=== PATIENT | male | born 1965 | race Caucasian/White ===

== ENCOUNTER 2019-01-13 13:29 | Emergency (ER) | payer OTHER, SELFPAY ==
[2019-01-13 13:29] VITALS: BP 157/82; PULSE 80; RESP 14; TEMP 36.3; O2SAT 98; BMI 26.8
--- NOTE | 2019-01-13 13:59 | RAD_ITS ---
STUDY: X-RAY - LUMBAR SPINE REASON FOR EXAM: Male, 53 years old. Back pain. TECHNIQUE: 3 view(s) of the lumbar spine were obtained. COMPARISON: None FINDINGS: Normal lumbar lordosis. There is no substantial scoliosis. There is a normal alignment of the vertebrae. Normal vertebral bodies and endplates. Normal disc space heights. The soft tissue structures are unremarkable. RAD/Lumbar Spine 2 or 3 Views IMPRESSION: Normal x-ray examination of the lumbar spine. Electronically Signed: Kareem Paul, at 14:27 EDT , Service support ,
[2019-01-13] MEDS: Morphine 4 MG/ML Syringe IM (14:24)
[2019-01-13] MEDS: Orphenadrine 60 MG/2 ML Ampul IM (14:24)
[2019-01-13] MEDS: Ketorolac 60 MG/2 ML Vial IM (14:24)
--- NOTE | 2019-01-13 14:32 | ED.VISSUMM ---
- ER Visit Summary Date of Service: 01/13/19 Chief Complaint: Back pain History of Present Illness: The patient is a 53 M who presents with back pain that began today. Patient states he was bending over to tie his shoe when he felt a pop in his back. Patient states the pain radiates to the left lateral thigh. Patient also admits to some numbness over the left lateral thigh. Patient denies any weakness. Patient states his pain is sharp and stabbing. Patient states the pain is worse when he is sitting or standing upright. Patient states he has been having difficulty ambulated due to the pain. Patient states he has to use something to help support him when he walks. Patient denies any bowel or bladder changes. Patient denies any saddle anesthesia. Physical Examination: Vital signs are stable. Patient is afebrile. Patient is in no acute distress. There is no reproducible tenderness over the lumbar spine and paraspinal muscles. There is pain in the low back with straight leg raising. There is no radicular pain with straight leg raising. Strength is 5/5 bilaterally. Deep tendon reflexes were 2+/4 bilaterally. There are no sensory deficits noted. Range of motion of the lumbar spine was limited in all motion secondary to pain. Test Results: X-rays of the lumbar spine were obtained. There is no acute fracture or spondylolisthesis noted. Emergency Department Course and Treatment: Patient was given injections of Toradol, morphine, and Norflex. Patient felt better on reevaluation. Patient was given prescriptions for Naprosyn, Flexeril, and a short course of [place]. Patient states he has an appoint with his primary care physician in 2 days. Patient was instructed to follow-up with his primary care physician as scheduled. Patient was instructed to rest. Patient was instructed to return if worse in any way. Patient was also instructed to return if he develops any changes in his bowel or bladder. Patient understood and was agreeable with the plan. All questions were answered. Disposition: Discharge home Impression: Acute low back pain This note was generated with [employer] dictation software. It may contain incorrect words, spelling, and punctuation that were not noted in review of the chart prior to signing ED Disposition - Plan for ED Patient: Disposition: Home or Assisted Living Diagnosis: Acute low back pain Instructions: ED Neck Back Pain General Prescriptions: Hydrocodone Bitart/Apap 5-325 [[place] 5MG-325MG] 1 tab PO Q6H PRN PRN 3 Days #10 tab PRN Reason: Pain Naproxen [Naprosyn] 500 mg PO BID PRN #20 tab cycloBENZAPRine HCl [Flexeril] 10 mg PO TID PRN #20 tab PRN Reason: Muscle Spasm Referrals: Clair Perry DO [Primary Care Provider] - Keep Adolfo appointment
--- NOTE | 2019-01-13 14:35 | ED.DCSUM_ITS ---
- ER Visit Summary Date of Service: 01/13/19 Chief Complaint: Back pain History of Present Illness: The patient is a 53 M who presents with back pain that began today. Patient states he was bending over to tie his shoe when he felt a pop in his back. Patient states the pain radiates to the left lateral th igh. Patient also admits to some numbness over the left lateral thigh. Patient denies any weakness. Patient states his pain is sharp and stabbing. Patient states the pain is worse when he is sitting or standing upright. Patient states he has been having difficulty ambulated due to the pain. Patient states he has to use something to help support him when he walks. Patient denies any bowel or bladder changes. Patient denies any saddle anesthesia. Physical Examination: Vital signs are stable. Patient is afebrile. Patient is in no acute distress. There is no reproducible tenderness over the lumbar spine and paraspinal muscles. There is pain in the low back with straight leg raising. There is no radicular pain with straight leg raising. Strength is 5/5 bilaterally. Deep tendon reflexes were 2+/4 bilaterally. There are no sensory deficits noted. Range of motion of the lumbar spine was limited in all motion secondary to pain. Test Results: X-rays of the lumbar spine were obtained. There is no acute fracture or spondylolisthesis noted. Emergency Department Course and Treatment: Patient was given injections of Toradol, morphine, and Norflex. Patient felt better on reevaluation. Patient was given prescriptions for Naprosyn, Flexeril, and a short course of [place]. Patient states he has an appoint with his primary care physician in 2 days. Patient was instructed to follow-up with his primary care physician as scheduled. Patient was instructed to rest. Patient was instructed to return if worse in any way. Patient was also instructed to return if he develops any changes in his bowel or bladder. Patient understood and was agreeable with the plan. All questions were answered. Disposition: Discharge home Impression: Acute low back pain This note was generated with [employer] dictation software. It may contain incorrect words, spelling, and punctuation that were not noted in review of the chart prior to signing ED Disposition - Plan for ED Patient: Disposition: Home or Assisted Living Diagnosis: Acute low back pain Instructions: ED Neck Back Pain General Prescriptions: Hydrocodone Bitart/Apap 5-325 [[place] 5MG-325MG] 1 tab PO Q6H PRN PRN 3 Days #10 tab PRN Reason: Pain Naproxen [Naprosyn] 500 mg PO BID PRN #20 tab cycloBENZAPRine HCl [Flexeril] 10 mg PO TID PRN #20 tab PRN Reason: Muscle Spasm Referrals: Clair Perry DO [Primary Care Provider] - Keep Adolfo appointment
[2019-01-13 15:17] VITALS: RESP 18
== END 2019-01-13 15:17 | disposition home or self-care (01) ==
PROVIDERS: Emergency Provider Emergency Medicine; Family Provider Internal Medicine; PCP Internal Medicine
DX: M54.5 Low back pain (principal); I10 Essential (primary) hypertension
CPT/HCPCS: 72100; 96372; 99282

== ENCOUNTER 2019-02-05 13:00 | Outpatient (RCR) | payer OTHER, SELFPAY ==
--- NOTE | 2019-01-20 13:59 | HP.PTEVAL_ITS ---
Patient's Visit Information ANGEL MESA is a 53 year old M referred to Physical Therapy by Clair Perry DO with a diagnosis of L/S radiculopathy. Date of Evaluation: 01/20/19 Physical Therapist: Lucas Morris, DPT, OCS, CSCS - Visit Plan Frequency: 3x /Week Duration: 4-6 Weeks Plan: 3x/week for 2-6 for gradual ext ROM(down from flexion/prone on pillows), posture, ES adn MH, core strength and refunction ex. Pt extremely hunched over and deviated forward at arrival and no PROM able outside of slow prone on pillows. - Subjective Findings: Bent over last Friday to tie shoes before work. No problems day before but has on and off history. Could not get up and sat for two hours, crawled onto bed. Had to crawl to the bathroom. pain is LB R 10 at the time. Now 6/10. Moving is worse at 8/10. Sit too long and cannot get up. Standing is painful. No leg symptoms lately, had some L leg numbness at first. WEnt to ER that day, did x ray whcih showed nothing. Gave pills and they helped and to doctor the next day. Flexeril and prednosione given by doctor which helped alot. Sleep not great, on back. Getting up is hard. 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 Off since last Friday and off until at least 01/30. Dressing self and showering and bathing OK now just labored adn takes longer. - Pain L LBP Pain Intensity (Out of 10): 4 Pain Intensity Range: 4, 8 - Objective Hunched forward and deviated R. Cannot stand up tall. reflexes 2/3 patella adn achilles B. Sensation LE WNL to gross light touch. No c/o bowel or bladder problems. LE strength symmterically limited by pain not myotomal. Walks hunched over and trasnfers slow and painful. Treated with prone on pillowsx4 a nd got down to 2 pillows then stood up. More upright adn no deviation upon standing, still flexed 8 degrees forward at departure but walking better with improved posture. - Goals Goal 1:: Stadn up tall without pain. Goal Time Frame: 4-6 Weeks Goal 2:: Walk and steps without noticing LB Goal Time Frame: 4-6 Weeks Goal 3:: Full aROM L/S without hesitation Goal Time Frame: 2-4 Weeks Goal 4:: Ready to get back to work Goal Time Frame: 4-6 Weeks - Rehabilitation Potential Physical Therapy Diagnosis: LBP likely discal Rehabilitation Potential: Fair - Anticipated Interventions Patient/Client Instruction: Educate patient on: Condition, Plan of Care For the Purpose of:: To decrease pain, To increase ROM, To improve muscle performance and motor function, To improve ability of physical actions for home/community/work/leisure Therapeutic Exercise to Include: Strength training, Postural training, Flexibilty training, Passive ROM, Active ROM, Celia Exercises For the Purpose of:: To decrease pain, To increase ROM, To improve muscle performance and motor function, To improve performance and independence with ADL's, To improve ability of physical actions for home/community/work/leisure Manual Therapy Techniques to Include: Mobilization For the Purpose of:: To increase ROM TENS: Yes Thermo therapy (hot pack): Yes For the Purpose of:: To decrease pain Thank you for the opportunity to evaluate your patient. For Medicare and Medicare HMO plans, please review the plan of care and approve it. It will need to be FAXED BACK to us at [phone] for Medicare purposes. For Medicare only, by signing this I certify the plan of care. Please let me know if there are questions or concerns regarding this plan of care. Physician Signature: Date:
--- NOTE | 2019-02-05 13:12 | HP.PTDCSUM ---
HP - PT D/C Summary It has been my pleasure to treat ANGEL MESA under orders from Clair Perry DO, for the diagnosis of L/S radiculopathy for a total of 7 visit(s). Discharge Date: 02/05/19 Please see the following information for a summary of their discharge status. - Subjective Subjective: No real pain, just feels tired in LB. Morning is very tight. hard to get moving in am. No pain this week, Improving. Stilla voids physical activity like golfing. Back to doctor next Friday. HEP: pelvic tilt movements, lying flat in prone. Still needs ROM with bending and twisting. Feels like he is ready to be done with PT. Will keep doing ex at home. - Pain L LBP Pain Intensity (Out of 10): 4 - Overall Improvement % Improvement: 85 - Objective Objective/Function: Pt has mod limitations in ext whcih improve after PPU. Much better ROM vs initial visit. Able to stand up tall without pain and transfer out of chair without difficulty. Bends forward without a challenge. stille xhibits poor posture. He wishes to be done with PT and return to work after next week which should be fine with some care and focus. Further PT should be considered for more strengthening if pain returns. - Goals Goal 1:: Stadn up tall without pain. Goal Progress: Goal Met Goal 2:: Walk and steps without noticing LB Goal Progress: Goal Met Goal 3:: Full aROM L/S without hesitation Goal Progress: Progressing Goal 4:: Ready to get back to work Goal Progress: one more week. - Plan Plan: D/C at pt request. - D/C Information Discharge Comments: Pt doing well with everyday ADLs. Moving significantly better then 2 weeks ago. Still exhibits some poor postural habits. May benefit from further strength in future if pain returns. If there are questions or concerns regarding this patient's physical therapy, please feel free to call me at [phone]. Thank you for the referral of this patient. Sincerely, Lucas Morris, DPT, OCS, CSCS
== END 2019-02-05 19:00 | disposition home or self-care (01) ==
LOC: PT 13:00
PROVIDERS: Family Provider Internal Medicine; PCP Internal Medicine; Visit Provider Internal Medicine
DX: M54.16 Radiculopathy, lumbar region (principal)
CPT/HCPCS: 97032; 97110; 97162; 97530

== ENCOUNTER → 2021-05-29 08:08 | Outpatient (REF) | payer SELFPAY | LOC: CVS 08:08 | DX: Z00.00 Encounter for general adult medical examination without abnormal findings (principal) ==

== ENCOUNTER → 2025-01-07 | Outpatient (CLI) | payer OTHER, SELFPAY ==
[2025-01-07 16:43] LABS: CRP < 3.00 mg/L (0.0-3.0)
[2025-01-11 15:08] LABS: Immunoglobulin A 227 mg/dL (90-386); t-Transglutaminase IgA <2 U/mL (0-3)
== END | disposition home or self-care (01) ==
LOC: LAB 14:13
PROVIDERS: PCP Internal Medicine; Referring Provider Nurse Practitioner Acute Care; Visit Provider Nurse Practitioner Acute Care
DX: R19.7 Diarrhea, unspecified (principal); R63.4 Abnormal weight loss
CPT/HCPCS: 36415; 82784; 83516; 84443; 86140

== ENCOUNTER 2025-02-24 06:54 | Day surgery (SDC) | payer OTHER, SELFPAY ==
[2025-02-24] VITALS (7 sets, daily range): BP systolic 103–124; BP diastolic 61–81; PULSE 57–73; RESP 16–18; TEMP 36.2–36.6; O2SAT 97–99; BMI 26.4
--- OUTSIDE RECORDS SUMMARY | 2025-02-24 06:59 | XMS RPT_ITS | CCD ---
Author Organization [facility] Care Team Providers Care Production Utility Worker Name Role Phone IRMA VENCES Unavailable Unavailable PHYSICIAN, PATIENT UNSURE Unavailable Clair Hussein Unavailable Yvette Chin Unavailable Thao Schaefer Unavailable Unavailable Gravius, Ml Unavailable Unavailable Ronak, Sole Unavailable Unavailable Unavailable Unavailable Clair Perry Unavailable Yvette Chin Unavailable Thao Schaefer Unavailable Unavailable Ronak, Sole Unavailable Unavailable Unavailable Unavailable [facility] Unavailable Juhi Paige Unavailable Unavailable Ariel, Rosalinda L Unavailable Unavailable Vani Marks Unavailable Unavailable Thao Schaefer Unavailable Unavailable Yadira Harris Unavailable Andrea Velasquez Unavailable Unavailable Gravius, Ml Unavailable Unavailable Federica Perry DOhleen Unavailable [facility] Unavailable Yvette Chin MD Unavailable Vani Marks LPN Unavailable Unavailable Ciesheidi LOPEZ Breana Unavailable Thao Schaefer RN Unavailable Unavailable Gravius COLLEGE HIRE, Ml Unavailable Unavailable Ronak, Sole Unavailable Unavailable Unavailable Unavailable Uriel Delgadillo Unavailable Vicky CAAL Clair Unavailable Dr. Sourav Araujo Unavailable [facility] BURNER OPERATOR, Monika Unavailable Unavailable Clair Perry DO Attending Unavailable Yvette Chin MD Referring Unavailable Clair Perry DO Consulting Unavailable Glen CHUNG, Rodolfo Unavailable Unavailable Clair Perry DO Primary Care Provider Care Physician, No Primary Primary Care Provider Unavailable Assessment, Health Risk Attending Provider Unava ilusman Hahn MD, Dr. Goldberg Attending Provider [phone] Care Physician, No Primary Referring Provider Un available Vanessa Esquivel Attending Provider Dr. Clair Perry DO Primary Care Provider Ricardo DUNCANCVanessa Referring Provider Care Physician, No Primary Primary Care Unava ilable Yusuf Hahn Attending Unavailable Clair Perry Primary Care Unavailable Vanessa Silva Referring Unavailable Vanessa Silva Attending Unavailable Jun Collins Attending Unavailable Clair Perry Primary Care Unavailable Care Physician, No Primary Primary Care Unava ilable Assessment, Health Risk Attending Unavaila ble Clair Perry Primary Care Unavailable Care Physician, No Primary Referring Unava ilable Vanessa Silva Attending Unavailable Medications Current Medications Medication Drug Class(es) Dates Sig (Normalized) Sig (Original) aspirin 81 mg delayed release oral tablet (1 source) Platelet Aggregation Inhibitor, Nonsteroidal Anti-inflammatory Drug take 1 tablet by mouth once daily aspirin, enteric coated (ASPIRIN, ENTERIC COATED) 81 mg EC tablet Take 81 mg by mouth once daily. Active aspirin 500 mg / caffeine 32.5 mg oral tablet (1 source) Platelet Aggregation Inhibitor, Nonsteroidal Anti-inflammatory Drug, Central Nervous System Stimulant, Methylxanthine Start: 12-10-2024 Aspirin-Caffeine (Eric Back And Body) 500-32.5 mg tablet Active 2 {tbl} PO daily December 10, 2024 12:00am Multivitamin capsule (1 source) take 1 capsule by mouth once daily Multivitamin capsule Take 1 capsule by mouth once daily. Active Multivitamin tablet (1 source) Start: 12-10-2024 Multivitamin tablet Active 1 {tbl} PO daily December 10, 2024 12:00am rifAXIMin 550 mg oral tablet (1 source) Rifamycin Antibacterial Start: 01-02-2025 take 1 tablet by mouth three times daily Rifaximin (Xifaxan) 550 mg tablet Active 550 mg PO THREE TIMES A DAY January 02, 2025 12:00am rosuvastatin calcium 5 mg oral tablet (3 sources) HMG-CoA Reductase Inhibitor Start: 12-10-2024 take 1 tablet by mouth once daily Rosuvastatin 5 mg tablet Active 5 mg PO daily December 10, 2024 12:00am Start: 04-07-2023 take 1 tablet by poornima th once daily at bedtime Crestor 5 mg oral tablet 1 (one) tablet qhs for 0 days Quantity: 30 {Tablet} Refills: 5 Ordered: 07-Apr-2023 Clair Perry DO, DO, Kathleen Start : 07-Apr-2023 Active Start: 2023 take 1 tablet by poornima th once daily at bedtime Crestor 5 mg oral tablet 1 (one) tablet qhs for 0 days Quantity: 30 {Tablet} Refills: 5 Ordered: 14-Mar-2023 Clair Perry DO, DO, Kathleen Start : 14-Mar-2023 Active Completed/Discontinued Medications Medication Drug Class(es) Dates Sig (Normalized) Sig (Original) acetaminophen 500 mg oral tablet (20 sources) take 1 tablet by mouth twice daily TYLENOL EXTRA STRENGTH, 500MG (Oral Tablet) 1 tab bid (500 MG) Active acetaminophen 325 mg / HYDROcodone bitartrate 5 mg oral tablet (20 sources) Opioid Agonist Start: 02-10-2019 End: 02-15-2019 take 1 tablet by mouth every six hours as needed [place] 5-325 MG Oral Tablet 1 (one) Tablet q6h prn for 5 days Quantity: 20 {Tablet} Refills: 0 Ordered: 10-Feb-2019 Clair Perry DO, DO, Kathleen Start : 10-Feb-2019 End : 15-Feb-2019 Inactive Comments: M54.5twenty Start: 01-13-2019 End: 01-19-2019 take 1 tablet by mouth every six hours as needed [place] 5-325 MG Oral Tablet 1 (one) Tablet q6h prn for 5 days Quantity: 20 {Tablet} Refills: 0 Ordered: 14-Jan-2019 Clair Perry DO, DO, Kathleen Start : 14-Jan-2019 End : 19-Jan-2019 Inactive Start: 09-11-2010 End: 09-29-2012 take 1 tablet by mouth every six hours VICODIN, 5-500MG (Oral Tablet) 1 Tablet q 6 hr for 0 days Quantity: 30 {Tablet} Refills: 0 Ordered: 29-Sep-2012 hTao Schaefer RN Start : 11-Sep-2010 End : 29-Sep-2012 Inactive Comments: geronimo Start: 09-11-2010 End: 09-29-2012 take 1 tablet by mouth every six hours VICODIN, 5-500MG (Oral Tablet) 1 Tablet q 6 hr for 0 days Quantity: 30 {Tablet} Refills: 0 Ordered: 29-Sep-2012 Thao Schaefer LPN Start : 11-Sep-2010 End : 29-Sep-2012 Inactive Comments: thirty Comment on above: geronimo [id number] [id number] 200 actuat albuterol 0.09 mg/actuat metered dose inhaler (20 sources) beta2-Adrenergic Agonist Start: 07-17-2010 End: 09-29-2012 take 2 puff(s) by mouth three times daily PROVENTIL HFA, 108 (90 Base)MCG/ACT (Inhalation Aerosol Solution) 2 (two) Puff(s) tid prn for 0 days Quantity: 1 {Aerosol_Soln} Refills: 0 Ordered: 29-Sep-2012 Thao Schaefer RN Start : 17-Jul-2010 End : 29-Sep-2012 Inactive Comments: rinse mouth out after use Start: 07-17-2010 End: 09-29-2012 take 2 puff(s) by mouth three times daily PROVENTIL HFA, 108 (90 Base)MCG/ACT (Inhalation Aerosol Solution) 2 (two) Puff(s) tid prn for 0 days Quantity: 1 {Aerosol_Soln} Refills: 0 Ordered: 29-Sep-2012 Thao Schaefer RN Start : 17-Jul-2010 End : 29-Sep-2012 Inactive Comments: rinse mouth out after use take 2 puff(s) by in halation four times daily as needed PROAIR HFA, 108 (90 Base)MCG/ACT (Inhalation Aerosol Solution) 2 puffs qid, prn (108 (90 Base) MCG/ACT) Inactive take 2 puff(s) by in halation four times daily as needed PROAIR HFA, 108 (90 Base)MCG/ACT (Inhalation Aerosol Solution) 2 puffs qid, prn (108 (90 Base) MCG/ACT) Inactive Comment on above: rinse mouth out afte r use amoxicillin 120 mg/ml / clavulanate 8.58 mg/ml oral suspension (20 sources) Penicillin-class Antibacterial Start: 0 End: 0 take 7.3 mL by mouth twice daily Amoxicillin-Pot Clavulanate 600-42.9 MG/5ML Oral Suspension Reconstituted 7.3 Milliliter bid for 10 days Quantity: 146 {Milliliter} Refills: 0 Ordered: 27-Aug-2019 Clair Perry DO, DO, Kathleen Start : 27-Aug-2019 End : 06-Sep-2019 Inactive Start: 09-11-2010 End: 09-29-2012 take 1 tablet by mouth twice daily AUGMENTIN, 875-125MG (Oral Tablet) 1 (one) Tablet bid for 0 days Quantity: 20 {Tablet} Refills: 0 Ordered: 29-Sep-2012 Thao Schaefer RN Start : 11-Sep-2010 End : 29-Sep-2012 Inactive ascorbic acid 500 mg oral tablet (20 sources) take 1 tablet by mouth once daily VITAMIN C, 500MG (Oral Tablet) 1 (one) daily (500 MG) Inactive azithromycin 250 mg oral tablet (20 sources) Macrolide Antimicrobial Start: 015 End: 015 ZITHROMAX Z-RONALD, 250MG (Oral Tablet) 1 (one) Tablet TAD for 0 days Quantity: 1 {Package} Refills: 0 Ordered: 03-Jul-2015 Start : 27-Oct-2014 End : 03-Jul-2015 Discontinued Comments: will call if need void after 30 days Comment on above: will call if need vo id after 30 days breath-actuated 120 actuat beclomethasone dipropionate 0.04 mg/actuat metered dose inhaler (20 sources) Corticosteroid Start: 018 End: 018 take 1 puff(s) by inhalation once in the morning Qvar RediHaler 40 MCG/ACT Inhalation Aerosol Breath Activated 1 (one) Puff q am for 90 days Quantity: 3 {Inhaler} Refills: 3 Ordered: 13-Nov-2017 Ronak Raghuie Start : 11-Nov-2017 End : 13-Nov-2017 Discontinued Start: 11-10-2017 End: 11-11-2017 take 2 puff(s) by inhalation once in the morning Qvar 40 MCG/ACT Inhalation Aerosol Solution 2 (two) puffs q am for 0 days Quantity: 3 {Inhaler} Refills: 3 Ordered: 11-Nov-2017 Sole Simons Start : 10-Nov-2017 End : 11-Nov-2017 Discontinued Start: 11-10-2017 End: 11-11-2017 take 2 puff(s) by inhalation once in the morning Qvar 40 MCG/ACT Inhalation Aerosol Solution 2 (two) puffs q am for 0 days Quantity: 3 {Inhaler} Refills: 3 Ordered: 11-Nov-2017 Sole Simons Start : 10-Nov-2017 End : 11-Nov-2017 Discontinued 120 actuat budesonide 0.08 mg/actuat / formoterol fumarate 0.0045 mg/actuat metered dose inhaler (20 sources) Corticosteroid, beta2-Adrenergic Agonist Start: 11-24-2017 End: 02-22-2018 take 1 puff(s) by inhalation twice daily Symbicort 80-4.5 MCG/ACT Inhalation Aerosol 1 (one) Puff BID for 90 days Quantity: 3 {Inhaler} Refills: 0 Ordered: 24-Nov-2017 Clair Perry DO, DO, Kathleen Start : 24-Nov-2017 End : 22-Feb-2018 Inactive Start: 11-24-2017 End: 02-22-2018 take 1 puff(s) by inhalation twice daily Symbicort 80-4.5 MCG/ACT Inhalation Aerosol 1 (one) Puff BID for 90 days Quantity: 3 {Inhaler} Refills: 0 Ordered: 24-Nov-2017 Clair Perry DO, DO, Kathleen Start : 24-Nov-2017 End : 22-Feb-2018 Inactive 24 hr clarithromycin 500 mg extended release oral tablet (20 sources) Macrolide Antimicrobial Start: 07-16-2010 End: 07-30-2010 take 2 tablets by mouth once daily BIAXIN XL PAC, 500MG (Oral Tablet Extended Release 24 Hour) 2 (two) Tablet ER 24HR daily for 14 days Quantity: 28 {Tablet_ER_24HR} Refills: 0 Ordered: 16-Jul-2010 Yadira Harris Start : 16-Jul-2010 End : 30-Jul-2010 Inactive Start: 07-16-2010 End: 07-30-2010 take 2 tablets by mouth once daily BIAXIN XL PAC, 500MG (Oral Tablet Extended Release 24 Hour) 2 (two) Tablet ER 24HR daily for 14 days Quantity: 28 {Tablet_ER_24HR} Refills: 0 Ordered: 16-Jul-2010 Yadira Harris CNP Start : 16-Jul-2010 End : 30-Jul-2010 Inactive codeine phosphate 2 mg/ml / guaiFENesin 20 mg/ml oral solution (20 sources) Opioid Agonist Start: 08-07-2020 End: 04-27-2021 Cheratussin AC 100-10 MG/5ML Oral Solution 5-10 Milliliter tid or qid prn for 0 days Quantity: 280 {Milliliter} Refills: 0 Ordered: 07-Aug-2020 Ml Gomez CMA Start : 07-Aug-2020 End : 27-Apr-2021 Discontinued Comments: This order discontinued per [employer]. Start: 08-27-2019 End: 01-03-2020 take 5-10 mL by mouth every eight hours as needed Cheratussin AC 100-10 MG/5ML Oral Syrup 5-10 Milliliter q8hrs prn for 0 days Quantity: 60 {Milliliter} Refills: 0 Ordered: 03-Jan-2020 Ml Gomez CMA Start : 27-Aug-2019 End : 03-Jan-2020 Inactive Start: 10-28-2014 End: 07-03-2015 CHERATUSSIN AC, 100-10MG/5ML (Oral Syrup) 1 Teaspoon(s) q8hrs prn for 0 days Quantity: 6 {Ounce} Refills: 0 Ordered: 03-Jul-2015 Start : 28-Oct-2014 End : 03-Jul-2015 Discontinued Comments: called to [facility] 10-28-14 heather Comment on above: called to [facility] 10-28 heather This order discontin ued per [facility]. cyclobenzaprine hydrochloride 10 mg oral tablet (20 sources) Muscle Relaxant Start: 019 End: 019 take 1 tablet by mouth twice daily as needed Cyclobenzaprine HCl 10 MG Oral Tablet 1 (one) Tablet bid prn for 10 days Quantity: 20 {Each} Refills: 0 Ordered: 25-Jan-2019 Clair Perry DO Vicky CAAL Clair Start : 14-Jan-2019 End : 24-Jan-2019 Inactive Comments: [facility] Start: 01-13-2019 End: 12-10-2024 take 1 tablet by mouth three times daily as needed for muscle spasms Cyclobenzaprine 10 MG tablet Discontinued 10 mg PO THREE TIMES A DAY as needed for Muscle Spasm January 13, 2019 12:00am December 10, 2024 3:47pm Start: 09-09-2006 End: 09-25-2006 take 1 tablet by mouth twice daily as needed FLEXERIL, 10MG (Oral Tablet) Tablet BID/PRN for 0 days Quantity: 30 {Tablet} Refills: 0 Ordered: 09-Sep-2006 Kay Fields Start : 09-Sep-2006 End : 25-Sep-2006 Discontinued Comment on above: [facility] dexamethasone 6 mg oral tablet (17 sources) Corticosteroid Start: 2019 End: 2019 take 1 tablet by mouth once daily at mealtime Dexamethasone 6 MG Oral Tablet 1 (one) Tablet daily for 5 days Quantity: 5 {Tablet} Refills: 0 Ordered: 07-Aug-2020 KiannaYadira matthew Start : 07-Aug-2020 End : 12-Aug-2020 Inactive Comments: with food Comment on above: with food doxycycline hyclate 100 mg oral capsule (20 sources) Tetracycline-class Drug Start: 2015 End: 2015 Doxycycline Hyclate 100 MG Oral Capsule 1 (one) Capsule take 2 once for 0 days Quantity: 2 {QS} Refills: 0 Ordered: 24-Jun-2016 Thao Schaefer RN Start : 18-Dec-2015 End : 24-Jun-2016 Inactive esomeprazole 40 mg delayed release oral capsule (20 sources) Proton Pump Inhibitor Start: 2013 End: 2015 take 1 capsule by mouth once daily NexIUM 40 MG Oral Capsule Delayed Release 1 (one) Capsule DR qd for 0 days Quantity: 30 {Capsule} Refills: 3 Ordered: 24-Jun-2016 Thao Schaefer RN Start : 29-Mar-2014 End : 24-Jun-2016 Inactive hydroCHLOROthiazide 12.5 mg / losartan potassium 50 mg oral tablet (20 sources) Thiazide Diuretic, Angiotensin 2 Receptor Chastity Start: 2022 take 1 tablet by mouth once daily Hyzaar 50-12.5 mg oral tablet 1 (one) Tablet qd for 90 days Quantity: 90 {Tablet} Refills: 1 Ordered: 24-Dec-2022 Vicky DO, Clair Vicky DO, Clair Start : 24-Dec-2022 Active Start: 07-01-2022 take 1 tablet by poornima th once daily Hyzaar 50-12.5 MG Oral Tablet 1 (one) Tablet qd for 90 days Quantity: 90 {Tablet} Refills: 1 Ordered: 01-Jul-2022 Vicky DO, Clair Vicky DO Clair Start : 01-Jul-2022 Active Start: 01-04-2022 take 1 tablet by poornima th once daily Hyzaar 50-12.5 MG Oral Tablet 1 (one) Tablet qd for 90 days Quantity: 90 {Tablet} Refills: 1 Ordered: 04-Jan-2022 GravDu garcia CMAin Start : 04-Jan-2022 Active Start: 12-19-2021 take 1 tablet by poornima th once daily Hyzaar 50-12.5 MG Oral Tablet 1 (one) Tablet qd for 90 days Quantity: 90 {Tablet} Refills: 0 Ordered: 19-Dec-2021 Vicky DO, Clair Vicky DO Clair Start : 19-Dec-2021 Active Start: 12-26-2020 take 1 tablet by poornima th once daily Hyzaar 50-12.5 MG Oral Tablet 1 (one) Tablet qd for 90 days Quantity: 90 {Tablet} Refills: 3 Ordered: 26-Dec-2020 Vicky DO, Clair Vicky DO, Clair Start : 26-Dec-2020 Active Start: 07-21-2020 take 1 tablet by poornima th once daily Hyzaar 50-12.5 MG Oral Tablet 1 (one) Tablet qd for 90 days Quantity: 90 {Tablet} Refills: 3 Ordered: 21-Jul-2020 Vicky DO, Clair Vicky DO Clair Start : 21-Jul-2020 Active Start: 09-15-2017 take 1 tablet by poornima th once daily Hyzaar 50-12.5 MG Oral Tablet 1 (one) Tablet qd for 90 days Quantity: 90 {Tablet} Refills: 3 Ordered: 17-Nov-2019 Clair Perry DO, DO, Kathleen Start : 17-Nov-2019 Active levoFLOXacin 500 mg oral tablet (20 sources) Quinolone Antimicrobial Start: 07-30-2010 End: 09-11-2010 take 1 tablet by mouth once daily LEVAQUIN, 500MG (Oral Tablet) 1 Tablet qd for 0 days Quantity: 10 {Tablet} Refills: 0 Ordered: 11-Sep-2010 Thao Schaefer RN Start : 30-Jul-2010 End : 11-Sep-2010 Inactive 12 hr loratadine 5 mg / pseudoephedrine sulfate 120 mg extended release oral tablet (20 sources) alpha-Adrenergic Agonist Start: 07-23-2010 End: 09-11-2010 take 5-120 mg by mouth every twelve hours CLARITIN-D 12 HOUR, 5-120MG (Oral Tablet Extended Release 12 Hour) 1 Tablet ER 12HR q 12 hrs for 0 days Quantity: 20 {Tablet_ER_12HR} Refills: 0 Ordered: 11-Sep-2010 Thao Schaefer RN Start : 23-Jul-2010 End : 11-Sep-2010 Inactive meloxicam 15 mg oral tablet (9 sources) Nonsteroidal Anti-inflammatory Drug Start: 06-12-2022 take 1 tablet by mouth once daily at mealtime meloxicam 15 mg oral tablet 1 (one) Tablet qd with food for 0 days Quantity: 30 {Tablet} Refills: 2 Ordered: 12-Jun-2022 Clair Perry DO, DO, Kathleen Start : 12-Jun-2022 Active Start: 06-10-2022 take 1 tablet by poornima th once daily at mealtime Meloxicam 15 MG Oral Tablet 1 (one) Tablet qd with food for 0 days Quantity: 30 {Tablet} Refills: 2 Ordered: 10-Jun-2022 Clair Perry DO, DO, Kathleen Start : 10-Jun-2022 Active Start: 01-04-2022 take 1 tablet by poornima th once daily at mealtime Meloxicam 15 MG Oral Tablet 1 (one) Tablet qd with food for 0 days Quantity: 30 {Tablet} Refills: 2 Ordered: 04-Jan-2022 Clair Perry DO, DO, Kathleen Start : 04-Jan-2022 Active 24 hr metoprolol succinate 25 mg extended release oral tablet (20 sources) beta-Adrenergic Chastity Start: 07-07-2015 End: 12-18-2015 take 1 tablet by mouth every twenty-four hours in the morning TOPROL XL, 25MG (Oral Tablet Extended Release 24 Hour) 1 (one) Tablet ER 24HR in am for 0 days Quantity: 30 {Tablet} Refills: 2 Ordered: 18-Dec-2015 Monika Mccullough LPN Start : 07-Jul-2015 End : 18-Dec-2015 Discontinued 120 actuat mometasone furoate 0.22 mg/actuat dry powder inhaler (20 sources) Corticosteroid Start: 05-27-2018 End: 11-09-2018 take 1 puff(s) by inhalation twice daily Asmanex 120 Metered Doses 220 MCG/INH Inhalation Aerosol Powder Breath Activated 1 (one) Puff bid for 30 days Quantity: 1 {Inhalation} Refills: 4 Ordered: 09-Nov-2018 Thao Schaefer RN Start : 27-May-2018 End : 09-Nov-2018 Inactive multivitamin (20 sources) take 1 tablet by mouth once daily MULTIVITAMIN (PO Tab) 1 (one) daily Active naproxen 500 mg oral tablet (1 source) Nonsteroidal Anti-inflammatory Drug Start: 01-13-2019 End: 12-10-2024 take 1 tablet by mouth twice daily as needed Naproxen 500 MG tablet Discontinued 500 mg PO TWICE DAILY NEEDED January 13, 2019 12:00am December 10, 2024 3:43pm omeprazole 20 mg delayed release oral tablet (20 sources) Proton Pump Inhibitor Start: 03-30-2014 End: 10-27-2014 take 1 tablet by mouth once daily OMEPRAZOLE, 20MG (Oral Tablet Delayed Release) 1 (one) Tablet DR qd for 0 days Quantity: 30 {Tablet} Refills: 0 Ordered: 27-Oct-2014 MAYNOR Gaines LPN Start : 30-Mar-2014 End : 27-Oct-2014 Inactive predniSONE 20 mg oral tablet (20 sources) Corticosteroid Start: 03-15-2019 End: 05-26-2019 predniSONE 20 MG Oral Tablet TAD Tablet 1 bid x 3 days, 1 daily x 4 days, 1/2 x 4 days for 0 days Quantity: 12 {Tablet} Refills: 0 Ordered: 26-May-2019 Andrea Simons LPN Start : 15-Mar-2019 End : 26-May-2019 Inactive Comments: take with food Start: 01-14-2019 predniSONE 20 MG Oral Tablet TAD Tablet 1 bid x 3 days, 1 daily x 4 days, 1/2 x 4 days for 0 days Quantity: 12 {Tablet} Refills: 0 Ordered: 14-Jan-2019 Vicky CAAL Clair Vicky CAAL Clair Start : 14-Jan-2019 Active Comments: take with food Start: 07-23-2010 End: 09-11-2010 PREDNISONE, 20MG (Oral Table t) TAD Tablet 1 bid x 3 days, 1 daily x 4 days, 1/2 x 4 days for 0 days Quantity: 12 {Tablet} Refills: 0 Ordered: 11-Sep-2010 Thao Schaefer LPN Start : 23-Jul-2010 End : 11-Sep-2010 Inactive Comments: take with food Comment on above: take with food Qvar RediHaler 40 MCG/ACT Inhalation Aerosol Breath Activated (1 source) Start: 11-11-2017 End: 11-13-2017 take 1 puff(s) by inhalation once in the morning Qvar RediHaler 40 MCG/ACT Inhalation Aerosol Breath Activated 1 (one) Puff q am for 90 days Quantity: 3 {Inhaler} Refills: 3 Ordered: 13-Nov-2017 Sole Simons Start : 11-Nov-2017 End : 13-Nov-2017 Discontinued Problems Active Problems Problem Classification Problem Date Documented Da te Episodic/Chronic Administrative/social admission (20 sources) Counseling procedure with explicit context; Translations: [Patient encounter status] 07-16-2017 Episodic Alcohol-related disorders (20 sources) Alcohol abuse; Translations: [Alcohol abuse] 07-16-2017 Chronic Allergic reactions (20 sources) Dermatitis; Translations: [Eczema] Resolved: 9 02-15-2009 Episodic Asthma (20 sources) Unspecified asthma with status asthmaticus; Translations: [Acute severe exacerbation of intrinsic asthma] 05-27-2018 Chronic Comment on above: stable stable w/o inhalers Asthma (20 sources) Asthma Cardiac dysrhythmias (20 sources) Palpitations; Translations: [PALPITATIONS (Renamed from Awareness of heartbeats)] 07-16-2017 Episodic Comment on above: had in past, echo 2 normal some stress and stopped exercising so try [email or web address] on exercise. Chronic obstructive pulmonary disease and bronchiectasis (20 sources) Bronchitis; Translations: [Bronchitis] Resolved: 4 05-23-2015 Episodic Chronic obstructive pulmonary disease and bronchiectasis (20 sources) Chronic obstructive pulmonary disease and bronchiectasis Diabetes mellitus without complication (20 sources) Abnormal glucose tolerance test; Translations: [Abnormal glucose tolerance test (Renamed from Abnormal glucose tolerance test (GTT))] 09-03-2021 Episodic Disorders of lipid metabolism (20 sources) Hypertriglyceridemia; Translations: [Hypertriglyceridemia] 02-10-2019 Chronic Essential hypertension (20 sources) Benign hypertension; Translations: [HTN (hypertension), benign] 11-09-2018 Chronic Comment on above: follow trends before increase meds with wt loss Fluid and electrolyte disorders (20 sources) Hypokalemia; Translations: [Hypokalemia] Resolved: 1 05-03-2021 Episodic Headache, including migraine (20 sources) Headache; Translations: [Acute intractable headache, unspecified headache type] Resolved: 6 07-16-2017 Episodic Comment on above: massage hlepd Headache, including migraine (20 sources) Headache, including migraine Hyperplasia of prostate (20 sources) Benign prostatic hyperplasia; Translations: [Benign prostatic hyperplasia] 07-16-2017 Chronic Comment on above: stream ok Immunizations and screening for infectious disease (20 sources) Need for prophylactic vaccination and inoculation against influenza; Translations: [Contact with and (suspected) exposure to other viral communicable diseases] 08-01-2020 Episodic Comment on above: from daughter, sympt oms Day #2 Lymphadenitis (20 sources) Axillary lymphadenopathy; Translations: [Axillary lymphadenopathy] Resolved: 6 07-16-2017 Episodic Malaise and fatigue (20 sources) Fatigue; Translations: [Fatigue, unspecified type] Resolved: 6 07-16-2017 Episodic Nonspecific chest pain (20 sources) Chest pain; Translations: [Chest pain] Resolved: 9 09-17-2013 Episodic Comment on above: atypical--with FMX Other bone disease and musculoskeletal deformities (20 sources) Osteochondropathy; Translations: [Bone/cartilage disorder] 07-16-2017 Chronic Other bone disease and musculoskeletal deformities (20 sources) Osteochondropathy; Translations: [Bone/cartilage disorder] 08-07-2020 Episodic Other circulatory disease (20 sources) Elevated blood-pressure reading without diagnosis of hypertension; Translations: [Elevated blood-pressure reading without diagnosis of hypertension] 07-16-2017 Episodic Other connective tissue disease (20 sources) Pain in left hand; Translations: [Pain of left hand] Resolved: 3 11-09-2018 Episodic Comment on above: declined x-ray Other connective tissue disease (20 sources) Pain in left foot; Translations: [Foot pain, left] Resolved: 0 08-01-2020 Episodic Other connective tissue disease (20 sources) Triggering of digit; Translations: [Trigger finger, left middle finger] 09-03-2021 Episodic Other connective tissue disease (15 sources) Impingement syndrome of left shoulder region; Translations: [Impingement syndrome of left shoulder] 01-04-2022 Episodic Comment on above: nsaid - PT -- pt dec lined inj now Other connective tissue disease (15 sources) Tendinitis of right elbow; Translations: [Tendonitis of elbow, right] 01-04-2022 Episodic Other gastrointestinal disorders (20 sources) Diarrhea; Translations: [Diarrhea (Renamed from D (diarrhea))] Resolved: 4 10-27-2014 Episodic Other gastrointestinal disorders (1 source) Gastrointestinal tract problem; Translations: [Other specified symptoms and signs involving the digestive system and abdomen] 12-10-2024 Episodic Other gastrointestinal disorders (1 source) Diarrhea, unspecified; Translations: [Diarrhea, unspecified] Onset: 5 Episodic Other hematologic conditions (20 sources) Abnormality of globulin; Translations: [Increased globulin] 07-16-2017 Episodic Other injuries and conditions due to external causes (20 sources) Tick bite; Translations: [Tick bite of abdomen] Resolved: 6 07-16-2017 Episodic Comment on above: deer tick on abd and knee will treat as if Other injuries and conditions due to external causes (20 sources) Muscle strain; Translations: [Muscle strain] Resolved: 3 07-16-2017 Episodic Other injuries and conditions due to external causes (20 sources) Injury of wrist; Translations: [Wrist injury (Renamed from Injury of wrist)] Resolved: 4 10-27-2014 Episodic Other lower respiratory disease (20 sources) Chronic cough; Translations: [cough 786.2 (Renamed from Chronic cough)] Resolved: 4 10-27-2014 Episodic Comment on above: dry Other lower respiratory disease (20 sources) Wheezing; Translations: [Wheezing] Resolved: 4 10-27-2014 Episodic Other nervous system disorders (20 sources) Paresthesia; Translations: [Paresthesia] Resolved: 5 05-30-2015 Episodic Other non-traumatic joint disorders (20 sources) Wrist joint pain; Translations: [Wrist joint pain (Renamed from Arthralgia of wrist)] Resolved: 4 10-27-2014 Episodic Other non-traumatic joint disorders (20 sources) Joint pain; Translations: [Arthralgia] Resolved: 6 07-16-2017 Episodic Comment on above: check labs Other nutritional; endocrine; and metabolic disorders (20 sources) Body mass index 25-29 - overweight; Translations: [BMI 25.0-25.9,adult] Resolved: 0 07-16-2017 Chronic Other nutritional; endocrine; and metabolic disorders (18 sources) Body mass index 30+ - obesity; Translations: [BMI 33.0-33.9,adult] Resolved: 2 09-03-2021 Chronic Other nutritional; endocrine; and metabolic disorders (20 sources) Body mass index 25-29 - overweight; Translations: [BMI 26.0-26.9,adult] Resolved: 0 08-07-2020 Episodic Other nutritional; endocrine; and metabolic disorders (20 sources) Overweight in adulthood with body mass index of 25 or more but less than 30; Translations: [BMI 26.0-26.9,adult] Resolved: 0 01-04-2022 Episodic Other nutritional; endocrine; and metabolic disorders (1 source) Weight decreased; Translations: [Abnormal weight loss] 01-02-2025 Episodic Other screening for suspected conditions (not mental disorders or infectious disease) (20 sources) Imaging of thorax abnormal; Translations: [Abnormal chest x-ray] Resolved: 5 10-27-2014 Chronic Other skin disorders (20 sources) Eruption; Translations: [Rash] Resolved: 4 10-27-2014 Episodic Other skin disorders (20 sources) Tongue swelling; Translations: [Tongue swelling (Renamed from Glossal swelling)] Resolved: 4 10-27-2014 Episodic Comment on above: ? ibu. ? acquire ang ioedema. will check labs. also swell in finger Other skin disorders (20 sources) Skin lesion; Translations: [Skin lesion of back] Resolved: 3 07-21-2020 Episodic Other skin disorders (8 sources) Senile hyperkeratosis; Translations: [SK (seborrheic keratosis)] 07-21-2020 Episodic Comment on above: reasssurrance given Other skin disorders (20 sources) Other seborrheic keratosis; Translations: [Seborrheic keratosis] 08-07-2020 Episodic Comment on above: reasssurrance given Other skin disorders (20 sources) Finding of axilla; Translations: [Axillary fullness] Resolved: 6 07-16-2017 Episodic Other skin disorders (15 sources) Abnormality of nail surface; Translations: [Abnormality of nail surface] 01-04-2022 Episodic Other upper respiratory infections (20 sources) Acute sinusitis; Translations: [Acute pharyngitis] Resolved: 5 07-07-2015 Episodic Comment on above: nettipot and mucinex if not better after this weekend get zpak nettipot and mucinex Pneumonia (20 sources) Bacterial pneumonia; Translations: [Severe acute respiratory syndrome] Resolved: 4 07-04-2015 Episodic Comment on above: Day #8 along with wi fe, cough worse Pneumonia (20 sources) Pneumonia Residual codes; unclassified (20 sources) Flushing; Translations: [Flushing] Resolved: 6 07-16-2017 Episodic Residual codes; unclassified (20 sources) Body mass index (BMI) 24.0-24.9, adult; Translations: [Body mass index 20-24 - normal] Resolved: 9 11-09-2018 Episodic Residual codes; unclassified (20 sources) Sleep disorder Episodic Residual codes; unclassified (20 sources) Current non-smoker ; Translations: [Current non-smoker] 08-07-2020 Episodic Residual codes; unclassified (20 sources) Non-smoker; Translations: [Current non-smoker] 01-04-2022 Episodic Screening and history of mental health and substance abuse codes (20 sources) Tobacco use and exposure - finding; Translations: [History of tobacco abuse] 08-07-2020 Episodic Screening or history of mental health and substance abuse (20 sources) Tobacco use and exposure - finding; Translations: [History of tobacco abuse] 07-16-2017 Chronic Spondylosis; intervertebral disc disorders; other back problems (20 sources) Backache; Translations: [Low back pain] Resolved: 9 09-17-2013 Episodic Comment on above: doing well wants to go back to work filled out paper work he didnt want to do mri yet since improving -- graduating to home therapy and see how it goespt about 85% better with PT so far pt has been- on work restrictions for back chronic issues - and needs reinstated for htis yr since still a problem and chronic pt has been Unclassified (20 sources) Non-organic sleep disorder; 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, nonorganic] 07-16-2017 Chronic Unclassified (20 sources) Imaging of thorax abnormal; Translations: [Screening status] Resolved: 5 10-27-2014 Episodic Unclassified (20 sources) Needs influenza immunization; 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] Resolved: 6 07-16-2017 Episodic Unclassified (20 sources) Rash (782.1) Unclassified (20 sources) Unclassified (20 sources) BMI 26.0-26.9,adult Unclassified (20 sources) Current non-smoker ; Translations: [Current non-smoker] 07-16-2017 Unclassified (20 sources) Elevated Blood Pressure without diagnosis of Hypertension (796.2) Unclassified (20 sources) PHARYNGITIS, ACUTE (462.) Unclassified (20 sources) cough 786.2 (Renamed from Chronic cough (786.2)) Unclassified (20 sources) Tongue swelling (Renamed from Glossal swelling) Unclassified (20 sources) Arthralgia (719.40) Unclassified (20 sources) HTN (hypertension), benign Unclassified (20 sources) Hand pain, left Unclassified (20 sources) Low back pain potentially associated with radiculopathy Unclassified (20 sources) BMI 28.0-28.9,adult Unclassified (11 sources) COVID-19 virus detected Unclassified (8 sources) BRONCHITIS, NOT SPECIFIED ACUTE OR CHRONIC (490.) Unclassified (6 sources) BMI 33.0-33.9,adult Unclassified (15 sources) Abnormal glucose tolerance test (Renamed from Abnormal glucose tolerance test (GTT)) Unclassified (6 sources) Trigger middle finger of right hand Unclassified (6 sources) Trigger finger, left middle finger Unclassified (3 sources) BMI 23.0-23.9, adult Unclassified (3 sources) Abnormality of nail surface Unclassified (3 sources) Tendonitis of elbow, right Unclassified (3 sources) Impingement syndrome of left shoulder Viral infection (20 sources) Other specified viral infection; Translations: [COVID-19] 08-07-2020 Episodic Comment on above: Day #8 along with wi fe, cough worse Viral infection (13 sources) Disease caused by 2019-nCoV Past or Other Problems Problem Classification Problem Date Documented Da te Episodic/Chronic Abdominal pain (20 sources) Epigastric pain; Translations: [Epigastric Pain (Renamed from Abdominal pain, epigastric)] Onset: 12-12-2014 Resolved: 08-01-2016 07-16-2017 Episodic Influenza (20 sources) Influenza Other connective tissue disease (16 sources) Pain of left hand; Translations: [Hand pain, left] 02-10-2019 Comment on above: declined x-ray Other connective tissue disease (10 sources) Pain in left foot; Translations: [Foot pain, left] Resolved: 07-21-2020 07-21-2020 Other diseases of veins and lymphatics (1 source) Varicocele; Translations: [Scrotal varices] Onset: 06-21-2008 06-21-2008 Episodic Other eye disorders (1 source) Blepharitis; Translations: [Edema of unspecified eye, unspecified eyelid] Onset: 03-06-2014 03-06-2014 Episodic Other skin disorders (11 sources) Mass of axilla; Translations: [Axillary fullness] Resolved: 08-01-2016 07-16-2017 Episodic Other skin disorders (11 sources) Inflammatory dermatosis; Translations: [Dermatitis] Resolved: 02-15-2009 02-15-2009 Episodic Unclassified (20 sources) Patient encounter status; Translations: [Annual physical exam] Resolved: 2014 07-16-2017 Unclassified (20 sources) Fatigue, unspecified type Unclassified (20 sources) Axillary fullness Unclassified (20 sources) Tick bite of abdomen, subsequent encounter Unclassified (20 sources) BMI 27.0-27.9,adult Unclassified (20 sources) Tick bite of abdomen Unclassified (20 sources) Tick bite of knee Unclassified (20 sources) Nutritional counseling Unclassified (20 sources) History of tobacco abuse Unclassified (20 sources) Elevated serum globulin level Unclassified (20 sources) Abnormal chest x-ray Unclassified (20 sources) BMI 25.0-25.9,adult Unclassified (20 sources) Diarrhea (Renamed from D (diarrhea)) Unclassified (20 sources) BMI 24.0-24.9, adult Unclassified (20 sources) Wrist injury (959.3) Unclassified (20 sources) Unspecified Diagnosis 11-13-2017 Unclassified (20 sources) DISORDER, BONE/CARTILAGE NOS (733.90) Unclassified (20 sources) Well Male Exam (V70.0) Unclassified (20 sources) BPH without Urin. Obst (600.00) Unclassified (20 sources) Screening status; Translations: [Screening for prostate cancer] Resolved: 02-15-2009 05-23-2015 Unclassified (20 sources) infection of left great toe with ingrown toenail Resolved: 01-05-2009 09-17-2013 Unclassified (20 sources) Parasthesia (782.0) Unclassified (20 sources) Alcohol abuse, unspecified drinking behavior (305.00) Unclassified (20 sources) SCREENING FOR CANCER OF THE PROSTATE (V76.44) Unclassified (20 sources) Annual physical exam Unclassified (16 sources) Body mass index 20-24 - normal; Translations: [BMI 24.0-24.9, adult] Resolved: 02-10-2019 02-10-2019 Unclassified (10 sources) Finding of axilla; Translations: [Axillary fullness] Resolved: 08-01-2016 07-16-2017 Unclassified (17 sources) Encounter for screening for malignant neoplasm of prostate (Renamed from Screening for prostate cancer) Unclassified (18 sources) Foot pain, left Unclassified (18 sources) Skin lesion of back Unclassified (18 sources) SK (seborrheic keratosis) Unclassified (18 sources) Acute non-recurrent maxillary sinusitis Unclassified (13 sources) Exposure to SARS virus Unclassified (8 sources) Asthma,Intrinsic (493.11) Unclassified (6 sources) Encounter for well adult exam with abnormal findings Results Test Name Value Interpretation Reference Range Facility Immunoglobulin Aon 5 IMMUNOGLOB A QN 227 mg/dL Normal 90-386 [facility] Comment on above: Order Comment: N Result Comment: Perf ormed at: [facility] [id number] Cut Order Hand: Demetrius Acosta PhD, Phone: [phone] Performed By: #### L 3200.1400, L501.6710, L3410.2920, L501.9520 #### [facility] [address] [place], [address] t-Transglutaminase IgAon tTG IGA <2 Normal 0-3 [facility] Comment on above: Result Comment: Nega tive 0 - 3 Weak Positive 4 - 10 Positive >10 Tissue Transglutaminase (tTG) has been identified as the endomysial antigen. Studies have demonstr- ated that endomysial IgA antibodies have over 99% specificity for gluten sensitive enteropathy. Performed By: #### L 3200.1400, L501.6710, L3410.2920, L501.9520 #### [facility] [address] [place], [address] CRPon 01-07-2025 C-REACTIVE PROT < 3.00 Normal 0.0-3.0 [facility] Comment on above: Performed By: #### L 3200.1400, L501.6710, L3410.2920, L501.9520 #### [facility] [address] [place], [place], [id number] Serum or plasma C reactive p rotein measurement (mass/volume)Ordered By: Vanessa Silva on 01-07-2025 CRP [Mass/Vol] mg/L 0.0-3.0 [facility] Serum or plasma IgA measurem ent (mass/volume)Ordered By: Vanessa Silva on 01-07-2025 IgA [Mass/Vol] 227 mg/dL 90-386 [facility] Comment on above: Performed at: [address] [id number] Director: Demetrius Acosta PhD, Phone: [phone] Serum tissue transglutaminas e (tTG) IgA antibody assay (units/volume)Ordered By: Vanessa Silva on 01-07-2025 tTG IgA Qn (S) <2 U/mL 0-3 [facility] Comment on above: Negative 0 - 3 Weak Positive 4 - 10 Positive >10 Tissue Transglutaminase (tTG) has been identified as the endomysial antigen. Studies have demonstr- ated that endomysial IgA antibodies have over 99% specificity for gluten sensitive enteropathy. TSH DL <= 0.005 mIU/L QnOrde red By: Vanessa Silva on 01-07-2025 TSH Qn 0.570 uIU/mL 0.300-4.20 0 [facility] Thyroid Stim Hormone (TSH)on 01-07-2025 TSH 0.570 uIU/mL Normal 0.300-4.20 0 [facility] Comment on above: Performed By: #### L 3200.1400, L501.6710, L3410.2920, L501.9520 #### [facility] [address] [place], [address] Gastroenterology Visit Repor ton 12-10-2024 Gastroenterology Visit Report [facility] [address] [place] [address] OFFICE VISIT Date of Service: 12/10/24 MR#: [id number] Acct: [id number] Name: ROBERT MESA Rep #: [id number] : 1965 Provider: LOBITO phan Age/Sex: 59/M Location: [facility] Status: Signed Intake Vital Signs 01/13/19 13:29 12/10/24 16:12 Height 6 ft 6 ft Weight: 200 lb 4 oz BMI 27.1 BP 139/87 H Respiration 16 Pulse 65 Pulse Oximetry (%) 98 Oxygen Delivery Method room air Intake Visit Reasons: Diarrhea Chief Complaint: diarrhea Line Production Cook Required: No Accompanied by: Is patient in pain?: No Allergies No Known Allergies Allergy (Verified 12/10/24 15:42) Medications ???Medication ???Instructions ???Recorded ???Confirmed ???Type losartan 50 mg-hydrochlorothiazide 1 tab PO DAILY 01/13/19 12/10/24 History 12.5 mg tablet aspirin-caffeine 500 mg-32.5 mg 2 tab PO QDAY 12/10/24 12/10/24 Hi story tablet (Eric Back and Body) multivitamin 1 tab PO QDAY 12/10/24 12/10/24 Hi story rosuvastatin 5 mg tablet 5 mg PO QDAY 12/10/24 12/10/24 His tory Nurse's Note: Started about a month ago. Lower front abdominal pain on occasion. PFSH Family History Father Alcoholism Myocardial infarction Heart disease Hypertension Melanoma CVA (cerebral vascular accident) Social History Smoking Status: Former smoker alcohol intake: current alcohol intake frequency: a few times a month Alcohol type: beer substance use type: does not use what type of physical activity do you participate in: walking HPI HPI Chief Complaint: diarrhea Details: ROBERT MESA, is a 59 M who presents to the office today for - seen in the office today with his - typically he is a one and done - couple months ago he decided he wanted to cut some weight and this is when diarrhea started - diarrhea is random, up to 5x a day, but can go up to 9x a day - if he wakes in the middle of the night if he wakes - lower abdominal cramping - denies any formed stools, not all liquid, [place] 5 to 6 - changed diet - quit drinking as much beer - denies any recent travel - Metamucil and Align did not help - denies any bleeding - weight loss of 17lbs - COLON 5 years ago - reports this was normal - denies any family h/o colon CA - He really does not want to have another colonoscopy - He is requesting any testing be done prior to proceeding with a colonoscopy - denies any HB - denies any N/V ROS Const Constitutional: No fatigue, fever(s) or weight change ENT ENT: No difficulty swallowing Gastro GI: Positive for abdominal pain, change in bowel habits and diarrhea; No belching, bloating, change in stool character, coffee ground emesis, constipation, cramping, heartburn, difficulty swallowing, feeling full early, excessive flatus, incontinent of stools, Vomiting blood/hematemesis, Blood in stool, loose stools, Black,tarry stools, nausea/dyspepsia, pain with swallowing, vomiting or other Musc Musculoskeletal: Positive for Arthritis; No joint pain Skin Skin: No yellowing of the eye or itchy eyes Psych Psychiatric: No anxiety and No depression Endo Endocrine: No fatigue or weight change Aller/Imm Allergy/Immunologic: No itchy eyes Juan Francisco/Lymp Hematologic/Lymphatic: No easy bleeding or easy bruising Exam Const General: cooperative, healthy appearing, no acute distress and well developed Nutritional Appearance: average body habitus and well nourished Orientation: alert and oriented x3 [facility] Head: normocephalic Ears: hearing grossly normal bilaterally Mouth: moist mucous membranes Teeth and gingiva: dentition normal Eyes Conjunctivae: conjunctivae normal Sclera: sclerae normal Neck Neck: normal visual inspection, full ROM and trachea midline Resp Effort Inspection: normal respiratory effort, able to speak in complete sentences and symmetric chest movement Auscultation: Bilateral: Clear to Auscultation Cardio Palpation: normal PMI Rate: regular rate Rhythm: regular rhythm Heart Sounds: S1 normal and S2 normal GI Inspection: normal to inspection Auscultation: normal bowel sounds Palpation: soft and no hepatosplenomegaly Rectal Exam: deferred Skin General: no rashes or lesions noted and turgor normal Neuro General: patient alert and patient oriented x3 Cranial Nerves: other (CN's grossly intact, non-focal exam) Cognition: normal cognition Speech: speech normal Gait: normal gait Extrem General: normal to inspection (no edema noted) Psych Appearance: grossly normal and well kempt Affect: normal affect Attitude: cooperative Thought Process: normal Thought Content: normal (more content not included)... Normal [facility] HIP, UNI W/ Pelvis 2-3 Views on 11-01-2024 HIP, UNI W/ Pelvis 2-3 Views [facility] [address] [place] [address] HIP, UNI W/ Pelvis 2-3 Views MR#: [id number] Acct: [id number] Name: BONITAROBERT Tony Rep #: [id number] : 1965 M 59 From: Demetrius Mclaughlin PCP: Care Physician,No Primary Status: DEP [facility] Study: HIP, UNI W/ Pelvis 2-3 Views Date of Exam: Exam# [id number] Ordering Dr: Clair Perry DO PROCEDURE: HIP, UNI W/ PELVIS 2-3 VIEWS 11/01/2024 REASON FOR EXAM: ACUTE PAIN OF RIGHT HIP, NKI TECHNIQUE: Three-view right hip to include the AP pelvis COMPARISON: None provided. RAD/HIP, UNI W/ Pelvis 2-3 Views IMPRESSION: Degenerative changes are seen of the visualized lower lumbar spine. Mild sacroiliac joint degenerative changes are noted. The hip joints demonstrate only minimal degenerative changes, and no joint narrowing is seen. No evidence of femoral head osteonecrosis. No fracture or dislocation is seen. Reading Location: [address] CC: Dr. Clair Perry DO; No Primary Care Physician Orthopedic Coder: Signed [facility] 10-27-2024 [facility] Telephone (JOVANNI) ----- ROBERT MESA ([id number]) 1965 M Date Time Provider Department 10/27/24 JOSUE FITZPATRICK During your visit today, we recorded the following information about you: Maria A Wren, RN 10/27/2024 10:33 AM Addendum Telephone call from patient's Kassi. She was asking for appt with Dr Fitzpatrick. Robert has been c/o diarrhea for past week up to three times a day- watery stool. No nausea or vomiting. No change in appetite. No pranav bleeding or black tarry stool. No weight loss. Some mild cramping to mid lower abdoman. Not real pain Last colonsocopy [address] Soto. F/U with Ely DAI said to have a followup endoscopy in 10 years. Advised Kassi to have her see his PCP - she may advise stool studies first or GI F/U verbalizes understanding and has no further questions or concerns at this time. Was advised to call as needed for future problems. Encounter closed. Allergies As of Date: 10/27/2024 (No Known Allergies) Date Reviewed: 05/04/2020 Reviewed by: Ely Arnold - Fully Assessed Reason for Visit: Patient Update [1234] Prescriptions as of 10/27/2024 - aspirin, enteric coated (ASPIRIN, ENTERIC COATED) 81 mg EC tablet Take 81 mg by mouth once daily. - losartan-hydrochlorothiaz rod (HYZAAR) 50-12.5 mg per tablet Take 1 tablet by mouth once daily. - Multivitamin capsule Take 1 capsule by mouth once daily. Problem List As Of Date 10/27/2024 Noted Resolved SCROTAL VARICES [I86.1] 06/21/2008 Eyelid gland swelling [H02.849] 03/06/2014 Right groin pain [R10.31] 12/12/2014 Encounter Status:Closed by MARIA A WREN on 10/27/24 Normal [facility] Albumin to globulin ratioOrd ered By: HEALTH ASSESSMENT on 09-28-2024 Albumin/Globulin [Mass ratio] 0.9 {ratio} Normal 0.9-2.4 [facility] Comment on above: Performed By: #### L 500.4050, L100.0500, L500.4100, L501.9910, L501.9985 #### [facility] [address] [place], [address] Automated blood erythrocyte countOrdered By: HEALTH ASSESSMENT on 09-28-2024 RBC (Bld) [#/Vol] 5.25 10*6/uL Normal 4.6-6.2 [facility] Comment on above: Performed By: #### L 500.4050, L100.0500, L500.4100, L501.9910, L501.9985 #### [facility] [address] [place], [address] Automated blood hematocrit ( percentage)Ordered By: HEALTH ASSESSMENT on 09-28-2024 Hematocrit (Bld) [Volume fraction] 46.2 % Normal 40-54 [facility] Comment on above: Performed By: #### L 500.4050, L100.0500, L500.4100, L501.9910, L501.9985 #### [facility] [address] [place], [address] Bilirubin, totalOrdered By: HEALTH ASSESSMENT on 09-28-2024 Bilirubin [Mass/Vol] 1.10 mg/dL High 0.20-1.00 [facility] Comment on above: For patients on eltr ombopag therapy, use of Dimension Carver TBIL is not recommended. Result Comment: For patients on eltrombopag therapy, use of Dimension Carver TBIL is not recommended. Performed By: #### L 500.4050, L100.0500, L500.4100, L501.9910, L501.9985 #### [facility] [address] [place], [address] Blood urea nitrogen (BUN)/cr eatinine ratioOrdered By: HEALTH ASSESSMENT on 09-28-2024 Urea nitrogen/Creatinine [Mass ratio] 15.4 mg/mg 10-20 [facility] CBC-Complete Blood Cnt No Di ffon 09-28-2024 RDW SD 39.3 fl Normal 35.1-43.9 [facility] Comment on above: Performed By: #### L 500.4050, L100.0500, L500.4100, L501.9910, L501.9985 #### [facility] [address] [place], [address] Carbon dioxide measurementOr dered By: HEALTH ASSESSMENT on 09-28-2024 CO2 [Moles/Vol] 24.0 mmol/L Normal 21.0-32.0 [facility] Comment on above: Performed By: #### L 500.4050, L100.0500, L500.4100, L501.9910, L501.9985 #### [facility] [address] [place], [address] Chloride measurementOrdered By: HEALTH ASSESSMENT on 09-28-2024 Chloride [Moles/Vol] 100 mmol/L Normal 98-107 [facility] Comment on above: Performed By: #### L 500.4050, L100.0500, L500.4100, L501.9910, L501.9985 #### [facility] [address] [place], [address] Comprehensive Metabolic Prof ilon 09-28-2024 ALK P 72 U/L Normal 45-117 [facility] Comment on above: Performed By: #### L 500.4050, L100.0500, L500.4100, L501.9910, L501.9985 #### [facility] [address] [place], [place], [id number] BUN/CRE 15.4 RATIO Normal 10-20 [facility] Comment on above: Performed By: #### L 500.4050, L100.0500, L500.4100, L501.9910, L501.9985 #### [facility] [address] [place], [place], [id number] CA,Total 8.8 mg/dL Normal 8.5-10.1 [facility] Comment on above: Performed By: #### L 500.4050, L100.0500, L500.4100, L501.9910, L501.9985 #### [facility] [address] [place], [address] EST GFR - AA 110 mL/min Normal >60 [facility] Comment on above: Result Comment: Afri can Ukrainian GFR Calc Performed By: #### L 500.4050, L100.0500, L500.4100, L501.9910, L501.9985 #### [facility] [address] [place], [address] GAP 12 Normal 5-15 [facility] Comment on above: Performed By: #### L 500.4050, L100.0500, L500.4100, L501.9910, L501.9985 #### [facility] [address] [place], [place], [id number] T PROT 7.7 g/dL Normal 6.4-8.2 [facility] Comment on above: Performed By: #### L 500.4050, L100.0500, L500.4100, L501.9910, L501.9985 #### [facility] [address] [place], [place], [id number] Comprehensive Metabolic Prof ilOrdered By: HEALTH ASSESSMENT on 09-28-2024 AST [Catalytic activity/Vol] 26 U/L Normal 15-37 [facility] Comment on above: Performed By: #### L 500.4050, L100.0500, L500.4100, L501.9910, L501.9985 #### [facility] [address] [place], [place], [id number] Erythrocyte distribution wid th ratioOrdered By: HEALTH ASSESSMENT on 09-28-2024 Erythrocyte distribution width (RBC) [Ratio] 12.3 % Normal 11.6-14.6 [facility] Comment on above: Performed By: #### L 500.4050, L100.0500, L500.4100, L501.9910, L501.9985 #### [facility] [address] [place], [address] Erythrocyte distribution wid th standard deviationOrdered By: HEALTH ASSESSMENT on 09-28-2024 Erythrocyte distribution width (RBC) [Ratio] 39.3 fl 35.1-43.9 [facility] Glomerular filtration rate ( GFR) estimationOrdered By: HEALTH ASSESSMENT on 09-28-2024 GFR/1.73 sq M.predicted among non-blacks MDRD (S/P/Bld) [Vol rate/Area] 91 mL/min/{1.73_m2} Normal >60 [facility] Comment on above: Non- GFR Calc Result Comment: Non- GFR Calc Performed By: #### L 500.4050, L100.0500, L500.4100, L501.9910, L501.9985 #### [facility] [address] [place], [place], [id number] Glucose measurementOrdered B y: HEALTH ASSESSMENT on 09-28-2024 Glucose [Mass/Vol] 103 mg/dL Normal 74-106 [facility] Comment on above: Fasting Glucose resu lt from 100 to 125 mg/dL suggests IMPAIRED HOMEOSTASIS per A.D.A. criteria. Result Comment: Fast ing Glucose result from 100 to 125 mg/dL suggests IMPAIRED HOMEOSTASIS per A.D.A. criteria. Performed By: #### L 500.4050, L100.0500, L500.4100, L501.9910, L501.9985 #### [facility] [address] [place], [place], [id number] Hemoglobin A1c percentageOrd ered By: HEALTH ASSESSMENT on 09-28-2024 HbA1c (Bld) [Mass fraction] 5.6 % Normal 3.8-5.6 [facility] Comment on above: Normal < 5.7 % Predi abetic 5.7 - 6.4 % Diabetic >or= 6.5 % Please note range changes. Result Comment: Norm al < 5.7 % Prediabetic 5.7 - 6.4 % Diabetic >or= 6.5 % Please note range changes. Performed By: #### L 500.4050, L100.0500, L500.4100, L501.9910, L501.9985 #### [facility] [address] [place], [place], [address] Hemoglobin measurementOrdere d By: HEALTH ASSESSMENT on 09-28-2024 Hemoglobin (Bld) [Mass/Vol] 16.2 g/dL Normal 13.0-16.5 [facility] Comment on above: Performed By: #### L 500.4050, L100.0500, L500.4100, L501.9910, L501.9985 #### [facility] [address] [place], [place], [address] High density lipoprotein (HD L) measurementOrdered By: HEALTH ASSESSMENT on 09-28-2024 Cholesterol in HDL [Mass/Vol] 80 mg/dL Normal [facility] Comment on above: The drugs N-Acetylcy steine and Metamizole may falsely depress this assay. Reference Range HDL <40 mg/dL Low HDL Cholesterol HDL >or= 60 mg/dL High HDL Cholesterol Result Comment: The drugs N-Acetylcysteine and Metamizole may falsely depress this assay. Reference Range HDL <40 mg/dL Low HDL Cholesterol HDL >or= 60 mg/dL High HDL Cholesterol Performed By: #### L 500.4050, L100.0500, L500.4100, L501.9910, L501.9985 #### [facility] [address] [place], [address] Lipid Profileon 09-28-2024 Cholesterol in VLDL [Mass/Vol] 34 mg/dL Normal 5-40 [facility] Comment on above: Performed By: #### L 500.4050, L100.0500, L500.4100, L501.9910, L501.9985 #### [facility] [address] [place], [place], [address] Low density lipoprotein (LDL ) cholesterol measurementOrdered By: HEALTH ASSESSMENT on 09-28-2024 Cholesterol in LDL [Mass/Vol] 65 mg/dL Normal 0-130 [facility] Comment on above: Performed By: #### L 500.4050, L100.0500, L500.4100, L501.9910, L501.9985 #### [facility] [address] [place], [address] MCV (mean corpuscular volume ) determinationOrdered By: HEALTH ASSESSMENT on 09-28-2024 MCV (RBC) [Entitic vol] 88.0 fL Normal 80-94 [facility] Comment on above: Performed By: #### L 500.4050, L100.0500, L500.4100, L501.9910, L501.9985 #### [facility] [address] [place], [address] Mean corpuscular hemoglobin (MCH) determinationOrdered By: HEALTH ASSESSMENT on 09-28-2024 MCH (RBC) [Entitic mass] 30.9 pg Normal 27.0-32.0 [facility] Comment on above: Performed By: #### L 500.4050, L100.0500, L500.4100, L501.9910, L501.9985 #### [facility] [address] [place], [address] Mean corpuscular hemoglobin concentration (MCHC) determinationOrdered By: HEALTH ASSESSMENT on 09-28-2024 MCHC (RBC) [Mass/Vol] 35.1 g/dL Normal 32-36 [facility] Comment on above: Performed By: #### L 500.4050, L100.0500, L500.4100, L501.9910, L501.9985 #### [facility] [address] [place] [place], [address] Mean platelet volume determi nationOrdered By: HEALTH ASSESSMENT on 09-28-2024 Platelet mean volume (Bld) [Entitic vol] 10.5 fL Normal 6.2-12.0 [facility] Comment on above: Performed By: #### L 500.4050, L100.0500, L500.4100, L501.9910, L501.9985 #### [facility] [address] [place], [address] PSA,Total - Annual Screenon 09-28-2024 PSA,TOT SCREEN 2.12 ng/mL Normal 0.00-4.00 [facility] Comment on above: Result Comment: This test was performed using the TPSA assay method for the [employer] chemistry system. Values obtained with different assay methods cannot be used interchangably. When changing PSA assays in the course of monitoring a patient, additional sequential testing should be carried out to confirm baseline values. Performed By: #### L 500.4050, L100.0500, L500.4100, L501.9910, L501.9985 #### [facility] [address] [place], [place], [address] Platelet countOrdered By: HE ALTH ASSESSMENT on 09-28-2024 Platelets (Bld) [#/Vol] 337 10*3/uL Normal 150-450 [facility] Comment on above: Performed By: #### L 500.4050, L100.0500, L500.4100, L501.9910, L501.9985 #### [facility] [address] [place], [address] Potassium measurementOrdered By: HEALTH ASSESSMENT on 09-28-2024 Potassium [Moles/Vol] 3.5 mmol/L Normal 3.5-5.1 [facility] Comment on above: Performed By: #### L 500.4050, L100.0500, L500.4100, L501.9910, L501.9985 #### [facility] [address] [place], [address] Serum anion gap measurementO rdered By: HEALTH ASSESSMENT on 09-28-2024 Anion gap [Moles/Vol] 12 mmol/L 5-15 [facility] Serum globulin measurementOr dered By: HEALTH ASSESSMENT on 09-28-2024 Globulin (S) [Mass/Vol] 4.0 g/dL Normal 2.2-4.2 [facility] Comment on above: Performed By: #### L 500.4050, L100.0500, L500.4100, L501.9910, L501.9985 #### [facility] [address] [place], [address] Serum or plasma alanine cruz otransferase (ALT) measurementOrdered By: HEALTH ASSESSMENT on 09-28-2024 ALT [Catalytic activity/Vol] 45 U/L Normal 16-61 [facility] Comment on above: Performed By: #### L 500.4050, L100.0500, L500.4100, L501.9910, L501.9985 #### [facility] [address] [place], [address] Serum or plasma albumin lilian urement (mass/volume)Ordered By: HEALTH ASSESSMENT on 09-28-2024 Albumin [Mass/Vol] 3.7 g/dL Normal 3.2-5.0 [facility] Comment on above: Performed By: #### L 500.4050, L100.0500, L500.4100, L501.9910, L501.9985 #### [facility] [address] [facility] [place], [address] Serum or plasma alkaline jennifer sphatase measurementOrdered By: HEALTH ASSESSMENT on 09-28-2024 ALP [Catalytic activity/Vol] 72 U/L 45-117 [facility] Serum or plasma calcium lilian urement (mass/volume)Ordered By: HEALTH ASSESSMENT on 09-28-2024 Calcium [Mass/Vol] 8.8 mg/dL 8.5-10.1 [facility] Serum or plasma cholesterol measurement (mass/volume)Ordered By: HEALTH ASSESSMENT on 09-28-2024 Cholesterol [Mass/Vol] 179 mg/dL Normal 200 [facility] Comment on above: <200 mg/dL Desirable 200-240 mg/dL Borderline >240 mg/dL High Risk Result Comment: <200 mg/dL Desirable 200-240 mg/dL Borderline >240 mg/dL High Risk Performed By: #### L 500.4050, L100.0500, L500.4100, L501.9910, L501.9985 #### [facility] [address] [place], [address] Serum or plasma creatinine m easurement (mass/volume)Ordered By: HEALTH ASSESSMENT on 09-28-2024 Creatinine [Mass/Vol] 0.91 mg/dL Normal 0.70-1.30 [facility] Comment on above: The validity of the calculated GFR & GFRAA in patients over 70 years has not been determined. Clinical correlation is essential. Result Comment: The validity of the calculated GFR GFRAA in patients over 70 years has not been determined. Clinical correlation is essential. Performed By: #### L 500.4050, L100.0500, L500.4100, L501.9910, L501.9985 #### [facility] [address] [place], [address] Serum or plasma urea nitroge n measurement (mass/volume)Ordered By: HEALTH ASSESSMENT on 09-28-2024 Urea nitrogen [Mass/Vol] 14 mg/dL Normal 7-18 [facility] Comment on above: Performed By: #### L 500.4050, L100.0500, L500.4100, L501.9910, L501.9985 #### [facility] [address] [place], [place], [address] Sodium levelOrdered By: [facility] ASSESSMENT on 09-28-2024 Sodium [Moles/Vol] 136 mmol/L Normal 136-145 [facility] Comment on above: Performed By: #### L 500.4050, L100.0500, L500.4100, L501.9910, L501.9985 #### [facility] [address] [place], [place], [address] Total proteinOrdered By: [facility] ASSESSMENT on 09-28-2024 Protein [Mass/Vol] 7.7 g/dL 6.4-8.2 [facility] Triglycerides measurementOrd ered By: HEALTH ASSESSMENT on 09-28-2024 Triglyceride [Mass/Vol] 169 mg/dL Normal [facility] Comment on above: The drugs N-Acetylcy steine and Metamizole may falsely depress this assay.Serum Triglycerides Reference Interval Normal <150 mg/dL Borderline high 150 - 199 mg/dL High 200 - 499 mg/dL Very High > or = 500 mg/dL Result Comment: The drugs N-Acetylcysteine and Metamizole may falsely depress this assay. Serum Triglycerides Reference Interval Normal <150 mg/dL Borderline high 150 - 199 mg/dL High 200 - 499 mg/dL Very High > or = 500 mg/dL Performed By: #### L 500.4050, L100.0500, L500.4100, L501.9910, L501.9985 #### [facility] [address] [place], [place], [id number] Very low density lipoprotein (VLDL) cholesterol measurementOrdered By: HEALTH ASSESSMENT on 09-28-2024 Very low density lipoprotein (VLDL) cholesterol measurement 34 mg/dL 5-40 [facility] White blood cell (WBC) count Ordered By: HEALTH ASSESSMENT on 09-28-2024 WBC (Bld) [#/Vol] 9.4 10*3/uL Normal 4.4-11.0 [facility] Comment on above: Performed By: #### L 500.4050, L100.0500, L500.4100, L501.9910, L501.9985 #### [facility] [address] [place], [address] Blood Glucose , Office ([phone])Ordered By: Ml Gomez on 01-04-2022 Glucose Glucometer (BldC) [Moles/Vol] 117 1 Normal [facility]; [facility] Work Phone: CBC W/AUTO DIFF WBC (76255)O rdered By: [employer] Manager on 01-04-2022 Basophils (Bld) [#/Vol] 0.1 10*3/uL Normal 0.0-0.2 [facility]; [facility] Work Phone: Comment on above: PATIENT WAS FASTINGP ERFORMED BY: ANDREW LabcoRobert Wood Johnson University Hospital at HamiltonIoadpw9586 [facility] [id number] Basophils/100 WBC (Bld) 1 % Normal [facility]; [facility] Work Phone: Comment on above: PATIENT WAS FASTINGP ERFORMED BY: ANDREW [facility] Rqsaxo2328 [address]ía Roadblin [place] [id number] Eosinophils (Bld) [#/Vol] 0.1 10*3/uL Normal 0.0-0.4 [facility]; [facility] Work Phone: Comment on above: PATIENT WAS FASTINGP ERFORMED BY: Lab[facility]6370 [address] Roadblin [place] [id number] Eosinophils/100 WBC (Bld) 1 % Normal [facility]; [facility] Work Phone: Comment on above: PATIENT WAS FASTINGP ERFORMED BY: [facility]6[address] RoadCritical access hospital [id number] Erythrocyte distribution width (RBC) [Ratio] 12.3 % Normal 11.6-15.4 [facility]; [facility] Work Phone: Comment on above: PATIENT WAS FASTINGP ERFORMED BY: [place] [address] [facility] [id number] Hematocrit (Bld) [Volume fraction] 46.6 % Normal 37.5-51.0 [facility]; [facility] Work Phone: Comment on above: PATIENT WAS FASTINGP ERFORMED BY: [facility] [facility] [id number] Hemoglobin (Bld) [Mass/Vol] 15.9 g/dL Normal 13.0-17.7 [facility]; [facility] Work Phone: Comment on above: PATIENT WAS FASTINGP ERFORMED BY: Lab[facility]6370 [address]ía RoadHugh Chatham Memorial Hospitalin [place] [id number] Immature granulocytes (Bld) [#/Vol] 0.0 10*3/uL Normal 0.0-0.1 [facility]; [facility] Work Phone: Comment on above: PATIENT WAS FASTINGP ERFORMED BY: [facility] Sdoqyv0070 García RoadDublin [place] [id number] Immature granulocytes/100 WBC (Bld) 1 % Normal [facility]; [facility] Work Phone: Comment on above: PATIENT WAS FASTINGP ERFORMED BY: [facility] Vhkpns0740 [address]ía RoadDublin [place] [id number] Lymphocytes (Bld) [#/Vol] 2.1 10*3/uL Normal 0.7-3.1 [facility]; [facility] Work Phone: Comment on above: PATIENT WAS FASTINGP ERFORMED BY: [facility] Vhfymg1163 [address]ía RoadDublin [place] [id number] Lymphocytes/100 WBC (Bld) 27 % Normal [facility]; [facility] Work Phone: Comment on above: PATIENT WAS FASTINGP ERFORMED BY: [facility] Lzlleo3169 [address]ía RoadDublin [place] [id number] MCH (RBC) [Entitic mass] 30.8 pg Normal 26.6-33.0 [facility]; [facility] Work Phone: Comment on above: PATIENT WAS FASTINGP ERFORMED BY: [facility] Thauuf0890 [address]ía RoadDublin [place] [id number] MCHC (RBC) [Mass/Vol] 34.1 g/dL Normal 31.5-35.7 [facility] prehensive Internal Medicine; [facility] Work Phone: Comment on above: PATIENT WAS FASTINGP ERFORMED BY: [facility] Neokra7305 [address] RoadDublin [place] [id number] MCV (RBC) [Entitic vol] 90 fL Normal 79-97 [facility]; [facility] Work Phone: Comment on above: PATIENT WAS FASTINGP ERFORMED BY: [facility] Hcphhz3490 [address]ía RoadDublin [place] [id number] Monocytes (Bld) [#/Vol] 0.7 10*3/uL Normal 0.1-0.9 [facility]; [facility] Work Phone: Comment on above: PATIENT WAS FASTINGP ERFORMED BY: [facility] Ulpgku4961 [address] RoadDublin [place] [id number] Monocytes/100 WBC (Bld) 9 % Normal [facility]; [facility] Work Phone: Comment on above: PATIENT WAS FASTINGP ERFORMED BY: CB [facility] Xssamb5247 [address] RoadDublin [place] [id number] Neutrophils (Bld) [#/Vol] 4.8 10*3/uL Normal 1.4-7.0 [facility]; [facility] Work Phone: Comment on above: PATIENT WAS FASTINGP ERFORMED BY: CB [facility] Lhuhfy9467 [address] RoadDublin [place] [id number] Neutrophils/100 WBC (Bld) 61 % Normal [facility]; [facility] Work Phone: Comment on above: PATIENT WAS FASTINGP ERFORMED BY: CB [facility] Myfozr5594 [address] RoadDublin [place] [id number] Platelets (Bld) [#/Vol] 298 10*3/uL Normal 150-450 [facility]; [facility] Work Phone: Comment on above: PATIENT WAS FASTINGP ERFORMED BY: CB [facility] Homtzc7877 [address]ía RoadDublin [place] [id number] RBC (Bld) [#/Vol] 5.17 10*6/uL Normal 4.14-5.80 Compr [facility]; [facility] Work Phone: Comment on above: PATIENT WAS FASTINGP ERFORMED BY: CB [facility] Obqrbp5259 [address] RoadDublin [place] [id number] WBC (Bld) [#/Vol] 7.8 10*3/uL Normal 3.4-10.8 Compre [facility] Internal [facility]; [facility] Work Phone: Comment on above: PATIENT WAS FASTINGP ERFORMED BY: CB [facility] Fxdtpu0111 [address]ía RoadDublin [place] [id number] HgA1C , Office ([id number])Ordere d By: Ml Gomez on 01-04-2022 HbA1c (Bld) [Mass fraction] 5.2 % Normal 4.6 - 7.1 [facility]; [facility] Work Phone: LIPID PANEL ([id number])Ordered B y: [employer] on 01-04-2022 Cholesterol [Mass/Vol] 208 mg/dL Abnormal 100-199 [facility]; [facility] Work Phone: Comment on above: PATIENT WAS FASTINGP ERFORMED BY: ANDREW [facility] Qoymrz0313 [address] RoadDublin [place] [id number] Cholesterol in HDL [Mass/Vol] 99 mg/dL Normal [facility]; [facility] Work Phone: Comment on above: PATIENT WAS FASTINGP ERFORMED BY: CB [facility] Yaklfv0786 [address] RoadDublin [place] [id number] Triglyceride [Mass/Vol] 49 mg/dL Normal 0-149 [facility]; [facility] Work Phone: Comment on above: PATIENT WAS FASTINGP ERFORMED BY: ANDREW [facility] Ubdcel2142 [address] RoadDublin [place] [id number] LIPID PANEL (83287) 9 mg/dL Normal 5-40 [facility]; [facility] Work Phone: Comment on above: PATIENT WAS FASTINGP ERFORMED BY: ANDREW [facility] Wamcll7681 [address] RoadDublin [place] [id number] LIPID PANEL (97420) 100 mg/dL Abnormal 0-99 [facility]; [facility] Work Phone: Comment on above: PATIENT WAS FASTINGP ERFORMED BY: CB [facility] Lcanee6354 [address] RoadDublin [place] [id number] LIPID PANEL (21761) 1.0 {ratio} Normal 0.0-3.6 [facility]; [facility] Work Phone: Comment on above: LDL/HDL Ratio Men Wo men 1/2 Avg.Risk 1.0 1.5 Avg.Risk 3.6 3.2 2X Avg.Risk 6.2 5.0 3X Avg.Risk 8.0 6.1 PATIENT WAS FASTINGP ERFORMED BY: CB [facility] Rljgah0849 [address] RoadDublin [place] [id number] METABOLIC PANEL, COMPREHENSI VE (76506)Ordered By: [employer] Manager on 01-04-2022 Albumin [Mass/Vol] 4.5 g/dL Normal 3.8-4.9 [facility] Internal [facility]; [facility] Work Phone: Comment on above: PATIENT WAS FASTINGP ERFORMED BY: CB [facility] Kkkizs9120 [address] RoadDublin [place] [id number] Albumin/Globulin [Mass ratio] 1.7 {ratio} Normal 1.2-2.2 [facility]; [facility] Work Phone: Comment on above: PATIENT WAS FASTINGP ERFORMED BY: CB [facility] Saopft2590 [address] RoadDublin [place] [id number] ALP [Catalytic activity/Vol] 66 U/L Normal 44-121 [facility]; [facility] Work Phone: Comment on above: PATIENT WAS FASTINGP ERFORMED BY: CB [facility] Dzfhuq8925 [address] RoadDublin [place] [id number] ALT [Catalytic activity/Vol] 19 U/L Normal 0-44 [facility]; [facility] Work Phone: Comment on above: PATIENT WAS FASTINGP ERFORMED BY: CB [facility] Vszxas0357 [address] RoadDublin [place] [id number] AST [Catalytic activity/Vol] 24 U/L Normal 0-40 [facility]; [facility] Work Phone: Comment on above: PATIENT WAS FASTINGP ERFORMED BY: CB [facility] Rbshlq9379 [address] RoadDublin [place] [id number] Bilirubin [Mass/Vol] 1.0 mg/dL Normal 0.0-1.2 [facility] Internal [facility]; [facility] Work Phone: Comment on above: PATIENT WAS FASTINGP ERFORMED BY: CB [facility] Zgozrt1103 [address] RoadDublin [place] [id number] Calcium [Mass/Vol] 9.9 mg/dL Normal 8.7-10.2 [facility] Internal [facility]; [facility] Work Phone: Comment on above: PATIENT WAS FASTINGP ERFORMED BY: CB [facility] Atyqup0634 [address] RoadDublin [place] [id number] Chloride [Moles/Vol] 97 mmol/L Normal 96-106 Comp rehensive Internal Medicine; [facility] Work Phone: Comment on above: PATIENT WAS FASTINGP ERFORMED BY: ANDREW Labcoromeo ForteXdygnj0777 [facility] [id number] CO2 [Moles/Vol] 25 mmol/L Normal 20-29 Comprehen sive Internal Medicine; [facility] Work Phone: Comment on above: PATIENT WAS FASTINGP ERFORMED BY: [facility] Jxrbuh0023 [facility] [id number] Creatinine [Mass/Vol] 0.79 mg/dL Normal 0.76-1.27 [facility] prehensive Internal Medicine; [facility] Work Phone: Comment on above: PATIENT WAS FASTINGP ERFORMED BY: [facility] Rbgxwo5185 [facility] [id number] GFR/1.73 sq M.predicted among non-blacks MDRD (S/P/Bld) [Vol rate/Area] 105 mL/min/{1.73_m2} Normal Comprehensi Internal Medicine; [facility] Work Phone: Comment on above: PATIENT WAS FASTINGP ERFORMED BY: [facility] Ekehkw4445 [facility] [id number] Globulin (S) [Mass/Vol] 2.7 g/dL Normal 1.5-4.5 [facility]; [facility] Work Phone: Comment on above: PATIENT WAS FASTINGP ERFORMED BY: [facility] Utwrmu9090 [facility] [id number] Glucose [Mass/Vol] 93 mg/dL Normal 65-99 Compre [facility] Internal [facility]; [facility] Work Phone: Comment on above: PATIENT WAS FASTINGP ERFORMED BY: [facility] Rklfeq6207 [facility] [id number] Potassium [Moles/Vol] 4.4 mmol/L Normal 3.5-5.2 Com prehensive Internal Medicine; [facility] Work Phone: Comment on above: PATIENT WAS FASTINGP ERFORMED BY: ANDREW [facility] Mehwbi0667 [address] RoadDublin [place] [id number] Protein [Mass/Vol] 7.2 g/dL Normal 6.0-8.5 [facility]; [facility] Work Phone: Comment on above: PATIENT WAS FASTINGP ERFORMED BY: ANDREW Labcoromeo Ybvwnf2298 [address]ía RoadDublin [place] [id number] Sodium [Moles/Vol] 137 mmol/L Normal 134-144 [facility]; [facility] Work Phone: Comment on above: PATIENT WAS FASTINGP ERFORMED BY: ANDREW Labcoromeo Kzxqgy2767 García RoadDublin [place] [id number] Urea nitrogen [Mass/Vol] 11 mg/dL Normal 6-24 [facility]; [facility] Work Phone: Comment on above: PATIENT WAS FASTINGP ERFORMED BY: ANDREW Labcoromeo PattonEqabfb5866 García RoadDublin [place] [id number] Urea nitrogen/Creatinine [Mass ratio] 14 mg/mg Normal 9-20 [facility]; [facility] Work Phone: Comment on above: PATIENT WAS FASTINGP ERFORMED BY: ANDREW Labmatthew Krhwpt1884 García RoadDublin [place] [id number] MICROALBUMINOrdered By: Syst em Doughmaker on 01-04-2022 Albumin DL <= 20 mg/L (U) [Mass/Vol] 3.7 ug/mL Normal [facility]; [facility] Work Phone: Comment on above: PATIENT WAS FASTINGP ERFORMED BY: ANDREW [facility] Ctwauh2494 García RoadDublin [place] [id number] Albumin/Creatinine (U) [Mass ratio] 3 {mg/g_creat} Normal 0-29 [facility]; [facility] Work Phone: Comment on above: Normal: 0 - 29 Moder ately increased: 30 - 300 Severely increased: >300 PATIENT WAS FASTINGP ERFORMED BY: ANDREW Labcoromeo Wtyhlq0930 García RoadDublin [place] [id number] Creatinine (U) [Mass/Vol] 116.3 mg/dL Normal [facility]; [facility] Work Phone: Comment on above: PATIENT WAS FASTINGP ERFORMED BY: ANDREW Forte6370 [facility] [id number] TSH ([id number])Ordered By: Kan becerra Doughmaker on 01-04-2022 TSH Qn 0.593 {uIU/mL} Normal 0.450-4.50 0 [facility]; [facility] Work Phone: Comment on above: PATIENT WAS FASTINGP ERFORMED BY: ANDREW Forte6370 [facility] [id number] Blood Glucose , Office ([phone])Ordered By: Ml Gomez on 09-03-2021 Glucose Glucometer (BldC) [Moles/Vol] 107 1 Normal [facility]; [facility] Work Phone: HgA1C , Office ([phone])Ordere d By: Ml Gomez on 09-03-2021 HbA1c (Bld) [Mass fraction] 5.4 % Normal 4.6 - 7.1 [facility]; [facility] Work Phone: HGB A1C ([id number])Ordered By: Lourdes ystem Doughmaker on 04-27-2021 HbA1c (Bld) [Mass fraction] 5.7 % Abnormal 4.8-5.6 [facility]; [facility] Work Phone: Comment on above: . Prediabetes: 5.7 - 6.4 Diabetes: >6.4 Glycemic control for adults with diabetes: <7.0 PATIENT NOT FASTINGP ERFORMED BY: ANDREW LabMatthew PattonZxtkzc1082 [facility] [id number] POTASSIUM SERUM ([id number])Order ed By: Oil Well Drilling Manager on 04-27-2021 Potassium [Moles/Vol] 4.4 mmol/L Normal 3.5-5.2 [facility] prehensive Internal Medicine; [facility] Work Phone: Comment on above: PATIENT NOT FASTINGP ERFORMED BY: ANDREW Forte6370 [facility] [id number] SARS-CoV-2 Antibody, IgG ([id number] [id number])Ordered By: Oil Well Drilling Manager on 11-06-2020 SARS-CoV-2 (COVID-19) IgG IA.rapid Ql (S/P/Bld) Positive Normal [facility]; [facility] Work Phone: Comment on above: Results suggest rece nt or prior infection with SARS-CoV-2. Correlationwith epidemiologic risk factors and other clinical and laboratoryfindings is recommended. Serologic results should not be used as thesole basis to diagnose or exclude recent SARS-CoV-2 infection. Falsepositive results infrequently occur due to prior infection with otherhuman Coronaviruses.This assay was performed using the [employer]. Liaison(R)SARS-CoV-2 S1/S2 IgG assay.This assay detects antibodies against SARS-CoV-2 spike proteinincluding the receptor binding domain (RBD). Test(s) [id number]- CoV-2 Antibody, IgGhas not been FDA cleared or approved. This test hasbeen authorized by FDA under an Emergency Use Authorization(EUA). This test is only authorized for the duration of thedeclaration that circumstances exist justifying the authorizationof emergency use of in vitro diagnostics for detection and/ordiagnosis of COVID-19 under Section 564(b)(1) of the Act, 21U.S.C. 360bbb-3(b)(1), unless the authorization is terminated orrevoked sooner. This test has been authorized only for detectingthe presence of antibodies against SARS-CoV-2, not for any otherviruses or pathogens.PATIENT NOT FASTINGPERFORMED BY: LabCo Aostzj9662 [facility] [id number] SARS-CoV-2 Antibody, IgG (66049) Positive Normal [facility]; [facility] Work Phone: Comment on above: Results suggest rece nt or prior infection with SARS-CoV-2. Correlationwith epidemiologic risk factors and other clinical and laboratoryfindings is recommended. Serologic results should not be used as thesole basis to diagnose or exclude recent SARS-CoV-2 infection. Falsepositive results infrequently occur due to prior infection with otherhuman Coronaviruses.This assay was performed using the [employer] Liaison(R)SARS-CoV-2 S1/S2 IgG assay.This assay detects antibodies against SARS-CoV-2 spike proteinincluding the receptor binding domain (RBD). Test(s) [id number]- CoV-2 Antibody, IgGhas not been FDA cleared or approved. This test hasbeen authorized by FDA under an Emergency Use Authorization(EUA). This test is only authorized for the duration of thedeclaration that circumstances exist justifying the authorizationof emergency use of in vitro diagnostics for detection and/ordiagnosis of COVID-19 under Section 564(b)(1) of the Act, 21U.S.C. 360bbb-3(b)(1), unless the authorization is terminated orrevoked sooner. This test has been authorized only for detectingthe presence of antibodies against SARS-CoV-2, not for any otherviruses or pathogens.PATIENT NOT FASTINGPERFORMED BY: [facility]6370 [facility] [id number] 2018 Novel Coronavirus (COVI D-19), GABBY ([id number])Ordered By: Oil Well Drilling Manager on 08-03-2020 2019 Novel Coronavirus (COVID-19), GABBY ([id number]) Detected Abnormal [facility]; [facility] Work Phone: Comment on above: Client Requested Fla gThis nucleic acid amplification test was developed and its performancecharacteristics determined by [employer]. Nucleic acidamplification tests include PCR and TMA. This test has not been FDAcleared or approved. This test has been authorized by FDA under anEmergency Use Authorization (EUA). This test is only authorized forthe duration of time the declaration that circumstances existjustifying the authorization of the emergency use of in vitrodiagnostic tests for detection of SARS-CoV-2 virus and/or diagnosisof COVID-19 infection under section 564(b)(1) of the Act, 21 U.S.C.360bbb-3(b) (1), unless the authorization is terminated or revokedsooner.When diagnostic testing is negative, the possibility of a falsenegative result should be considered in the context of a patient'srecent exposures and the presence of clinical signs and symptomsconsistent with COVID-19. An individual without symptoms of COVID-19and who is not shedding SARS-CoV-2 virus would expect to have anegative (not detected) result in this assay. To be done Jul; PATIENT NOT FASTINGPERFORMED BY: ANDREW [employer]6370 [facility]Saint [facility] [id number] 2018 Novel Coronavirus (COVID-19), GABBY ([id number]) Detected Abnormal [facility]; [facility] Work Phone: Comment on above: Client Requested Fla gThis nucleic acid amplification test was developed and its performancecharacteristics determined by [employer]. Nucleic acidamplification tests include PCR and TMA. This test has not been FDAcleared or approved. This test has been authorized by FDA under anEmergency Use Authorization (EUA). This test is only authorized forthe duration of time the declaration that circumstances existjustifying the authorization of the emergency use of in vitrodiagnostic tests for detection of SARS-CoV-2 virus and/or diagnosisof COVID-19 infection under section 564(b)(1) of the Act, 21 U.S.C.360bbb-3(b) (1), unless the authorization is terminated or revokedsooner.When diagnostic testing is negative, the possibility of a falsenegative result should be considered in the context of a patient'srecent exposures and the presence of clinical signs and symptomsconsistent with COVID-19. An individual without symptoms of COVID-19and who is not shedding SARS-CoV-2 virus would expect to have anegative (not detected) result in this assay. To be done Jul; PATIENT NOT FASTINGPERFORMED BY: ANDREW [employer]6370 ALL[facility] CommunicationsAt[facility] Health [facility] [id number] Protein Electro, Random Urin eOrdered By: Oil Well Drilling Manager on 05-07-2017 Albumin/Protein.total Elph mass fraction (U) 18.9 % Normal [facility] Work Phone: Comment on above: PATIENT NOT FASTINGP ERFORMED BY: ANDREW [employer]70 [address]ía RoadDublin [place] [id number] Alpha 1 globulin/Protein.tota l Elph mass fraction (U) 3.2 % Normal [facility] Work Phone: Comment on above: PATIENT NOT FASTINGP ERFORMED BY: CB [facility] Xmihak9350 García RoadDublin [place] [id number] Alpha 2 globulin/Protein.tota l Elph mass fraction (U) 18.6 % Normal [facility] Work Phone: Comment on above: PATIENT NOT FASTINGP ERFORMED BY: CB [facility] Nbdmga9646 García RoadDublin [place] [id number] Beta globulin/Protein.tota l Elph mass fraction (U) 32.6 % Normal [facility] Work Phone: Comment on above: PATIENT NOT FASTINGP ERFORMED BY: CB [facility] Jcnxdh4420 García RoadDublin [place] [id number] Gamma globulin/Protein.tota l Elph mass fraction (U) 26.6 % Normal [facility] Work Phone: Comment on above: PATIENT NOT FASTINGP ERFORMED BY: CB [facility] Wbhync7284 García RoadDublin [place] [id number] Laboratory comment Wilbur (Report) SPRCS Normal [facility] Work Phone: Comment on above: Protein electrophore sis scan will follow via computer, mail, orcourier delivery. PATIENT NOT FASTINGP ERFORMED BY: CB [facility] Hcxuyv1836 García RoadDublin [place] [id number] Protein mass conc (U) 8.7 mg/dL Normal [facility] prehensive Internal Medicine Work Phone: Comment on above: PATIENT NOT FASTINGP ERFORMED BY: CB [facility] Wznhgv8468 García RoadDublin [place] [id number] Protein.monoclonal/Pr otein.total Elph mass fraction (U) Not Observed Normal [facility] Work Phone: Comment on above: PATIENT NOT FASTINGP ERFORMED BY: CB [facility] Lkgpjg5197 García RoadDublin [place] [id number] Serum Protein Electrophoresi s (SPEP) ([id number])Ordered By: Oil Well Drilling Manager on 05-07-2017 Albumin mass conc 3.9 g/dL Normal 2.9-4.4 Compreh ensive Internal Medicine Work Phone: Comment on above: PATIENT NOT FASTINGP ERFORMED BY: CB [facility] Bwhpnj2907 García RoadDublin [place] [id number] Albumin/Globulin mass ratio 1.1 {ratio} Normal 0.7-1.7 [facility] Work Phone: Comment on above: PATIENT NOT FASTINGP ERFORMED BY: CB [facility] Veztti7325 [address]ía RoadDublin [place] [id number] Alpha 1 globulin Elph mass conc 0.3 g/dL Normal 0.0-0.4 [facility] Work Phone: Comment on above: PATIENT NOT FASTINGP ERFORMED BY: CB [facility] Vmqvvi7303 [address]ía RoadDublin [place] [id number] Alpha 2 globulin Elph mass conc 0.8 g/dL Normal 0.4-1.0 [facility] Work Phone: Comment on above: PATIENT NOT FASTINGP ERFORMED BY: CB [facility] Lhbhqv2976 García RoadDublin [place] [id number] Beta globulin Elph mass conc 1.1 g/dL Normal 0.7-1.3 [facility] Work Phone: Comment on above: PATIENT NOT FASTINGP ERFORMED BY: CB [facility] Nessmk3026 [address]ía RoadDublin [place] [id number] Gamma globulin Elph mass conc 1.4 g/dL Normal 0.4-1.8 [facility] Work Phone: Comment on above: PATIENT NOT FASTINGP ERFORMED BY: CB [facility] Xtilti5885 [address]ía RoadDublin [place] [id number] Globulin Calculated mass conc (S) 3.5 g/dL Normal 2.2-3.9 [facility] Work Phone: Globulin mass conc (S) 3.5 g/dL Normal 2.2-3.9 [facility] Work Phone: Comment on above: PATIENT NOT FASTINGP ERFORMED BY: [facility] Efwaht[address] [facility] [id number] Protein mass conc 7.4 g/dL Normal 6.0-8.5 Compreh ensive Internal Medicine Work Phone: Comment on above: PATIENT NOT FASTINGP ERFORMED BY: [facility] Tnsuxf[address] [facility] [id number] Protein.monoclonal Elph mass conc Not Observed Normal [facility] Work Phone: Comment on above: PATIENT NOT FASTINGP ERFORMED BY: [facility] Myalst4109 [facility] [id number] CBC W/Diff, AutomatedOrdered By: Oil Well Drilling Manager on 05-03-2017 Absolute Lymph 1.89 {X10_3/ul} Normal 0.83-4.51 Compr ehensive Internal Medicine Work Phone: Absolute Neut 5.3 {X10_3/uL} Normal 2.0-7.7 Compreh ensive Internal Medicine Work Phone: Comment on above: [facility] [address] [place], [address] Basophils/100 WBC (Bld) 0.6 % Normal 0-1 [facility] Work Phone: Comment on above: [facility] [address] [place], [address] Basophils/100 WBC Auto (Bld) 0.6 % Normal 0-1 [facility] Work Phone: Eosinophils/100 WBC (Bld) 3.3 % Normal 0-5 [facility] Work Phone: Comment on above: [facility] [address] [place], [address] Eosinophils/100 WBC Auto (Bld) 3.3 % Normal 0-5 [facility] Work Phone: Erythrocyte distribution width Auto Ratio (RBC) 12.0 % Normal 11.6-14.6 [facility] Work Phone: Erythrocyte distribution width Ratio (RBC) 12.0 % Normal 11.6-14.6 [facility] Work Phone: Comment on above: [facility] [address] [place], [address] Hematocrit Auto Volume Fraction (Bld) 44.2 % Normal 40-54 Comprehens beverly Internal Medicine Work Phone: Hematocrit Volume Fraction (Bld) 44.2 % Normal 40-54 [facility] Work Phone: Comment on above: [facility] [address] [place], [place], [phone]) Hemoglobin mass conc (Bld) 15.4 g/dL Normal 13.0-16.5 [facility] Work Phone: Comment on above: [place] [id number] [place], [address] IM GRAN % 0.400 % Normal 0.0-0.9 [facility] Work Phone: Comment on above: IG% - Immature Granu locytes (promyelocytes, myelocytes andmetamyelocytes) > 1% indicates that a LEFT SHIFT is Present. [facility] [address] [place], [address] Lymphocytes #/vol (Bld) 1.89 {X10_3/ul} Normal 0.83-4.51 [facility] Work Phone: Comment on above: [facility] [address] [place], [address] Lymphocytes/100 WBC (Bld) 22.8 % Normal 19-41 [facility] Work Phone: Comment on above: [facility] [address] [place], [address] Lymphocytes/100 WBC Auto (Bld) 22.8 % Normal 19-41 [facility] Work Phone: MCH Auto Entitic mass (RBC) 31.6 pg Normal 27.0-32.0 [facility] Work Phone: MCH Entitic mass (RBC) 31.6 pg Normal 27.0-32.0 [facility] Work Phone: Comment on above: [facility] [address] [place], [address] MCHC Auto mass conc (RBC) 34.8 {g/gl} Normal 32-36 [facility] Work Phone: MCHC mass conc (RBC) 34.8 {g/gl} Normal 32-36 [facility] prehensive Internal Medicine Work Phone: Comment on above: [facility] [address] [place], [address] MCV Auto Entitic volume (RBC) 90.6 fL Normal 80-94 [facility] Work Phone: MCV Entitic volume (RBC) 90.6 fL Normal 80-94 [facility] Work Phone: Comment on above: [facility] [address] [place], [address] Monocytes/100 WBC Auto (Bld) 9.2 % Normal 0-10 [facility] Work Phone: Comment on above: [facility] [address] [place], [address] Neutrophils/100 WBC (Bld) 63.7 % Normal 47-70 [facility] Work Phone: Comment on above: [facility] [address] [place], [address] Neutrophils/100 WBC Auto (Bld) 63.7 % Normal 47-70 [facility] Work Phone: Platelet mean volume Auto Entitic volume (Bld) 10.7 fL Normal 6.2-12.0 [facility] Work Phone: Platelet mean volume Entitic volume (Bld) 10.7 fL Normal 6.2-12.0 Comprehensi ve Internal Medicine Work Phone: Comment on above: [facility] [address] [place], [address] Platelets #/vol (Bld) 283 10*3/uL Normal 150-450 Co mprehensive [facility] Medicine Work Phone: Comment on above: [facility] [address] [place], [address] Platelets Auto #/vol (Bld) 283 10*3/uL Normal 150-450 [facility] Work Phone: RBC #/vol (Bld) 4.88 {M/mm3} Normal 4.6-6.2 Compreh ensive Internal Medicine Work Phone: Comment on above: [facility] [address] [place], [address] RBC Auto #/vol (Bld) 4.88 {M/mm3} Normal 4.6-6.2 Co mprehensive [facility] Work Phone: RDW SD 39.3 fL Normal 35.1-43.9 [facility] Work Phone: Comment on above: [facility] [address] [place], [address] WBC #/vol (Bld) 8.3 10*3/uL Normal 4.4-11.0 Comprehe nsive Internal Medicine Work Phone: Comment on above: [facility] [address] [place], [address] WBC Auto #/vol (Bld) 8.3 10*3/uL Normal 4.4-11.0 Com prehensive Internal Medicine Work Phone: Comprehensive Metabolic Prof ilOrdered By: Oil Well Drilling Manager on 05-03-2017 Comprehensive metabolic 2000 panel 27.0 mmol/L Normal 21.0-32.0 Comprehensi ve Internal Medicine Work Phone: Comment on above: [facility] [address] [place], [place], [address] ; can review on . Comprehensive metabolic 2000 panel 10 1 Normal 5-15 Comprehensi ve Internal Medicine Work Phone: Comment on above: [facility] [address] [place], [place], [phone] ; can review on . Comprehensive metabolic 2000 panel 0.70 mg/dL Normal 0.20-1.00 Comprehensi ve Internal Medicine Work Phone: Comment on above: [facility] [address] [place], [place], [phone] ; can review on . Comprehensive metabolic 2000 panel 102 mmol/L Normal 98-107 Comprehensi ve Internal Medicine Work Phone: Comment on above: [facility] [address] [place], [place], [phone] ; can review on . Comprehensive metabolic 2000 panel 30 U/L Normal 12-78 Comprehensi ve Internal Medicine Work Phone: Comment on above: [facility] [address] [place], [place], [address] ; can review on .20 Comprehensive metabolic 2000 panel 68 U/L Normal 45-117 Comprehensi ve Internal Medicine Work Phone: Comment on above: [facility] [address] [place], [place], [address] ; can review on .20 Comprehensive metabolic 2000 panel 139 mmol/L Normal 136-145 Comprehensi ve Internal Medicine Work Phone: Comment on above: [facility] [address] [place], [place], [address] ; can review on 9.20 Comprehensive metabolic 2000 panel 22 U/L Normal 15-37 Comprehensi ve Internal Medicine Work Phone: Comment on above: [facility] [address] [place], [place], [phone] ; can review on 05.07 Comprehensive metabolic 2000 panel 8.9 mg/dL Normal 8.5-10.1 Comprehensi ve Internal Medicine Work Phone: Comment on above: [facility] [address] [place], [place], [phone] ; can review on 05.07 Comprehensive metabolic 2000 panel 0.9 {RATIO} Normal 0.9-2.4 Comprehensi ve Internal Medicine Work Phone: Comment on above: [facility] [address] [place], [place], [phone] ; can review on 05.07 Comprehensive metabolic 1999 panel 4.1 g/dL Abnormal 2.3-3.5 Comprehensi ve Internal Medicine Work Phone: Comment on above: [facility] [address] [place], [place], [phone] ; can review on 05.07 Comprehensive metabolic 2000 panel 3.8 g/dL Normal 3.4-5.0 Comprehensi ve Internal Medicine Work Phone: Comment on above: [facility] [address] [place], [place], [address] ; can review on 05.07 Comprehensive metabolic 2000 panel 4.4 mmol/L Normal 3.5-5.1 Comprehensi ve Internal Medicine Work Phone: Comment on above: [facility] [address] [place], [place], [phone] ; can review on 05.07 Comprehensive metabolic 1999 panel 7.9 g/dL Normal 6.4-8.2 Comprehensi ve Internal Medicine Work Phone: Comment on above: [facility] [address] [place], [place], [phone] ; can review on 05.07 Comprehensive metabolic 2000 panel 17.4 {RATIO} Normal 10-20 Comprehensi ve Internal Medicine Work Phone: Comment on above: [facility] [address] [place], [place], [address] ; can review on 05.07 Comprehensive metabolic 2000 panel 130 mL/min Normal Comprehensi ve Internal Medicine Work Phone: Comment on above: GFR Calc [facility] [address] [place], [place], [id number] ; can review on 05.07 Comprehensive metabolic 2000 panel 107 mL/min Normal Comprehensi ve Internal Medicine Work Phone: Comment on above: Non- GFR Calc [facility] [address] [place], [place], [id number] ; can review on 05.07 Comprehensive [facility] 2000 panel 0.81 mg/dL Normal 0.70-1.30 Comprehensi ve Internal Medicine Work Phone: Comment on above: The validity of the calculated GFR AND GFRAA in patients over70 years has not been determined. Clinical correlation isessential. [facility] [address] [place], [place], [address] ; can review on 05.07 Comprehensive metabolic 2000 panel 14 mg/dL Normal 7-18 Comprehensi ve Internal Medicine Work Phone: Comment on above: [facility] [address] [place], [place], [address] ; can review on . Comprehensive metabolic 2000 panel 95 mg/dL Normal 70-110 Comprehensi ve Internal Medicine Work Phone: Comment on above: [facility] [address] [place], [place], [phone] ; can review on 05.07 Lipid ProfileOrdered By: Fred tem Doughmaker on 05-03-2017 Cholesterol in HDL mass conc 70 mg/dL Normal [facility] Work Phone: Comment on above: The drugs N-Acetylcy steine and Metamizole may falselydepress this assay. Reference Range HDL <40 mg/dL Low HDL Cholesterol HDL >or= 60 mg/dL High HDL Cholesterol [facility] [address] [place], [place], [id number] Cholesterol in LDL mass conc 109 mg/dL Normal 0-130 [facility] Work Phone: Cholesterol in LDL mass conc 109 mg/dL Normal 0-130 [facility] Work Phone: Comment on above: [facility] [address] [place], [place], [phone] Cholesterol in VLDL mass conc 15 mg/dL Normal 5-40 [facility] Work Phone: Comment on above: [place] [address] [place], [place], [phone] Cholesterol mass conc 194 mg/dL Normal [facility] prehensive Internal Medicine Work Phone: Comment on above: <200 mg/dL Desirable 200-240 mg/dL Borderline >240 mg/dL High Risk [place] [address] [place], [place], [phone] Triglyceride mass conc 74 mg/dL Normal [facility] Work Phone: Comment on above: The drugs N-Acetylcy steine and Metamizole may falselydepress this assay.Serum Triglycerides Reference Interval Normal <150 mg/dL Borderline high 150 - 199 mg/dL High 200 - 499 mg/dL Very High > or = 500 mg/dL [place] [address] [place], [place], [id number] MicroalbOrdered By: César ramsey on 05-03-2017 Creatinine mass conc 4.6 {mg/g_CRE} Normal [facility] Work Phone: Comment on above: [facility] [address] [place], [place], [phone] Creatinine mass conc 133.00 mg/dL Normal Co mprehensive [facility] Medicine Work Phone: Comment on above: [facility] [address] [place], [address] MICROALBUMIN,UR 6.1 mg/L Normal Comprehen sive Internal Medicine Work Phone: UR CREAT 133.00 mg/dL Normal Comprehensiv e Internal Medicine Work Phone: Microalb 6.1 mg/L Normal [facility] Work Phone: Comment on above: [facility] [address] [place], [address] Urinalysis, CompleteOrdered By: Oil Well Drilling Manager on 05-03-2017 CLARITY Clear Normal [facility] Work Phone: Comment on above: How was Urine Obtain ed? [facility] [address] [place], [place], [address] COLOR Yellow Normal [facility] Work Phone: Comment on above: How was Urine Obtain ed? [facility] [address] [place], [address] GLUCOSE, UR Normal Normal [facility] Work Phone: Comment on above: How was Urine Obtain ed? [facility] [address] [place], [address] LEUK ESTERASE Negative Normal Comprehensi ve Internal Medicine Work Phone: Comment on above: How was Urine Obtain ed? [facility] [address] [place], [address] MUCUS, URINE 0 SEEN Normal 0-5 Comprehensiv e Internal Medicine Work Phone: Comment on above: How was Urine Obtain ed? [facility] [address] [place], [address] pH UR 7.0 1 Normal 5.0 - 8.0 [facility] Work Phone: Comment on above: How was Urine Obtain ed? [facility] [address] [place], [place], [phone] Protein mass conc (U) Negative Normal Com prehensive Internal Medicine Work Phone: Comment on above: How was Urine Obtain ed? [facility] [address] [place], [place], [phone] RBC #/vol (U) 0 SEEN Normal 0-5 Comprehensi ve Internal Medicine Work Phone: Comment on above: How was Urine Obtain ed? [facility] [address] [place], [place], [phone] RBC Test strip #/vol (U) 0 SEEN Normal 0-5 [facility] Work Phone: SP.GR. DIPSTX 1.010 1 Normal 1.002-1.03 0 [facility] Work Phone: Comment on above: How was Urine Obtain ed? [facility] [address] [place], [place], [phone] .Auto Diffon 03-20-2017 Basophils Auto #/vol (Bld) 0.10 10 3/mcL Normal 0.00-0.19 [facility] ([place]) Comment on above: Performed By: #### C BC, ADIFF, ANEU, TROP, BMP, GFR ####[address] [place], [place] [address] Basophils/100 WBC Auto (Bld) 0.7 % Normal 0.0-2.5 [facility] ([place]) Comment on above: Performed By: #### C BC, ADIFF, ANEU, TROP, BMP, GFR ####An[address] [place], [place] [address] Eosinophils 0.30 10 3/mcL Normal 0.00-0.40 [facility] ([place]) Comment on above: Performed By: #### C BC, ADIFF, ANEU, TROP, BMP, GFR ####[address] [place], [place] [address] Eosinophils/100 leukocytes 3.3 % Normal 0.0-7.0 [facility] ([place]) Comment on above: Performed By: #### C BC, ADIFF, ANEU, TROP, BMP, GFR ####[address] [place], [place] [address] Lymphocytes 1.90 10 3/mcL Normal 0.77-3.85 [facility] ([place] Comment on above: Performed By: #### C BC, ADIFF, ANEU, TROP, BMP, GFR ####[address] [place], [place] [address] Lymphocytes/100 leukocytes 23.3 % Normal 10.0-50.0 [facility] ([place] Comment on above: Performed By: #### C BC, ADIFF, ANEU, TROP, BMP, GFR ####[address] [place], [place] [address] Monocytes 0.70 10 3/mcL Normal 0.15-1.00 [facility] ([place]) Comment on above: Performed By: #### C BC, ADIFF, ANEU, TROP, BMP, GFR ####[address] [place], [place] [address] Monocytes/100 leukocytes 8.5 % Normal 1.7-13.0 [facility] ([place]) Comment on above: Performed By: #### C BC, ADIFF, ANEU, TROP, BMP, GFR ####[address] [place], [place] [address] Neutrophils/100 WBC Auto (Bld) 64.2 % Normal 37.0-80.0 [facility] ([place] Comment on above: Performed By: #### C BC, ADIFF, ANEU, TROP, BMP, GFR ####[address] [place], [place] [address] .NEUABSon 03-20-2017 Neutrophils 5.10 10 3/mcL Normal 2.85-6.16 [facility] ([place] Comment on above: Performed By: #### C BC, ADIFF, ANEU, TROP, BMP, GFR ####[address] [place], [place] [address] BMPon 03-20-2017 BUN/Creatinine Ratio 16 ratio Normal 7-27 [facility] ([place]) Comment on above: Performed By: #### C BC, ADIFF, ANEU, TROP, BMP, GFR ####[address] [place], [place] [address] Calcium 9.3 mg/dL Normal 8.4-10.2 [facility] ([place] Comment on above: Performed By: #### C BC, ADIFF, ANEU, TROP, BMP, GFR ####[address] [place], [place] [address] Chloride 101 mmol/L Normal 98-107 [facility] ([place]) Comment on above: Performed By: #### C BC, ADIFF, ANEU, TROP, BMP, GFR ####[address] [place], [place] [address] CO2 27 mmol/L Normal 22-29 [facility] ([place] Comment on above: Performed By: #### C BC, ADIFF, ANEU, TROP, BMP, GFR ####[address] [place], [place] [address] Creatinine 0.8 mg/dL Normal 0.6-1.2 [facility] ([place]) Comment on above: Performed By: #### C BC, ADIFF, ANEU, TROP, BMP, GFR ####[address] [place], [place] [address] Electrolyte Balance 8.0 mEq/L Normal [facility] ([place]) Comment on above: Performed By: #### C BC, ADIFF, ANEU, TROP, BMP, GFR ####[address] [place], [place] [address] Glucose mass conc 100 mg/dL Normal 70-105 [facility] ([place]) Comment on above: Performed By: #### C BC, ADIFF, ANEU, TROP, BMP, GFR ####[address] [place], [place] [address] Potassium molar conc 4.4 mmol/L Normal 3.5-5.1 [facility] ([place]) Comment on above: Performed By: #### C BC, ADIFF, ANEU, TROP, BMP, GFR ####[address] [place], [place] [address] Sodium 136 mmol/L Normal 136-146 [facility] ([place]) Comment on above: Performed By: #### C BC, ADIFF, ANEU, TROP, BMP, GFR ####[address] [place], [place] [address] Urea nitrogen 12.8 mg/dL Normal 7.0-18.0 [facility] ([place]) Comment on above: Performed By: #### C BC, ADIFF, ANEU, TROP, BMP, GFR ####[address] [place], [place] [address] CBCon 03-20-2017 Erythrocyte distribution width Auto Ratio (RBC) 12.7 % Normal 11.5-14.5 [facility] ([place] Comment on above: Performed By: #### C BC, ADIFF, ANEU, TROP, BMP, GFR ####[address] [place], [place] [address] Erythrocytes (RBC) 4.97 10 6/mcL Normal 4.04-6.13 [facility] ([place]) Comment on above: Performed By: #### C BC, ADIFF, ANEU, TROP, BMP, GFR ####[address] [place], [place] [address] Hematocrit (HCT) 44.5 % Normal 42.0-52.0 [facility] ([place]) Comment on above: Performed By: #### C BC, ADIFF, ANEU, TROP, BMP, GFR ####[address] [place], [place] [address] Hemoglobin mass conc (Bld) 15.1 G/dL Normal 14.0-18.0 [facility] ([place] Comment on above: Performed By: #### C BC, ADIFF, ANEU, TROP, BMP, GFR ####[address] [place], [place] [address] MCH 30.4 pg Normal 27.0-31.2 [facility] ([place] Comment on above: Performed By: #### C BC, ADIFF, ANEU, TROP, BMP, GFR ####[address] [place], [place] [address] MCHC mass conc (RBC) 34.0 G/dL Normal 31.8-35.4 [facility] ([place] Comment on above: Performed By: #### C BC, ADIFF, ANEU, TROP, BMP, GFR ####[address] [place], [place] [address] MCV 89.6 fL Normal 80.0-94.0 [facility] ([place] Comment on above: Performed By: #### C BC, ADIFF, ANEU, TROP, BMP, GFR ####[address] [place], [place] [address] Platelet mean volume (PMV) 8.9 fL Normal 7.4-10.4 [facility] ([place]) Comment on above: Performed By: #### C BC, ADIFF, ANEU, TROP, BMP, GFR ####[address] [place], [place] [address] Platelets 239 10 3/mcL Normal 130-400 [facility] ([place]) Comment on above: Performed By: #### C BC, ADIFF, ANEU, TROP, BMP, GFR ####[address] [place], [place] [address] WBC (Leukocytes) 8.00 10 3/mcL Normal 4.60-10.80 [facility] ([place]) Comment on above: Performed By: #### C BC, ADIFF, ANEU, TROP, BMP, GFR ####[address] [place], [place] [address] GFRon 03-20-2017 eGFR (non-black) mL/min/{1.73_m2} Normal [facility] ([place]) Comment on above: Result Comment: GFR Population mean for , Non- Americans Ages 20-29 = 116 mL/min/1.73 sq.m. Ages 30-39 = 107 mL/min/1.73 sq.m. Ages 40-49 = 99 mL/min/1.73 sq.m. Ages 50-59 = 93 mL/min/1.73 sq.m. Ages 60-69 = 85 mL/min/1.73 sq.m. Ages 70+ = 75 mL/min/1.73 sq.m.Chronic Kidney Disease: Less than 60 mL/min/1.73 square metersEnd Stage Renal Disease: Less than 15 mL/min/1.73 square meters Performed By: #### C BC, ADIFF, ANEU, TROP, BMP, GFR ####[address] [place], [place] [address] eGFR (non-black) 122 ml/min/1.73sqm Normal [facility] ([place]) Comment on above: Result Comment: GFR Population mean for , Non- Americans Ages 20-29 = 116 mL/min/1.73 sq.m. Ages 30-39 = 107 mL/min/1.73 sq.m. Ages 40-49 = 99 mL/min/1.73 sq.m. Ages 50-59 = 93 mL/min/1.73 sq.m. Ages 60-69 = 85 mL/min/1.73 sq.m. Ages 70+ = 75 mL/min/1.73 sq.m.Chronic Kidney Disease: Less than 60 mL/min/1.73 square metersEnd Stage Renal Disease: Less than 15 mL/min/1.73 square meters Performed By: #### C BC, ADIFF, ANEU, TROP, BMP, GFR ####[address] [place], [place] [address] [facility] Note on 03-20-2017 [facility] Note Normal [facility] ([place]) Patient Summary Documentson 03-20-2017 Patient Summary Documents Normal [facility]) TROPon 03-20-2017 Troponin I.cardiac mass conc ng/mL Normal 0.00-0.30 [facility] ([place]) Comment on above: Result Comment: Belo w measuring range>=0.30 Consistent with cardiac damage, increased clinical risk and possibility of myocardial infarction. Serial measurements, clinical history, appropriate symptoms and/or ECG changes may help assess possibility of PR.*Other non-acute coronary syndrome conditions such as CHF, myocarditis, pulmonary emboli, sepsis and cardiac surgery could result in myocardial damage and increased troponin levels. Performed By: #### C BC, ADIFF, ANEU, TROP, BMP, GFR ####[address] [place], [place] [address] XR CHEST 1 VIEWon 03-20-2017 XR CHEST 1 VIEW ORIGINALClinical his tory: Chest pain. COMPARISON: None. AP radiographs of the chest were obtained. The heart is normal in size and configuration. The lungs are clear. There is no mediastinal or hilar mass or pleural effusion. There is no pneumothorax or atelectasis. The visualized bony structures are within normal limits. IMPRESSION: Normal chest. Interpreted By: Gulshan Oconnor MDPreliminary Report By: Gulshan Oconnor MDElectronically Signed By: Gulshan Oconnor MD Dictated Date: 03/20/2017 7:56:46 AM Prelim Date: 03/20/2017 7:56:46 AM Sign Date: 03/20/2017 7:57:30 AM Normal [facility] ([place]) Catecholamines, 24 UROrdered By: Oil Well Drilling Manager on 07-26-2016 DOPAMINE,U24 248 {ug/24_hr} Normal 0-510 Comprehe nsive Internal Medicine Work Phone: Comment on above: Performed at: [address] [id number] Director: Deric Montes MD, Phone: [phone] ___ TESTING PERFORMED AT [facility]. ORIGINAL REPORT ON FILE IN LAB CONTAINS ADDITIONAL TEST SITE INFORMATION. DOPAMINE,UR 80 ug/L Normal [facility] Work Phone: EPINEPHRINE, UR 1 ug/L Normal Comprehen sive Internal Medicine Work Phone: EPINEPHRINE,U24 3 {ug/24_hr} Normal 0-20 Compreh ensive Internal Medicine Work Phone: NOREPINEPH,U24 56 {ug/24_hr} Normal 0-135 Compreh ensive Internal Medicine Work Phone: NOREPINEPH,UR 18 ug/L Normal Comprehensi ve Internal Medicine Work Phone: Catecholamines, 24 UR 3 {ug/24_hr} Normal 0-20 C omprehensive Internal Medicine Work Phone: Comment on above: [facility] (refer to re port for specific site)refer to report for address and phone number Catecholamines, 24 UR 248 {ug/24_hr} Normal 0-510 [facility] Work Phone: Comment on above: Performed at: [address] [id number] Director: Deric Montes MD, Phone: [phone] ___ TESTING PERFORMED AT [facility]. ORIGINAL REPORT ON FILE IN LAB CONTAINS ADDITIONAL TEST SITE INFORMATION. [facility] (refer to re port for specific site)refer to report for address and phone number Catecholamines, 24 UR 80 ug/L Normal Com prehensive Internal Medicine Work Phone: Comment on above: [facility] (refer to re port for specific site)refer to report for address and phone number Catecholamines, 24 UR 56 {ug/24_hr} Normal 0-135 [facility] Work Phone: Comment on above: [facility] (refer to re port for specific site)refer to report for address and phone number Catecholamines, 24 UR 18 ug/L Normal Com prehensive Internal Medicine Work Phone: Comment on above: [facility] (refer to re port for specific site)refer to report for address and phone number Catecholamines, 24 UR 1 ug/L Normal Com prehensive Internal Medicine Work Phone: Comment on above: [facility] (refer to re port for specific site)refer to report for address and phone number Metanephrine Frac 24 HR UROr dered By: Oil Well Drilling Manager on 07-19-2016 METANEPH,U24 81 {ug/24_hr} Normal 45-290 Comprehen sive Internal Medicine Work Phone: Comment on above: (Hypertensive) >17 y ears 11 months: 35 - 460 METANEPHRINE,UR 41 ug/L Normal Comprehen sive Internal Medicine Work Phone: NORMETANEPH,U24 192 {ug/24_hr} Normal 82-500 Compr ehensive Internal Medicine Work Phone: Comment on above: (Hypertensive) >17 y ears 11 months: 110 - 1050 NORMETANEPH,UR 97 ug/L Normal Comprehens [facility] Work Phone: Metanephrine Frac 24 HR UR 81 {ug/24_hr} Normal 45-290 [facility] Work Phone: Comment on above: (Hypertensive) >17 y ears 11 months: 35 - 460 [facility] (refer to re port for specific site)refer to report for address and phone number Metanephrine Frac 24 HR UR 97 ug/L Normal [facility] Work Phone: Comment on above: [facility] (refer to re port for specific site)refer to report for address and phone number Metanephrine Frac 24 HR UR 41 ug/L Normal [facility] Work Phone: Comment on above: [facility] (refer to re port for specific site)refer to report for address and phone number Metanephrine Frac 24 HR UR 192 {ug/24_hr} Normal 82-500 [facility] Work Phone: Comment on above: (Hypertensive) >17 y ears 11 months: 110 - 1050 [facility] (refer to re port for specific site)refer to report for address and phone number VMA, 24 HR UROrdered By: Fred tem Doughmaker on 07-19-2016 VMA,24UR 1.8 {mg/24_hr} Normal 0.0-7.5 Comprehens [facility] Work Phone: Comment on above: This test was develo ped and its performance characteristicsdetermined by [employer]. It has not been cleared orapproved by the Food and Drug Administration.Performed at: [facility] [address] [id number] Director: Deric Montes MD, Phone: [phone] VMA,UR 0.9 mg/L Normal [facility] Work Phone: VMA, 24 HR UR 0.9 mg/L Normal Comprehensi ve Internal Medicine Work Phone: Comment on above: [facility] (refer to re port for specific site)refer to report for address and phone number VMA, 24 HR UR 1.8 {mg/24_hr} Normal 0.0-7.5 Compreh ensive Internal Medicine Work Phone: Comment on above: This test was develo ped and its performance characteristicsdetermined by [employer]. It has not been cleared orapproved by the Food and Drug Administration.Performed at: [facility] [address] [id number] Director: Deric Montes MD, Phone: [phone] [facility] (refer to re port for specific site)refer to report for address and phone number ANTINUCLEAR ANTIBODIES DIREC TOrdered By: Oil Well Drilling Manager on 07-17-2016 Nuclear Ab Ql (S) Negative Normal Compreh ensive Internal Medicine Work Phone: Comment on above: Performed at: [facility] Kartik Becker [address] [id number] Director: Demetrius Acosta PhD, Phone: [phone] [facility] (refer to re port for specific site)refer to report for address and phone number CBC W/Diff, AutomatedOrdered By: Oil Well Drilling Manager on 07-17-2016 Absolute Lymph 2.96 {X10_3/ul} Normal 0.83-4.51 Compr ehensive Internal Medicine Work Phone: Absolute Neut 4.4 {X10_3/uL} Normal 2.0-7.7 Compreh ensive Internal Medicine Work Phone: Comment on above: [facility] [address] [place], [address] Basophils/100 WBC (Bld) 0.5 % Normal 0-1 [facility] Work Phone: Comment on above: [facility] [address] [place], [address] Basophils/100 WBC Auto (Bld) 0.5 % Normal 0-1 [facility] Work Phone: Eosinophils/100 WBC (Bld) 3.7 % Normal 0-5 [facility] Work Phone: Comment on above: [facility] [address] [place], [address] Eosinophils/100 WBC Auto (Bld) 3.7 % Normal 0-5 [facility] Work Phone: Erythrocyte distribution width Auto Ratio (RBC) 12.1 % Normal 11.6-14.6 [facility] Work Phone: Erythrocyte distribution width Ratio (RBC) 12.1 % Normal 11.6-14.6 [facility] Work Phone: Comment on above: [facility] [address] [place], [address] Hematocrit Auto Volume Fraction (Bld) 43.3 % Normal 40-54 [facility] Internal [facility] Work Phone: Hematocrit Volume Fraction (Bld) 43.3 % Normal 40-54 [facility] Work Phone: Comment on above: [facility] [address] [place], [address] Hemoglobin mass conc (Bld) 15.1 g/dL Normal 13.0-16.5 [facility] Work Phone: Comment on above: [facility] [address] [place], [address] IM GRAN % 0.500 % Normal 0.0-0.9 [facility] Work Phone: Comment on above: IG% - Immature Granu locytes (promyelocytes, myelocytes andmetamyelocytes) > 1% indicates that a LEFT SHIFT is Present. [facility] [address] [place], [place], [phone] Lymphocytes #/vol (Bld) 2.96 {X10_3/ul} Normal 0.83-4.51 [facility] Work Phone: Comment on above: [facility] [address] [place], [place], [phone] Lymphocytes/100 WBC (Bld) 35.2 % Normal 19-41 [facility] Work Phone: Comment on above: [facility] [address] [place], [address] Lymphocytes/100 WBC Auto (Bld) 35.2 % Normal 19-41 [facility] Work Phone: MCH Auto Entitic mass (RBC) 31.5 pg Normal 27.0-32.0 [facility] Work Phone: MCH Entitic mass (RBC) 31.5 pg Normal 27.0-32.0 [facility] Work Phone: Comment on above: [facility] [address] [place], [place], [phone] MCHC Auto mass conc (RBC) 34.9 {g/gl} Normal 32-36 [facility] Work Phone: MCHC mass conc (RBC) 34.9 {g/gl} Normal 32-36 [facility] prehensive Internal Medicine Work Phone: Comment on above: [facility] [address] [place], [place], [phone] MCV Auto Entitic volume (RBC) 90.2 fL Normal 80-94 [facility] Work Phone: MCV Entitic volume (RBC) 90.2 fL Normal 80-94 [facility] Work Phone: Comment on above: [facility] [address] [place], [address] Monocytes/100 WBC Auto (Bld) 8.2 % Normal 0-10 [facility] Work Phone: Comment on above: [facility] [address] [place], [address] Neutrophils/100 WBC (Bld) 51.9 % Normal 47-70 [facility] Work Phone: Comment on above: [facility] [address] [place], [address] Neutrophils/100 WBC Auto (Bld) 51.9 % Normal 47-70 [facility] Work Phone: Platelet mean volume Auto Entitic volume (Bld) 10.5 fL Normal 6.2-12.0 [facility] Work Phone: Platelet mean volume Entitic volume (Bld) 10.5 fL Normal 6.2-12.0 Comprehensi ve Internal Medicine Work Phone: Comment on above: [facility] [address] [place], [address] Platelets #/vol (Bld) 287 10*3/uL Normal 150-450 Co mprehensive Internal Medicine Work Phone: Comment on above: [facility] [address] [place], [address] Platelets Auto #/vol (Bld) 287 10*3/uL Normal 150-450 [facility] Work Phone: RBC #/vol (Bld) 4.80 {M/mm3} Normal 4.6-6.2 Compreh ensive Internal Medicine Work Phone: Comment on above: [facility] [address] [place], [address] RBC Auto #/vol (Bld) 4.80 {M/mm3} Normal 4.6-6.2 Co mprehensive [facility] Work Phone: RDW SD 40.2 fL Normal 35.1-43.9 [facility] Work Phone: Comment on above: [facility] [address] [place], [place], [phone] WBC #/vol (Bld) 8.4 10*3/uL Normal 4.4-11.0 Comprehe nsive Internal Medicine Work Phone: Comment on above: [facility] [address] [place], [address] WBC Auto #/vol (Bld) 8.4 10*3/uL Normal 4.4-11.0 [facility] prehensive Internal Medicine Work Phone: CRPOrdered By: System Manage r on 07-17-2016 CRP mass conc 6.11 mg/L Abnormal 0.0-3.0 Comprehensi ve Internal Medicine Work Phone: Comment on above: C-Reactive Protein ( CRP) provides useful information for thediagnosis, therapy and monitoring of inflammatory processesand associated diseases. For the evaluation of Relative Riskfor Cardiovascular Disease, a High Sensitivity CRP (HSCRP)should be ordered. [facility] [address] [place], [place], [phone] Comprehensive Metabolic Prof ilOrdered By: Oil Well Drilling Manager on 07-17-2016 Comprehensive metabolic 2000 panel 98 mL/min Normal Comprehensi ve Internal Medicine Work Phone: Comment on above: Non- GFR Calc [facility] [address] [place], [address] Comprehensive metabolic 2000 panel 24 U/L Normal 15-37 Comprehensi ve Internal Medicine Work Phone: Comment on above: [facility] [address] [place], [place], [phone] Comprehensive metabolic 2000 panel 69 U/L Normal 45-117 Comprehensi ve Internal Medicine Work Phone: Comment on above: [facility] [address] [place], [place], [address] Comprehensive metabolic 2000 panel 40 U/L Normal 12-78 Comprehensi ve Internal Medicine Work Phone: Comment on above: [facility] [address] [place], [place], [address] Comprehensive metabolic 2000 panel 0.70 mg/dL Normal 0.20-1.00 Comprehensi ve Internal Medicine Work Phone: Comment on above: [facility] [address] [place], [place], [phone] Comprehensive metabolic 2000 panel 137 mmol/L Normal 136-145 Comprehensi ve Internal Medicine Work Phone: Comment on above: [facility] [address] [place], [place], [phone] Comprehensive metabolic 2000 panel 119 mL/min Normal Comprehensi ve Internal Medicine Work Phone: Comment on above: GFR Calc [facility] [address] [place], [place], [phone] Comprehensive metabolic 2000 panel 9 1 Normal 5-15 Comprehensi ve Internal Medicine Work Phone: Comment on above: [facility] [address] [place], [place], [phone] Comprehensive metabolic 2000 panel 22.9 {RATIO} Abnormal 10-20 Comprehensi ve Internal Medicine Work Phone: Comment on above: [facility] [address] [place], [place], [phone] Comprehensive metabolic 2000 panel 8.0 g/dL Normal 6.4-8.2 Comprehensi ve Internal Medicine Work Phone: Comment on above: [facility] [address] [place], [place], [phone] Comprehensive metabolic 2000 panel 4.0 g/dL Normal 3.4-5.0 Comprehensi ve Internal Medicine Work Phone: Comment on above: [facility] [address] [place], [place], [phone] Comprehensive metabolic 2000 panel 1.0 {RATIO} Normal 0.9-2.4 Comprehensi ve Internal Medicine Work Phone: Comment on above: [facility] [address] [place], [place], [phone] Comprehensive metabolic 2000 panel 8.9 mg/dL Normal 8.5-10.1 Comprehensi ve Internal Medicine Work Phone: Comment on above: [facility] [address] [place], [place], [phone] Comprehensive metabolic 2000 panel 0.88 mg/dL Normal 0.70-1.30 Comprehensi ve Internal Medicine Work Phone: Comment on above: The validity of the calculated GFR AND GFRAA in patients over70 years has not been determined. Clinical correlation isessential. [facility] [address] [place], [place], [phone] Comprehensive metabolic 2000 panel 20 mg/dL Abnormal 7-18 Comprehensi ve Internal Medicine Work Phone: Comment on above: [facility] [address] [place], [place], [phone] Comprehensive metabolic 2000 panel 90 mg/dL Normal 70-110 Comprehensi ve Internal Medicine Work Phone: Comment on above: [facility] [address] [place], [place], [phone] Comprehensive metabolic 2000 panel 29.0 mmol/L Normal 21.0-32.0 Comprehensi ve Internal Medicine Work Phone: Comment on above: [facility] [address] [place], [place], [phone] Comprehensive metabolic 2000 panel 99 mmol/L Normal 98-107 Comprehensi ve Internal Medicine Work Phone: Comment on above: [facility] [address] [place], [place], [phone] Comprehensive metabolic 2000 panel 4.1 mmol/L Normal 3.5-5.1 Comprehensi ve Internal Medicine Work Phone: Comment on above: [facility] [address] [place], [address] Erythrocyte Sed RateOrdered By: Oil Well Drilling Manager on 07-17-2016 SED RATE 6 mm/h Normal 0-20 [facility] Work Phone: Erythrocyte Sed Rate 6 mm/h Normal 0-20 Comp rehensive Internal Medicine Work Phone: Comment on above: [facility] [address] [place], [place], [phone] Lyme Screen W/Reflex WBOrder ed By: Oil Well Drilling Manager on 07-17-2016 LYME SCN AB <0.91 Normal 0.00-0.90 [facility] Work Phone: Comment on above: Negative <0.91 Equiv ocal 0.91 - 1.09 Positive >1.09Performed at: [facility] [address] [place] [id number] Director: Demetrius Acosta PhD, Phone: [phone] LYME SCN INTERP REF LAB Normal [facility]hen [facility] Work Phone: Lyme Screen W/Reflex WB REF LAB Normal [facility] Work Phone: Comment on above: [facility] (refer to re port for specific site)refer to report for address and phone number Lyme Screen W/Reflex WB <0.91 Normal 0.00-0.90 [facility] Work Phone: Comment on above: Negative <0.91 Equiv ocal 0.91 - 1.09 Positive >1.09Performed at: [facility] [address] [place] [id number] Director: Demetrius Acosta PhD, Phone: [phone] [facility] (refer to re port for specific site)refer to report for address and phone number Thyroid Stim Hormone (TSH)Or dered By: Oil Well Drilling Manager on 07-17-2016 Thyrotropin Qn 1.08 {uIU/mL} Normal 0.358-3.74 Compreh ensive Internal Medicine Work Phone: Comment on above: [facility] [address] [place], [address] Vitamin T57Odakxwv By: Kan becerra Doughmaker on 07-17-2016 Cobalamin (Vitamin B12) mass conc 625 pg/mL Normal 211-911 [facility] Work Phone: Comment on above: [facility] [address] [place], [address] Vitamin D,25 HydroxyOrdered By: Oil Well Drilling Manager on 07-17-2016 Vitamin D 25-OH 22.2 ng/mL Normal Comprehen [facility] Internal [facility] Work Phone: Comment on above: Vitamin D 25(OH) Sta tus Range Deficiency <20 ng/mL (50nmol/L) Insuffciency 20 - 30 ng/mL (50 - 75 nmol/L) Sufficiency 30 - 100 ng/mL (75 - 250 nmol/L) Toxicity >100 ng/mL (>250 nmol/L) Vitamin D,25 Hydroxy 22.2 ng/mL Normal Comp rehensive Internal Medicine Work Phone: Comment on above: Vitamin D 25(OH) Sta tus Range Deficiency <20 ng/mL (50nmol/L) Insuffciency 20 - 30 ng/mL (50 - 75 nmol/L) Sufficiency 30 - 100 ng/mL (75 - 250 nmol/L) Toxicity >100 ng/mL (>250 nmol/L) [facility] [address] [place], [address] Basic Metabolic Profile (BMP )Ordered By: Oil Well Drilling Manager on 01-06-2016 Basic metabolic 2000 panel 9.0 mg/dL Normal 8.5-10.1 [facility] Work Phone: Comment on above: Serial Specimen #1, #2 or #3? 1'TROP' Serial specimen #1, #2, #3, or #4: [address] [place] [address] [place], [place], [phone] Basic metabolic 2000 panel 85.78 ml/min Normal [facility] Work Phone: Comment on above: Serial Specimen #1, #2 or #3? 1'TROP' Serial specimen #1, #2, #3, or #4: [address] [place] [address] [place], [place], [phone] Basic metabolic 2000 panel 139 mmol/L Normal 136-145 [facility] Work Phone: Comment on above: Serial Specimen #1, #2 or #3? 1'TROP' Serial specimen #1, #2, #3, or #4: [address] [place] [address] [place], [address] Basic metabolic 2000 panel 3.8 mmol/L Normal 3.5-5.1 [facility] Work Phone: Comment on above: Serial Specimen #1, #2 or #3? 1'TROP' Serial specimen #1, #2, #3, or #4: [address] [place] [address] [place], [address] Basic metabolic 2000 panel 103 mmol/L Normal 98-107 [facility] Work Phone: Comment on above: Serial Specimen #1, #2 or #3? 1'TROP' Serial specimen #1, #2, #3, or #4: [address] [place] [address] [place], [address] Basic metabolic 2000 panel 29.0 mmol/L Normal 21.0-32.0 [facility] Work Phone: Comment on above: Serial Specimen #1, #2 or #3? 1'TROP' Serial specimen #1, #2, #3, or #4: [address] [place] [address] [place], [address] Basic metabolic 2000 panel 7 1 Normal 5-15 [facility] Work Phone: Comment on above: Serial Specimen #1, #2 or #3? 1'TROP' Serial specimen #1, #2, #3, or #4: [address] [place] [address] [place], [address] Basic metabolic 2000 panel 109 mL/min Normal [facility] Work Phone: Comment on above: GFR Calc Serial Specimen #1, #2 or #3? 1'TROP' Serial specimen #1, #2, #3, or #4: [address] [place] [address] [place], [address] Basic metabolic 2000 panel 15.9 {RATIO} Normal 10-20 [facility] Work Phone: Comment on above: Serial Specimen #1, #2 or #3? 1'TROP' Serial specimen #1, #2, #3, or #4: [address] [place] [address] [place], [address] Basic metabolic 2000 panel 90 mL/min Normal [facility] Work Phone: Comment on above: Non- GFR Calc Serial Specimen #1, #2 or #3? 1'TROP' Serial specimen #1, #2, #3, or #4: [address] [place] [address] [place], [address] Basic metabolic 2000 panel 0.94 mg/dL Normal 0.70-1.30 [facility] Work Phone: Comment on above: The validity of the calculated GFR AND GFRAA in patients over70 years has not been determined. Clinical correlation isessential. Serial Specimen #1, #2 or #3? 1'TROP' Serial specimen #1, #2, #3, or #4: [address] [place] [address] [place], [address] Basic metabolic 2000 panel 15 mg/dL Normal 7-18 [facility] Work Phone: Comment on above: Serial Specimen #1, #2 or #3? 1'TROP' Serial specimen #1, #2, #3, or #4: [address] [place] [address] [place], [place], [phone] Basic metabolic 2000 panel 89 mg/dL Normal 70-110 [facility] Work Phone: Comment on above: Serial Specimen #1, #2 or #3? 1'TROP' Serial specimen #1, #2, #3, or #4: [address] [place] [address] [place], [place], [phone] CBC W/Diff, AutomatedOrdered By: Oil Well Drilling Manager on 01-06-2016 Absolute Lymph 2.67 {X10_3/ul} Normal 0.83-4.51 Compr ehensive Internal Medicine Work Phone: Absolute Neut 5.5 {X10_3/uL} Normal 2.0-7.7 Compreh ensive Internal Medicine Work Phone: Comment on above: [facility] [address] [place], [address] Basophils/100 WBC (Bld) 0.6 % Normal 0-1 [facility] Work Phone: Comment on above: [facility] [address] [place], [phone] Basophils/100 WBC Auto (Bld) 0.6 % Normal 0-1 [facility] Work Phone: Eosinophils/100 WBC (Bld) 3.1 % Normal 0-5 [facility] Work Phone: Comment on above: [facility] [address] [place], [address] Eosinophils/100 WBC Auto (Bld) 3.1 % Normal 0-5 [facility] Work Phone: Erythrocyte distribution width Auto Ratio (RBC) 12.3 % Normal 11.6-14.6 [facility] Work Phone: Erythrocyte distribution width Ratio (RBC) 12.3 % Normal 11.6-14.6 [facility] Work Phone: Comment on above: [facility] [address] [place], [place], [phone]) Hematocrit Auto Volume Fraction (Bld) 45.0 % Normal 40-54 Comprehens [facility] Internal Medicine Work Phone: Hematocrit Volume Fraction (Bld) 45.0 % Normal 40-54 [facility] Medicine Work Phone: Comment on above: [facility] [address] [place], [place], [phone](112) Hemoglobin mass conc (Bld) 15.6 g/dL Normal 13.0-16.5 [facility] Work Phone: Comment on above: [facility] [address] [place], [address] IM GRAN % 0.400 % Normal 0.0-0.9 [facility] Work Phone: Comment on above: IG% - Immature Granu locytes (promyelocytes, myelocytes andmetamyelocytes) > 1% indicates that a LEFT SHIFT is Present. [facility] [address] [place], [address] Lymphocytes #/vol (Bld) 2.67 {X10_3/ul} Normal 0.83-4.51 [facility] Work Phone: Comment on above: [facility] [address] [place], [address] Lymphocytes/100 WBC (Bld) 28.8 % Normal 19-41 [facility] Work Phone: Comment on above: [facility] [address] [place], [address] Lymphocytes/100 WBC Auto (Bld) 28.8 % Normal 19-41 [facility] Work Phone: MCH Auto Entitic mass (RBC) 31.7 pg Normal 27.0-32.0 [facility] Work Phone: MCH Entitic mass (RBC) 31.7 pg Normal 27.0-32.0 [facility] Work Phone: Comment on above: [facility] [address] [place], [place], [phone]) MCHC Auto mass conc (RBC) 34.7 {g/gl} Normal 32-36 [facility] Work Phone: MCHC mass conc (RBC) 34.7 {g/gl} Normal 32-36 [facility] prehensive Internal Medicine Work Phone: Comment on above: [facility] [address] [place], [place], [phone] MCV Auto Entitic volume (RBC) 91.5 fL Normal 80-94 [facility] Work Phone: MCV Entitic volume (RBC) 91.5 fL Normal 80-94 [facility] Work Phone: Comment on above: [facility] [address] [place], [address] Monocytes/100 WBC Auto (Bld) 7.8 % Normal 0-10 [facility] Work Phone: Comment on above: [facility] [address] [place], [address] Neutrophils/100 WBC (Bld) 59.3 % Normal 47-70 [facility] Work Phone: Comment on above: [facility] [address] [place], [address] Neutrophils/100 WBC Auto (Bld) 59.3 % Normal 47-70 [facility] Work Phone: Platelet mean volume Auto Entitic volume (Bld) 10.5 fL Normal 6.2-12.0 [facility] Work Phone: Platelet mean volume Entitic volume (Bld) 10.5 fL Normal 6.2-12.0 Comprehensi ve Internal Medicine Work Phone: Comment on above: [facility] [address] [place], [address] Platelets #/vol (Bld) 254 10*3/uL Normal 150-450 Co mprehensive Internal Medicine Work Phone: Comment on above: [facility] [address] [place], [address] Platelets Auto #/vol (Bld) 254 10*3/uL Normal 150-450 [facility] Work Phone: RBC #/vol (Bld) 4.92 {M/mm3} Normal 4.6-6.2 Compreh ensive Internal Medicine Work Phone: Comment on above: [facility] [address] [place], [address] RBC Auto #/vol (Bld) 4.92 {M/mm3} Normal 4.6-6.2 Co mprehensive Internal Medicine Work Phone: RDW SD 41.3 fL Normal 35.1-43.9 [facility] Work Phone: Comment on above: [facility] [address] [place], [address] WBC #/vol (Bld) 9.3 10*3/uL Normal 4.4-11.0 Comprehe nsive Internal Medicine Work Phone: Comment on above: [facility] [address] [place], [address] WBC Auto #/vol (Bld) 9.3 10*3/uL Normal 4.4-11.0 [facility] prehensive Internal Medicine Work Phone: CK-MB Quantitative and Index Ordered By: Oil Well Drilling Manager on 01-06-2016 CK.MB mass conc 1.9 ng/mL Normal 0.0-5.0 Comprehen [facility] Internal [facility] Work Phone: Comment on above: CK-MB and RI Interpr etation MB Relative Index Non-AMI 5 5 > 4 Serial Specimen #1, #2 or #3? 1'TROP' Serial specimen #1, #2, #3, or #4: [address] [place] [address] [place], [place], [phone] Serial Specimen #1, #2 or #3? 2Comments: Should be drawn 2H after initial Troponin obtained'TROP' Serial specimen #1, #2, #3, or #4: [address] [place] [address] [place], [address] CKRI 1.6 % Abnormal 0.0-1.4 [facility] Internal Medicine Work Phone: Comment on above: RELATIVE INDEX >1.5% IS PRESUMPTIVELY POSITIVE CKRI 1.4 % Normal 0.0-1.4 [facility] Work Phone: Comment on above: RELATIVE INDEX >1.5% IS PRESUMPTIVELY POSITIVE CPK TOTAL 120 U/L Normal 39-308 [facility] Internal Medicine Work Phone: CPK TOTAL 140 U/L Normal 39-308 [facility] Internal Medicine Work Phone: CPKMB 1.9 ng/mL Normal 0.0-5.0 [facility] Internal Medicine Work Phone: Comment on above: CK-MB and RI Interpr etation MB Relative Index Non-AMI 5 5 > 4 CK-MB Quantitative and Index 1.6 % Abnormal 0.0-1.4 [facility] Work Phone: Comment on above: RELATIVE INDEX >1.5% IS PRESUMPTIVELY POSITIVE Serial Specimen #1, #2 or #3? 2Comments: Should be drawn 2H after initial Troponin obtained'TROP' Serial specimen #1, #2, #3, or #4: [address] [place] [address] [place], [address] CK-MB Quantitative and Index 120 U/L Normal 39-308 [facility] Work Phone: Comment on above: Serial Specimen #1, #2 or #3? 2Comments: Should be drawn 2H after initial Troponin obtained'TROP' Serial specimen #1, #2, #3, or #4: [address] [place] [address] [place], [address] CK-MB Quantitative and Index 1.4 % Normal 0.0-1.4 [facility] Work Phone: Comment on above: RELATIVE INDEX >1.5% IS PRESUMPTIVELY POSITIVE Serial Specimen #1, #2 or #3? 1'TROP' Serial specimen #1, #2, #3, or #4: [address] [place] [address] [place], [address] CK-MB Quantitative and Index 140 U/L Normal 39-308 [facility] Work Phone: Comment on above: Serial Specimen #1, #2 or #3? 1'TROP' Serial specimen #1, #2, #3, or #4: [address] [place] [address] [place], [address] Troponin-IOrdered By: Oil Well Drilling Manager on 01-06-2016 Troponin I.cardiac mass conc ng/mL Normal [facility] Work Phone: Comment on above: TROPONIN-I EXPECTED VALUES <0.05 NEGATIVE 0.06 - 0.59 AT RISK OF PR > OR = 0.60 SUGGEST PR Serial Specimen #1, #2 or #3? 2Comments: Should be drawn 2H after initial Troponin obtained'TROP' Serial specimen #1, #2, #3, or #4: [address] [place] [address] [place], [address] Serial Specimen #1, #2 or #3? 1'TROP' Serial specimen #1, #2, #3, or #4: [address] [place] [address] [place], [address] Lyme Disease Antibody W/ Ref clara ([id number])Ordered By: Oil Well Drilling Manager on 12-18-2015 B. burgdorferi IgG+IgM Qn (S) {index_val} Normal 0.00-0.90 [facility] Work Phone: Comment on above: Negative <0.91 Equiv ocal 0.91 - 1.09 Positive >1.09 PATIENT NOT FASTINGP ERFORMED BY: ANDREW BearMatthew PattonUmbzbq4382 [facility] [id number] Information: [id number] B. burgdorferi IgG+IgM Qn (S) {index_val} Normal 0.00-0.90 [facility] Work Phone: Comment on above: Negative <0.91 Equiv ocal 0.91 - 1.09 Positive >1.09 PATIENT NOT FASTINGP ERFORMED BY: ANDREW Pattonlin6370 [facility] [id number] Information: [id number] CBC (Auto) ([id number])Ordered By : Oil Well Drilling Manager on 07-07-2015 Erythrocyte distribution width Auto Ratio (RBC) 12.5 % Normal 12.3-15.4 [facility] Work Phone: Erythrocyte distribution width Ratio (RBC) 12.5 % Normal 12.3-15.4 [facility] Internal Medicine Work Phone: Comment on above: PATIENT NOT FASTINGP ERFORMED BY: ANDREW BearMatthew PattonTjonnc8292 [facility] [id number] Hematocrit Auto Volume Fraction (Bld) 43.8 % Normal 37.5-51.0 [facility] Internal Medicine Work Phone: Hematocrit Volume Fraction (Bld) 43.8 % Normal 37.5-51.0 [facility] Internal Medicine Work Phone: Comment on above: PATIENT NOT FASTINGP ERFORMED BY: ANDREW LabCoromeo PattonTzcebg4434 [facility] [id number] Hemoglobin mass conc (Bld) 14.9 g/dL Normal 12.6-17.7 [facility] Work Phone: Comment on above: PATIENT NOT FASTINGP ERFORMED BY: ANDREW LabCo Pgxmhl8958 [facility] [id number] MCH Auto Entitic mass (RBC) 31.2 pg Normal 26.6-33.0 [facility] Work Phone: MCH Entitic mass (RBC) 31.2 pg Normal 26.6-33.0 [facility] Work Phone: Comment on above: PATIENT NOT FASTINGP ERFORMED BY: ANDREW BearCoromeo PattonYsgafc1445 [facility] [id number] MCHC Auto mass conc (RBC) 34.0 g/dL Normal 31.5-35.7 [facility] Work Phone: MCHC mass conc (RBC) 34.0 g/dL Normal 31.5-35.7 [facility] Internal Medicine Work Phone: Comment on above: PATIENT NOT FASTINGP ERFORMED BY: ANDREW BearMatthew PattonHxprzi2218 [facility] [id number] MCV Auto Entitic volume (RBC) 92 fL Normal 79-97 [facility] Work Phone: MCV Entitic volume (RBC) 92 fL Normal 79-97 [facility] Work Phone: Comment on above: PATIENT NOT FASTINGP ERFORMED BY: ANDREW BearMatthew PattonAuxhrq0813 [facility] [id number] Platelets #/vol (Bld) 287 {x10E3/uL} Normal 150-379 [facility] Work Phone: Comment on above: PATIENT NOT FASTINGP ERFORMED BY: [facility] Ahcgtf7803 [facility] [id number] Platelets (Bld) [#/Vol] 287 10*3/uL Normal 150-379 [facility] Work Phone: Comment on above: PATIENT NOT FASTINGP ERFORMED BY: ANDREW [facility] Hzdoln3376 [facility] [id number] Platelets Auto #/vol (Bld) 287 {x10E3/uL} Normal 150-379 [facility] Work Phone: RBC #/vol (Bld) 4.78 {x10E6/uL} Normal 4.14-5.80 [facility] Work Phone: Comment on above: PATIENT NOT FASTINGP ERFORMED BY: ANDREW Forte6370 [facility] [id number] RBC (Bld) [#/Vol] 4.78 10*6/uL Normal 4.14-5.80 Compr [facility] Internal Medicine Work Phone: Comment on above: PATIENT NOT FASTINGP ERFORMED BY: ANDREW Forte6370 [facility] [id number] RBC Auto #/vol (Bld) 4.78 {x10E6/uL} Normal 4.14-5.80 [facility] Work Phone: WBC #/vol (Bld) 8.3 {x10E3/uL} Normal 3.4-10.8 Com[facility] Internal Medicine Work Phone: Comment on above: PATIENT NOT FASTINGP ERFORMED BY: ANDREW Pattonlin6370 [facility] [id number] WBC (Bld) [#/Vol] 8.3 10*3/uL Normal 3.4-10.8 [facility] Work Phone: Comment on above: PATIENT NOT FASTINGP ERFORMED BY: ANDREW Pattonlin6370 [facility] [id number] WBC Auto #/vol (Bld) 8.3 {x10E3/uL} Normal 3.4-10.8 [facility] Work Phone: Renal function Panel ([id number]) Ordered By: Oil Well Drilling Manager on 07-07-2015 Albumin mass conc 4.7 g/dL Normal 3.5-5.5 Compreh ensive Internal Medicine Work Phone: Comment on above: PATIENT NOT FASTINGP ERFORMED BY: ANDREW Pattonlin6370 [facility] [id number] Information: [id number] Calcium mass conc 9.9 mg/dL Normal 8.7-10.2 Compreh ensive Internal Medicine Work Phone: Comment on above: PATIENT NOT FASTINGP ERFORMED BY: ANDREW [facility] Yopofz1190 García RoadHugh Chatham Memorial Hospitalin [place] [id number] Information: [id number] Chloride molar conc 99 mmol/L Normal 97-108 Compr ehensive Internal Medicine Work Phone: Comment on above: PATIENT NOT FASTINGP ERFORMED BY: CB [facility] Ohqbrg8107 García [facility] [place] [id number] Information: [id number] CO2 molar conc 27 mmol/L Normal 18-29 Comprehens [facility] Internal [facility] Work Phone: Comment on above: PATIENT NOT FASTINGP ERFORMED BY: CB [facility] Ffhvsj05[address] [facility] [id number] Information: [id number] Creatinine mass conc 0.89 mg/dL Normal 0.76-1.27 Comp rehensive Internal Medicine Work Phone: Comment on above: PATIENT NOT FASTINGP ERFORMED BY: CB [facility] Zhrjhr[address] [facility] [id number] Information: [id number] GFR/1.73 sq M predicted among blacks CKD-EPI vol rate/area (S/P/Bld) 116 mL/min/1.73 Normal Comprehensiv e Internal Medicine Work Phone: Comment on above: PATIENT NOT FASTINGP ERFORMED BY: CB [facility] Cxddzl45[address] [facility] [id number] Information: [id number] GFR/1.73 sq M predicted among non-blacks CKD-EPI vol rate/area (S/P/Bld) 100 mL/min/1.73 Normal [facility] Work Phone: Comment on above: PATIENT NOT FASTINGP ERFORMED BY: CB [facility] Ilqget6281 García [facility] [place] [id number] Information: [id number] Glucose mass conc 73 mg/dL Normal 65-99 Compreh ensive Internal Medicine Work Phone: Comment on above: PATIENT NOT FASTINGP ERFORMED BY: [facility] Tigfeq7161 García [facility] [place] [id number] Information: [id number] Phosphate mass conc 3.3 mg/dL Normal 2.5-4.5 [facility] Work Phone: Comment on above: PATIENT NOT FASTINGP ERFORMED BY: [facility] Qdfrsy4[address] [facility] [id number] Information: [id number] Potassium molar conc 4.6 mmol/L Normal 3.5-5.2 [facility] [facility] Work Phone: Comment on above: PATIENT NOT FASTINGP ERFORMED BY: [facility] [id number] [facility] [id number] Information: [id number] Sodium molar conc 140 mmol/L Normal 134-144 Compreh [facility] Internal Medicine Work Phone: Comment on above: PATIENT NOT FASTINGP ERFORMED BY: [facility] Khvyby0651 [facility] [place] [id number] Information: [id number] Urea nitrogen mass conc 14 mg/dL Normal 6-24 [facility] Work Phone: Comment on above: PATIENT NOT FASTINGP ERFORMED BY: [facility] [id number] [address] [facility] [id number] Information: [id number] Urea nitrogen/Creatinine mass ratio 16 mg/mg Normal 9-20 [facility] Work Phone: Comment on above: PATIENT NOT FASTINGP ERFORMED BY: [facility] Oldjja0190 [facility] [place] [id number] Information: [id number] TSH ([id number])Ordered By: Kan Mendes on 07-07-2015 Thyrotropin Qn 0.735 {uIU/mL} Normal 0.450-4.50 0 [facility] Work Phone: Comment on above: PATIENT NOT FASTINGP ERFORMED BY: ANDREW [facility] [facility] [id number] AMYOrdered By: System Manage r on 2014 EVERARDO 36 U/L Normal 25-115 [facility] Work Phone: CBCDOrdered By: System Manag er on 2014 Erythrocyte distribution width Auto Ratio (RBC) 12.2 % Normal 11.6-14.6 [facility] Work Phone: Erythrocyte distribution width Ratio (RBC) 12.2 % Normal 11.6-14.6 [facility] Work Phone: Hematocrit Auto Volume Fraction (Bld) 44.9 % Normal 40-54 Comprehens [facility] Work Phone: Hematocrit Volume Fraction (Bld) 44.9 % Normal 40-54 [facility] Work Phone: Hemoglobin mass conc (Bld) 15.5 g/dL Normal 13.0-16.5 [facility] Work Phone: MCH Auto Entitic mass (RBC) 31.3 pg Normal 27.0-32.0 [facility] Work Phone: MCH Entitic mass (RBC) 31.3 pg Normal 27.0-32.0 [facility] Work Phone: MCHC Auto mass conc (RBC) 34.5 {g/gl} Normal 32-36 [facility] Work Phone: MCHC mass conc (RBC) 34.5 {g/gl} Normal 32-36 [facility] prehensive Internal Medicine Work Phone: MCV Auto Entitic volume (RBC) 90.5 fL Normal 80-94 [facility] Work Phone: MCV Entitic volume (RBC) 90.5 fL Normal 80-94 [facility] Work Phone: Platelet mean volume Auto Entitic volume (Bld) 10.7 fL Normal 6.2-12.0 [facility] Work Phone: Platelet mean volume Entitic volume (Bld) 10.7 fL Normal 6.2-12.0 Comprehensi Internal Medicine Work Phone: Platelets #/vol (Bld) 271 10*3/uL Normal 150-450 Co mprehensive [facility] Medicine Work Phone: Platelets Auto #/vol (Bld) 271 10*3/uL Normal 150-450 [facility] Work Phone: RBC #/vol (Bld) 4.96 {M/mm3} Normal 4.6-6.2 Compreh ensive Internal Medicine Work Phone: RBC Auto #/vol (Bld) 4.96 {M/mm3} Normal 4.6-6.2 [facility] Work Phone: WBC #/vol (Bld) 8.4 10*3/uL Normal 4.4-11.0 Comprehe nsive Internal Medicine Work Phone: WBC Auto #/vol (Bld) 8.4 10*3/uL Normal 4.4-11.0 Com prehensive Internal Medicine Work Phone: CBCD 40.4 fL Normal 35.1-43.9 [facility] Work Phone: CBCD 53.3 % Normal 47-70 [facility] Work Phone: CBCD 10.1 % Abnormal 0-10 [facility] Work Phone: CBCD 3.7 % Normal 0-5 [facility] Work Phone: CBCD 0.5 % Normal 0-1 [facility] Work Phone: CBCD 0.400 % Normal 0.0-0.9 [facility] Work Phone: Comment on above: IG% - Immature Granu locytes (promyelocytes, myelocytes andmetamyelocytes) > 1% indicates that a LEFT SHIFT is Present. CBCD 2.69 {X10_3/ul} Normal 0.83-4.51 Comprehen sive Internal Medicine Work Phone: CBCD 4.5 {X10_3/uL} Normal 2.0-7.7 Comprehens [facility] Work Phone: CBCD 32.0 % Normal 19-41 [facility] Work Phone: CMPOrdered By: System Manage r on 2014 Albumin mass conc 3.9 g/dL Normal 3.4-5.0 Compreh ensive Internal Medicine Work Phone: Albumin/Globulin mass ratio 1.0 {RATIO} Normal 0.9-2.4 [facility] Internal Medicine Work Phone: ALP enzyme act/vol 79 U/L Normal 45-117 Compre [facility] Internal Medicine Work Phone: ALT enzyme act/vol 38 U/L Normal 12-78 Compre [facility] Internal Medicine Work Phone: AST enzyme act/vol 28 U/L Normal 15-37 Compre [facility] Internal Medicine Work Phone: Bilirubin mass conc 0.70 mg/dL Normal 0.00-1.00 Compr ensive Internal Medicine Work Phone: Calcium mass conc 9.7 mg/dL Normal 8.5-10.1 [facility] Work Phone: Chloride molar conc 100 mmol/L Normal 98-107 Compr [facility] Internal Medicine Work Phone: CO2 molar conc 28.0 mmol/L Normal 21.0-32.0 Comprehen [facility] Internal Medicine Work Phone: Creatinine mass conc 0.9 mg/dL Normal 0.8-1.3 Comp [facility] Internal Medicine Work Phone: GFR/1.73 sq M predicted among non-blacks MDRD vol rate/area (S/P/Bld) 96 mL/min/{1.73_m2} Normal Comprehe nsive Internal Medicine Work Phone: Globulin Calculated mass conc (S) 4.1 g/dL Normal 2.7-4.2 [facility] Internal Medicine Work Phone: Globulin mass conc (S) 4.1 g/dL Normal 2.7-4.2 [facility] Internal Medicine Work Phone: Glucose mass conc 91 mg/dL Normal 70-110 [facility] Internal [facility] Work Phone: Potassium molar conc 3.8 mmol/L Normal 3.5-5.1 Comp rehensive Internal Medicine Work Phone: Protein mass conc 8.0 g/dL Normal 6.4-8.2 Compreh ensive Internal Medicine Work Phone: Sodium molar conc 137 mmol/L Normal 136-145 Compreh ensive Internal Medicine Work Phone: Urea nitrogen mass conc 20 mg/dL Abnormal 7-18 [facility] Work Phone: Urea nitrogen/Creatinine mass ratio 22.2 {RATIO} Abnormal 10-20 [facility] Work Phone: CMP 116 mL/min Normal [facility] Work Phone: CMP 9 1 Normal 5-15 [facility] Work Phone: LIPASEOrdered By: System Man ager on 2014 LIPASE 104 U/L Normal 70-290 [facility] Work Phone: CBCDOrdered By: System Manag er on 09-17-2013 Erythrocyte distribution width Auto Ratio (RBC) 12.0 % Normal 11.6-14.6 [facility] Work Phone: Erythrocyte distribution width Ratio (RBC) 12.0 % Normal 11.6-14.6 [facility] Work Phone: Comment on above: CALL DR CHIN WITH RESULTS Hematocrit Auto Volume Fraction (Bld) 43.4 % Normal 40-54 Comprehens [facility] Work Phone: Hematocrit Volume Fraction (Bld) 43.4 % Normal 40-54 [facility] Work Phone: Comment on above: CALL DR CHIN WITH RESULTS Hemoglobin mass conc (Bld) 15.2 g/dL Normal 13.0-16.5 [facility] Work Phone: Comment on above: CALL DR CHIN WITH RESULTS MCH Auto Entitic mass (RBC) 30.8 pg Normal 27.0-32.0 [facility] Work Phone: MCH Entitic mass (RBC) 30.8 pg Normal 27.0-32.0 [facility] Internal Medicine Work Phone: Comment on above: CALL DR CHIN WITH RESULTS MCHC Auto mass conc (RBC) 35.0 {g/gl} Normal 32-36 [facility] Work Phone: MCHC mass conc (RBC) 35.0 {g/gl} Normal 32-36 [facility] Work Phone: Comment on above: CALL DR CHIN WITH RESULTS MCV Auto Entitic volume (RBC) 88.0 fL Normal 80-94 [facility] Work Phone: MCV Entitic volume (RBC) 88.0 fL Normal 80-94 [facility] Internal Medicine Work Phone: Comment on above: CALL DR CHIN WITH RESULTS Platelet mean volume Auto Entitic volume (Bld) 11.1 fL Normal 6.2-12.0 [facility] Internal Medicine Work Phone: Platelet mean volume Entitic volume (Bld) 11.1 fL Normal 6.2-12.0 Comprehensi Internal Medicine Work Phone: Comment on above: CALL DR CHIN WITH RESULTS Platelets #/vol (Bld) 314 10*3/uL Normal 150-450 Co [facility] Internal Medicine Work Phone: Comment on above: CALL DR CHIN WITH RESULTS Platelets Auto #/vol (Bld) 314 10*3/uL Normal 150-450 [facility] Internal Medicine Work Phone: RBC #/vol (Bld) 4.93 {M/mm3} Normal 4.6-6.2 Compreh ensive Internal Medicine Work Phone: Comment on above: CALL DR CHIN WITH RESULTS RBC Auto #/vol (Bld) 4.93 {M/mm3} Normal 4.6-6.2 [facility] Work Phone: WBC #/vol (Bld) 8.2 10*3/uL Normal 4.4-11.0 Comprehe nsive Internal Medicine Work Phone: Comment on above: RESULTS CALLED TO DR Mariluz CHIN 09/17/131930 Roma Watkins.REPORT READ BACK BY SAME. CALL DR CHIN WITH RESULTS WBC Auto #/vol (Bld) 8.2 10*3/uL Normal 4.4-11.0 [facility] Internal Medicine Work Phone: Comment on above: RESULTS CALLED TO DR Mariluz CHIN 09/17/131930 Roma Watkins.REPORT READ BACK BY SAME. CBCD 0.500 % Normal 0.0-0.9 [facility] Internal Medicine Work Phone: Comment on above: IG% - Immature Granu locytes (promyelocytes, myelocytes andmetamyelocytes) > 1% indicates that a LEFT SHIFT is Present. CALL DR CHIN WITH RESULTS CBCD 37.7 fL Normal 35.1-43.9 [facility] Internal Medicine Work Phone: Comment on above: CALL DR CHIN WITH RESULTS CBCD 4.3 {X10_3/uL} Normal 2.0-7.7 Comprehens [facility] Internal Medicine Work Phone: Comment on above: CALL DR CHIN WITH RESULTS CBCD 3.2 % Normal 0-5 [facility] Internal Medicine Work Phone: Comment on above: CALL DR CHIN WITH RESULTS CBCD 10.4 % Abnormal 0-10 [facility] Internal Medicine Work Phone: Comment on above: CALL DR CHIN WITH RESULTS CBCD 1.1 % Abnormal 0-1 [facility] Internal Medicine Work Phone: Comment on above: CALL DR CHIN WITH RESULTS CBCD 52.6 % Normal 47-70 [facility] Internal Medicine Work Phone: Comment on above: CALL DR CHIN WITH RESULTS CBCD 32.2 % Normal 19-41 [facility] Internal Medicine Work Phone: Comment on above: CALL DR CHIN WITH RESULTS CMPOrdered By: System Manage r on 09-17-2013 Albumin mass conc 4.0 g/dL Normal 3.4-5.0 [facility] Internal Medicine Work Phone: Comment on above: CALL DR CHIN WITH RESULTS Albumin/Globulin mass ratio 1.0 {RATIO} Normal 0.9-2.4 [facility] Internal Medicine Work Phone: Comment on above: CALL DR CHIN WITH RESULTS ALP enzyme act/vol 74 U/L Normal 50-136 [facility] Internal Medicine Work Phone: Comment on above: CALL DR CHIN WITH RESULTS ALT enzyme act/vol 49 U/L Normal 12-78 [facility] Internal Medicine Work Phone: Comment on above: CALL DR CHIN WITH RESULTS AST enzyme act/vol 27 U/L Normal 15-37 [facility] Internal Medicine Work Phone: Comment on above: CALL DR CHIN WITH RESULTS Bilirubin mass conc 0.80 mg/dL Normal 0.00-1.00 [facility] Internal Medicine Work Phone: Comment on above: CALL DR CHIN WITH RESULTS Calcium mass conc 9.0 mg/dL Normal 8.5-10.1 Compreh [facility] Internal Medicine Work Phone: Comment on above: CALL DR CHIN WITH RESULTS Chloride molar conc 102 mmol/L Normal 98-107 [facility] Internal Medicine Work Phone: Comment on above: CALL DR CHIN WITH RESULTS CO2 molar conc 31.0 mmol/L Normal 21.0-32.0 [facility] Work Phone: Comment on above: CALL DR CHIN WITH RESULTS Creatinine mass conc 0.8 mg/dL Normal 0.8-1.3 [facility] Internal Medicine Work Phone: Comment on above: CALL DR CHIN WITH RESULTS GFR/1.73 sq M predicted among non-blacks MDRD vol rate/area (S/P/Bld) 110 mL/min/{1.73_m2} Normal [facility] Internal Medicine Work Phone: Comment on above: CALL DR CHIN WITH RESULTS Globulin Calculated mass conc (S) 4.2 g/dL Normal 2.7-4.2 [facility] Internal Medicine Work Phone: Globulin mass conc (S) 4.2 g/dL Normal 2.7-4.2 [facility] Internal Medicine Work Phone: Comment on above: CALL DR CHIN WITH RESULTS Glucose mass conc 90 mg/dL Normal 70-110 Compreh ensive Internal Medicine Work Phone: Comment on above: RESULTS CALLED TO DR BHANDARI 09/17/131818 Anupam Whaley.REPORT READ BACK BY SAME . CALL DR CHIN WITH RESULTS Potassium molar conc 3.8 mmol/L Normal 3.5-5.1 Comp rehensive Internal Medicine Work Phone: Comment on above: CALL DR CHIN WITH RESULTS Protein mass conc 8.2 g/dL Normal 6.4-8.2 Compreh ensive Internal Medicine Work Phone: Comment on above: CALL DR CHIN WITH RESULTS Sodium molar conc 138 mmol/L Normal 136-145 Compreh ensive Internal Medicine Work Phone: Comment on above: CALL DR CHIN WITH RESULTS Urea nitrogen mass conc 12 mg/dL Normal 7-18 [facility] Work Phone: Comment on above: CALL DR CHIN WITH RESULTS Urea nitrogen/Creatinine mass ratio 15.0 {RATIO} Normal 10-20 [facility] Work Phone: Comment on above: CALL DR CHIN WITH RESULTS CMP 133 mL/min Normal [facility] Work Phone: Comment on above: CALL DR CHIN WITH RESULTS CMP 5 1 Normal 5-15 [facility] Work Phone: Comment on above: CALL DR CHIN WITH RESULTS TSHOrdered By: System Manage r on 09-17-2013 Thyrotropin Qn 0.72 {uIU/mL} Normal 0.358-3.74 Compreh ensive Internal Medicine Work Phone: Comment on above: CALL DR CHIN WITH RESULTS Antinuclear Antibodies Direc tOrdered By: [employer] Manager on 04-27-2013 Nuclear Ab Ql (S) Negative Normal Compreh ensive Internal Medicine Work Phone: Comment on above: PERFORMED BY: [facility] [address] [id number] BY: BN [facility] [address] [id number] C-Reactive Protein, QuantOrd ered By: [employer] Manager on 04-27-2013 CRP mass conc 2.5 mg/L Normal 0.0-4.9 Comprehensi ve Internal Medicine Work Phone: Comment on above: PERFORMED BY: [facility] [id number] BY: [employer] [id number] C1 Esterase Inhibitor, FuncO rdered By: [employer] Manager on 04-27-2013 Complement C1 esterase inhibitor actual/normal RelCCnc 100 {%mean_normal} Normal Compreh ensive Internal Medicine Work Phone: Comment on above: Abnormal <41 Equivoc al 41 - 67 Normal >67 PERFORMED BY: [facility] [id number] BY: [employer] [id number] C1 Esterase Inhibitor, Serum Ordered By: [employer]illing Manager on 04-27-2013 Complement C1 esterase inhibitor mass conc 33 mg/dL Normal 21-39 [facility] Work Phone: Comment on above: PERFORMED BY: [facility] [id number] BY: [employer] [id number] CCP Antibodies IgG/IgAOrdere d By: [employer] Manager on 04-27-2013 Cyclic citrullinated peptide IgA+IgG IA Qn 4 {units} Normal 0-19 Comprehens [facility] Work Phone: Comment on above: Negative <20 Weak po sitive 20 - 39 Moderate positive 40 - 59 Strong positive >59 PERFORMED BY: [facility] [id number] BY: [employer] [id number] Rheumatoid Arthritis FactorO rdered By: [employer] Manager on 04-27-2013 Rheumatoid factor Qn 12.6 {IU/mL} Normal 0.0-13.9 Co mprehensive Internal Medicine Work Phone: Comment on above: PERFORMED BY: [employer] [id number] Garc[address] [facility] [id number] BY: [employer] [address] [id number] Sedimentation Rate-Westergre nOrdered By: Oil Well Drilling Manager on 04-27-2013 ESR Velocity (Bld) 5 mm/h Normal 0-15 Compre [facility] Internal Medicine Work Phone: Comment on above: PERFORMED BY: [employer] [id number] [facility] [id number] BY: [employer] [address] [id number] TSHOrdered By: System Manage r on 04-27-2013 Thyrotropin Qn 1.030 {uIU/mL} Normal 0.450-4.50 0 [facility] Work Phone: Comment on above: PERFORMED BY: Generate[employer]370 [facility] [id number] BY: [employer] [id number] WRIST 2 VIEWSOrdered By: Fred tem Doughmaker on 09-30-2012 WRIST 2 VIEWS See Note Normal Comprehensi ve Internal Medicine Work Phone: Comment on above: PROCEDURE: X-RAY - L EFT WRIST REASON FOR EXAM: Male, 47 years old. Wrist pain. TECHNIQUE: Single scaphoid view of the wrist was obtained. COMPARISON: Comparison is made with prior examination dated September. FINDINGS:Normal visualized distal radius and ulna. Normal distal radioulnararticulation. Normal radiocarpal articulation. Normal carpal bones. Normal carpal articulations. IMPRESSION:Normal x-ray examination of the wrist. Signed:Kareem Paul M.D.September 30, 2012 at 2:05:32 PM [id number] Signed GP/GP If you are the referring physician and would like to consult with theradiologist who provided this interpretation, please contact Lev Cruz at [phone]. If this radiologist is unavailable, youwill be directed to another radiologist to assist. If you are a patient with a question regarding this report, pleasecontactyour referring physician directly. Professional Interpretation Provided By: [employer], Phone , These documents contain legally protected and confidential healthinformation intended only for the use of the individual or entity namedabove. If you are not the intended recipient, you are hereby notifiedthatany disclosure, copying, distribution, or other use of these documents isstrictly prohibited. If you have received this information in error,pleasenotify the sender immediately and arrange for the return or destructionofthese documents. Dictated on 09/30/12 1338 by Humberto OLGUIN,Arelyranscribed on 09/30/12 1409 by ITS IMPORTSign by Humberto OLGUIN,Kareem on 09/30/12 1410 Sign by: Kareem Paul MD WRIST,MIN 3 VIEWSOrdered By: Oil Well Drilling Manager on 09-29-2012 WRIST,MIN 3 VIEWS See Note Normal Compreh ensive Internal Medicine Work Phone: Comment on above: PROCEDURE: X-RAY - L EFT WRIST REASON FOR EXAM: Male, 47 years old. One month status post unspecifiedinjury. TECHNIQUE: Three views of the wrist were obtained. COMPARISON: None. FINDINGS:Normal visualized distal radius and ulna. Normal distal radioulnararticulation. Normal radiocarpal articulation. No acutely displaced carpal fracture is identified. The AP and obliqueviews demonstrate a linear band of relative sclerosis at the junction ofthe middle and distal thirds of the scaphoid. No widening of thescapholunate interval is identified. Normal carpal articulations. Normal carpometacarpal (CMC) articulation of the thumb. Normal secondthrough fifth CMC articulations. Normal visualized metacarpal bones. The fat planes at the volar surface of the wrist are intact. Noradiopaqueforeign body is identified. IMPRESSION:No clearly discernible acute or displaced fracture is observed. Thesclerotic region within the scaphoid is nonspecific. However, shouldphysical examination demonstrate point tenderness here, suggest follow-updedicated scaphoid view. Signed:Hernan Harris M.D.September 29, 2012 at 8:03:34 PM [id number] Signed DL/DL If you are the referring physician and would like to consult with theradiologist who provided this interpretation, please contact Lev Miranda at [phone]. If this radiologist is unavailable, youwillbe directed to another radiologist to assist. If you are a patient with a question regarding this report, pleasecontactyour referring physician directly. Professional Interpretation Provided By: [employer], Phone , These documents contain legally protected and confidential healthinformation intended only for the use of the individual or entity namedabove. If you are not the intended recipient, you are hereby notifiedthatany disclosure, copying, distribution, or other use of these documents isstrictly prohibited. If you have received this information in error,pleasenotify the sender immediately and arrange for the return or destructionofthese documents. Dictated on 09/29/12 1557 by Hernan Harris MDTranscribed on 09/29/122007 by ITS IMPORTSign by Hernan Harris MD on 09/29/122008 Sign by: Hernan Harris MD Rapid Strep Test, Office ([phone])on 09-11-2010 S. pyogenes Ag EIA Ql (Throat) Positive Normal [facility] Work Phone: Rapid Strep Test, Office ([phone])Ordered By: Katia Freeman on 09-11-2010 S. pyogenes Ag IA Ql (Unsp spec) Positive Normal [facility] Work Phone: CHEST, PA AND LATERALOrdered By: Oil [employer] Drilling Manager on 07-23-2010 CHEST, PA AND LATERAL See Note Normal Com prehensive Internal Medicine Work Phone: Comment on above: CLINICAL:Male, 45 ye ars old. Cough times 1 month X-RAY EXAMINATION - CHEST TECHNIQUE:PA and lateral views of the chest. COMPARISON:February 18, 2007 FINDINGS: The lungs are expanded. Areas of hyperinflation. There is nodemonstratedacute pulmonary parenchymal abnormality. There is no demonstratedpleuralabnormality. The heart is normal in size and morphology. Normal mediastinum and leena. Normal visualized pulmonary arteries. Normal visualized aortic arch anddescending thoracic aorta. Normal osseous structures. IMPRESSION:No acute cardiopulmonary disease or significant interval change.Areas of hyperinflation as on previous examination, early obstructivedisease possible. Correlation recommended. Dictated on 07/23/101746 by Darwin QuintanillaxTranscribed on 07/23/101746 by DELLMCKESSONSign by Silvia Quintanilla on 07/24/10 1512 Sign by: Silvia Quintanilla CBCDOrdered By: System Manag er on 03-23-2007 Basophils/100 WBC (Bld) 0.4 % Normal 0-1 [facility] Work Phone: Basophils/100 WBC Auto (Bld) 0.4 % Normal 0-1 [facility] Work Phone: Eosinophils/100 WBC (Bld) 4.5 % Normal 0-5 [facility] Work Phone: Eosinophils/100 WBC Auto (Bld) 4.5 % Normal 0-5 [facility] Work Phone: Erythrocyte distribution width Auto Ratio (RBC) 12.8 % Normal 11.6-14.6 [facility] Internal Medicine Work Phone: Erythrocyte distribution width Ratio (RBC) 12.8 % Normal 11.6-14.6 [facility] Internal Medicine Work Phone: Hematocrit Auto Volume Fraction (Bld) 43.9 % Normal 40-54 Comprehens [facility] Internal Medicine Work Phone: Hematocrit Volume Fraction (Bld) 43.9 % Normal 40-54 [facility] Internal Medicine Work Phone: Hemoglobin mass conc (Bld) 15.2 g/dL Normal 14.0-18.0 [facility] Internal Medicine Work Phone: Lymphocytes/100 WBC (Bld) 24.6 % Normal 19-41 [facility] Work Phone: Lymphocytes/100 WBC Auto (Bld) 24.6 % Normal 19-41 [facility] Work Phone: MCH Auto Entitic mass (RBC) 31.2 pg Normal 27.0-32.0 [facility] Work Phone: MCH Entitic mass (RBC) 31.2 pg Normal 27.0-32.0 [facility] Work Phone: MCHC Auto mass conc (RBC) 34.7 g/dL Normal 32-36 [facility] Work Phone: MCHC mass conc (RBC) 34.7 g/dL Normal 32-36 [facility] Internal Medicine Work Phone: MCV Auto Entitic volume (RBC) 89.9 fL Normal 80-94 [facility] Work Phone: MCV Entitic volume (RBC) 89.9 fL Normal 80-94 [facility] Work Phone: Monocytes/100 WBC (Bld) 9.0 % Normal 0-10 [facility] Work Phone: Monocytes/100 WBC Auto (Bld) 9.0 % Normal 0-10 [facility] Work Phone: Neutrophils/100 WBC (Bld) 61.5 % Normal 47-70 [facility] Work Phone: Neutrophils/100 WBC Auto (Bld) 61.5 % Normal 47-70 [facility] Work Phone: Platelet mean volume Auto Entitic volume (Bld) 8.9 fL Normal 6.5-12.0 [facility] Work Phone: Platelet mean volume Entitic volume (Bld) 8.9 fL Normal 6.5-12.0 [facility] Work Phone: Platelets #/vol (Bld) 247 10*3/uL Normal 150-450 [facility] Work Phone: Platelets Auto #/vol (Bld) 247 10*3/uL Normal 150-450 [facility] Work Phone: RBC #/vol (Bld) 4.88 {M/mm3} Normal 4.6-6.2 Compreh ensive Internal Medicine Work Phone: RBC Auto #/vol (Bld) 4.88 {M/mm3} Normal 4.6-6.2 [facility] Work Phone: WBC #/vol (Bld) 7.6 10*3/uL Normal 4.4-11.0 Comprehe nsive Internal Medicine Work Phone: WBC Auto #/vol (Bld) 7.6 10*3/uL Normal 4.4-11.0 Com prehensive Internal Medicine Work Phone: COMP METABOLICOrdered By: Alfred stem Doughmaker on 03-23-2007 Albumin mass conc 3.5 g/dL Normal 3.4-5.0 Compreh ensive Internal Medicine Work Phone: Albumin/Globulin mass ratio 0.9 {RATIO} Normal 0.9-2.4 [facility] Work Phone: ALP enzyme act/vol 70 U/L Normal 50-136 Compre [facility] Internal Medicine Work Phone: ALT enzyme act/vol 41 [iU]/L Normal 30-65 [facility] Work Phone: Anion gap 3 molar conc 8 mmol/L Normal 5-15 [facility] Work Phone: Anion gap molar conc 8 mmol/L Normal 5-15 Comp rehensive Internal Medicine Work Phone: AST enzyme act/vol 25 U/L Normal 15-37 Compre [facility] Internal Medicine Work Phone: Bilirubin mass conc 0.96 mg/dL Normal 0.00-1.00 Compr ehensive Internal Medicine Work Phone: Calcium mass conc 8.4 mg/dL Abnormal 8.5-10.1 Compreh ensive Internal Medicine Work Phone: Chloride molar conc 102 mmol/L Normal 98-107 Compr ensive Internal Medicine Work Phone: CO2 molar conc 28.1 mmol/L Normal 22.0-29.0 [facility] Work Phone: Creatinine mass conc 0.8 mg/dL Normal 0.8-1.3 Comp rehensive Internal Medicine Work Phone: Globulin Calculated mass conc (S) 3.8 g/dL Abnormal 2.3-3.5 [facility] Work Phone: Globulin mass conc (S) 3.8 g/dL Abnormal 2.3-3.5 [facility] Work Phone: Glucose mass conc 98 mg/dL Normal 70-110 Compreh ensive Internal Medicine Work Phone: Potassium molar conc 4.1 mmol/L Normal 3.5-5.1 Comp rehensive Internal Medicine Work Phone: Protein mass conc 7.3 g/dL Normal 6.4-8.2 [facility] Work Phone: Sodium molar conc 138 mmol/L Normal 136-145 Compreh ensive Internal Medicine Work Phone: Urea nitrogen mass conc 12 mg/dL Normal 7-18 [facility] Work Phone: Urea nitrogen/Creatinine mass ratio 15.0 {RATIO} Normal 10-20 [facility] Work Phone: MYOCARD PERF SPECT REST/STRE SSOrdered By: Oil Well Drilling Manager on 03-23-2007 MYOCARD PERF SPECT REST/STRESS See Note Normal [facility] Work Phone: Comment on above: Exam Number: [id number] MYOCARDIAL PERFUSION SCAN 11.3 millicuries of Tc99m sestamibi was injected at rest. The patientthen exercised according to the Justin protocol for ll minutes,attaining 90% of the maximum predicted heart rate for a maximum workload of 13.4 METs. At peak exercise, 32.0 millicuries of Tc99m sestamibi was injected. Stress images were then obtained. Stress andrest images were reconstructed and compared in the short axis,vertical long and horizontal long axes. Gated images were alsoobtained. Review of the stress images demonstrate normal cardiac silhouettesize. There is no motion or GI effect uptake noted. The gated ejection fraction is noted to be 60%. CONCLUSION1. Exercise stress test with no EKG criteria for ischemia at a highwork load.2. Preserved ejection fraction. Reported By: YUSUF HAHN M.D. TSHOrdered By: System Manage r on 03-23-2007 Thyrotropin Qn 0.77 {uIU/mL} Normal 0.34-4.82 Compreh ensive Internal Medicine Work Phone: VITAMIN [id number] By: Kan becerra Doughmaker on 03-23-2007 Cobalamin (Vitamin B12) mass conc 790 pg/mL Normal 211-911 [facility] Work Phone: Vital Signs Date Time Vital Sign Value Performing Clinician Facility 12-10-2024 16:12-0400 Body height 182.88 cm No Primary Care Physician [facility] 12-10-2024 16:12-0400 Body mass index (BMI) [Ratio] 27.1 kg/m2 No Primary Care Physician [facility] 12-10-2024 16:12-0400 Body weight 90.83 kg No Primary Care Physician [facility] 12-10-2024 16:12-0400 Diastolic blood pressure 87 mm[Hg] No Primary Care Physician [facility] 12-10-2024 16:12-0400 Heart rate 65 /min No Primary Care Physician [facility] 12-10-2024 16:12-0400 Respiratory rate 16 /min No Primary Care Physician [facility] 12-10-2024 16:12-0400 SaO2% (BldA) [Mass fraction] 98 % No Primary Care Physician [facility] 12-10-2024 16:12-0400 Systolic blood pressure 139 mm[Hg] No Primary Care Physician [facility] 2023 08:33-0400 Body height 185.42 cm [facility]; [facility] Work Phone: 2023 08:33-0400 Body mass index (BMI) [Ratio] 25.63 kg/m2 [facility]; [facility] Work Phone: 2023 08:33-0400 Body surface area Derived from formula 2.13 m2 [facility]; [facility] Work Phone: 2023 08:33-0400 Body temperature 96.2 [degF] [facility]; [facility] Work Phone: 2023 08:33-0400 Body weight 88.11 kg [facility]; [facility] Work Phone: 2023 08:33-0400 Diastolic blood pressure 78 mm[Hg] [facility]; [facility] Work Phone: Comment on above: Patient Position: Sitting; Cuff Location : Left Arm; Cuff Size: Standard 2023 08:33-0400 Heart rate 63 /min [facility]; [facility] Work Phone: Comment on above: Pattern: Regular 2023 08:33-0400 Respiratory rate 18 /min [facility]; [facility] Work Phone: Comment on above: Pattern: Unlabored 2023 08:33-0400 SaO2% (BldA) [Mass fraction] 97 % [facility]; [facility] Work Phone: Comment on above: Room air 2023 08:33-0400 Systolic blood pressure 136 mm[Hg] [facility]; [facility] Work Phone: Comment on above: Patient Position: Sitting; Cuff Location : Left Arm; Cuff Size: Standard 01-04-2022 08:25-0400 Body height 185.42 cm Clair Perry DO Work Phone: [facility]; [facility] Work Phone: Comment on above: bpd at home are lower 120'/70-80 01-04-2022 08:25-0400 Body mass index (BMI) [Ratio] 23.62 kg/m2 Clair Perry DO Work Phone: [facility]; [facility] Work Phone: Comment on above: bpd at home are lower 120'/70-80 01-04-2022 08:25-0400 Body surface area Derived from formula 2.05 m2 Clair Vicky DO Work Phone: [facility]; [facility] Work Phone: Comment on above: bpd at home are lower 120'/70-80 01-04-2022 08:25-0400 Body temperature 97.3 [degF] Clair Yuon DO Work Phone: [facility]; [facility] Work Phone: Comment on above: Method: Infrared bpd at home are lowe r 120'/70-80 01-04-2022 08:25-0400 Body weight 81.19 kg Clair Vicky DO Work Phone: [facility]; [facility] Work Phone: Comment on above: bpd at home are lower 120'/70-80 01-04-2022 08:25-0400 Diastolic blood pressure 90 mm[Hg] Clair Yuon DO Work Phone: [facility]; [facility] Work Phone: Comment on above: Patient Position: Sitting; Cuff Location : Left Arm; Cuff Size: Standard bpd at home are lowe r 120'/70-80 01-04-2022 08:25-0400 Heart rate 72 /min Clair Yuon DO Work Phone: [facility]; [facility] Work Phone: Comment on above: Pattern: Regular bpd at home are lowe r 120'/70-80 01-04-2022 08:25-0400 Respiratory rate 16 /min Clair Yuon DO Work Phone: [facility]; [facility] Work Phone: Comment on above: Pattern: Unlabored bpd at home are lowe r 120'/70-80 01-04-2022 08:25-0400 SaO2% (BldA) [Mass fraction] 98 % Clair Perry DO Work Phone: [facility]; [facility] Work Phone: Comment on above: Room air bpd at home are jaja r 120'/70-80 01-04-2022 08:25-0400 Systolic blood pressure 132 mm[Hg] Clair Perry DO Work Phone: [facility]; [facility] Work Phone: Comment on above: Patient Position: Sitting; Cuff Location : Left Arm; Cuff Size: Standard bpd at home are lowjazmyn r 120'/70-80 09-03-2021 11:40-0500 Body height 185.42 cm Ml Gomez [facility]; [facility] Work Phone: Comment on above: 181 on home scale and 186 with clothes h ere today. 09-03-2021 11:40-0500 Body mass index (BMI) [Ratio] 23.88 kg/m2 Ml Gomez [facility]; [facility] Work Phone: Comment on above: 181 on home scale and 186 with clothes h ere today. 09-03-2021 11:40-0500 Body surface area Derived from formula 2.06 m2 Ml Gomez [facility]; [facility] Work Phone: Comment on above: 181 on home scale and 186 with clothes h ere today. 09-03-2021 11:40-0500 Body temperature 97.3 [degF] Ml Gomez [facility]; [facility] Work Phone: Comment on above: Method: Infrared 181 on home scale an d 186 with clothes here today. 09-03-2021 11:40-0500 Body weight 82.1 kg Ml Gomez [facility]; [facility] Work Phone: Comment on above: 181 on home scale and 186 with clothes h ere today. 09-03-2021 11:40-0500 Diastolic blood pressure 90 mm[Hg] Ml Gomez [facility]; [facility] Work Phone: Comment on above: Patient Position: Sitting; Cuff Location : Left Arm; Cuff Size: Standard 181 on home scale an d 186 with clothes here today. 09-03-2021 11:40-0500 Heart rate 74 /min Ml Gomez [facility]; [facility] Work Phone: Comment on above: Pattern: Regular 181 on home scale an d 186 with clothes here today. 09-03-2021 11:40-0500 Respiratory rate 16 /min Ml Gomez [facility]; [facility] Work Phone: Comment on above: Pattern: Unlabored 181 on home scale an d 186 with clothes here today. 09-03-2021 11:40-0500 SaO2% (BldA) [Mass fraction] 97 % Ml Gomez [facility] Internal Medicine; [facility] Work Phone: Comment on above: Room air 181 on home scale an d 186 with clothes here today. 09-03-2021 11:40-0500 Systolic blood pressure 132 mm[Hg] Ml Gomez [facility]; [facility] Work Phone: Comment on above: Patient Position: Sitting; Cuff Location : Left Arm; Cuff Size: Standard 181 on home scale an d 186 with clothes here today. 05-03-2021 11:42-0400 Body height 185.42 cm Ml Gomez [facility]; [facility] Work Phone: 05-03-2021 11:42-0400 Body mass index (BMI) [Ratio] 28.5 kg/m2 Ml Gomez [facility]; [facility] Work Phone: 05-03-2021 11:42-0400 Body surface area Derived from formula 2.22 m2 [facility]; [facility] Work Phone: 05-03-2021 11:42-0400 Body weight 97.98 kg Ml Gomez [facility]; [facility] Work Phone: 04-27-2021 08:33-0400 Body height 185.42 cm Ml Mayius [employer] [facility]; [facility] Work Phone: 04-27-2021 08:33-0400 Body mass index (BMI) [Ratio] 28.5 kg/m2 Ml Gomez [facility]; [facility] Work Phone: 04-27-2021 08:33-0400 Body surface area Derived from formula 2.22 m2 Ml Gomez [facility]; [facility] Work Phone: 04-27-2021 08:33-0400 Body temperature 97.1 [degF] Ml Gomez CMA [facility]; [facility] Work Phone: Comment on above: Method: Infrared 04-27-2021 08:33-0400 Body weight 97.98 kg Ml Gomez [employer] [facility]; [facility] Work Phone: 04-27-2021 08:33-0400 Diastolic blood pressure 90 mm[Hg] Ml Gomez [facility]; [facility] Work Phone: Comment on above: Patient Position: Sitting; Cuff Location : Left Arm; Cuff Size: Standard 04-27-2021 08:33-0400 Heart rate 76 /min Ml Gomez [facility]; [facility] Work Phone: Comment on above: Pattern: Regular 04-27-2021 08:33-0400 Respiratory rate 18 /min Ml Gomez [facility]; [facility] Work Phone: Comment on above: Pattern: Unlabored 04-27-2021 08:33-0400 SaO2% (BldA) [Mass fraction] 97 % Ml Gomze [facility]; [facility] Work Phone: Comment on above: Room air 04-27-2021 08:33-0400 Systolic blood pressure 142 mm[Hg] Ml Gomez [facility]; [facility] Work Phone: Comment on above: Patient Position: Sitting; Cuff Location : Left Arm; Cuff Size: Standard 08-07-2020 09:30-0500 BMI (Body Mass Index) 28.23 kg/m2 [facility]; [facility] Work Phone: 08-07-2020 09:30-0500 Body weight 97.07 kg [facility]; [facility] Work Phone: 08-07-2020 09:30-0500 BSA (Body Surface Area) 2.21 m2 [facility]; [facility] Work Phone: 08-07-2020 09:30-0500 Height 185.42 cm [facility]; [facility] Work Phone: 08-01-2020 08:11-0500 BMI (Body Mass Index) 28.23 kg/m2 [facility]; [facility] Work Phone: 08-01-2020 08:11-0500 Body weight 97.07 kg [facility]; [facility] Work Phone: 08-01-2020 08:11-0500 BSA (Body Surface Area) 2.21 m2 [facility]; [facility] Work Phone: 08-01-2020 08:11-0500 Height 185.42 cm [facility]; [facility] Work Phone: 07-21-2020 07:35-0500 BMI (Body Mass Index) 28.23 kg/m2 [facility] Internal Medicine Work Phone: 07-21-2020 07:35-0500 Body weight 97.07 kg [facility] Work Phone: 07-21-2020 07:35-0500 BSA (Body Surface Area) 2.21 m2 [facility] Work Phone: 07-21-2020 07:35-0500 Height 185.[facility] Work Phone: 01-03-2020 16:12-0400 Body height 185.42 cm Ml Gravius [employer] [facility] Work Phone: 01-03-2020 16:12-0400 Body mass index (BMI) [Ratio] 28.23 kg/m2 Ml Gomez [facility] Internal Medicine Work Phone: 01-03-2020 16:12-0400 Body surface area Derived from formula 2.21 m2 Ml Gomez [facility] Internal Medicine Work Phone: 01-03-2020 16:12-0400 Body temperature 97 [degF] Ml Gomez [facility] Internal Medicine Work Phone: Comment on above: Method: Temporal 01-03-2020 16:12-0400 Body weight 97.07 kg Ml Gomez [facility] Internal Medicine Work Phone: 01-03-2020 16:12-0400 Diastolic blood pressure 80 mm[Hg] Ml Gomez [facility] Internal Medicine Work Phone: Comment on above: Patient Position: Sitting; Cuff Location : Left Arm; Cuff Size: Standard 01-03-2020 16:12-0400 Heart rate 90 /min Ml Gomez [facility] Internal Medicine Work Phone: Comment on above: Pattern: Regular 01-03-2020 16:12-0400 Pulse Oximetry 97 % Clair Vicky [facility] Internal Medicine Work Phone: Comment on above: Room air 01-03-2020 16:12-0400 Respiratory rate 16 /min Ml Gomez [facility] Internal Medicine Work Phone: Comment on above: Pattern: Unlabored 01-03-2020 16:12-0400 SaO2% (BldA) [Mass fraction] 97 % Ml Gomez [facility] Internal Medicine Work Phone: Comment on above: Room air 01-03-2020 16:12-0400 Systolic blood pressure 127 mm[Hg] Ml Gomez [facility] Internal Medicine Work Phone: Comment on above: Patient Position: Sitting; Cuff Location : Left Arm; Cuff Size: Standard 08-27-2019 07:12-0500 Body height 185.42 cm Rosalinda L Ariel [facility] Internal Medicine Work Phone: 08-27-2019 07:12-0500 Body mass index (BMI) [Ratio] 27.31 kg/m2 Rosalidna George RN [facility] Work Phone: 08-27-2019 07:12-0500 Body surface area Derived from formula 2.18 m2 Rosalinda George RN [facility] Work Phone: 08-27-2019 07:12-0500 Body temperature 98.9 [degF] Rosalinda George RN [facility] Work Phone: Comment on above: Method: Temporal 08-27-2019 07:12-0500 Body weight 93.9 kg Rosalinda George RN [facility] Work Phone: 08-27-2019 07:12-0500 Diastolic blood pressure 78 mm[Hg] Rosalinda George RN [facility] Work Phone: Comment on above: Patient Position: Sitting; Cuff Location : Left Arm; Cuff Size: Standard 08-27-2019 07:12-0500 Heart rate 89 /min Rosalinda George RN [facility] Work Phone: Comment on above: Pattern: Regular 08-27-2019 07:12-0500 Pulse Oximetry 98 % Clair Perry [facility] Work Phone: Comment on above: Room air 08-27-2019 07:12-0500 Respiratory rate 16 /min Rosalinda George RN [facility] Work Phone: Comment on above: Pattern: Unlabored 08-27-2019 07:12-0500 SaO2% (BldA) [Mass fraction] 98 % Rosalinda George RN [facility] Work Phone: Comment on above: Room air 08-27-2019 07:12-0500 Systolic blood pressure 140 mm[Hg] Rosalinda George RN [facility] Work Phone: Comment on above: Patient Position: Sitting; Cuff Location : Left Arm; Cuff Size: Standard 03-15-2019 15:44-0400 BMI (Body Mass Index) 27.31 kg/m2 Thao Schaefer RN [facility] Work Phone: 03-15-2019 15:44-0400 Body weight 93.9 kg Thao Schaefer RN [facility] Work Phone: 03-15-2019 15:44-0400 BP Diastolic 72 mm[Hg] Thao Schaefer RN [facility] Work Phone: Comment on above: Patient Position: Sitting; Cuff Location : Left Arm; Cuff Size: Large 03-15-2019 15:44-0400 BP Systolic 128 mm[Hg] Thao Schaefer RN [facility] Work Phone: Comment on above: Patient Position: Sitting; Cuff Location : Left Arm; Cuff Size: Large 03-15-2019 15:44-0400 BSA (Body Surface Area) 2.18 m2 Thao Schaefer RN [facility] Work Phone: 03-15-2019 15:44-0400 Height 185.42 cm Thao Schaefer RN [facility] Work Phone: 03-15-2019 15:44-0400 Pulse (Heart Rate) 72 /min Thoa Schaefer RN [facility] Work Phone: Comment on above: Pattern: Regular 03-15-2019 15:44-0400 Pulse Oximetry 96 % Clair Perry [facility] Work Phone: Comment on above: Room air 03-15-2019 15:44-0400 Respiratory Rate 18 /min Thao Schaefer RN [facility] Work Phone: Comment on above: Pattern: Unlabored 03-15-2019 15:44-0400 SaO2% (BldA) [Mass fraction] 96 % Thao Schaefer RN [facility] Work Phone: Comment on above: Room air 02-10-2019 15:53-0400 BMI (Body Mass Index) 26.52 kg/m2 Rosalinda George RN [facility] Internal Medicine Work Phone: 02-10-2019 15:53-0400 Body Temperature 98.4 [degF] Rosalinda George RN [facility] Work Phone: Comment on above: Method: Temporal 02-10-2019 15:53-0400 Body weight 91.17 kg Rosalinda George RN [facility] Work Phone: 02-10-2019 15:53-0400 BP Diastolic 84 mm[Hg] Rosalinda George RN [facility] Work Phone: Comment on above: Patient Position: Sitting; Cuff Location : Left Arm; Cuff Size: Standard 02-10-2019 15:53-0400 BP Systolic 120 mm[Hg] Rosalinda George RN [facility] Work Phone: Comment on above: Patient Position: Sitting; Cuff Location : Left Arm; Cuff Size: Standard 02-10-2019 15:53-0400 BSA (Body Surface Area) 2.16 m2 Rosalinda George RN [facility] Work Phone: 02-10-2019 15:53-0400 Height 185.42 cm Rosalinda George RN [facility] Work Phone: 02-10-2019 15:53-0400 Pulse (Heart Rate) 64 /min Rosalinda George RN [facility] Work Phone: Comment on above: Pattern: Regular 02-10-2019 15:53-0400 Pulse Oximetry 98 % Clair Perry [facility] Work Phone: Comment on above: Room air 02-10-2019 15:53-0400 Respiratory Rate 16 /min Rosalinda George RN [facility] Work Phone: Comment on above: Pattern: Unlabored 02-10-2019 15:53-0400 SaO2% (BldA) [Mass fraction] 98 % Rosalinda George RN [facility] Work Phone: Comment on above: Room air 01-14-2019 12:03-0400 BMI (Body Mass Index) 26.14 kg/m2 Rosalinda George RN [facility] Internal Medicine Work Phone: 01-14-2019 12:03-0400 Body Temperature 97.7 [degF] Rosalinda George RN [facility] Work Phone: Comment on above: Method: Temporal 01-14-2019 12:03-0400 Body weight 89.87 kg Rosalinda George RN [facility] Work Phone: 01-14-2019 12:03-0400 BP Diastolic 82 mm[Hg] Rosalinda George RN [facility] Work Phone: Comment on above: Patient Position: Sitting; Cuff Location : Left Arm; Cuff Size: Standard 01-14-2019 12:03-0400 BP Systolic 120 mm[Hg] Rosalinda George RN [facility] Work Phone: Comment on above: Patient Position: Sitting; Cuff Location : Left Arm; Cuff Size: Standard 01-14-2019 12:03-0400 BSA (Body Surface Area) 2.14 m2 Rosalinda George RN [facility] Work Phone: 01-14-2019 12:03-0400 Height 185.42 cm Rosalinda George RN [facility] Work Phone: 01-14-2019 12:03-0400 Pulse (Heart Rate) 78 /min Rosalinda George RN [facility] Work Phone: Comment on above: Pattern: Regular 01-14-2019 12:03-0400 Pulse Oximetry 97 % Clair Perry [facility] Work Phone: Comment on above: Room air 01-14-2019 12:03-0400 Respiratory Rate 16 /min Rosalinda George RN [facility] Work Phone: Comment on above: Pattern: Unlabored 01-14-2019 12:03-0400 SaO2% (BldA) [Mass fraction] 97 % Rosalinda George RN [facility] Work Phone: Comment on above: Room air 01-14-2019 12:03-0400 Weight 89.87 kg Clair Perry [facility] Work Phone: 11-09-2018 16:01-0400 BMI (Body Mass Index) 26.14 kg/m2 Thao Schaefer RN [facility] Work Phone: 11-09-2018 16:01-0400 Body weight 89.87 kg Thao Schaefer RN [facility] Work Phone: 11-09-2018 16:01-0400 BP Diastolic 98 mm[Hg] Thao Schaefer RN [facility] Work Phone: Comment on above: Patient Position: Sitting; Cuff Location : Left Arm; Cuff Size: Large 11-09-2018 16:01-0400 BP Systolic 138 mm[Hg] Thao Schaefer RN [facility] Work Phone: Comment on above: Patient Position: Sitting; Cuff Location : Left Arm; Cuff Size: Large 11-09-2018 16:01-0400 BSA (Body Surface Area) 2.14 m2 Thao Schaefer RN [facility] Work Phone: 11-09-2018 16:01-0400 Height 185.42 cm Thao Schaefer RN [facility] Work Phone: 11-09-2018 16:01-0400 Pulse (Heart Rate) 79 /min Thao Schaefer RN [facility] Work Phone: Comment on above: Pattern: Regular 11-09-2018 16:01-0400 Pulse Oximetry 97 % Clair Perry [facility] Work Phone: Comment on above: Room air 11-09-2018 16:01-0400 Respiratory Rate 16 /min Thao Schaefer RN [facility] Work Phone: Comment on above: Pattern: Unlabored 11-09-2018 16:01-0400 SaO2% (BldA) [Mass fraction] 97 % Thao Schaefer RN [facility] Work Phone: Comment on above: Room air 11-09-2018 16:01-0400 Weight 89.87 kg Clair Perry [facility] Work Phone: 07-16-2017 14:27-0500 BMI (Body Mass Index) 24.56 kg/m2 Thao Schaefer RN [facility] Work Phone: 07-16-2017 14:27-0500 Body weight 84.43 kg Thao Schaefer RN [facility] Work Phone: 07-16-2017 14:27-0500 BP Diastolic 78 mm[Hg] Thao Schaefer RN [facility] Work Phone: Comment on above: Patient Position: Sitting; Cuff Location : Left Arm; Cuff Size: Large 07-16-2017 14:27-0500 BP Systolic 138 mm[Hg] Thao Schaefer RN [facility] Work Phone: Comment on above: Patient Position: Sitting; Cuff Location : Left Arm; Cuff Size: Large 07-16-2017 14:27-0500 BSA (Body Surface Area) 2.09 m2 Thao Schaefer RN [facility] Work Phone: 07-16-2017 14:27-0500 Height 185.42 cm Thao Schaefer RN [facility] Work Phone: 07-16-2017 14:27-0500 Pulse (Heart Rate) 69 /min Thao Schaefer RN [facility] Work Phone: Comment on above: Pattern: Regular 07-16-2017 14:27-0500 Pulse Oximetry 98 % Clair Vicky [facility] Work Phone: Comment on above: Room air 07-16-2017 14:27-0500 Respiratory Rate 18 /min Thao Schaefer RN [facility] Work Phone: Comment on above: Pattern: Unlabored 07-16-2017 14:27-0500 SaO2% (BldA) [Mass fraction] 98 % Thao Schaefer RN [facility] Work Phone: Comment on above: Room air 07-16-2017 14:27-0500 Weight 84.43 kg Clair Yuon [facility] Work Phone: 05-07-2017 15:15-0400 BMI (Body Mass Index) 25.78 kg/m2 Thao Schaefer RN [facility] Work Phone: 05-07-2017 15:15-0400 Body weight 88.62 kg Thao Schaefer RN [facility] Work Phone: 05-07-2017 15:15-0400 BP Diastolic 82 mm[Hg] Thao Schaefer RN [facility] Work Phone: Comment on above: Patient Position: Sitting; Cuff Location : Left Arm; Cuff Size: Large 05-07-2017 15:15-0400 BP Systolic 128 mm[Hg] Thao Schaefer RN [facility] Work Phone: Comment on above: Patient Position: Sitting; Cuff Location : Left Arm; Cuff Size: Large 05-07-2017 15:15-0400 BSA (Body Surface Area) 2.13 m2 Thao Schaefer RN [facility] Work Phone: 05-07-2017 15:15-0400 Height 185.42 cm Thao Schaefer RN [facility] Work Phone: 05-07-2017 15:15-0400 Pulse (Heart Rate) 68 /min Thao Schaefer RN [facility] Work Phone: Comment on above: Pattern: Regular 05-07-2017 15:15-0400 Pulse Oximetry 98 % Clair Vicky [facility] Work Phone: Comment on above: Room air 05-07-2017 15:15-0400 Respiratory Rate 18 /min Thao Schaefer RN [facility] Work Phone: Comment on above: Pattern: Unlabored 05-07-2017 15:15-0400 SaO2% (BldA) [Mass fraction] 98 % Thao Schaefer RN [facility] Work Phone: Comment on above: Room air 05-07-2017 15:15-0400 Weight 88.62 kg Claircarmen Perry [facility] Work Phone: 04-02-2017 15:03-0400 BMI (Body Mass Index) 26.68 kg/m2 Thao Schaefer RN [facility] Work Phone: 04-02-2017 15:03-0400 Body weight 91.74 kg Thao Schaefer RN [facility] Work Phone: 04-02-2017 15:03-0400 BP Diastolic 92 mm[Hg] Thao Schaefer RN [facility] Work Phone: Comment on above: Patient Position: Sitting; Cuff Location : Left Arm; Cuff Size: Large 04-02-2017 15:03-0400 BP Systolic 142 mm[Hg] Thao Schaefer RN [facility] Work Phone: Comment on above: Patient Position: Sitting; Cuff Location : Left Arm; Cuff Size: Large 04-02-2017 15:03-0400 BSA (Body Surface Area) 2.16 m2 Thao Schaefer RN [facility] Work Phone: 04-02-2017 15:03-0400 Height 185.42 cm Thao Schaefer RN [facility] Work Phone: 04-02-2017 15:03-0400 Pulse (Heart Rate) 80 /min Thao Schaefer RN [facility] Work Phone: Comment on above: Pattern: Regular 04-02-2017 15:03-0400 Pulse Oximetry 96 % Clair Yuon [facility] Work Phone: Comment on above: Room air 04-02-2017 15:03-0400 Respiratory Rate 16 /min Thao Schaefer RN [facility] Work Phone: Comment on above: Pattern: Unlabored 04-02-2017 15:03-0400 SaO2% (BldA) [Mass fraction] 96 % Thao Schaefer RN [facility] Work Phone: Comment on above: Room air 04-02-2017 15:03-0400 Weight 91.74 kg Clair Yuon [facility] Work Phone: 08-01-2016 10:31-0500 BMI (Body Mass Index) 27.05 kg/m2 Thao Schaefer RN [facility] Work Phone: 08-01-2016 10:31-0500 Body weight 92.99 kg Thao Schaefer RN [facility] Work Phone: 08-01-2016 10:31-0500 BP Diastolic 82 mm[Hg] Thao Schaefer RN [facility] Work Phone: Comment on above: Patient Position: Sitting; Cuff Location : Left Arm; Cuff Size: Large 08-01-2016 10:31-0500 BP Systolic 138 mm[Hg] Thao Schaefer RN [facility] Work Phone: Comment on above: Patient Position: Sitting; Cuff Location : Left Arm; Cuff Size: Large 08-01-2016 10:31-0500 BSA (Body Surface Area) 2.17 m2 Thao Schaefer RN [facility] Work Phone: 08-01-2016 10:31-0500 Height 185.42 cm Thao Schaefer RN [facility] Work Phone: 08-01-2016 10:31-0500 Pulse (Heart Rate) 72 /min Thao Schaefer RN [facility] Work Phone: Comment on above: Pattern: Regular 08-01-2016 10:31-0500 Pulse Oximetry 98 % Clair Perry [facility] Work Phone: Comment on above: Room air 08-01-2016 10:31-0500 Respiratory Rate 18 /min Thao Schaefer RN [facility] Work Phone: Comment on above: Pattern: Unlabored 08-01-2016 10:31-0500 SaO2% (BldA) [Mass fraction] 98 % Thao Schaefer RN [facility] Work Phone: Comment on above: Room air 08-01-2016 10:31-0500 Weight 92.99 kg Clair Perry [facility] Work Phone: 07-17-2016 15:20-0500 BMI (Body Mass Index) 26.96 kg/m2 Thao Schaefer RN [facility] Work Phone: Comment on above: 140/98 07-17-2016 15:20-0500 Body weight 92.7 kg Thao Schaefer RN [facility] Work Phone: Comment on above: 140/98 07-17-2016 15:20-0500 BP Diastolic 82 mm[Hg] Thao Schaefer RN [facility] Work Phone: Comment on above: Patient Position: Sitting; Cuff Location : Left Arm; Cuff Size: Large 140/98 07-17-2016 15:20-0500 BP Systolic 138 mm[Hg] Thao Schaefer RN [facility] Work Phone: Comment on above: Patient Position: Sitting; Cuff Location : Left Arm; Cuff Size: Large 140/98 07-17-2016 15:20-0500 BSA (Body Surface Area) 2.17 m2 Thao Schaefer RN [facility] Work Phone: Comment on above: 140/98 07-17-2016 15:20-0500 Height 185.42 cm Thao Schaefer RN [facility] Work Phone: Comment on above: 140/98 07-17-2016 15:20-0500 Pulse (Heart Rate) 99 /min Thao Schaefer RN [facility] Work Phone: Comment on above: Pattern: Regular 140/98 07-17-2016 15:20-0500 Pulse Oximetry 98 % Clair Perry [facility] Work Phone: Comment on above: Room air 140/98 07-17-2016 15:20-0500 Respiratory Rate 18 /min Thao Schaefer RN [facility] Work Phone: Comment on above: Pattern: Unlabored 140/98 07-17-2016 15:20-0500 SaO2% (BldA) [Mass fraction] 98 % Thao Schaefer RN [facility] Work Phone: Comment on above: Room air 140/98 07-17-2016 15:20-0500 Weight 92.7 kg Clair Perry [facility] Work Phone: Comment on above: 140/98 06-24-2016 12:13-0500 BMI (Body Mass Index) 26.96 kg/m2 Thao Schaefer RN [facility] Work Phone: 06-24-2016 12:13-0500 Body weight 92.7 kg Thao Schaefer RN [facility] Work Phone: 06-24-2016 12:13-0500 BP Diastolic 92 mm[Hg] Thao Schaefer RN [facility] Work Phone: 06-24-2016 12:13-0500 BP Systolic 162 mm[Hg] Thao Schaefer RN [facility] Work Phone: 06-24-2016 12:13-0500 BSA (Body Surface Area) 2.17 m2 Thao Schaefer RN [facility] Work Phone: 06-24-2016 12:13-0500 Height 185.42 cm Thao Schaefer RN [facility] Work Phone: 06-24-2016 12:13-0500 Pulse (Heart Rate) 68 /min Thao Schaefer RN [facility] Work Phone: Comment on above: Pattern: Regular 06-24-2016 12:13-0500 Pulse Oximetry 97 % Clair Yuon [facility] Work Phone: Comment on above: Room air 06-24-2016 12:13-0500 SaO2% (BldA) [Mass fraction] 97 % Thao Schaefer RN [facility] Work Phone: Comment on above: Room air 06-24-2016 12:13-0500 Weight 92.7 kg Clair Vicky [facility] Work Phone: 12-18-2015 15:00-0400 BMI (Body Mass Index) 26.65 kg/m2 Monika Slarb [employer] [facility] Work Phone: 12-18-2015 15:00-0400 Body Temperature 97.6 [degF] Monika Slarb BURNER OPERATOR [facility] Work Phone: 12-18-2015 15:00-0400 Body weight 91.63 kg Monika Mccullough LPN [facility] Work Phone: 12-18-2015 15:00-0400 BP Diastolic 84 mm[Hg] Monika Docrb BURNER OPERATOR [facility] Work Phone: Comment on above: Patient Position: Sitting; Cuff Location : Left Arm; Cuff Size: Standard 12-18-2015 15:00-0400 BP Systolic 142 mm[Hg] Monika Slarb BURNER OPERATOR [facility] Work Phone: Comment on above: Patient Position: Sitting; Cuff Location : Left Arm; Cuff Size: Standard 12-18-2015 15:00-0400 BSA (Body Surface Area) 2.16 m2 Monika Docrb BURNER OPERATOR [facility] Work Phone: 12-18-2015 15:00-0400 Height 185.42 cm Monika Slarb BURNER OPERATOR [facility] Work Phone: 12-18-2015 15:00-0400 Pulse (Heart Rate) 74 /min Monika Docrb [employer] OPERATOR [facility] Work Phone: Comment on above: Pattern: Regular 12-18-2015 15:00-0400 Pulse Oximetry 97 % Clair Perry [facility] Work Phone: Comment on above: Room air 12-18-2015 15:00-0400 Respiratory Rate 16 /min Monika Mccullough [facility] Work Phone: Comment on above: Pattern: Unlabored 12-18-2015 15:00-0400 SaO2% (BldA) [Mass fraction] 97 % Monika Mccullough LPN [facility] Work Phone: Comment on above: Room air 12-18-2015 15:00-0400 Weight 91.63 kg Claircarmen Perry [facility] Work Phone: 07-07-2015 11:08-0500 BMI (Body Mass Index) 25.73 kg/m2 MAYNOR Gaines [facility] Work Phone: 07-07-2015 11:08-0500 Body Temperature 97.9 [degF] MAYNOR Gaines [facility] Work Phone: Comment on above: Method: Temporal 07-07-2015 11:08-0500 Body weight 88.45 kg MAYNOR Gaines [facility] Work Phone: 07-07-2015 11:08-0500 BP Diastolic 98 mm[Hg] MAYNOR Gaines [facility] Work Phone: Comment on above: Patient Position: Sitting; Cuff Location : Left Arm; Cuff Size: Standard 07-07-2015 11:08-0500 BP Systolic 140 mm[Hg] MAYNOR Gaines [facility] Work Phone: Comment on above: Patient Position: Sitting; Cuff Location : Left Arm; Cuff Size: Standard 07-07-2015 11:08-0500 BSA (Body Surface Area) 2.13 m2 MAYNOR Gaines [facility] Work Phone: 07-07-2015 11:08-0500 Height 185.42 cm MAYNOR Gaines [facility] Work Phone: 07-07-2015 11:08-0500 Pulse (Heart Rate) 78 /min MAYNOR Gaines [facility] Work Phone: Comment on above: Pattern: Regular 07-07-2015 11:08-0500 Pulse Oximetry 98 % Clair Perry [facility] Work Phone: Comment on above: Room air 07-07-2015 11:08-0500 Respiratory Rate 20 /min MAYNOR Gaines LPN [facility] Work Phone: Comment on above: Pattern: Unlabored 07-07-2015 11:08-0500 SaO2% (BldA) [Mass fraction] 98 % MAYNOR Gaines LPN [facility] Work Phone: Comment on above: Room air 07-07-2015 11:08-0500 Weight 88.45 kg Clair Perry [facility] Work Phone: 10-27-2014 09:52-0400 BMI (Body Mass Index) 27.31 kg/m2 MAYNOR Gainse LPN [facility] Work Phone: 10-27-2014 09:52-0400 Body Temperature 98.2 [degF] MAYNOR Gaines LPN [facility] Work Phone: Comment on above: Method: Temporal 10-27-2014 09:52-0400 Body weight 93.9 kg MAYNOR Gaines LPN [facility] Work Phone: 10-27-2014 09:52-0400 BP Diastolic 86 mm[Hg] MANYOR Gaines LPN [facility] Work Phone: Comment on above: Patient Position: Sitting; Cuff Location : Left Arm; Cuff Size: Standard 10-27-2014 09:52-0400 BP Systolic 124 mm[Hg] MAYNOR Gaines LPN [facility] Work Phone: Comment on above: Patient Position: Sitting; Cuff Location : Left Arm; Cuff Size: Standard 10-27-2014 09:52-0400 BSA (Body Surface Area) 2.18 m2 MAYNOR Gaines LPN [facility] Work Phone: 10-27-2014 09:52-0400 Height 185.42 cm MAYNOR Gaines LPN [facility] Work Phone: 10-27-2014 09:52-0400 Pulse (Heart Rate) 82 /min MAYNOR Gaines LPN [facility] Work Phone: Comment on above: Pattern: Regular 10-27-2014 09:52-0400 Pulse Oximetry 98 % Clair Perry [facility] Work Phone: Comment on above: Room air 10-27-2014 09:52-0400 Respiratory Rate 20 /min MAYNOR Gaines [facility] Work Phone: Comment on above: Pattern: Unlabored 10-27-2014 09:52-0400 SaO2% (BldA) [Mass fraction] 98 % MAYNOR Gaines [facility] Work Phone: Comment on above: Room air 10-27-2014 09:52-0400 Weight 93.9 kg Clair Perry [facility] Work Phone: 03-29-2014 14:40-0400 BMI (Body Mass Index) 27.31 kg/m2 Vanessa Annette [facility] Work Phone: 03-29-2014 14:40-0400 Body Temperature 97.7 [degF] [facility]: 03-29-2014 14:40-0400 Body [facility] 93.9 [facility] Work [facility]: 03-29-2014 14:40-0400 BP Diastolic 80 mm[Hg] [facility] Work [facility]: Comment on above: Patient Position: Sitting; Cuff Location : Left Arm; Cuff Size: Large 03-29-2014 14:40-0400 BP Systolic 124 mm[Hg] [facility] Work [facility]: Comment on above: Patient Position: Sitting; Cuff Location : Left Arm; Cuff Size: Large 03-29-2014 14:40-0400 BSA (Body Surface Area) 2.18 m[address] Work Phone: 03-29-2014 14:40-0400 Height 185.42 cm [facility] Work [facility]: 03-29-2014 14:40-0400 Pulse (Heart Rate) 68 /min Vanessa Bryant [facility] Work Phone: Comment on above: Pattern: Regular 03-29-2014 14:40-0400 Respiratory Rate 16 /min Vanessa Bryant [facility] Work Phone: Comment on above: Pattern: Unlabored 03-29-2014 14:40-0400 Weight 93.9 kg Clair Perry [facility] Work Phone: 2014 16:14-0400 BMI (Body Mass Index) 27.05 kg/m2 Vanessa Bryant [facility] Work Phone: 2014 16:14-0400 Body Temperature 98.5 [degF] Vanessa Camaramatty [facility] Work Phone: 2014 16:14-0400 Body weight 92.99 kg Vanessa Camaramatty [facility] Work Phone: 2014 16:14-0400 BP Diastolic 88 mm[Hg] Vanessa Bryant [facility] Work Phone: Comment on above: Patient Position: Sitting; Cuff Location : Left Arm; Cuff Size: Large 2014 16:14-0400 BP Systolic 140 mm[Hg] Vanessa Bryant [facility] Work Phone: Comment on above: Patient Position: Sitting; Cuff Location : Left Arm; Cuff Size: Large 2014 16:14-0400 BSA (Body Surface Area) 2.17 m2 Vanessa Camaramatty [facility] Work Phone: 2014 16:14-0400 Height 185.42 cm Vanessa Annette [facility] Work Phone: 2014 16:14-0400 Pulse (Heart Rate) 68 /min Vanessa Bryant [facility] Work Phone: Comment on above: Pattern: Regular 2014 16:14-0400 Respiratory Rate 16 /min Vanessa Bryant [facility] Work Phone: Comment on above: Pattern: Unlabored 2014 16:14-0400 Weight 92.99 kg Clair Perry [facility] Work Phone: 10-05-2013 10:21-0500 BMI (Body Mass Index) 27.48 kg/m2 Clair Perry [facility] Work Phone: 10-05-2013 10:21-0500 Body Temperature 98 [degF] Clair Perry [facility] Work Phone: Comment on above: Method: Oral 10-05-2013 10:21-0500 Body weight 94.49 kg Clair Perry [facility] Work Phone: 10-05-2013 10:21-0500 BP Diastolic 70 mm[Hg] Clair Perry [facility] Work Phone: Comment on above: Patient Position: Sitting; Cuff Location : Left Arm; Cuff Size: Standard 10-05-2013 10:21-0500 BP Systolic 122 mm[Hg] Clair Perry [facility] Work Phone: Comment on above: Patient Position: Sitting; Cuff Location : Left Arm; Cuff Size: Standard 10-05-2013 10:210500 BSA (Body Surface Area) 2.19 m2 Clair Perry [facility] Work Phone: 10-05-2013 10:210500 Height 185.42 cm Clair Perry [facility] Work Phone: 10-05-2013 10:21-0500 Pulse (Heart Rate) 80 /min Clair Perry [facility] Work Phone: Comment on above: Pattern: Regular 10-05-2013 10:21-0500 Pulse Oximetry 98 % Clair Perry [facility] Work Phone: Comment on above: Room air 10-05-2013 10:21-0500 SaO2% (BldA) [Mass fraction] 98 % Clair Perry DO Work Phone: [facility] Work Phone: Comment on above: Room air 10-05-2013 10:21-0500 Weight 94.49 kg Clair Perry [facility] Work Phone: 04-27-2013 14:33-0400 BMI (Body Mass Index) 27.48 kg/m2 Alyssa Junior [facility] Work Phone: 04-27-2013 14:33-0400 Body Temperature 98.2 [degF] Alyssa Junior [facility] Work Phone: Comment on above: Method: Oral 04-27-2013 14:33-0400 Body weight 94.49 kg Alyssa Junior [facility] Work Phone: 04-27-2013 14:33-0400 BP Diastolic 92 mm[Hg] Alyssa Junior [facility] Work Phone: Comment on above: Patient Position: Sitting; Cuff Location : Left Arm; Cuff Size: Standard 04-27-2013 14:33-0400 BP Systolic 134 mm[Hg] Alyssa Junior [facility] Work Phone: Comment on above: Patient Position: Sitting; Cuff Location : Left Arm; Cuff Size: Standard 04-27-2013 14:33-0400 BSA (Body Surface Area) 2.19 m2 Alyssa Junior [facility] Work Phone: 04-27-2013 14:33-0400 Height 185.42 cm Alyssa Junior [facility] Work Phone: 04-27-2013 14:33-0400 Pulse (Heart Rate) 69 /min Alyssa Junior [facility] Work Phone: Comment on above: Pattern: Regular 04-27-2013 14:33-0400 Pulse Oximetry 98 % Clair Perry [facility] Work Phone: Comment on above: Room air 04-27-2013 14:33-0400 Respiratory Rate 16 /min Alyssa Junior [facility] Work Phone: Comment on above: Pattern: Unlabored 04-27-2013 14:33-0400 SaO2% (BldA) [Mass fraction] 98 % Alyssa Junior MAYRA [facility] Work Phone: Comment on above: Room air 04-27-2013 14:33-0400 Weight 94.49 kg Clair Perry [facility] Work Phone: 09-29-2012 14:42-0500 BMI (Body Mass Index) 27.48 kg/m2 Thao Schaefer RN [facility] Work Phone: 09-29-2012 14:42-0500 Body Temperature 97.7 [degF] Thao Schaefer RN [facility] Work Phone: Comment on above: Method: Oral 09-29-2012 14:42-0500 Body weight 94.49 kg Thao Schaefer RN [facility] Work Phone: 09-29-2012 14:42-0500 BP Diastolic 88 mm[Hg] Thao Schaefer RN [facility] Work Phone: Comment on above: Patient Position: Sitting; Cuff Location : Left Arm; Cuff Size: Large 09-29-2012 14:42-0500 BP Systolic 138 mm[Hg] Thao Schaefer RN [facility] Work Phone: Comment on above: Patient Position: Sitting; Cuff Location : Left Arm; Cuff Size: Large 09-29-2012 14:42-0500 BSA (Body Surface Area) 2.19 m2 Thao Schaefer RN [facility] Work Phone: 09-29-2012 14:42-0500 Height 185.42 cm Thao Schaefer RN [facility] Work Phone: 09-29-2012 14:42-0500 Pulse (Heart Rate) 64 /min Thao Schaefer RN [facility] Work Phone: Comment on above: Pattern: Regular 09-29-2012 14:42-0500 Respiratory Rate 20 /min Thao Schaefer RN [facility] Work Phone: Comment on above: Pattern: Unlabored 09-29-2012 14:42-0500 Weight 94.49 kg Clair Perry [facility] Work Phone: 09-11-2010 08:02-0500 Body Temperature 99.5 [degF] Thao Schaefer RN [facility] Work Phone: Comment on above: Method: Oral 09-11-2010 08:02-0500 Body weight 91.17 kg Thao Schaefer RN [facility] Work Phone: 09-11-2010 08:02-0500 BP Diastolic 78 mm[Hg] Thao Schaefer RN [facility] Work Phone: Comment on above: Patient Position: Sitting; Cuff Location : Left Arm; Cuff Size: Large 09-11-2010 08:02-0500 BP Systolic 122 mm[Hg] Thao Schaefer RN [facility] Work Phone: Comment on above: Patient Position: Sitting; Cuff Location : Left Arm; Cuff Size: Large 09-11-2010 08:02-0500 Pulse (Heart Rate) 88 /min Thao Schaefer RN [facility] Work Phone: Comment on above: Pattern: Regular 09-11-2010 08:02-0500 Respiratory Rate 20 /min Thao Schaefer RN [facility] Work Phone: Comment on above: Pattern: Unlabored 09-11-2010 08:02-0500 Weight 91.17 kg Clair Perry [facility] Work Phone: 07-30-2010 16:25-0500 Body Temperature 97.1 [degF] Clair Perry [facility] Work Phone: Comment on above: Method: Oral 07-30-2010 16:25-0500 Body weight 91.17 kg Clair Perry [facility] Work Phone: 07-30-2010 16:25-0500 BP Diastolic 92 mm[Hg] Clair Perry [facility] Work Phone: Comment on above: Patient Position: Sitting; Cuff Location : Left Arm; Cuff Size: Standard 07-30-2010 16:25-0500 BP Systolic 140 mm[Hg] Clair Perry [facility] Work Phone: Comment on above: Patient Position: Sitting; Cuff Location : Left Arm; Cuff Size: Standard 07-30-2010 16:25-0500 Pulse (Heart Rate) 80 /min Clair Perry [facility] Work Phone: Comment on above: Pattern: Regular 07-30-2010 16:25-0500 Pulse Oximetry 97 % Clair Perry [facility] Work Phone: Comment on above: Room air 07-30-2010 16:25-0500 Respiratory Rate 18 /min Clair Perry [facility] Work Phone: Comment on above: Pattern: Unlabored 07-30-2010 16:25-0500 SaO2% (BldA) [Mass fraction] 97 % Clair Perry DO Work Phone: [facility] Work Phone: Comment on above: Room air 07-30-2010 16:25-0500 Weight 91.17 kg Clair Perry [facility] Work Phone: 07-23-2010 16:37-0500 BMI (Body Mass Index) 25.73 kg/m2 MAYNOR Gaines [facility] Work Phone: 07-23-2010 16:37-0500 Body Temperature 98.2 [degF] MAYNOR Gaines [facility] Work Phone: Comment on above: Method: Oral 07-23-2010 16:37-0500 Body weight 88.45 kg MAYNOR Gaines [facility] Work Phone: 07-23-2010 16:37-0500 BP Diastolic 78 mm[Hg] MAYNOR Gaines [facility] Work Phone: Comment on above: Patient Position: Sitting; Cuff Location : Left Arm; Cuff Size: Standard 07-23-2010 16:37-0500 BP Systolic 128 mm[Hg] MANYOR Gaines [facility] Work Phone: Comment on above: Patient Position: Sitting; Cuff Location : Left Arm; Cuff Size: Standard 07-23-2010 16:37-0500 BSA (Body Surface Area) 2.13 m2 MAYNOR Gaines [facility] Work Phone: 07-23-2010 16:37-0500 Height 185.42 cm MAYNOR Gaines LPN [facility] Work Phone: 07-23-2010 16:37-0500 Pulse (Heart Rate) 74 /min MAYNOR Gaines LPN [facility] Work Phone: Comment on above: Pattern: Regular 07-23-2010 16:37-0500 Respiratory Rate 18 /min MAYNOR Gaines LPN [facility] Work Phone: Comment on above: Pattern: Unlabored 07-23-2010 16:37-0500 Weight 88.45 kg Clair Perry [facility] Work Phone: 07-16-2010 17:03-0500 Body Temperature 97.3 [degF] Clair Perry [facility] Work Phone: Comment on above: Method: Oral 07-16-2010 17:03-0500 Body weight 88.45 kg Clair Perry [facility] Work Phone: 07-16-2010 17:03-0500 BP Diastolic 74 mm[Hg] Clair Perry [facility] Work Phone: Comment on above: Patient Position: Sitting; Cuff Location : Left Arm; Cuff Size: Standard 07-16-2010 17:03-0500 BP Systolic 126 mm[Hg] Clair Perry [facility] Work Phone: Comment on above: Patient Position: Sitting; Cuff Location : Left Arm; Cuff Size: Standard 07-16-2010 17:03-0500 Pulse (Heart Rate) 72 /min Clair Perry [facility] Work Phone: Comment on above: Pattern: Regular 07-16-2010 17:03-0500 Pulse Oximetry 99 % Clair Perry [facility] Work Phone: Comment on above: Room air 07-16-2010 17:03-0500 Respiratory Rate 18 /min Clair Perry [facility] Work Phone: Comment on above: Pattern: Unlabored 07-16-2010 17:03-0500 SaO2% (BldA) [Mass fraction] 99 % Clair Perry DO Work Phone: [facility] Work Phone: Comment on above: Room air 07-16-2010 17:03-0500 Weight 88.45 kg Clair Perry [facility] Work Phone: 04-30-2010 16:23-0400 Body Temperature 97.6 [degF] MAYNOR Gaines BURNER OPERATOR [facility] Work Phone: Comment on above: Method: Oral 04-30-2010 16:23-0400 Body weight 88.45 kg MAYNOR Gaines BURNER OPERATOR [facility] Work Phone: 04-30-2010 16:23-0400 BP Diastolic 80 mm[Hg] MAYNOR Gaines [facility] Work Phone: Comment on above: Patient Position: Sitting; Cuff Location : Left Arm; Cuff Size: Standard 04-30-2010 16:23-0400 BP Systolic 122 mm[Hg] MAYNOR Gaines BURNER OPERATOR [facility] Work Phone: Comment on above: Patient Position: Sitting; Cuff Location : Left Arm; Cuff Size: Standard 04-30-2010 16:23-0400 Pulse (Heart Rate) 64 /min MAYNOR Gaines BURNER OPERATOR [facility] Work Phone: Comment on above: Pattern: Regular 04-30-2010 16:23-0400 Respiratory Rate 18 /min MAYNOR Gaines BURNER OPERATOR [facility] Work Phone: Comment on above: Pattern: Unlabored 04-30-2010 16:23-0400 Weight 88.45 kg Clair Perry [facility] Work Phone: 11-27-2009 15:04-0400 BMI (Body Mass Index) 25.99 kg/m2 Yvette Chin MD Work Phone: [facility] Work Phone: 11-27-2009 15:04-0400 Body weight 89.36 kg Yvette Chin MD Work Phone: [facility] Work Phone: 11-27-2009 15:04-0400 BP Diastolic 98 mm[Hg] Yvette Chin MD Work Phone: [facility] Work Phone: Comment on above: Patient Position: Sitting; Cuff Location : Left Arm; Cuff Size: Standard 11-27-2009 15:04-0400 BP Systolic 134 mm[Hg] Yvette Chin MD Work Phone: [facility] Work Phone: Comment on above: Patient Position: Sitting; Cuff Location : Left Arm; Cuff Size: Standard 11-27-2009 15:04-0400 BSA (Body Surface Area) 2.14 m2 Yvette Chin MD Work Phone: [facility] Work Phone: 11-27-2009 15:04-0400 Height 185.42 cm Yvtete Chin MD Work Phone: [facility] Work Phone: 11-27-2009 15:04-0400 Pulse (Heart Rate) 68 /min Yvette Chin MD Work Phone: [facility] Work Phone: Comment on above: Pattern: Regular 11-27-2009 15:04-0400 Respiratory Rate 18 /min Yvette Chin MD Work Phone: [facility] Work Phone: Comment on above: Pattern: Unlabored 11-27-2009 15:04-0400 Weight 89.36 kg Clair Perry [facility] Work Phone: 12-15-2007 15:04-0400 Body weight 86.35 kg Kay Fields [facility] Work Phone: 12-15-2007 15:04-0400 BP Diastolic 74 mm[Hg] Kay Fields [facility] Work Phone: Comment on above: Patient Position: Sitting; Cuff Location : Left Arm; Cuff Size: Standard 12-15-2007 15:04-0400 BP Systolic 126 mm[Hg] Kay [facility] Work Phone: Comment on above: Patient Position: Sitting; Cuff Location : Left Arm; Cuff Size: Standard 12-15-2007 15:04-0400 Head Circumference 0 cm Clair Perry [facility] Medicine Work Phone: 12-15-2007 15:04-0400 Head Occipital-frontal circumference 0 cm [facility] Work Phone: 12-15-2007 15:04-0400 Height 0 cm [facility] Work Phone: 12-15-2007 15:04-0400 Pulse (Heart Rate) 60 /min [facility] Work Phone: Comment on above: Pattern: Regular 12-15-2007 15:04-0400 Respiratory Rate 16 /min [facility] Work Phone: Comment on above: Pattern: Unlabored 12-15-2007 15:04-0400 [facility] 86.35 [facility]: 09-04-2007 14:53-0500 Body Temperature 98.4 [degF] MAYNOR Gaines [facility] Work Phone: Comment on above: Method: Oral 09-04-2007 14:53-0500 Body weight 0 kg MAYNOR Gaines [facility] Work Phone: 09-04-2007 14:53-0500 BP Diastolic 78 mm[Hg] MAYNOR Gaines [facility] Work Phone: Comment on above: Patient Position: Sitting; Cuff Location : Left Arm; Cuff Size: Standard 09-04-2007 14:53-0500 BP Systolic 118 mm[Hg] MAYNOR Gaines [facility] Work Phone: Comment on above: Patient Position: Sitting; Cuff Location : Left Arm; Cuff Size: Standard 09-04-2007 14:53-0500 Head Circumference 0 cm Clair [facility] Work Phone: 09-04-2007 14:53-0500 Head Occipital-frontal circumference 0 cm MAYNOR Gaines LPN [facility] Work Phone: 09-04-2007 14:53-0500 Height 0 cm MAYNOR Gaines LPN [facility] Work Phone: 09-04-2007 14:53-0500 Pulse (Heart Rate) 74 /min MAYNOR Gaines LPN [facility] Work Phone: Comment on above: Pattern: Regular 09-04-2007 14:53-0500 Respiratory Rate 18 /min MAYNOR Gaines [facility]PN [facility] Work Phone: Comment on above: Pattern: Unlabored 09-04-2007 14:53-0500 Weight 0 kg Clair Perry [facility] Work Phone: 07-17-2007 13:51-0500 Body Temperature 98.5 [degF] [facility] Work Phone: Comment on above: Method: Undefined 07-17-2007 13:51-0500 Body weight 0 kg [facility] Work Phone: 07-17-2007 13:51-0500 BP Diastolic 78 mm[Hg] [facility] Work Phone: Comment on above: Patient Position: Sitting; Cuff Location : Left Arm; Cuff Size: Standard 07-17-2007 13:51-0500 BP Systolic 126 mm[Hg] [facility] Work Phone: Comment on above: Patient Position: Sitting; Cuff Location : Left Arm; Cuff Size: Standard 07-17-2007 13:51-0500 Head Circumference 0 cm Clair Perry [facility] Work Phone: 07-17-2007 13:51-0500 Head Occipital-frontal circumference 0 cm [facility] Work Phone: 07-17-2007 13:51-0500 Height 0 cm [facility] Work Phone: 07-17-2007 13:51-0500 Pulse (Heart Rate) 72 /min [facility] Work Phone: Comment on above: Pattern: Regular 07-17-2007 13:51-0500 Respiratory Rate 16 /min Kay Fields [facility] Work Phone: Comment on above: Pattern: Unlabored 07-17-2007 13:51-0500 Weight 0 kg Clair Perry [facility] Work Phone: 03-16-2007 16:42-0400 Body weight 86.35 kg MAYNOR Gaines LPN [facility] Work Phone: 03-16-2007 16:42-0400 BP Diastolic 90 mm[Hg] MAYNOR Gaines LPN [facility] Work Phone: Comment on above: Patient Position: Sitting; Cuff Location : Left Arm; Cuff Size: Standard 03-16-2007 16:42-0400 BP Systolic 140 mm[Hg] MAYNOR Gaines LPN [facility] Work Phone: Comment on above: Patient Position: Sitting; Cuff Location : Left Arm; Cuff Size: Standard 03-16-2007 16:42-0400 Head Circumference 0 cm Clair Perry [facility] Work Phone: 03-16-2007 16:42-0400 Head Occipital-frontal circumference 0 cm MAYNOR Gaines [facility]PN [facility] Work Phone: 03-16-2007 16:42-0400 Height 0 cm MAYNOR Gaines LPN [facility] Work Phone: 03-16-2007 16:42-0400 Pulse (Heart Rate) 64 /min MAYNOR Gaines [facility]PN [facility] Work Phone: Comment on above: Pattern: Regular 03-16-2007 16:42-0400 Respiratory Rate 20 /min MAYNOR Gaines LPN [facility] Work Phone: Comment on above: Pattern: Unlabored 03-16-2007 16:42-0400 Weight 86.35 kg Clair Perry [facility] Work Phone: 09-25-2006 15:51-0500 Body Temperature 97.6 [degF] MAYNOR Gaines LPN [facility] Work Phone: Comment on above: Method: Oral 09-25-2006 15:51-0500 Body weight 87.09 kg MAYNOR Gaines LPN [facility] Work Phone: 09-25-2006 15:51-0500 BP Diastolic 84 mm[Hg] MAYNOR Gaines LPN [facility] Work Phone: Comment on above: Patient Position: Sitting; Cuff Location : Left Arm; Cuff Size: Standard 09-25-2006 15:51-0500 BP Systolic 124 mm[Hg] MAYNOR Gaines LPN [facility] Work Phone: Comment on above: Patient Position: Sitting; Cuff Location : Left Arm; Cuff Size: Standard 09-25-2006 15:51-0500 Head Circumference 0 cm Clair Perry [facility] Work Phone: 09-25-2006 15:51-0500 Head Occipital-frontal circumference 0 cm MAYNOR Gaines LPN [facility] Work Phone: 09-25-2006 15:51-0500 Height 0 cm MAYNOR Gaines LPN [facility] Work Phone: 09-25-2006 15:51-0500 Pulse (Heart Rate) 70 /min MAYNOR Gaines LPN [facility] Work Phone: Comment on above: Pattern: Regular 09-25-2006 15:51-0500 Respiratory Rate 20 /min MAYNOR Gaines LPN [facility] Work Phone: Comment on above: Pattern: Unlabored 09-25-2006 15:51-0500 Weight 87.09 kg Clair Perry [facility] Work Phone: 09-09-2006 09:21-0500 Body Temperature 98 [degF] Clair Perry [facility] Work Phone: Comment on above: Method: Oral 09-09-2006 09:21-0500 Body weight 87.23 kg Clair Perry [facility] Work Phone: 09-09-2006 09:21-0500 BP Diastolic 82 mm[Hg] Clair Perry [facility] Work Phone: Comment on above: Patient Position: Sitting; Cuff Location : Left Arm; Cuff Size: Standard 09-09-2006 09:21-0500 BP Systolic 130 mm[Hg] Clair Perry [facility] Work Phone: Comment on above: Patient Position: Sitting; Cuff Location : Left Arm; Cuff Size: Standard 09-09-2006 09:21-0500 Head Circumference 0 cm Clair Perry [facility] Work Phone: 09-09-2006 09:21-0500 Head Occipital-frontal circumference 0 cm Clair Perry DO Work Phone: [facility] Work Phone: 09-09-2006 09:21-0500 Height 0 cm Clair Perry [facility] Work Phone: 09-09-2006 09:21-0500 Pulse (Heart Rate) 72 /min Clair Perry [facility] Work Phone: Comment on above: Pattern: Regular 09-09-2006 09:21-0500 Respiratory Rate 18 /min Clair Perry [facility] Work Phone: Comment on above: Pattern: Unlabored 09-09-2006 09:21-0500 Weight 87.23 kg Clair Perry [facility] Work Phone: 06-10-2006 14:41-0400 BMI (Body Mass Index) 24.61 kg/m2 Clair Perry [facility] Work Phone: 06-10-2006 14:41-0400 Body weight 84.62 kg Clair Perry [facility] Work Phone: 06-10-2006 14:41-0400 BP Diastolic 80 mm[Hg] Clair Perry [facility] Work Phone: Comment on above: Patient Position: Sitting; Cuff Location : Undefined; Cuff Size: Undefined 06-10-2006 14:41-0400 BP Systolic 130 mm[Hg] Clair Perry [facility] Work Phone: Comment on above: Patient Position: Sitting; Cuff Location : Undefined; Cuff Size: Undefined 06-10-2006 14:41-0400 BSA (Body Surface Area) 2.09 m2 Clair Perry [facility] Work Phone: 06-10-2006 14:41-0400 Head Circumference 0 cm Clair Perry [facility] Work Phone: 06-10-2006 14:41-0400 Head Occipital-frontal circumference 0 cm Clair Perry DO Work Phone: [facility] Work Phone: 06-10-2006 14:41-0400 Height 185.42 cm Clair Perry [facility] Work Phone: 06-10-2006 14:41-0400 Pulse (Heart Rate) 60 /min Clair Perry [facility] Work Phone: Comment on above: Pattern: Regular 06-10-2006 14:41-0400 Respiratory Rate 16 /min Clair Perry [facility] Work Phone: Comment on above: Pattern: Unlabored 06-10-2006 14:41-0400 Weight 84.62 kg Clair Perry [facility] Work Phone: Encounters Encounter Date Encounter Type Care Provider Facility Start: 01-07-2025 End: 01-07-2025 ambulatory No Primary Care Physician [facility] Work Phone: Start: 01-07-2025 End: 01-07-2025 Patient encounter procedure Vanessa ROBIN -Laboratory Work Phone: Start: 01-07-2025 End: 01-07-2025 ambulatory Clair Perry Facility:[facility] Start: 12-10-2024 End: 12-10-2024 Patient encounter procedure Vanessa ROBIN -[facility] Work Phone: Start: 12-10-2024 End: 12-10-2024 ambulatory Clair Perry Facility:[facility] Start: 11-01-2024 End: 11-01-[address] Yusuf Hahn MD -[facility] Start: 11-01-2024 End: 11-01-2024 ambulatory No Primary Care Physician Facility:[facility] Start: 10-27-2024 End: 10-27-2024 Telephone encounter Josue Fitzpatrick MD Work Phone: General Surgery Comment on above: Patient Update Start: 09-28-2024 Registered [facility] Work Phone: Start: 09-28-2024 ambulatory No Primary Car e Physician Facility:[facility] Start: 2023 End: 2023 Office outpatient visit 25 minutes Clair Vicky DO Work Phone: [facility] Start: 12-10-2022 ambulatory Clair Vicky DO [facility] Start: 10-28-2022 End: 10-28-2022 Patient encounter status Monika Mccullough LPN [facility]; [facility] Work Phone: Start: 10-28-2022 End: 10-28-2022 Phone Encounter Clair Vicky DO Work Phone: [facility] Start: 01-04-2022 End: 01-04-2022 Office outpatient visit 40 minutes Clair Vicky DO Work Phone: [facility] Start: 01-04-2022 Review Clair Fearo n DO Work Phone: [facility] Start: 09-03-2021 End: 09-03-2021 Office outpatient visit 25 minutes Clair Vicky DO Work Phone: [facility] Start: 05-03-2021 End: 05-03-2021 Office outpatient visit 10 minutes Clair Vicky DO Work Phone: [facility] Start: 04-27-2021 End: 04-27-2021 Patient encounter status Clair Vicky DO Work Phone: [facility] Start: 04-27-2021 End: 04-27-2021 Periodic preventive med est patient 40-64yrs Clair Vicky DO Work Phone: [facility] Start: 10-26-2020 End: 10-26-2020 Phone Encounter Clair Yuon [facility] Start: 10-26-2020 End: 10-26-2020 Phone Encounter Clair Perry [facility] Start: 08-07-2020 End: 08-07-2020 Office outpatient visit 15 minutes Clair Vicky [facility] Start: 08-03-2020 End: 08-03-2020 Office outpatient visit 5 minutes Clair Vicky [facility] Start: 08-01-2020 End: 08-01-2020 Office outpatient visit 15 minutes Clair Vicky [facility] Start: 08-01-2020 Review Clair Perry [facility] Start: 07-21-2020 End: 07-21-2020 Annotation/Addendum Clair Vicky [facility] Start: 07-21-2020 End: 07-21-2020 Patient encounter procedure Clair Perry DO Work Phone: [facility] Start: 07-21-2020 End: 07-21-2020 Periodic preventive med est patient 40-64yrs Clair Vicky [facility] Start: 01-03-2020 End: 01-03-2020 Office outpatient visit 15 minutes Clair Perry DO Work Phone: [facility] Start: 08-27-2019 End: 08-27-2019 Periodic preventive med est patient 40-64yrs Clair Perry DO Work Phone: [facility] Start: 05-26-2019 Review Claircarmen Perry [facility] Start: 03-15-2019 End: 03-15-2019 Office outpatient visit 15 minutes Clair Perry [facility] Start: 02-10-2019 End: 02-11-2019 Office outpatient visit 25 minutes Clair Vicky [facility] Start: 01-14-2019 End: 01-14-2019 Office outpatient visit 15 minutes Clair Vicky [facility] Start: 11-09-2018 End: 11-09-2018 Office outpatient visit 25 minutes Clair Perry [facility] Start: 05-27-2018 End: 05-27-2018 Phone Encounter Clair Vicky [facility] Start: 05-20-2018 End: 05-20-2018 Office outpatient visit 5 minutes Clair Perry [facility] Start: 11-13-2017 End: 11-13-2017 Annotation/Addendum Clair Perry [facility] Start: 11-11-2017 End: 11-11-2017 Annotation/Addendum Clair Vicky [facility] Start: 07-16-2017 End: 07-16-2017 Patient encounter procedure Clair Perry DO Work Phone: [facility] Start: 07-16-2017 End: 07-16-2017 Periodic preventive med est patient 40-64yrs Clair Foss [facility] Start: 05-07-2017 End: 05-07-2017 Office outpatient visit 15 minutes Clair F[facility] Start: 04-02-2017 End: 04-02-2017 Office outpatient visit 25 minutes Clair Perry [facility] Start: 03-20-2017 End: 03-20-2017 Emergency department patient visit IR[facility] RODRIGESIENZA Facility:[facility] Start: 08-01-2016 End: 08-01-2016 Office outpatient visit 25 minutes Clair Foss [facility] Start: 07-17-2016 End: 07-17-2016 Office outpatient visit 40 minutes Clair Perry [facility] Start: 06-24-2016 End: 06-24-2016 Office outpatient visit 15 minutes Clair Perry [facility] Start: 06-19-2016 End: 09-26-2016 Nursing evaluation of patient and report Clair [facility] Start: 12-18-2015 End: 12-18-2015 Office outpatient visit 15 minutes Clair F[facility] Start: 07-07-2015 End: 07-07-2015 Office outpatient visit 10 minutes Clair F[facility] Start: 10-27-2014 End: 10-27-2014 Office outpatient visit 15 minutes Clair Foss [facility] Start: 04-01-2014 End: 04-01-2014 Phone Encounter Clair [facility] Start: 03-30-2014 End: 03-30-2014 Phone Encounter Clair [facility] Start: 03-29-2014 End: 03-29-2014 Office outpatient visit 25 minutes Clair Perry [facility] Start: 2014 End: 2014 Office outpatient visit 15 minutes Clair Vicky [facility] Start: 10-05-2013 End: 10-05-2013 Office outpatient visit 15 minutes Clair Perry [facility] Start: 09-17-2013 End: 09-17-2013 Patient encounter Clair Perry [facility] Start: 04-27-2013 End: 04-29-2013 Patient encounter Clair Perry [facility] Start: 09-30-2012 End: 09-30-2012 Phone Encounter Clair Perry [facility] Start: 09-29-2012 End: 09-29-2012 Patient encounter Clair Perry [facility] Start: 09-11-2010 End: 09-11-2010 Patient encounter Clair Perry [facility] Start: 07-30-2010 End: 07-30-2010 Patient encounter Clair Perry [facility] Start: 07-23-2010 End: 07-23-2010 Office outpatient visit 25 minutes Clair Perry [facility] Start: 07-16-2010 End: 07-16-2010 Office outpatient visit 25 minutes Clair Perry [facility] Start: 04-30-2010 End: 05-02-2010 Patient encounter Clair Perry [facility] Start: 11-27-2009 End: 11-27-2009 Patient encounter Clair Perry [facility] Start: 11-27-2009 End: 11-27-2009 Patient encounter status Clair Perry DO Work Phone: [facility] Start: 02-15-2009 End: 02-15-2009 Historical Summary Clair Perry [facility] Start: 12-15-2007 End: 12-15-2007 Patient encounter Clair Perry [facility] Start: 09-04-2007 End: 09-04-2007 Office outpatient visit 10 minutes Clair Perry [facility] Start: 07-17-2007 End: 07-19-2007 Patient encounter Clair Perry [facility] Start: 03-16-2007 End: 03-16-2007 Patient encounter Clair Perry [facility] Start: 09-25-2006 End: 09-25-2006 Patient encounter Clair Perry [facility] Start: 09-09-2006 End: 09-09-2006 Patient encounter Clair Perry [facility] Start: 06-10-2006 End: 06-10-2006 Patient encounter Clair Perry [facility] Start: 06-10-2006 End: 06-10-2006 Patient encounter status Clair Perry DO Work Phone: [facility] Start: 06-05-2006 End: 06-05-2006 Historical Summary Clair Perry [facility] Patient encounter procedure Vani Cross [facility] Work Phone: Patient encounter procedure Ml Gravius [facility] Work Phone: Patient encounter procedure Ml Gravius [facility]; [facility] Work Phone: Patient encounter procedure Ml Gravius [facility]; [facility] Work Phone: Patient encounter procedure Rodolfo Rossr [employer] [facility]; [facility] Work Phone: End: 2014 Patient encounter status Lauren Lupis [facility] Work Phone: Patient encounter status Ml Gomez [facility]; [facility] Work Phone: Patient encounter status Ml Gomez [facility]; [facility] Work Phone: Patient encounter status Rodolfo Carroll [facility]; [facility] Work Phone: Procedures Date Procedure Procedure Detail Performing Clinician Start: 11-01-2024 Plain x-ray of pelvi s and lower extremity No Primary Care Physician Start: 09-28-2024 Measurement of renal function No Primary Care Physician Comment on above: GFR Calc Start: 09-28-2024 Prostate specific antigen measurement No Primary Care Physician Comment on above: This test was perfor med using the TPSA assay method for the[employer] logistics chemistry system. Values obtained with differentassay methods cannot be used interchangably.When changing PSA assays in the course of monitoring apatient, additional sequential testing should be carriedout to confirm baseline values. Start: 04-21-2020 Colonoscopy Josue vasquez MD Work Phone: Start: 02-09-2019 End: 02-09-2019 PT D/C Summary (1) Comments: See Note; NOTES: [facility] [address] [place] [address] / REHABILITATION SERVICES DISCHARGE SUMMARY MR#: [id number] Acct: [id number] Name: ROBERT MESA Rep #: [id number] : 1965 53 From: Lucas Morris DPT, OCS, CSCS Referring Dr.: Clair Perry DO Status: REG RCR Insurance: MED [employer] TPA SELF PAY INSURANCE HP - PT D/C Summary It has been my pleasure to treat ROBERT MESA under orders from Clair Perry DO, for the diagnosis of L/S radiculopathy for a total of 7 visit(s). Discharge Date: 02/05/19 Please see the following information for a summary of their discharge status. - Subjective Subjective: No real pain, just feels tired in LB. Morning is very tight. hard to get moving in am. No pain this week, Improving. Stilla voids physical activity like golfing. Back to doctor next Friday. HEP: pelvic tilt movements, lying flat in prone. Still needs ROM with bending and twisting. Feels like he is ready to be done with PT. Will keep doing ex at home. - Pain L LBP Pain Intensity (Out of 10): 4 - Overall Improvement % Improvement: 85 - Objective Objective/Function: Pt has mod limitations in ext whcih improve after PPU. Much better ROM vs initial visit. Able to stand up tall without pain and transfer out of chair without difficulty. Bends forward without a challenge. stille xhibits poor posture. He wishes to be done with PT and return to work after next week which should be fine with some care and focus. Further PT should be considered for more strengthening if pain returns. - Goals Goal 1:: Stadn up tall without pain. Goal Progress: Goal Met Goal 2:: Walk and steps without noticing LB Goal Progress: Goal Met Goal 3:: Full aROM L/S without hesitation Goal Progress: Progressing Goal 4:: Ready to get back to work Goal Progress: one more week. - Plan Plan: D/C at pt request. - D/C Information Discharge Comments: Pt doing well with everyday ADLs. Moving significantly better then 2 weeks ago. Still exhibits some poor postural habits. May benefit from further strength in future if pain returns. If there are questions or concerns regarding this patient's physical therapy, please feel free to call me at [phone]. Thank you for the referral of this patient. Sincerely, Lucas Morris DPT, OCS, CSCS <Electronically signed by Lucas Morris DPT, LYN, CSCS> 02/09/19 0844 CC: Clair Perry; Clair Perry DO EBG Signed Clair Perry Start: 01-20-2019 End: 01-20-2019 Inital Evaluation (1) - PT Comments: See Note; NOTES: [facility] [place] [address] / REHABILITATION SERVICES INITIAL EVALUATION MR#: [id number] Acct: [id number] Name: ROBERT MESA Rep #: [id number] : 1965 53 From: Lucas Morris DPT, LYN, CSCS Referring Dr.: Clair Perry DO Status: REG RCR Insurance: MED [employer] TPA SELF PAY INSURANCE Patient's Visit Information ROBERT MESA is a 53 year old M referred to Physical Therapy by Clair Perry DO with a diagnosis of L/S radiculopathy. Date of Evaluation: 01/20/19 Physical Therapist: Lucas Morris DPT, LYN, CSCS - Visit Plan Frequency: 3x /Week Duration: 4-6 Weeks Plan: 3x/week for 2-6 for gradual ext ROM(down from flexion/prone on pillows), posture, ES adn MH, core strength and refunction ex. Pt extremely hunched over and deviated forward at arrival and no PROM able outside of slow prone on pillows. - Subjective Findings: Bent over last Friday to tie shoes before work. No problems day before but has on and off history. Could not get up and sat for two hours, crawled onto bed. Had to crawl to the bathroom. pain is LB R 10 at the time. Now 6/10. Moving is worse at 8/10. Sit too long and cannot get up. Standing is painful. No leg symptoms lately, had some L leg numbness at first. WEnt to ER that day, did x ray whcih showed nothing. Gave pills and they helped and to doctor the next day. Flexeril and prednosione given by doctor which helped alot. Sleep not great, on back. Getting up is hard. 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 Off since last Friday and off until at least 01/30. Dressing self and showering and bathing OK now just labored adn takes longer. - Pain L LBP Pain Intensity (Out of 10): 4 Pain Intensity Range: 4, 8 - Objective Hunched forward and deviated R. Cannot stand up tall. reflexes 2/3 patella adn achilles B. Sensation LE WNL to gross light touch. No c/o bowel or bladder problems. LE strength symmterically limited by pain not myotomal. Walks hunched over and trasnfers slow and painful. Treated with prone on pillowsx4 and got down to 2 pillows then stood up. More upright adn no deviation upon standing, still flexed 8 degrees forward at departure but walking better with improved posture. - Goals Goal 1:: Stadn up tall without pain. Goal Time Frame: 4-6 Weeks Goal 2:: Walk and steps without noticing LB Goal Time Frame: 4-6 Weeks Goal 3:: Full aROM L/S without hesitation Goal Time Frame: 2-4 Weeks Goal 4:: Ready to get back to work Goal Time Frame: 4-6 Weeks - Rehabilitation Potential Physical Therapy Diagnosis: LBP likely discal Rehabilitation Potential: Fair - Anticipated Interventions Patient/Client Instruction: Educate patient on: Condition, Plan of Care For the Purpose of:: To decrease pain, To increase ROM, To improve muscle performance and motor function, To improve ability of physical actions for home/community/work/leisur e Therapeutic Exercise to Include: Strength training, Postural training, Flexibilty training, Passive ROM, Active ROM, Celia Exercises For the Purpose of:: To decrease pain, To increase ROM, To improve muscle performance and motor function, To improve performance and independence with ADL's, To improve ability of physical actions for home/community/work/leisur e Manual Therapy Techniques to Include: Mobilization For the Purpose of:: To increase ROM TENS: Yes Thermo therapy (hot pack): Yes For the Purpose of:: To decrease pain Thank you for the opportunity to evaluate your patient. For Medicare and Medicare HMO plans, please review the plan of care and approve it. It will need to be FAXED BACK to us at [phone] for Medicare purposes. For Medicare only, by signing this I certify the plan of care. Please let me know if there are questions or concerns regarding this plan of care. Physician Signature: Date: <Electronically signed by Lucas Morris DPT, OCS, CSCS> 01/20/19 1701 CC: Clair Perry DO; OUT OF TOWN DOCTOR EBG Signed Clair Perry Start: 01-13-2019 End: 01-13-2019 Emergency Department Summary Comments: See Note; NOTES: [facility] Medical Records Department [address] [place] [address] Emergency Department Summary 01/13/19 1432 MR#: [id number] Acct: [id number] Name: ROBERT MESA Rep #: [id number] : 1965 53 From: Lucas Neff DO PCP: Clair Perry DO Status: DEP ER - ER Visit Summary Date of Service: 01/13/19 Chief Complaint: Back pain History of Present Illness: The patient is a 53 M who presents with back pain that began today. Patient states he was bending over to tie his shoe when he felt a pop in his back. Patient states the pain radiates to the left lateral thigh. Patient also admits to some numbness over the left lateral thigh. Patient denies any weakness. Patient states his pain is sharp and stabbing. Patient states the pain is worse when he is sitting or standing upright. Patient states he has been having difficulty ambulated due to the pain. Patient states he has to use something to help support him when he walks. Patient denies any bowel or bladder changes. Patient denies any saddle anesthesia. Physical Examination: Vital signs are stable. Patient is afebrile. Patient is in no acute distress. There is no reproducible tenderness over the lumbar spine and paraspinal muscles. There is pain in the low back with straight leg raising. There is no radicular pain with straight leg raising. Strength is 5/5 bilaterally. Deep tendon reflexes were 2+/4 bilaterally. There are no sensory deficits noted. Range of motion of the lumbar spine was limited in all motion secondary to pain. Test Results: X-rays of the lumbar spine were obtained. There is no acute fracture or spondylolisthesis noted. Emergency Department Course and Treatment: Patient was given injections of Toradol, morphine, and Norflex. Patient felt better on reevaluation. Patient was given prescriptions for Naprosyn, Flexeril, and a short course of [place]. Patient states he has an appoint with his primary care physician in 2 days. Patient was instructed to follow-up with his primary care physician as scheduled. Patient was instructed to rest. Patient was instructed to return if worse in any way. Patient was also instructed to return if he develops any changes in his bowel or bladder. Patient understood and was agreeable with the plan. All questions were answered. Disposition: Discharge home Impression: Acute low back pain This note was generated with Regenerate dictation software. It may contain incorrect words, spelling, and punctuation that were not noted in review of the chart prior to signing ED Disposition - Plan for ED Patient: Disposition: Home or Assisted Living Diagnosis: Acute low back pain Instructions: ED Neck Back Pain General Prescriptions: Hydrocodone Bitart/Apap 5-325 [[place] 5MG-325MG] 1 tab PO Q6H PRN PRN 3 Days #10 tab PRN Reason: Pain Naproxen [Naprosyn] 500 mg PO BID PRN #20 tab cycloBENZAPRine HCl [Flexeril] 10 mg PO TID PRN #20 tab PRN Reason: Muscle Spasm Referrals: Clair Perry DO [Primary Care Provider] - Keep Adolfo appointment What to do if you have Problems For any increased pain, shortness of breath, bleeding, nausea or vomiting, chest pain, or any unexpected problems, contact your Primary Care Provider. Call [facility] ([phone]) or report to the closest Emergency Room. Call 911 if necessary. 01/13/19 8014 <Electronically signed by Lucas Neff DO> Date Lucas Neff DO Cosigner Signature (If Indicated): Date CC: Clair Brown Start: 01-13-2019 End: 01-13-2019 Lumbar Spine 2 or 3 Views Comments: See Note; NOTES: [facility] Imaging Services [address] [place], [place] [address] [place] [address] Lumbar Spine 2 or 3 Views MR#: [id number] Acct: [id number] Name: ROBERT MESA Rep #: [id number] : 1965 53 From: Kareem Paul MD PCP: Clair Perry DO Status: [facility] Study: Lumbar Spine 2 or 3 Views Date of Exam: 01/13/19 Exam# [id number] Ordering Dr: Lucas Neff DO STUDY: X-RAY - LUMBAR SPINE REASON FOR EXAM: Male, 53 years old. Back pain. TECHNIQUE: 3 view(s) of the lumbar spine were obtained. COMPARISON: None FINDINGS: Normal lumbar lordosis. There is no substantial scoliosis. There is a normal alignment of the vertebrae. Normal vertebral bodies and endplates. Normal disc space heights. The soft tissue structures are unremarkable. RAD/Lumbar Spine 2 or 3 Views IMPRESSION: Normal x-ray examination of the lumbar spine. Electronically Signed: Kareem Paul, at 14:27 EDT , Service support , CC: Lucas Neff DO; Clair Perry DO Orthopedic Coder: Signed Clair Perry Start: 07-25-2016 End: 07-26-2016 Brain/Head W/WO Contrast Comments: See Note; NOTES: [facility] Imaging Services [address] [place] [address] [place] 4d Brain/Head W/WO Contrast MR#: [id number] Acct: [id number] Name: ROBERT MESA Rep #: [id number] : 1965 M 51 From: Steven Harkins MD PCP: Clair Perry DO Status: REG CLI Study: Brain/Head W/WO Contrast Date of Exam: 07/25/16 Exam# [id number] Ordering Dr: Clair Perry DO STUDY: CT BRAIN WITH AND WITHOUT CONTRAST REASON FOR EXAM: Male, 51 years old. Headache. No known injury. RADIATION DOSAGE (If Supplied By Facility): CTDIvol = ( 44.99 ) mGy, DLP = ( 1648.46 ) mGycm TECHNIQUE: Transaxial CT imaging of the brain was performed pre and post contrast administration. The examination was performed with intravenous administration of 100mL ml of Isovue 300 contrast material. Individualized dose optimization techniques were used for this CT. COMPARISON: None. FINDINGS: Normal soft tissue structures. Normal calvarium. Normal size ventricles and extra-axial spaces for the patient's age. Normal white matter tracts of the cerebral hemispheres. Normal basal ganglia and thalami. Normal brainstem. Normal cerebellum. There is no intracranial hemorrhage. There are no findings of an acute ischemic infarction. There is a polyp or retention cyst in the right maxillary sinus. There is mild mucoperiosteal thickening in bilateral frontal, bilateral ethmoid and right sphenoid sinuses, consistent with chronic disease. There is no evidence for acute sinusitis. CT/Brain/Head W/WO Contrast IMPRESSION: Normal unenhanced and enhanced CT scan of the brain. Electronically Signed: Steven Harkins MD at 7:24 EST , Service support [phone], CC: Clair Perry DO Orthopedic Coder: Signed Clair Perry Work Phone: Start: 07-25-2016 End: 07-26-2016 Extremity Upper WITH Contrast Comments: See Note; NOTES: [facility] Imaging Services [address] [place] [address] [place] 4d Extremity Upper WITH Contrast MR#: [id number] Acct: [id number] Name: ROBERT MESA Rep #: [id number] : 1965 M 51 From: Chinyere Ayala MD PCP: Clair Perry DO Status: REG CLI Study: Extremity Upper WITH Contrast Date of Exam: 07/25/16 Exam# [id number] Ordering Dr: Clair Perry DO STUDY: CT UPPER EXTREMITY WITH CONTRAST: LEFT SHOULDER REASON FOR EXAM: Male, 51 years old. Left axillary adenopathy now resolved. RADIATION DOSAGE (If Supplied By Facility): CTDIvol = ( 17.62 ) mGy, DLP = ( 674.14 ) mGycm. Individualized dose optimization techniques were used for this CT.? TECHNIQUE: Transaxial imaging with sagittal and coronal reconstruction following 100 mL of Isovue-300. COMPARISON: None. FINDINGS: Normal small bowel fat-containing axillary lymph nodes without a pathologic lymph node or mass of the axilla. Normal included clavicle scapula and humerus. Normal muscular structures of the shoulder. Normal arterial and venous structures of the shoulder. Normal left lung and left ribs. CT/Extremity Upper WITH Contrast IMPRESSION: Normal left shoulder and axillary soft tissues. Electronically Signed: Chinyere Ayala MD at 22:34 EST , Service support [phone], CC: Clair Perry DO Orthopedic Coder: Signed Clair Perry Work Phone: Start: 01-06-2016 End: 01-06-2016 Discharge Instruction Comments: See Note; NOTES: [facility] Medical Records Department [address] [place] [address] Discharge Instruction 01/06/161951 MR#: [id number] Acct: [id number] Name: ROBERT MESA Rep #: [id number] : 1965 50 From: Ricardo Peterson MD PCP: Yvette Chin MD Status: DEP ER ED Disposition - Plan for ED Patient: Chief Complaint: Chest Pain Instructions: ED Chest Pain, Uncertain Cause Referrals: Yvette Chin MD [Primary Care Provider] - As soon as possible What to do if you have Problems For any increased pain, shortness of breath, bleeding, nausea or vomiting, chest pain, or any unexpected problems, contact your doctor. Call [facility] ([phone]) or report to the closest Emergency Room. Call 911 if necessary. 01/06/16 2354 <Electronically signed by Ricardo Peterson MD> Date Ricardo Peterson MD Cosigner Signature (If Indicated): Date CC: Yvette Perry Start: 01-06-2016 End: 01-06-2016 Emergency Department Summary Comments: See Note; NOTES: [facility] Medical Records Department [address] [place] [address] Emergency Department Summary MR#: [id number] Acct: [id number] Name: ROBERT MESA Rep #: [id number] : 1965 50 From: Ricardo Peterson MD PCP: Yvette Chin MD Status: DEP ER DATE OF SERVICE: 01/06/2016 METHOD OF ARRIVAL: EMS. CHIEF COMPLAINT: Chest pain. HISTORY OF PRESENT ILLNESS: A 50-year-old male patient of Dr. Chin, reports that approximately 4 hours ago he had the onset of a substernal fullness while he was walking through [employer], reports that he went home and laid down. The pain did not resolve, seemed to be involving his left shoulder as well and states that he had tingling in his left 4th and 5th fingers. Reports the pain was worsened by nothing including exertion or breathing and was also relieved by nothing. There was no associated nausea, vomiting, diaphoresis or shortness of breath. The patient reports that he does have acid reflux that he had been on Nexium for years, stopped 5 days ago and has been using Tums. He denies any chest pain or change in dyspnea on exertion in the past month. PHYSICAL EXAMINATION: GENERAL: Reveals alert male in no acute distress. VITAL SIGNS: 97.6, 170/99, 71, 19, 98% on room air. He is not hypoxic. HEART: Significant physical exam findings include the cardiovascular exam, which shows regular rate and rhythm with no murmur. RESPIRATORY: Clear to auscultation bilaterally. EXTREMITIES: Shows him to have 2+ radial pulses bilaterally. He has paresthesias in his left fourth and fifth fingers that are reproduced by tapping the left cubital fossa. Remainder of the physical exam is unremarkable. Please see T-sheet for details. TEST RESULTS: The patient had chest x-ray that is normal. EKG that is sinus at 69 with no acute changes. Repeat EKG that is unchanged. CBC that is normal. Chem-7 that is normal. Cardiac enzymes that are negative. Repeat enzymes that are negative. EMERGENCY DEPARTMENT COURSE: The patient treated with aspirin. TREATMENT PLAN: Discussed with the patient the risk of this actually being cardiac in etiology. He does have high blood pressure, high cholesterol and a family history. He does not want to stay in the hospital. He will be discharged with instructions to follow up with Dr. Chin as soon as possible and return to the Emergency Department for any resumption of his symptoms. DISPOSITION: Home, stable condition. IMPRESSION: 1. Atypical chest pain. Ricardo Peterson MD C C: Yvette Chin MD T: NTS JOB: [id number] 01/06/16 2354 <Electronically signed by Ricardo Peterson MD> Date Ricardo Peterson MD Cosigner Signature (If Indicated): Date CC: Yvette Chin MD Date Dictated: 01/06/162107 Date Transcribed: 01/06/162107 Orthopedic Coder: Signed Clair Perry Start: 01-06-2016 End: 01-06-2016 Chest 1 View (Portable) Comments: See Note; NOTES: [facility] Imaging Services [address] [place] [address] [place] 4d Chest 1 View (Portable) MR#: [id number] Acct: [id number] Name: ROBERT MESA Rep #: [id number] : 1965 M 50 From: Rowdy Quiroga MD PCP: Yvette Chin MD Status: REG ER Study: Chest 1 View (Portable) Date of Exam: 01/06/16 Exam# [id number] Ordering Dr: Ricardo Peterson MD STUDY: X-RAY CHEST REASON FOR EXAM: Male, 50 years old. Left arm and shoulder pain TECHNIQUE: Single frontal view of the chest. COMPARISON: 06/27/14. FINDINGS: The lungs are clear and expanded. There is no demonstrated pleural abnormality. Normal size heart. Normal mediastinum and leena. Normal visualized pulmonary arteries. Normal visualized aortic arch and descending thoracic aorta. Normal visualized thoracic spine. Normal visualized ribs, clavicles, and shoulders. There is no demonstrated abnormality of the visualized soft tissue structures of the upper abdomen. IMPRESSION: No acute cardiopulmonary disease. Electronically Signed: Rowdy Quiroga MD at 17:33 EDT , Service support [phone], RAD/Chest 1 View (Portable) IMPRESSION: No acute cardiopulmonary disease. Electronically Signed: Rowdy Quiroga MD at 17:33 EDT , Service support [phone], CC: Yvette Chin MD; Ricardo Peterson MD Orthopedic Coder: Signed Clair Perry Start: 04-04-2014 End: 04-05-2014 Chest without Contrast Comments: See Note; NOTES: [facility] Imaging Services [address] [place], [place] [address] CAT Scan Report MR#: [id number] Acct: [id number] Name: ROBERT MESA Rep #: [id number] : 1965 49 From: Kareem Paul MD PCP: Yvette Chin MD Status: REG CLI Study: Chest without Contrast Date of Exam: 04/04/14 Exam# [id number] Ordering Dr: Yvette Chin MD STUDY: CT CHEST WITHOUT CONTRAST REASON FOR EXAM: Male, 49 years old. Previous smoker. RADIATION DOSAGE (If Supplied By Facility): CTDIvol = ( 18.01 ) mGy, DLP = ( 861.22 ) mGycm TECHNIQUE: High resolution transaxial imaging was performed without the administration of intravenous contrast material. Multiplanar coronal and sagittal images were reformatted. COMPARISON: Comparison is made with prior examination dated August 05, 2010. FINDINGS: Minimal degree of increased markings at the left lung apex suggestive of scarring. Minimal increased linear markings are seen in the medial aspect of the right middle lobe as well as the lingular segment of the left upper lobe. There is no demonstrated pleural abnormality. Normal heart and pericardium. Normal mediastinum. Normal hilar regions. Normal unenhanced pulmonary arteries. Normal aorta arch and descending thoracic aorta. Normal osseous structures. There is no demonstrated abnormality of the visualized upper abdomen. IMPRESSION: Findings suggestive of a minimal left apical scarring as well as scarring involving the medial aspect of the right middle lobe as well as the lingular segment of the left upper lobe. Electronically Signed: Kareem Paul MD at 9:51 EDT Tel [phone], Service support [phone], CC: Yvette Chin MD Orthopedic Coder: Signed Yvette Chin Work Phone: Start: 03-29-2014 End: 03-29-2014 Chest PA and Lateral Comments: See Note; NOTES: [facility] Imaging Services [address] [place] [address] Radiology Report MR#: [id number] Acct: [id number] Name: ROBERT MESA Rep #: [id number] : 1965 M 49 From: Chase Calvillo MD PCP: Yvette Chin MD Status: REG CLI Study: Chest PA and Lateral Date of Exam: 03/29/14 Exam# [id number] Ordering Dr: Lisandra Monique DO STUDY: X-RAY CHEST REASON FOR EXAM: Male, 49 years old. Possible asthma. History of smoking TECHNIQUE: Frontal and lateral views of the chest. COMPARISON: CT August 05, 2010. FINDINGS: Lungs are well aerated. There is mild perihilar interstitial accentuation. No focal infiltrate. There is no demonstrated pleural abnormality. Normal size heart. Normal mediastinum and leena. Normal visualized pulmonary arteries. Normal visualized aortic arch and descending thoracic aorta. Normal visualized thoracic spine. Normal visualized ribs, clavicles, and shoulders. There is no demonstrated abnormality of the visualized soft tissue structures of the upper abdomen. IMPRESSION: Perihilar interstitial edema or fibrosis. Electronically Signed: Chase Calvillo MD at 16:20 EDT , Service support [phone], CC: Yvette Chin MD; Lisandra Monique DO Orthopedic Coder: Signed Lisandra Monique Work Phone: Plan of Treatment Date Care Activity Detail Author Start: 04-21-2030 Screening for malignant neoplasm of colon [facility] Start: 02-24-2025 ambulatory Ambulatory Facility:[facility] Start: 04-18-2024 Covid-19 Vaccine () Covid-19 Vaccine () [facility] Start: 04-18-2024 Influenza vaccination Influenza Vaccine (#1) [facility] Start: 2023 Procedure Education Eprescribed prescriptions (G8553) [facility] Work Phone: Start: 2023 Provider Instructions for Treatment [facility] Work Phone: Start: 2023 Hepatic function panel HEPATIC FUNCTION PANEL (70561) [facility]; [facility] Work Phone: Start: 2023 Lipid panel LIPID PANEL (42389) [facility]; [facility] Work Phone: Start: 2023 Hemoglobin glycosylated a1c HGB A1C (79849) [facility]; [facility] Work Phone: Start: 10-28-2022 Drug tst prsmv instrmnt chem analyzers pr date Nicotine Metabolite, Serum (35493) [facility]; [facility] Work Phone: Start: 01-04-2022 Procedure Education Eprescribed prescriptions (G8553) [facility]; [facility] Work Phone: Start: 01-04-2022 Provider Instructions for Treatment [facility]; [facility] Work Phone: Start: 09-03-2021 Procedure Education Eprescribed prescriptions (G8553) [facility]; [facility] Work Phone: Start: 09-03-2021 Provider Instructions for Treatment [facility]; [facility] Work Phone: Start: 09-03-2021 Assay of thyroid stimulating hormone tsh TSH (45696) [facility]; [facility] Work Phone: Start: 09-03-2021 Urine albumin quantitative MICROALBUMIN: CREATININE RATIO (98885) AND (04371) [facility]; [facility] Work Phone: Start: 09-03-2021 Comprehensive metabolic panel METABOLIC PANEL, COMPREHENSIVE (23528) [facility]; [facility] Work Phone: Start: 09-03-2021 Lipid panel LIPID PANEL (09778) [facility]; [facility] Work Phone: Start: 09-03-2021 Blood count complete auto&auto difrntl wbc CBC W/AUTO DIFF WBC (04121) [facility]; [facility] Work Phone: Start: 05-03-2021 Procedure Education Eprescribed prescriptions (G8553) [facility]; [facility] Work Phone: Start: 05-03-2021 Provider Instructions for Treatment [facility]; [facility] Work Phone: Start: 04-27-2021 Procedure Education Eprescribed prescriptions (G8553) [facility]; [facility] Work Phone: Start: 04-27-2021 Provider Instructions for Treatment [facility]; [facility] Work Phone: Start: 2021 Prostate specific antigen measurement Prostate Cancer Screening Discussion [facility] Start: 10-26-2020 SARS-CoV-2 Antibody, IgG (40461) SARS-CoV-2 Antibody, IgG (10093) [facility]; [facility] Work Phone: Start: 10-26-2020 ANTB SEVERE AQT RESPIR SYND SARS-COV-2 COVID19 (27484) ANTB SEVERE AQT RESPIR SYND SARS-COV-2 COVID19 (91406) [facility]; [facility] Work Phone: Start: 08-07-2020 Procedure Education Eprescribed prescriptions (G8553) [facility]; [facility] Work Phone: Start: 08-07-2020 Provider Instructions for Treatment [facility]; [facility] Work Phone: Start: 08-01-2020 Procedure Education Eprescribed prescriptions (G8553) [facility]; [facility] Work Phone: Start: 08-01-2020 Provider Instructions for Treatment Follow up Friday for virtual with [facility] desk manager to schedule [facility]; [facility] Work Phone: Start: 08-01-2020 [place] influenza 2019 Novel Coronavirus (COVID-19), GABBY (00754) [facility]; [facility] Work Phone: Comment on above: To be done Jul Start: 07-21-2020 Procedure Education Eprescribed prescriptions (G8553) [facility] Work Phone: Start: 07-21-2020 Provider Instructions for Treatment Reviewed Lab [facility] Work Phone: Start: 01-03-2020 Procedure Education Eprescribed prescriptions (G8553) [facility] Work Phone: Start: 08-27-2019 Procedure Education Eprescribed prescriptions (G8553) [facility] Work Phone: Start: 08-27-2019 Provider Instructions for Treatment [facility] Work Phone: Start: 03-15-2019 Provider Instructions for Treatment Reviewed Diagnostic Tests [facility] Work Phone: Start: 02-10-2019 Procedure Education Eprescribed prescriptions (G8553) [facility] Work Phone: Start: 02-10-2019 Provider Instructions for Treatment [facility] Work Phone: Start: 01-14-2019 Procedure Education Eprescribed prescriptions (G8553) [facility] Work Phone: Start: 01-14-2019 Provider Instructions for Treatment Reviewed Diagnostic Tests [facility] Work Phone: Start: 11-09-2018 Provider Instructions for Treatment [facility] Work Phone: Start: 05-07-2017 Protein electrophoretic fractj&quantj serum Urine Protein Electrophoresis (UPEP) (51736) [facility] Work Phone: Start: 05-07-2017 Protein mass conc (U) Urine Protein Electrophoresis (UPEP) (60240) [facility] Work Phone: Start: 05-07-2017 Provider Instructions for Treatment BP MONITORING - SELF [facility] Work Phone: Start: 04-02-2017 Urnls dip stick/tablet reagent auto microscopy URINALYSIS, W/ MICRO (89655) [facility] Work Phone: Start: 04-02-2017 Urine albumin quantitative MICROALBUMIN: CREATININE RATIO (57147) AND (48374) [facility] Work Phone: Start: 04-02-2017 Comprehensive metabolic panel METABOLIC PANEL, COMPREHENSIVE (23670) [facility] Work Phone: Start: 04-02-2017 Lipid panel LIPID PANEL (45014) [facility] Work Phone: Start: 04-02-2017 Blood count complete auto&auto difrntl wbc CBC W/AUTO DIFF WBC (13000) [facility] Work Phone: Start: 04-02-2017 Procedure Education Eprescribed prescriptions (G8553) [facility] Work Phone: Start: 04-02-2017 Provider Instructions for Treatment Follow up in 1 month [facility] Work Phone: Start: 08-01-2016 Provider Instructions for Treatment [facility] Work Phone: Start: 07-17-2016 Antibody borrelia burgdorferi lyme disease Lyme Disease Antibody W/ Reflex (81049) [facility] Work Phone: Start: 07-17-2016 Metanephrines METANEPHRINES - URINE (54809) [facility] Work Phone: Comment on above: in 24 hr urine collection Start: 07-17-2016 Catecholamines total urine CATECHOLAMINES TOTAL, URINE (89782) [facility] Work Phone: Comment on above: in 24hr urine collection Start: 07-17-2016 Assay of vanillylmandelic acid urine URINE VMA (87851) [facility] Work Phone: Comment on above: in 24 hr urine collection Start: 07-17-2016 25 hydroxy includes fractions if performed CALCIFIDIOL (57438) VIT D 25 [facility] Work Phone: Start: 07-17-2016 Cobalamin (Vitamin B12) mass conc VITAMIN B-12 (CYANOCOBALAMIN) (73451) [facility] Work Phone: Start: 07-17-2016 Cyanocobalamin vitamin b-12 VITAMIN B-12 (CYANOCOBALAMIN) (34272) [facility] Work Phone: Start: 07-17-2016 Assay of thyroid stimulating hormone tsh TSH (30281) [facility] Work Phone: Start: 07-17-2016 Thyrotropin Qn TSH (00363) [facility] Work Phone: Start: 07-17-2016 Sedimentation rate rbc non-automated SED RATE ERYTHROCYTE (64233) [facility] Work Phone: Start: 07-17-2016 Comprehensive metabolic panel METABOLIC PANEL, COMPREHENSIVE (31123) [facility] Work Phone: Start: 07-17-2016 C-reactive protein C-REACTIVE PROTEIN (39975) [facility] Work Phone: Start: 07-17-2016 CRP mass conc C-REACTIVE PROTEIN (13751) [facility] Work Phone: Start: 07-17-2016 Blood count complete automated CBC (AUTO) (33944) [facility] Work Phone: Start: 07-17-2016 Antinuclear antibodies yue YUE (ANTINUCLEAR ANTIBODY) (39838) [facility] Work Phone: Start: 07-17-2016 Nuclear Ab IF titer (S) YUE (ANTINUCLEAR ANTIBODY) (25064) [facility] Work Phone: Start: 07-17-2016 Provider Instructions for Treatment [facility] Work Phone: Start: 2016 Pneumococcal Vaccine: 50+ (1 of 1 - PCV) Pneumococcal Vaccine: 50+ (1 of 1 - PCV) [facility] Start: 2016 Shingrix Vaccine (1 of 2) Shingrix Vaccine (1 of 2) [facility] Start: 12-18-2015 Provider Instructions for Treatment Follow up if no improvement or if symptoms worsen [facility] Work Phone: Start: 10-27-2014 Provider Instructions for Treatment [facility] Work Phone: Start: 03-29-2014 Procedure Education Eprescribed prescriptions (G8553) [facility] Work Phone: Start: 2014 Amylase enzyme act/vol AMYLASE (12630) [facility] Work Phone: Start: 2014 Assay of amylase AMYLASE (90970) [facility] Work Phone: Start: 2014 Assay of lipase LIPASE (49644) [facility] Work Phone: Start: 2014 Blood count manual cell count each CBC WITH MANUAL DIFF (78550) [facility] Work Phone: Start: 2014 Comprehensive metabolic panel METABOLIC PANEL, COMPREHENSIVE (05182) [facility] Work Phone: Start: 2014 Patient Education Abdominal Pain: abdominal pain [facility] Work Phone: Start: 10-05-2013 Patient Education Sore throat: diagnosis and treatment [facility] Work Phone: Start: 10-05-2013 Provider Instructions for Treatment [facility] Work Phone: Start: 09-17-2013 Assay of magnesium Magnesium (24728) [facility] Work Phone: Start: 09-17-2013 Magnesium mass conc Magnesium (86297) [facility] Work Phone: Start: 09-17-2013 Blood count manual cell count each CBC WITH MANUAL DIFF (80174) [facility] Work Phone: Comment on above: call to Dr. chin Start: 09-17-2013 Comprehensive metabolic panel METABOLIC PANEL, COMPREHENSIVE (17017) [facility] Work Phone: Start: 09-17-2013 Assay of thyroid stimulating hormone tsh TSH (70893) [facility] Work Phone: Start: 09-17-2013 Thyrotropin Qn TSH (54479) [facility] Work Phone: Start: 09-17-2013 Provider Instructions for Treatment *palpitation discusssion [facility] Work Phone: Start: 04-27-2013 Cyclic citrullinated peptide antibody CCP ANTIBODY (37357) [facility] Work Phone: Start: 04-27-2013 C-reactive protein C-REACTIVE PROTEIN (93302) [facility] Work Phone: Start: 04-27-2013 CRP mass conc C-REACTIVE PROTEIN (52798) [facility] Work Phone: Start: 04-27-2013 Sedimentation rate rbc non-automated SED RATE ERYTHROCYTE (93595) [facility] Work Phone: Start: 04-27-2013 Assay of thyroid stimulating hormone tsh TSH (77253) [facility] Work Phone: Start: 04-27-2013 Thyrotropin Qn TSH (52080) [facility] Work Phone: Start: 04-27-2013 Rheumatoid factor quantitative RHEUMATOID FACTOR-QUANT (53664) [facility] Work Phone: Start: 04-27-2013 Antinuclear antibodies yue YUE (ANTINUCLEAR ANTIBODY) (74801) [facility] Work Phone: Start: 04-27-2013 Nuclear Ab IF titer (S) YUE (ANTINUCLEAR ANTIBODY) (52513) [facility] Work Phone: Start: 2011 Diabetes Screening Diabetes Screening [facility] Start: 2011 Screening for malignant neoplasm of colon [facility] Start: 09-11-2010 Cul bact xcpt urine blood/stool aerobic isol ALISSA CULTURE-OTHER (03902) [facility] Work Phone: Start: 07-30-2010 Provider Instructions for Treatment *Antibiotic Usage Education - Male [facility] Work Phone: Start: 07-23-2010 Provider Instructions for Treatment FOLLOW UP IN 2 WEEKS [facility] Work Phone: Start: 07-16-2010 Provider Instructions for Treatment [facility] Work Phone: Start: 09-04-2007 Provider Instructions for Treatment Solu Medrol Injection/ Education [facility] Work Phone: Start: 07-17-2007 Provider Instructions for Treatment Antibiotic Usage Education - Male [facility] Work Phone: Start: 03-16-2007 Assay of thiamine-vitamin b-1 THIAMINE (B-1) (79115) [facility] Work Phone: Start: 03-16-2007 Assay of thyroid stimulating hormone tsh TSH (64741) [facility] Work Phone: Start: 03-16-2007 Thyrotropin Qn TSH (25964) [facility] Work Phone: Start: 03-16-2007 Cobalamin (Vitamin B12) mass conc Vitamin B-12 (cyanocobalamin) (72674) [facility] Work Phone: Start: 03-16-2007 Cyanocobalamin vitamin b-12 Vitamin B-12 (cyanocobalamin) (69650) [facility] Work Phone: Start: 03-16-2007 Blood count complete automated CBC (Auto) (55304) [facility] Work Phone: Start: 03-16-2007 Comprehensive metabolic panel Metabolic Panel, Comprehensive (04927) [facility] Work Phone: Start: 06-10-2006 Provider Instructions for Treatment FOLLOW UP IN 1 YEAR [facility] Work Phone: Start: 2001 Lipid panel Lipid Screening [facility] Start: 1985 Hepatitis B Vaccine (1 of 3 - 19+ 3-dose series) Hepatitis B Vaccine (1 of 3 - 19+ 3-dose series) [facility] Start: 1985 Urine microalbumin profile DTaP,Tdap,Td Vaccine (1 - Tdap) [facility] Start: 1984 Anxiety Screening Anxiety Screening [facility] Start: 1984 Depression Screening Depression Screening [facility] Start: 1984 Hepatitis C screening Hepatitis C Screening [facility] Start: 1984 HIV screening HIV Screening [facility] Work Phone: [facility] Work Phone: [facility] Work Phone: [facility] Work Phone: [facility] Work Phone: [facility] Work Phone: [facility] Work Phone: [facility] Work Phone: [facility] Work Phone: [facility] Work Phone: [facility] Work Phone: [facility] Work Phone: [facility] Work Phone: [facility] Work Phone: [facility] Work Phone: [facility] Work Phone: [facility] Work Phone: [facility] Work Phone: [facility] Work Phone: [facility] Work Phone: [facility] Work Phone: [facility] Work Phone[facility] Work Phone: [facility] Work Phone: [facility] Work Phone: [facility] Work Phone: [facility]; [facility] Work Phone: Immunizations Immunization Date Immunization Notes Care Provider [facility] 11-15-2020 COVID-19 (Moderna) Clair Perry DO Work Phone: [facility]; [facility] Work Phone: 08-18-2020 COVID-Moderna (100 MCG/0.5 ML) Clair Perry DO Work Phone: [facility]; [facility] Work Phone: Payers Date Payer Category Payer Self-pay 2019 Private Health Insurance [employer] [id number] 2007 Unknown [id number] 2007 Unknown [id number] 2006 Unknown [id number] 2000 Unknown [id number] Unknown [facility] Unknown [id number] Unknown [id number] Unknown [id number] Unknown [id number] Unknown [id number] Social History Date Type Detail Facility Start: 04-21-2020 End: 07-23-2020 Alcohol Use Former smoker [facility] Work Phone: Comment on above: Occasional alcohol u se, Drinks beer, weekends 2 cups qd 2 cans sod a qd Full-time, [employer] , Lives with spouse Tobacco Use: Former smoker. [facility] Work Phone: Tobacco Use: Tobacco Use: [facility] Work Phone: Start: 08-22-2017 End: 12-10-2024 Tobacco smoking status NHIS Ex-smoker [facility] End: 08-22-2001 History of tobacco use Current smoker [facility] End: 08-22-2001 History of tobacco use Cigarette Smoker [facility] Start: 08-22-2017 Tobacco use and exposure Smokeless tobacco non-user [facility] Start: 04-21-2020 Alcoholic beverage intake Current drinker of alcohol (finding) [facility] Start: 04-21-2020 End: 07-23-2020 Tobacco use panel [facility] National Score (1-100), lower number is lower risk Not on file [facility] Start: 08-22-2017 Alcohol Comment every other day [facility] Start: 1965 Sex assigned at Male C [facility] Start: 04-21-2020 Gender identity Identifies as male gender (finding) [facility] Start: 04-21-2020 Sexual orientation Heterosexual (fin kavin) [facility] Functional Status Date Assessment Result Facility 12-12-2014 Are you deaf, or do you have serious difficulty hearing No 12/12/2014 3:56 PM Jose Aguilera No [facility] 12-12-2014 Are you blind, or do you have serious difficulty seeing, even when wearing glasses No 12/12/2014 3:56 PM Jose Aguilera [facility] 12-12-2014 Do you have serious difficulty walking or climbing stairs No 12/12/2014 3:56 PM Jose Aguilera [facility] 12-12-2014 Do you have difficul ty dressing or bathing No 12/12/2014 3:56 PM Jose Aguilera [facility] 12-12-2014 Because of a physica l, mental, or emotional condition, do you have difficulty doing errands alone such as visiting a physician's office or shopping No 12/12/2014 3:56 PM EDT Jose Morales No [facility] Mental Status Date Assessment Result Facility 12-12-2014 Because of a physica l, mental, or emotional condition, do you have serious difficulty concentrating, remembering, or making decisions No 12/12/2014 3:56 PM EDT Jose Morales No [facility] Clinical Notes 10-27-2024 to 12-10-2024 Note Date & Type Note Facility 12-10-2024 Evaluation note Diagnosis Onset Date Resolution Diarrhea noneactive December 10 3:22pm [facility] Work Phone: [phone]) 394-441103-12-2025 Telephone encounter Note* Telephone Encounter - Maria A Wren RN - 10/27/2024 9:46 AM EDT Telephone call from patient's Kassi. She was asking for appt with Dr Fitzpatrick. Robert has been c/o diarrhea for past week up to three times a day- watery stool. No nausea or vomiting. No change in appetite. No pranav bleeding or black tarry stool. No weight loss. Some mild cramping to mid lower abdoman. Not real pain Last colonsocopy [address] Soto. F/U with Ely DAI said to have a followup endoscopy in 10 years. Advised Kassi to have her see his PCP - she may advise stool studies first or GI F/U verbalizes understanding and has no further questions or concerns at this time. Was advised to call as needed for future problems. Encounter closed. [facility]03-12-2025 Miscellaneous Notes* Telephone Encounter - Marai A Wren RN - 10/27/2024 9:46 AM EDT Telephone call from patient's Kassi. She was asking for appt with Dr Fitzpatrick. Robert has been c/o diarrhea for past week up to three times a day- watery stool. No nausea or vomiting. No change in appetite. No pranav bleeding or black tarry stool. No weight loss. Some mild cramping to mid lower abdoman. Not real pain Last colonsocopy [address] Soto. F/U with Ely DAI said to have a followup endoscopy in 10 years. Advised Kassi to have her see his PCP - she may advise stool studies first or GI F/U verbalizes understanding and has no further questions or concerns at this time. Was advised to call as needed for future problems. Encounter closed. [facility] Name Dates Details How to Access Health Informa tion Online using Patient Portal and [employer] Apps Indication:Current non-smoker Start:07-Aug-2020 Instruction Type:Patient Education Patient Instructions Indication:Current non-smoker Start:07-Aug-2020 Instruction Type:Provider Instructions for Treatment How to Access Health Informa tion Online using Patient Portal and [employer] Apps Indication:Current non-smoker Start:01-Aug-2020 Instruction Type:Patient Education Patient Instructions Indication:BMI 28.0-28.9,adult Start:01-Aug-2020 Instruction Type:Provider Instructions for Treatment How to access health informa tion online Indication:Current non-smoker Start:21-Jul-2020 Instruction Type:Patient Education How to access health informa tion online - Detail Indication:Current non-smoker Start:21-Jul-2020 Instruction Type:Patient Education Patient Instructions Indication:Current non-smoker Start:21-Jul-2020 Instruction Type:Provider Instructions for Treatment How to access health informa tion online Indication:Current non-smoker Start:03-Jan-2020 Instruction Type:Patient Education How to access health informa tion online - Detail Indication:Current non-smoker Start:03-Jan-2020 Instruction Type:Patient Education Patient Instructions Indication:Current non-smoker Start:03-Jan-2020 Instruction Type:Provider Instructions for Treatment How to access health informa tion online Indication:BMI 27.0-27.9,adult Start:27-Aug-2019 Instruction Type:Patient Education How to access health informa tion online - Detail Indication:BMI 27.0-27.9,adult Start:27-Aug-2019 Instruction Type:Patient Education Patient Instructions Indication:BMI 27.0-27.9,adult Start:27-Aug-2019 Instruction Type:Provider Instructions for Treatment How to access health informa tion online - Detail Indication:Current non-smoker Start:15-Mar-2019 Instruction Type:Patient Education Patient Instructions Indication:Current non-smoker Start:15-Mar-2019 Instruction Type:Provider Instructions for Treatment How to access health informa tion online Indication:Current non-smoker Start:10-Feb-2019 Instruction Type:Patient Education How to access health informa tion online - Detail Indication:Current non-smoker Start:10-Feb-2019 Instruction Type:Patient Education Patient Instructions Indication:Current non-smoker Start:10-Feb-2019 Instruction Type:Provider Instructions for Treatment How to access health informa tion online Indication:BMI 26.0-26.9,adult Start:14-Jan-2019 Instruction Type:Patient Education How to access health informa tion online - Detail Indication:BMI 26.0-26.9,adult Start:14-Jan-2019 Instruction Type:Patient Education Patient Instructions Indication:BMI 26.0-26.9,adult Start:14-Jan-2019 Instruction Type:Provider Instructions for Treatment How to access health informa tion online Indication:Current non-smoker Start:09-Nov-2018 Instruction Type:Patient Education How to access health informa tion online - Detail Indication:Current non-smoker Start:09-Nov-2018 Instruction Type:Patient Education Patient Instructions Indication:Current non-smoker Start:09-Nov-2018 Instruction Type:Provider Instructions for Treatment How to access health informa tion online Indication:BMI 24.0-24.9, adult Start:16-Jul-2017 Instruction Type:Patient Education How to access health informa tion online - Detail Indication:BMI 24.0-24.9, adult Start:16-Jul-2017 Instruction Type:Patient Education Patient Instructions Indication:BMI 24.0-24.9, adult Start:16-Jul-2017 Instruction Type:Provider Instructions for Treatment How to access health informa tion online Indication:Current non-smoker Start:07-May-2017 Instruction Type:Patient Education How to access health informa tion online - Detail Indication:Current non-smoker Start:07-May-2017 Instruction Type:Patient Education Patient Instructions Indication:Current non-smoker Start:07-May-2017 Instruction Type:Provider Instructions for Treatment How to access health informa tion online Indication:Elevated blood-pressure reading without diagnosis of hypertension Start:02-Apr-2017 Instruction Type:Patient Education How to access health informa tion online - Detail Indication:Elevated blood-pressure reading without diagnosis of hypertension Start:02-Apr-2017 Instruction Type:Patient Education Patient Instructions Indication:Elevated blood-pressure reading without diagnosis of hypertension Start:02-Apr-2017 Instruction Type:Provider Instructions for Treatment How to access health informa tion online Indication:BMI 27.0-27.9,adult Start:01-Aug-2016 Instruction Type:Patient Education How to access health informa tion online - Detail Indication:BMI 27.0-27.9,adult Start:01-Aug-2016 Instruction Type:Patient Education Patient Instructions Indication:BMI 27.0-27.9,adult Start:01-Aug-2016 Instruction Type:Provider Instructions for Treatment How to access health informa tion online Indication:Elevated blood-pressure reading without diagnosis of hypertension Start:17-Jul-2016 Instruction Type:Patient Education How to access health informa tion online - Detail Indication:Elevated blood-pressure reading without diagnosis of hypertension Start:17-Jul-2016 Instruction Type:Patient Education Patient Instructions Indication:Elevated blood-pressure reading without diagnosis of hypertension Start:17-Jul-2016 Instruction Type:Provider Instructions for Treatment Patient Instructions Indication:Muscle strain Start:24-Jun-2016 Instruction Type:Provider Instructions for Treatment How to access health informa tion online Indication:PALPITATIONS (Renamed from Awareness of heartbeats) Start:07-Jul-2015 Instruction Type:Patient Education How to access health informa tion online - Detail Indication:PALPITATIONS (Renamed from Awareness of heartbeats) Start:07-Jul-2015 Instruction Type:Patient Education Patient Instructions Indication:PALPITATIONS (Renamed from Awareness of heartbeats) Start:07-Jul-2015 Instruction Type:Provider Instructions for Treatment Patient Instructions Indication:Epigastric Pain (Renamed from Abdominal pain, epigastric) Start:29-Mar-2014 Instruction Type:Provider Instructions for Treatment How to access health informa tion online Indication:Epigastric Pain (Renamed from Abdominal pain, epigastric) Start:14-Mar-2014 Instruction Type:Patient Education How to access health informa tion online - Detail Indication:Epigastric Pain (Renamed from Abdominal pain, epigastric) Start:14-Mar-2014 Instruction Type:Patient Education Patient Instructions Indication:Epigastric Pain (Renamed from Abdominal pain, epigastric) Start:14-Mar-2014 Instruction Type:Provider Instructions for Treatment Patient Instructions Indication:Elevated blood-pressure reading without diagnosis of hypertension Start:27-Apr-2013 Instruction Type:Provider Instructions for Treatment [facility]; [facility] Work Phone: Instructions* Name Dates Details How to access health informa tion online Indication:Current non-smoker Start:03-Jan-2020 Instruction Type:Patient Education How to access health informa tion online - Detail Indication:Current non-smoker Start:03-Jan-2020 Instruction Type:Patient Education Patient Instructions Indication:Current non-smoker Start:03-Jan-2020 Instruction Type:Provider Instructions for Treatment How to access health informa tion online Indication:BMI 27.0-27.9,adult Start:27-Aug-2019 Instruction Type:Patient Education How to access health informa tion online - Detail Indication:BMI 27.0-27.9,adult Start:27-Aug-2019 Instruction Type:Patient Education Patient Instructions Indication:BMI 27.0-27.9,adult Start:27-Aug-2019 Instruction Type:Provider Instructions for Treatment How to access health informa tion online - Detail Indication:Current non-smoker Start:15-Mar-2019 Instruction Type:Patient Education Patient Instructions Indication:Current non-smoker Start:15-Mar-2019 Instruction Type:Provider Instructions for Treatment How to access health informa tion online Indication:Current non-smoker Start:10-Feb-2019 Instruction Type:Patient Education How to access health informa tion online - Detail Indication:Current non-smoker Start:10-Feb-2019 Instruction Type:Patient Education Patient Instructions Indication:Current non-smoker Start:10-Feb-2019 Instruction Type:Provider Instructions for Treatment How to access health informa tion online Indication:BMI 26.0-26.9,adult Start:14-Jan-2019 Instruction Type:Patient Education How to access health informa tion online - Detail Indication:BMI 26.0-26.9,adult Start:14-Jan-2019 Instruction Type:Patient Education Patient Instructions Indication:BMI 26.0-26.9,adult Start:14-Jan-2019 Instruction Type:Provider Instructions for Treatment How to access health informa tion online Indication:Current non-smoker Start:09-Nov-2018 Instruction Type:Patient Education How to access health informa tion online - Detail Indication:Current non-smoker Start:09-Nov-2018 Instruction Type:Patient Education Patient Instructions Indication:Current non-smoker Start:09-Nov-2018 Instruction Type:Provider Instructions for Treatment How to access health informa tion online Indication:BMI 24.0-24.9, adult Start:16-Jul-2017 Instruction Type:Patient Education How to access health informa tion online - Detail Indication:BMI 24.0-24.9, adult Start:16-Jul-2017 Instruction Type:Patient Education Patient Instructions Indication:BMI 24.0-24.9, adult Start:16-Jul-2017 Instruction Type:Provider Instructions for Treatment How to access health informa tion online Indication:Current non-smoker Start:07-May-2017 Instruction Type:Patient Education How to access health informa tion online - Detail Indication:Current non-smoker Start:07-May-2017 Instruction Type:Patient Education Patient Instructions Indication:Current non-smoker Start:07-May-2017 Instruction Type:Provider Instructions for Treatment How to access health informa tion online Indication:Elevated blood-pressure reading without diagnosis of hypertension Start:02-Apr-2017 Instruction Type:Patient Education How to access health informa tion online - Detail Indication:Elevated blood-pressure reading without diagnosis of hypertension Start:02-Apr-2017 Instruction Type:Patient Education Patient Instructions Indication:Elevated blood-pressure reading without diagnosis of hypertension Start:02-Apr-2017 Instruction Type:Provider Instructions for Treatment How to access health informa tion online Indication:BMI 27.0-27.9,adult Start:01-Aug-2016 Instruction Type:Patient Education How to access health informa tion online - Detail Indication:BMI 27.0-27.9,adult Start:01-Aug-2016 Instruction Type:Patient Education Patient Instructions Indication:BMI 27.0-27.9,adult Start:01-Aug-2016 Instruction Type:Provider Instructions for Treatment How to access health informa tion online Indication:Elevated blood-pressure reading without diagnosis of hypertension Start:17-Jul-2016 Instruction Type:Patient Education How to access health informa tion online - Detail Indication:Elevated blood-pressure reading without diagnosis of hypertension Start:17-Jul-2016 Instruction Type:Patient Education Patient Instructions Indication:Elevated blood-pressure reading without diagnosis of hypertension Start:17-Jul-2016 Instruction Type:Provider Instructions for Treatment Patient Instructions Indication:Muscle strain Start:24-Jun-2016 Instruction Type:Provider Instructions for Treatment How to access health informa tion online Indication:PALPITATIONS (Renamed from Awareness of heartbeats) Start:07-Jul-2015 Instruction Type:Patient Education How to access health informa tion online - Detail Indication:PALPITATIONS (Renamed from Awareness of heartbeats) Start:07-Jul-2015 Instruction Type:Patient Education Patient Instructions Indication:PALPITATIONS (Renamed from Awareness of heartbeats) Start:07-Jul-2015 Instruction Type:Provider Instructions for Treatment Patient Instructions Indication:Epigastric Pain (Renamed from Abdominal pain, epigastric) Start:29-Mar-2014 Instruction Type:Provider Instructions for Treatment How to access health informa tion online Indication:Epigastric Pain (Renamed from Abdominal pain, epigastric) Start:14-Mar-2014 Instruction Type:Patient Education How to access health informa tion online - Detail Indication:Epigastric Pain (Renamed from Abdominal pain, epigastric) Start:14-Mar-2014 Instruction Type:Patient Education Patient Instructions Indication:Epigastric Pain (Renamed from Abdominal pain, epigastric) Start:14-Mar-2014 Instruction Type:Provider Instructions for Treatment Patient Instructions Indication:Elevated blood-pressure reading without diagnosis of hypertension Start:27-Apr-2013 Instruction Type:Provider Instructions for Treatment [facility] Work Phone: Instructions* Name Dates Details Patient Instructions Indication:BMI 33.0-33.9,adult Start:03-Sep-2021 Instruction Type:Provider Instructions for Treatment How to Access Health Informa tion Online using Patient Portal and [employer]rd [employer] Apps Indication:BMI 33.0-33.9,adult Start:03-Sep-2021 Instruction Type:Patient Education Patient Instructions Indication:Current non-smoker Start:03-May-2021 Instruction Type:Provider Instructions for Treatment How to Access Health Informa tion Online using Patient Portal and [employer] Apps Indication:Current non-smoker Start:03-May-2021 Instruction Type:Patient Education Patient Instructions Indication:Current non-smoker Start:27-Apr-2021 Instruction Type:Provider Instructions for Treatment How to Access Health Informa tion Online using Patient Portal and [employer]rd [employer] Apps Indication:Current non-smoker Start:27-Apr-2021 Instruction Type:Patient Education How to Access Health Informa tion Online using Patient Portal and [employer]rd [employer] Apps Indication:Current non-smoker Start:07-Aug-2020 Instruction Type:Patient Education Patient Instructions Indication:Current non-smoker Start:07-Aug-2020 Instruction Type:Provider Instructions for Treatment How to Access Health Informa tion Online using Patient Portal and [employer]rd [employer] Apps Indication:Current non-smoker Start:01-Aug-2020 Instruction Type:Patient Education Patient Instructions Indication:BMI 28.0-28.9,adult Start:01-Aug-2020 Instruction Type:Provider Instructions for Treatment How to access health informa tion online Indication:Current non-smoker Start:21-Jul-2020 Instruction Type:Patient Education How to access health informa tion online - Detail Indication:Current non-smoker Start:21-Jul-2020 Instruction Type:Patient Education Patient Instructions Indication:Current non-smoker Start:21-Jul-2020 Instruction Type:Provider Instructions for Treatment How to access health informa tion online Indication:Current non-smoker Start:03-Jan-2020 Instruction Type:Patient Education How to access health informa tion online - Detail Indication:Current non-smoker Start:03-Jan-2020 Instruction Type:Patient Education Patient Instructions Indication:Current non-smoker Start:03-Jan-2020 Instruction Type:Provider Instructions for Treatment How to access health informa tion online Indication:BMI 27.0-27.9,adult Start:27-Aug-2019 Instruction Type:Patient Education How to access health informa tion online - Detail Indication:BMI 27.0-27.9,adult Start:27-Aug-2019 Instruction Type:Patient Education Patient Instructions Indication:BMI 27.0-27.9,adult Start:27-Aug-2019 Instruction Type:Provider Instructions for Treatment How to access health informa tion online - Detail Indication:Current non-smoker Start:15-Mar-2019 Instruction Type:Patient Education Patient Instructions Indication:Current non-smoker Start:15-Mar-2019 Instruction Type:Provider Instructions for Treatment How to access health informa tion online Indication:Current non-smoker Start:10-Feb-2019 Instruction Type:Patient Education How to access health informa tion online - Detail Indication:Current non-smoker Start:10-Feb-2019 Instruction Type:Patient Education Patient Instructions Indication:Current non-smoker Start:10-Feb-2019 Instruction Type:Provider Instructions for Treatment How to access health informa tion online Indication:BMI 26.0-26.9,adult Start:14-Jan-2019 Instruction Type:Patient Education How to access health informa tion online - Detail Indication:BMI 26.0-26.9,adult Start:14-Jan-2019 Instruction Type:Patient Education Patient Instructions Indication:BMI 26.0-26.9,adult Start:14-Jan-2019 Instruction Type:Provider Instructions for Treatment How to access health informa tion online Indication:Current non-smoker Start:09-Nov-2018 Instruction Type:Patient Education How to access health informa tion online - Detail Indication:Current non-smoker Start:09-Nov-2018 Instruction Type:Patient Education Patient Instructions Indication:Current non-smoker Start:09-Nov-2018 Instruction Type:Provider Instructions for Treatment How to access health informa tion online Indication:BMI 24.0-24.9, adult Start:16-Jul-2017 Instruction Type:Patient Education How to access health informa tion online - Detail Indication:BMI 24.0-24.9, adult Start:16-Jul-2017 Instruction Type:Patient Education Patient Instructions Indication:BMI 24.0-24.9, adult Start:16-Jul-2017 Instruction Type:Provider Instructions for Treatment How to access health informa tion online Indication:Current non-smoker Start:07-May-2017 Instruction Type:Patient Education How to access health informa tion online - Detail Indication:Current non-smoker Start:07-May-2017 Instruction Type:Patient Education Patient Instructions Indication:Current non-smoker Start:07-May-2017 Instruction Type:Provider Instructions for Treatment How to access health informa tion online Indication:Elevated blood-pressure reading without diagnosis of hypertension Start:02-Apr-2017 Instruction Type:Patient Education How to access health informa tion online - Detail Indication:Elevated blood-pressure reading without diagnosis of hypertension Start:02-Apr-2017 Instruction Type:Patient Education Patient Instructions Indication:Elevated blood-pressure reading without diagnosis of hypertension Start:02-Apr-2017 Instruction Type:Provider Instructions for Treatment How to access health informa tion online Indication:BMI 27.0-27.9,adult Start:01-Aug-2016 Instruction Type:Patient Education How to access health informa tion online - Detail Indication:BMI 27.0-27.9,adult Start:01-Aug-2016 Instruction Type:Patient Education Patient Instructions Indication:BMI 27.0-27.9,adult Start:01-Aug-2016 Instruction Type:Provider Instructions for Treatment How to access health informa tion online Indication:Elevated blood-pressure reading without diagnosis of hypertension Start:17-Jul-2016 Instruction Type:Patient Education How to access health informa tion online - Detail Indication:Elevated blood-pressure reading without diagnosis of hypertension Start:17-Jul-2016 Instruction Type:Patient Education Patient Instructions Indication:Elevated blood-pressure reading without diagnosis of hypertension Start:17-Jul-2016 Instruction Type:Provider Instructions for Treatment Patient Instructions Indication:Muscle strain Start:24-Jun-2016 Instruction Type:Provider Instructions for Treatment How to access health informa tion online Indication:PALPITATIONS (Renamed from Awareness of heartbeats) Start:07-Jul-2015 Instruction Type:Patient Education How to access health informa tion online - Detail Indication:PALPITATIONS (Renamed from Awareness of heartbeats) Start:07-Jul-2015 Instruction Type:Patient Education Patient Instructions Indication:PALPITATIONS (Renamed from Awareness of heartbeats) Start:07-Jul-2015 Instruction Type:Provider Instructions for Treatment Patient Instructions Indication:Epigastric Pain (Renamed from Abdominal pain, epigastric) Start:29-Mar-2014 Instruction Type:Provider Instructions for Treatment How to access health informa tion online Indication:Epigastric Pain (Renamed from Abdominal pain, epigastric) Start:14-Mar-2014 Instruction Type:Patient Education How to access health informa tion online - Detail Indication:Epigastric Pain (Renamed from Abdominal pain, epigastric) Start:14-Mar-2014 Instruction Type:Patient Education Patient Instructions Indication:Epigastric Pain (Renamed from Abdominal pain, epigastric) Start:14-Mar-2014 Instruction Type:Provider Instructions for Treatment Patient Instructions Indication:Elevated blood-pressure reading without diagnosis of hypertension Start:27-Apr-2013 Instruction Type:Provider Instructions for Treatment [facility]; [facility] Work Phone: Instructions* Name Dates Details Patient Instructions Indication:BMI 33.0-33.9,adult Start:03-Sep-2021 Instruction Type:Provider Instructions for Treatment How to Access Health Informa tion Online using Patient Portal and [employer]rd [employer] Apps Indication:BMI 33.0-33.9,adult Start:03-Sep-2021 Instruction Type:Patient Education Patient Instructions Indication:Current non-smoker Start:03-May-2021 Instruction Type:Provider Instructions for Treatment How to Access Health Informa tion Online using Patient Portal and [employer]rd [employer] Apps Indication:Current non-smoker Start:03-May-2021 Instruction Type:Patient Education Patient Instructions Indication:Current non-smoker Start:27-Apr-2021 Instruction Type:Provider Instructions for Treatment How to Access Health Informa tion Online using Patient Portal and [employer]rd [employer] Apps Indication:Current non-smoker Start:27-Apr-2021 Instruction Type:Patient Education How to Access Health Informa tion Online using Patient Portal and [employer]rd [employer] Apps Indication:Current non-smoker Start:07-Aug-2020 Instruction Type:Patient Education Patient Instructions Indication:Current non-smoker Start:07-Aug-2020 Instruction Type:Provider Instructions for Treatment How to Access Health Informa tion Online using Patient Portal and [employer]rd [employer] Apps Indication:Current non-smoker Start:01-Aug-2020 Instruction Type:Patient Education Patient Instructions Indication:BMI 28.0-28.9,adult Start:01-Aug-2020 Instruction Type:Provider Instructions for Treatment How to access health informa tion online Indication:Current non-smoker Start:21-Jul-2020 Instruction Type:Patient Education How to access health informa tion online - Detail Indication:Current non-smoker Start:21-Jul-2020 Instruction Type:Patient Education Patient Instructions Indication:Current non-smoker Start:21-Jul-2020 Instruction Type:Provider Instructions for Treatment How to access health informa tion online Indication:Current non-smoker Start:03-Jan-2020 Instruction Type:Patient Education How to access health informa tion online - Detail Indication:Current non-smoker Start:03-Jan-2020 Instruction Type:Patient Education Patient Instructions Indication:Current non-smoker Start:03-Jan-2020 Instruction Type:Provider Instructions for Treatment How to access health informa tion online Indication:BMI 27.0-27.9,adult Start:27-Aug-2019 Instruction Type:Patient Education How to access health informa tion online - Detail Indication:BMI 27.0-27.9,adult Start:27-Aug-2019 Instruction Type:Patient Education Patient Instructions Indication:BMI 27.0-27.9,adult Start:27-Aug-2019 Instruction Type:Provider Instructions for Treatment How to access health informa tion online - Detail Indication:Current non-smoker Start:15-Mar-2019 Instruction Type:Patient Education Patient Instructions Indication:Current non-smoker Start:15-Mar-2019 Instruction Type:Provider Instructions for Treatment How to access health informa tion online Indication:Current non-smoker Start:10-Feb-2019 Instruction Type:Patient Education How to access health informa tion online - Detail Indication:Current non-smoker Start:10-Feb-2019 Instruction Type:Patient Education Patient Instructions Indication:Current non-smoker Start:10-Feb-2019 Instruction Type:Provider Instructions for Treatment How to access health informa tion online Indication:BMI 26.0-26.9,adult Start:14-Jan-2019 Instruction Type:Patient Education How to access health informa tion online - Detail Indication:BMI 26.0-26.9,adult Start:14-Jan-2019 Instruction Type:Patient Education Patient Instructions Indication:BMI 26.0-26.9,adult Start:14-Jan-2019 Instruction Type:Provider Instructions for Treatment How to access health informa tion online Indication:Current non-smoker Start:09-Nov-2018 Instruction Type:Patient Education How to access health informa tion online - Detail Indication:Current non-smoker Start:09-Nov-2018 Instruction Type:Patient Education Patient Instructions Indication:Current non-smoker Start:09-Nov-2018 Instruction Type:Provider Instructions for Treatment How to access health informa tion online Indication:BMI 24.0-24.9, adult Start:16-Jul-2017 Instruction Type:Patient Education How to access health informa tion online - Detail Indication:BMI 24.0-24.9, adult Start:16-Jul-2017 Instruction Type:Patient Education Patient Instructions Indication:BMI 24.0-24.9, adult Start:16-Jul-2017 Instruction Type:Provider Instructions for Treatment How to access health informa tion online Indication:Current non-smoker Start:07-May-2017 Instruction Type:Patient Education How to access health informa tion online - Detail Indication:Current non-smoker Start:07-May-2017 Instruction Type:Patient Education Patient Instructions Indication:Current non-smoker Start:07-May-2017 Instruction Type:Provider Instructions for Treatment How to access health informa tion online Indication:Elevated blood-pressure reading without diagnosis of hypertension Start:02-Apr-2017 Instruction Type:Patient Education How to access health informa tion online - Detail Indication:Elevated blood-pressure reading without diagnosis of hypertension Start:02-Apr-2017 Instruction Type:Patient Education Patient Instructions Indication:Elevated blood-pressure reading without diagnosis of hypertension Start:02-Apr-2017 Instruction Type:Provider Instructions for Treatment How to access health informa tion online Indication:BMI 27.0-27.9,adult Start:01-Aug-2016 Instruction Type:Patient Education How to access health informa tion online - Detail Indication:BMI 27.0-27.9,adult Start:01-Aug-2016 Instruction Type:Patient Education Patient Instructions Indication:BMI 27.0-27.9,adult Start:01-Aug-2016 Instruction Type:Provider Instructions for Treatment How to access health informa tion online Indication:Elevated blood-pressure reading without diagnosis of hypertension Start:17-Jul-2016 Instruction Type:Patient Education How to access health informa tion online - Detail Indication:Elevated blood-pressure reading without diagnosis of hypertension Start:17-Jul-2016 Instruction Type:Patient Education Patient Instructions Indication:Elevated blood-pressure reading without diagnosis of hypertension Start:17-Jul-2016 Instruction Type:Provider Instructions for Treatment Patient Instructions Indication:Muscle strain Start:24-Jun-2016 Instruction Type:Provider Instructions for Treatment How to access health informa tion online Indication:PALPITATIONS (Renamed from Awareness of heartbeats) Start:07-Jul-2015 Instruction Type:Patient Education How to access health informa tion online - Detail Indication:PALPITATIONS (Renamed from Awareness of heartbeats) Start:07-Jul-2015 Instruction Type:Patient Education Patient Instructions Indication:PALPITATIONS (Renamed from Awareness of heartbeats) Start:07-Jul-2015 Instruction Type:Provider Instructions for Treatment Patient Instructions Indication:Epigastric Pain (Renamed from Abdominal pain, epigastric) Start:29-Mar-2014 Instruction Type:Provider Instructions for Treatment How to access health informa tion online Indication:Epigastric Pain (Renamed from Abdominal pain, epigastric) Start:14-Mar-2014 Instruction Type:Patient Education How to access health informa tion online - Detail Indication:Epigastric Pain (Renamed from Abdominal pain, epigastric) Start:14-Mar-2014 Instruction Type:Patient Education Patient Instructions Indication:Epigastric Pain (Renamed from Abdominal pain, epigastric) Start:14-Mar-2014 Instruction Type:Provider Instructions for Treatment Patient Instructions Indication:Elevated blood-pressure reading without diagnosis of hypertension Start:27-Apr-2013 Instruction Type:Provider Instructions for Treatment [facility]; [facility] Work Phone: Instructions* Name Dates Details Patient Instructions Indication:Current non-smoker Start:04-Jan-2022 Instruction Type:Provider Instructions for Treatment How to Access Health Informa tion Online using Patient Portal and 3rd [employer] Apps Indication:Current non-smoker Start:04-Jan-2022 Instruction Type:Patient Education Patient Instructions Indication:BMI 33.0-33.9,adult Start:03-Sep-2021 Instruction Type:Provider Instructions for Treatment How to Access Health Informa tion Online using Patient Portal and 3rd [employer] Apps Indication:BMI 33.0-33.9,adult Start:03-Sep-2021 Instruction Type:Patient Education Patient Instructions Indication:Current non-smoker Start:03-May-2021 Instruction Type:Provider Instructions for Treatment How to Access Health Informa tion Online using Patient Portal and [employer]rd [employer] Apps Indication:Current non-smoker Start:03-May-2021 Instruction Type:Patient Education Patient Instructions Indication:Current non-smoker Start:27-Apr-2021 Instruction Type:Provider Instructions for Treatment How to Access Health Informa tion Online using Patient Portal and [employer]rd [employer] Apps Indication:Current non-smoker Start:27-Apr-2021 Instruction Type:Patient Education How to Access Health Informa tion Online using Patient Portal and [employer]rd [employer] Apps Indication:Current non-smoker Start:07-Aug-2020 Instruction Type:Patient Education Patient Instructions Indication:Current non-smoker Start:07-Aug-2020 Instruction Type:Provider Instructions for Treatment How to Access Health Informa tion Online using Patient Portal and [employer]rd [employer] Apps Indication:Current non-smoker Start:01-Aug-2020 Instruction Type:Patient Education Patient Instructions Indication:BMI 28.0-28.9,adult Start:01-Aug-2020 Instruction Type:Provider Instructions for Treatment How to access health informa tion online Indication:Current non-smoker Start:21-Jul-2020 Instruction Type:Patient Education How to access health informa tion online - Detail Indication:Current non-smoker Start:21-Jul-2020 Instruction Type:Patient Education Patient Instructions Indication:Current non-smoker Start:21-Jul-2020 Instruction Type:Provider Instructions for Treatment How to access health informa tion online Indication:Current non-smoker Start:03-Jan-2020 Instruction Type:Patient Education How to access health informa tion online - Detail Indication:Current non-smoker Start:03-Jan-2020 Instruction Type:Patient Education Patient Instructions Indication:Current non-smoker Start:03-Jan-2020 Instruction Type:Provider Instructions for Treatment How to access health informa tion online Indication:BMI 27.0-27.9,adult Start:27-Aug-2019 Instruction Type:Patient Education How to access health informa tion online - Detail Indication:BMI 27.0-27.9,adult Start:27-Aug-2019 Instruction Type:Patient Education Patient Instructions Indication:BMI 27.0-27.9,adult Start:27-Aug-2019 Instruction Type:Provider Instructions for Treatment How to access health informa tion online - Detail Indication:Current non-smoker Start:15-Mar-2019 Instruction Type:Patient Education Patient Instructions Indication:Current non-smoker Start:15-Mar-2019 Instruction Type:Provider Instructions for Treatment How to access health informa tion online Indication:Current non-smoker Start:10-Feb-2019 Instruction Type:Patient Education How to access health informa tion online - Detail Indication:Current non-smoker Start:10-Feb-2019 Instruction Type:Patient Education Patient Instructions Indication:Current non-smoker Start:10-Feb-2019 Instruction Type:Provider Instructions for Treatment How to access health informa tion online Indication:BMI 26.0-26.9,adult Start:14-Jan-2019 Instruction Type:Patient Education How to access health informa tion online - Detail Indication:BMI 26.0-26.9,adult Start:14-Jan-2019 Instruction Type:Patient Education Patient Instructions Indication:BMI 26.0-26.9,adult Start:14-Jan-2019 Instruction Type:Provider Instructions for Treatment How to access health informa tion online Indication:Current non-smoker Start:09-Nov-2018 Instruction Type:Patient Education How to access health informa tion online - Detail Indication:Current non-smoker Start:09-Nov-2018 Instruction Type:Patient Education Patient Instructions Indication:Current non-smoker Start:09-Nov-2018 Instruction Type:Provider Instructions for Treatment How to access health informa tion online Indication:BMI 24.0-24.9, adult Start:16-Jul-2017 Instruction Type:Patient Education How to access health informa tion online - Detail Indication:BMI 24.0-24.9, adult Start:16-Jul-2017 Instruction Type:Patient Education Patient Instructions Indication:BMI 24.0-24.9, adult Start:16-Jul-2017 Instruction Type:Provider Instructions for Treatment How to access health informa tion online Indication:Current non-smoker Start:07-May-2017 Instruction Type:Patient Education How to access health informa tion online - Detail Indication:Current non-smoker Start:07-May-2017 Instruction Type:Patient Education Patient Instructions Indication:Current non-smoker Start:07-May-2017 Instruction Type:Provider Instructions for Treatment How to access health informa tion online Indication:Elevated blood-pressure reading without diagnosis of hypertension Start:02-Apr-2017 Instruction Type:Patient Education How to access health informa tion online - Detail Indication:Elevated blood-pressure reading without diagnosis of hypertension Start:02-Apr-2017 Instruction Type:Patient Education Patient Instructions Indication:Elevated blood-pressure reading without diagnosis of hypertension Start:02-Apr-2017 Instruction Type:Provider Instructions for Treatment How to access health informa tion online Indication:BMI 27.0-27.9,adult Start:01-Aug-2016 Instruction Type:Patient Education How to access health informa tion online - Detail Indication:BMI 27.0-27.9,adult Start:01-Aug-2016 Instruction Type:Patient Education Patient Instructions Indication:BMI 27.0-27.9,adult Start:01-Aug-2016 Instruction Type:Provider Instructions for Treatment How to access health informa tion online Indication:Elevated blood-pressure reading without diagnosis of hypertension Start:17-Jul-2016 Instruction Type:Patient Education How to access health informa tion online - Detail Indication:Elevated blood-pressure reading without diagnosis of hypertension Start:17-Jul-2016 Instruction Type:Patient Education Patient Instructions Indication:Elevated blood-pressure reading without diagnosis of hypertension Start:17-Jul-2016 Instruction Type:Provider Instructions for Treatment Patient Instructions Indication:Muscle strain Start:24-Jun-2016 Instruction Type:Provider Instructions for Treatment How to access health informa tion online Indication:PALPITATIONS (Renamed from Awareness of heartbeats) Start:07-Jul-2015 Instruction Type:Patient Education How to access health informa tion online - Detail Indication:PALPITATIONS (Renamed from Awareness of heartbeats) Start:07-Jul-2015 Instruction Type:Patient Education Patient Instructions Indication:PALPITATIONS (Renamed from Awareness of heartbeats) Start:07-Jul-2015 Instruction Type:Provider Instructions for Treatment Patient Instructions Indication:Epigastric Pain (Renamed from Abdominal pain, epigastric) Start:29-Mar-2014 Instruction Type:Provider Instructions for Treatment How to access health informa tion online Indication:Epigastric Pain (Renamed from Abdominal pain, epigastric) Start:14-Mar-2014 Instruction Type:Patient Education How to access health informa tion online - Detail Indication:Epigastric Pain (Renamed from Abdominal pain, epigastric) Start:14-Mar-2014 Instruction Type:Patient Education Patient Instructions Indication:Epigastric Pain (Renamed from Abdominal pain, epigastric) Start:14-Mar-2014 Instruction Type:Provider Instructions for Treatment Patient Instructions Indication:Elevated blood-pressure reading without diagnosis of hypertension Start:27-Apr-2013 Instruction Type:Provider Instructions for Treatment [facility]; [facility] Work Phone: Instructions* Name Dates Details Patient Instructions Indication:Current non-smoker Start:04-Jan-2022 Instruction Type:Provider Instructions for Treatment How to Access Health Informa tion Online using Patient Portal and [employer]rd [employer] Apps Indication:Current non-smoker Start:04-Jan-2022 Instruction Type:Patient Education Patient Instructions Indication:BMI 33.0-33.9,adult Start:03-Sep-2021 Instruction Type:Provider Instructions for Treatment How to Access Health Informa tion Online using Patient Portal and [employer]rd [employer] Apps Indication:BMI 33.0-33.9,adult Start:03-Sep-2021 Instruction Type:Patient Education Patient Instructions Indication:Current non-smoker Start:03-May-2021 Instruction Type:Provider Instructions for Treatment How to Access Health Informa tion Online using Patient Portal and [employer]rd [employer] Apps Indication:Current non-smoker Start:03-May-2021 Instruction Type:Patient Education Patient Instructions Indication:Current non-smoker Start:27-Apr-2021 Instruction Type:Provider Instructions for Treatment How to Access Health Informa tion Online using Patient Portal and [employer]rd [employer] Apps Indication:Current non-smoker Start:27-Apr-2021 Instruction Type:Patient Education How to Access Health Informa tion Online using Patient Portal and [employer]rd [employer] Apps Indication:Current non-smoker Start:07-Aug-2020 Instruction Type:Patient Education Patient Instructions Indication:Current non-smoker Start:07-Aug-2020 Instruction Type:Provider Instructions for Treatment How to Access Health Informa tion Online using Patient Portal and [employer]rd [employer] Apps Indication:Current non-smoker Start:01-Aug-2020 Instruction Type:Patient Education Patient Instructions Indication:BMI 28.0-28.9,adult Start:01-Aug-2020 Instruction Type:Provider Instructions for Treatment How to access health informa tion online Indication:Current non-smoker Start:21-Jul-2020 Instruction Type:Patient Education How to access health informa tion online - Detail Indication:Current non-smoker Start:21-Jul-2020 Instruction Type:Patient Education Patient Instructions Indication:Current non-smoker Start:21-Jul-2020 Instruction Type:Provider Instructions for Treatment How to access health informa tion online Indication:Current non-smoker Start:03-Jan-2020 Instruction Type:Patient Education How to access health informa tion online - Detail Indication:Current non-smoker Start:03-Jan-2020 Instruction Type:Patient Education Patient Instructions Indication:Current non-smoker Start:03-Jan-2020 Instruction Type:Provider Instructions for Treatment How to access health informa tion online Indication:BMI 27.0-27.9,adult Start:27-Aug-2019 Instruction Type:Patient Education How to access health informa tion online - Detail Indication:BMI 27.0-27.9,adult Start:27-Aug-2019 Instruction Type:Patient Education Patient Instructions Indication:BMI 27.0-27.9,adult Start:27-Aug-2019 Instruction Type:Provider Instructions for Treatment How to access health informa tion online - Detail Indication:Current non-smoker Start:15-Mar-2019 Instruction Type:Patient Education Patient Instructions Indication:Current non-smoker Start:15-Mar-2019 Instruction Type:Provider Instructions for Treatment How to access health informa tion online Indication:Current non-smoker Start:10-Feb-2019 Instruction Type:Patient Education How to access health informa tion online - Detail Indication:Current non-smoker Start:10-Feb-2019 Instruction Type:Patient Education Patient Instructions Indication:Current non-smoker Start:10-Feb-2019 Instruction Type:Provider Instructions for Treatment How to access health informa tion online Indication:BMI 26.0-26.9,adult Start:14-Jan-2019 Instruction Type:Patient Education How to access health informa tion online - Detail Indication:BMI 26.0-26.9,adult Start:14-Jan-2019 Instruction Type:Patient Education Patient Instructions Indication:BMI 26.0-26.9,adult Start:14-Jan-2019 Instruction Type:Provider Instructions for Treatment How to access health informa tion online Indication:Current non-smoker Start:09-Nov-2018 Instruction Type:Patient Education How to access health informa tion online - Detail Indication:Current non-smoker Start:09-Nov-2018 Instruction Type:Patient Education Patient Instructions Indication:Current non-smoker Start:09-Nov-2018 Instruction Type:Provider Instructions for Treatment How to access health informa tion online Indication:BMI 24.0-24.9, adult Start:16-Jul-2017 Instruction Type:Patient Education How to access health informa tion online - Detail Indication:BMI 24.0-24.9, adult Start:16-Jul-2017 Instruction Type:Patient Education Patient Instructions Indication:BMI 24.0-24.9, adult Start:16-Jul-2017 Instruction Type:Provider Instructions for Treatment How to access health informa tion online Indication:Current non-smoker Start:07-May-2017 Instruction Type:Patient Education How to access health informa tion online - Detail Indication:Current non-smoker Start:07-May-2017 Instruction Type:Patient Education Patient Instructions Indication:Current non-smoker Start:07-May-2017 Instruction Type:Provider Instructions for Treatment How to access health informa tion online Indication:Elevated blood-pressure reading without diagnosis of hypertension Start:02-Apr-2017 Instruction Type:Patient Education How to access health informa tion online - Detail Indication:Elevated blood-pressure reading without diagnosis of hypertension Start:02-Apr-2017 Instruction Type:Patient Education Patient Instructions Indication:Elevated blood-pressure reading without diagnosis of hypertension Start:02-Apr-2017 Instruction Type:Provider Instructions for Treatment How to access health informa tion online Indication:BMI 27.0-27.9,adult Start:01-Aug-2016 Instruction Type:Patient Education How to access health informa tion online - Detail Indication:BMI 27.0-27.9,adult Start:01-Aug-2016 Instruction Type:Patient Education Patient Instructions Indication:BMI 27.0-27.9,adult Start:01-Aug-2016 Instruction Type:Provider Instructions for Treatment How to access health informa tion online Indication:Elevated blood-pressure reading without diagnosis of hypertension Start:17-Jul-2016 Instruction Type:Patient Education How to access health informa tion online - Detail Indication:Elevated blood-pressure reading without diagnosis of hypertension Start:17-Jul-2016 Instruction Type:Patient Education Patient Instructions Indication:Elevated blood-pressure reading without diagnosis of hypertension Start:17-Jul-2016 Instruction Type:Provider Instructions for Treatment Patient Instructions Indication:Muscle strain Start:24-Jun-2016 Instruction Type:Provider Instructions for Treatment How to access health informa tion online Indication:PALPITATIONS (Renamed from Awareness of heartbeats) Start:07-Jul-2015 Instruction Type:Patient Education How to access health informa tion online - Detail Indication:PALPITATIONS (Renamed from Awareness of heartbeats) Start:07-Jul-2015 Instruction Type:Patient Education Patient Instructions Indication:PALPITATIONS (Renamed from Awareness of heartbeats) Start:07-Jul-2015 Instruction Type:Provider Instructions for Treatment Patient Instructions Indication:Epigastric Pain (Renamed from Abdominal pain, epigastric) Start:29-Mar-2014 Instruction Type:Provider Instructions for Treatment How to access health informa tion online Indication:Epigastric Pain (Renamed from Abdominal pain, epigastric) Start:14-Mar-2014 Instruction Type:Patient Education How to access health informa tion online - Detail Indication:Epigastric Pain (Renamed from Abdominal pain, epigastric) Start:14-Mar-2014 Instruction Type:Patient Education Patient Instructions Indication:Epigastric Pain (Renamed from Abdominal pain, epigastric) Start:14-Mar-2014 Instruction Type:Provider Instructions for Treatment Patient Instructions Indication:Elevated blood-pressure reading without diagnosis of hypertension Start:27-Apr-2013 Instruction Type:Provider Instructions for Treatment [facility]; [facility] Work Phone: Instructions* Name Dates Details Patient Instructions Indication:Current non-smoker Start:04-Jan-2022 Instruction Type:Provider Instructions for Treatment How to Access Health Informa tion Online using Patient Portal and [employer]rd [employer] Apps Indication:Current non-smoker Start:04-Jan-2022 Instruction Type:Patient Education Patient Instructions Indication:BMI 33.0-33.9,adult Start:03-Sep-2021 Instruction Type:Provider Instructions for Treatment How to Access Health Informa tion Online using Patient Portal and [employer]rd [employer] Apps Indication:BMI 33.0-33.9,adult Start:03-Sep-2021 Instruction Type:Patient Education Patient Instructions Indication:Current non-smoker Start:03-May-2021 Instruction Type:Provider Instructions for Treatment How to Access Health Informa tion Online using Patient Portal and [employer]rd [employer] Apps Indication:Current non-smoker Start:03-May-2021 Instruction Type:Patient Education Patient Instructions Indication:Current non-smoker Start:27-Apr-2021 Instruction Type:Provider Instructions for Treatment How to Access Health Informa tion Online using Patient Portal and [employer]rd [employer] Apps Indication:Current non-smoker Start:27-Apr-2021 Instruction Type:Patient Education How to Access Health Informa tion Online using Patient Portal and [employer]rd [employer] Apps Indication:Current non-smoker Start:07-Aug-2020 Instruction Type:Patient Education Patient Instructions Indication:Current non-smoker Start:07-Aug-2020 Instruction Type:Provider Instructions for Treatment How to Access Health Informa tion Online using Patient Portal and [employer]rd [employer] Apps Indication:Current non-smoker Start:01-Aug-2020 Instruction Type:Patient Education Patient Instructions Indication:BMI 28.0-28.9,adult Start:01-Aug-2020 Instruction Type:Provider Instructions for Treatment How to access health informa tion online Indication:Current non-smoker Start:21-Jul-2020 Instruction Type:Patient Education How to access health informa tion online - Detail Indication:Current non-smoker Start:21-Jul-2020 Instruction Type:Patient Education Patient Instructions Indication:Current non-smoker Start:21-Jul-2020 Instruction Type:Provider Instructions for Treatment How to access health informa tion online Indication:Current non-smoker Start:03-Jan-2020 Instruction Type:Patient Education How to access health informa tion online - Detail Indication:Current non-smoker Start:03-Jan-2020 Instruction Type:Patient Education Patient Instructions Indication:Current non-smoker Start:03-Jan-2020 Instruction Type:Provider Instructions for Treatment How to access health informa tion online Indication:BMI 27.0-27.9,adult Start:27-Aug-2019 Instruction Type:Patient Education How to access health informa tion online - Detail Indication:BMI 27.0-27.9,adult Start:27-Aug-2019 Instruction Type:Patient Education Patient Instructions Indication:BMI 27.0-27.9,adult Start:27-Aug-2019 Instruction Type:Provider Instructions for Treatment How to access health informa tion online - Detail Indication:Current non-smoker Start:15-Mar-2019 Instruction Type:Patient Education Patient Instructions Indication:Current non-smoker Start:15-Mar-2019 Instruction Type:Provider Instructions for Treatment How to access health informa tion online Indication:Current non-smoker Start:10-Feb-2019 Instruction Type:Patient Education How to access health informa tion online - Detail Indication:Current non-smoker Start:10-Feb-2019 Instruction Type:Patient Education Patient Instructions Indication:Current non-smoker Start:10-Feb-2019 Instruction Type:Provider Instructions for Treatment How to access health informa tion online Indication:BMI 26.0-26.9,adult Start:14-Jan-2019 Instruction Type:Patient Education How to access health informa tion online - Detail Indication:BMI 26.0-26.9,adult Start:14-Jan-2019 Instruction Type:Patient Education Patient Instructions Indication:BMI 26.0-26.9,adult Start:14-Jan-2019 Instruction Type:Provider Instructions for Treatment How to access health informa tion online Indication:Current non-smoker Start:09-Nov-2018 Instruction Type:Patient Education How to access health informa tion online - Detail Indication:Current non-smoker Start:09-Nov-2018 Instruction Type:Patient Education Patient Instructions Indication:Current non-smoker Start:09-Nov-2018 Instruction Type:Provider Instructions for Treatment How to access health informa tion online Indication:BMI 24.0-24.9, adult Start:16-Jul-2017 Instruction Type:Patient Education How to access health informa tion online - Detail Indication:BMI 24.0-24.9, adult Start:16-Jul-2017 Instruction Type:Patient Education Patient Instructions Indication:BMI 24.0-24.9, adult Start:16-Jul-2017 Instruction Type:Provider Instructions for Treatment How to access health informa tion online Indication:Current non-smoker Start:07-May-2017 Instruction Type:Patient Education How to access health informa tion online - Detail Indication:Current non-smoker Start:07-May-2017 Instruction Type:Patient Education Patient Instructions Indication:Current non-smoker Start:07-May-2017 Instruction Type:Provider Instructions for Treatment How to access health informa tion online Indication:Elevated blood-pressure reading without diagnosis of hypertension Start:02-Apr-2017 Instruction Type:Patient Education How to access health informa tion online - Detail Indication:Elevated blood-pressure reading without diagnosis of hypertension Start:02-Apr-2017 Instruction Type:Patient Education Patient Instructions Indication:Elevated blood-pressure reading without diagnosis of hypertension Start:02-Apr-2017 Instruction Type:Provider Instructions for Treatment How to access health informa tion online Indication:BMI 27.0-27.9,adult Start:01-Aug-2016 Instruction Type:Patient Education How to access health informa tion online - Detail Indication:BMI 27.0-27.9,adult Start:01-Aug-2016 Instruction Type:Patient Education Patient Instructions Indication:BMI 27.0-27.9,adult Start:01-Aug-2016 Instruction Type:Provider Instructions for Treatment How to access health informa tion online Indication:Elevated blood-pressure reading without diagnosis of hypertension Start:17-Jul-2016 Instruction Type:Patient Education How to access health informa tion online - Detail Indication:Elevated blood-pressure reading without diagnosis of hypertension Start:17-Jul-2016 Instruction Type:Patient Education Patient Instructions Indication:Elevated blood-pressure reading without diagnosis of hypertension Start:17-Jul-2016 Instruction Type:Provider Instructions for Treatment Patient Instructions Indication:Muscle strain Start:24-Jun-2016 Instruction Type:Provider Instructions for Treatment How to access health informa tion online Indication:PALPITATIONS (Renamed from Awareness of heartbeats) Start:07-Jul-2015 Instruction Type:Patient Education How to access health informa tion online - Detail Indication:PALPITATIONS (Renamed from Awareness of heartbeats) Start:07-Jul-2015 Instruction Type:Patient Education Patient Instructions Indication:PALPITATIONS (Renamed from Awareness of heartbeats) Start:07-Jul-2015 Instruction Type:Provider Instructions for Treatment Patient Instructions Indication:Epigastric Pain (Renamed from Abdominal pain, epigastric) Start:29-Mar-2014 Instruction Type:Provider Instructions for Treatment How to access health informa tion online Indication:Epigastric Pain (Renamed from Abdominal pain, epigastric) Start:14-Mar-2014 Instruction Type:Patient Education How to access health informa tion online - Detail Indication:Epigastric Pain (Renamed from Abdominal pain, epigastric) Start:14-Mar-2014 Instruction Type:Patient Education Patient Instructions Indication:Epigastric Pain (Renamed from Abdominal pain, epigastric) Start:14-Mar-2014 Instruction Type:Provider Instructions for Treatment Patient Instructions Indication:Elevated blood-pressure reading without diagnosis of hypertension Start:27-Apr-2013 Instruction Type:Provider Instructions for Treatment [facility] Work Phone: Instructions* Name Dates Details Patient Instructions Indication:Current non-smoker Start:04-Jan-2022 Instruction Type:Provider Instructions for Treatment How to Access Health Informa tion Online using Patient Portal and [employer]rd [employer] Apps Indication:Current non-smoker Start:04-Jan-2022 Instruction Type:Patient Education Patient Instructions Indication:BMI 33.0-33.9,adult Start:03-Sep-2021 Instruction Type:Provider Instructions for Treatment How to Access Health Informa tion Online using Patient Portal and [employer]rd [employer] Apps Indication:BMI 33.0-33.9,adult Start:03-Sep-2021 Instruction Type:Patient Education Patient Instructions Indication:Current non-smoker Start:03-May-2021 Instruction Type:Provider Instructions for Treatment How to Access Health Informa tion Online using Patient Portal and [employer]rd [employer] Apps Indication:Current non-smoker Start:03-May-2021 Instruction Type:Patient Education Patient Instructions Indication:Current non-smoker Start:27-Apr-2021 Instruction Type:Provider Instructions for Treatment How to Access Health Informa tion Online using Patient Portal and [employer]rd [employer] Apps Indication:Current non-smoker Start:27-Apr-2021 Instruction Type:Patient Education How to Access Health Informa tion Online using Patient Portal and [employer]rd [employer] Apps Indication:Current non-smoker Start:07-Aug-2020 Instruction Type:Patient Education Patient Instructions Indication:Current non-smoker Start:07-Aug-2020 Instruction Type:Provider Instructions for Treatment How to Access Health Informa tion Online using Patient Portal and [employer]rd [employer] Apps Indication:Current non-smoker Start:01-Aug-2020 Instruction Type:Patient Education Patient Instructions Indication:BMI 28.0-28.9,adult Start:01-Aug-2020 Instruction Type:Provider Instructions for Treatment How to access health informa tion online Indication:Current non-smoker Start:21-Jul-2020 Instruction Type:Patient Education How to access health informa tion online - Detail Indication:Current non-smoker Start:21-Jul-2020 Instruction Type:Patient Education Patient Instructions Indication:Current non-smoker Start:21-Jul-2020 Instruction Type:Provider Instructions for Treatment How to access health informa tion online Indication:Current non-smoker Start:03-Jan-2020 Instruction Type:Patient Education How to access health informa tion online - Detail Indication:Current non-smoker Start:03-Jan-2020 Instruction Type:Patient Education Patient Instructions Indication:Current non-smoker Start:03-Jan-2020 Instruction Type:Provider Instructions for Treatment How to access health informa tion online Indication:BMI 27.0-27.9,adult Start:27-Aug-2019 Instruction Type:Patient Education How to access health informa tion online - Detail Indication:BMI 27.0-27.9,adult Start:27-Aug-2019 Instruction Type:Patient Education Patient Instructions Indication:BMI 27.0-27.9,adult Start:27-Aug-2019 Instruction Type:Provider Instructions for Treatment How to access health informa tion online - Detail Indication:Current non-smoker Start:15-Mar-2019 Instruction Type:Patient Education Patient Instructions Indication:Current non-smoker Start:15-Mar-2019 Instruction Type:Provider Instructions for Treatment How to access health informa tion online Indication:Current non-smoker Start:10-Feb-2019 Instruction Type:Patient Education How to access health informa tion online - Detail Indication:Current non-smoker Start:10-Feb-2019 Instruction Type:Patient Education Patient Instructions Indication:Current non-smoker Start:10-Feb-2019 Instruction Type:Provider Instructions for Treatment How to access health informa tion online Indication:BMI 26.0-26.9,adult Start:14-Jan-2019 Instruction Type:Patient Education How to access health informa tion online - Detail Indication:BMI 26.0-26.9,adult Start:14-Jan-2019 Instruction Type:Patient Education Patient Instructions Indication:BMI 26.0-26.9,adult Start:14-Jan-2019 Instruction Type:Provider Instructions for Treatment How to access health informa tion online Indication:Current non-smoker Start:09-Nov-2018 Instruction Type:Patient Education How to access health informa tion online - Detail Indication:Current non-smoker Start:09-Nov-2018 Instruction Type:Patient Education Patient Instructions Indication:Current non-smoker Start:09-Nov-2018 Instruction Type:Provider Instructions for Treatment How to access health informa tion online Indication:BMI 24.0-24.9, adult Start:16-Jul-2017 Instruction Type:Patient Education How to access health informa tion online - Detail Indication:BMI 24.0-24.9, adult Start:16-Jul-2017 Instruction Type:Patient Education Patient Instructions Indication:BMI 24.0-24.9, adult Start:16-Jul-2017 Instruction Type:Provider Instructions for Treatment How to access health informa tion online Indication:Current non-smoker Start:07-May-2017 Instruction Type:Patient Education How to access health informa tion online - Detail Indication:Current non-smoker Start:07-May-2017 Instruction Type:Patient Education Patient Instructions Indication:Current non-smoker Start:07-May-2017 Instruction Type:Provider Instructions for Treatment How to access health informa tion online Indication:Elevated blood-pressure reading without diagnosis of hypertension Start:02-Apr-2017 Instruction Type:Patient Education How to access health informa tion online - Detail Indication:Elevated blood-pressure reading without diagnosis of hypertension Start:02-Apr-2017 Instruction Type:Patient Education Patient Instructions Indication:Elevated blood-pressure reading without diagnosis of hypertension Start:02-Apr-2017 Instruction Type:Provider Instructions for Treatment How to access health informa tion online Indication:BMI 27.0-27.9,adult Start:01-Aug-2016 Instruction Type:Patient Education How to access health informa tion online - Detail Indication:BMI 27.0-27.9,adult Start:01-Aug-2016 Instruction Type:Patient Education Patient Instructions Indication:BMI 27.0-27.9,adult Start:01-Aug-2016 Instruction Type:Provider Instructions for Treatment How to access health informa tion online Indication:Elevated blood-pressure reading without diagnosis of hypertension Start:17-Jul-2016 Instruction Type:Patient Education How to access health informa tion online - Detail Indication:Elevated blood-pressure reading without diagnosis of hypertension Start:17-Jul-2016 Instruction Type:Patient Education Patient Instructions Indication:Elevated blood-pressure reading without diagnosis of hypertension Start:17-Jul-2016 Instruction Type:Provider Instructions for Treatment Patient Instructions Indication:Muscle strain Start:24-Jun-2016 Instruction Type:Provider Instructions for Treatment How to access health informa tion online Indication:PALPITATIONS (Renamed from Awareness of heartbeats) Start:07-Jul-2015 Instruction Type:Patient Education How to access health informa tion online - Detail Indication:PALPITATIONS (Renamed from Awareness of heartbeats) Start:07-Jul-2015 Instruction Type:Patient Education Patient Instructions Indication:PALPITATIONS (Renamed from Awareness of heartbeats) Start:07-Jul-2015 Instruction Type:Provider Instructions for Treatment Patient Instructions Indication:Epigastric Pain (Renamed from Abdominal pain, epigastric) Start:29-Mar-2014 Instruction Type:Provider Instructions for Treatment How to access health informa tion online Indication:Epigastric Pain (Renamed from Abdominal pain, epigastric) Start:14-Mar-2014 Instruction Type:Patient Education How to access health informa tion online - Detail Indication:Epigastric Pain (Renamed from Abdominal pain, epigastric) Start:14-Mar-2014 Instruction Type:Patient Education Patient Instructions Indication:Epigastric Pain (Renamed from Abdominal pain, epigastric) Start:14-Mar-2014 Instruction Type:Provider Instructions for Treatment Patient Instructions Indication:Elevated blood-pressure reading without diagnosis of hypertension Start:27-Apr-2013 Instruction Type:Provider Instructions for Treatment [facility]; [facility] Work Phone: Instructions* Name Dates Details Patient Instructions Indication:Current non-smoker Start:04-Jan-2022 Instruction Type:Provider Instructions for Treatment How to Access Health Informa tion Online using Patient Portal and [employer] Apps Indication:Current non-smoker Start:04-Jan-2022 Instruction Type:Patient Education Patient Instructions Indication:BMI 33.0-33.9,adult Start:03-Sep-2021 Instruction Type:Provider Instructions for Treatment How to Access Health Informa tion Online using Patient Portal and [employer] Apps Indication:BMI 33.0-33.9,adult Start:03-Sep-2021 Instruction Type:Patient Education Patient Instructions Indication:Current non-smoker Start:03-May-2021 Instruction Type:Provider Instructions for Treatment How to Access Health Informa tion Online using Patient Portal and [employer]rd [employer] Apps Indication:Current non-smoker Start:03-May-2021 Instruction Type:Patient Education Patient Instructions Indication:Current non-smoker Start:27-Apr-2021 Instruction Type:Provider Instructions for Treatment How to Access Health Informa tion Online using Patient Portal and [employer]rd [employer] Apps Indication:Current non-smoker Start:27-Apr-2021 Instruction Type:Patient Education How to Access Health Informa tion Online using Patient Portal and [employer]rd [employer] Apps Indication:Current non-smoker Start:07-Aug-2020 Instruction Type:Patient Education Patient Instructions Indication:Current non-smoker Start:07-Aug-2020 Instruction Type:Provider Instructions for Treatment How to Access Health Informa tion Online using Patient Portal and [employer]rd [employer] Apps Indication:Current non-smoker Start:01-Aug-2020 Instruction Type:Patient Education Patient Instructions Indication:BMI 28.0-28.9,adult Start:01-Aug-2020 Instruction Type:Provider Instructions for Treatment How to access health informa tion online Indication:Current non-smoker Start:21-Jul-2020 Instruction Type:Patient Education How to access health informa tion online - Detail Indication:Current non-smoker Start:21-Jul-2020 Instruction Type:Patient Education Patient Instructions Indication:Current non-smoker Start:21-Jul-2020 Instruction Type:Provider Instructions for Treatment How to access health informa tion online Indication:Current non-smoker Start:03-Jan-2020 Instruction Type:Patient Education How to access health informa tion online - Detail Indication:Current non-smoker Start:03-Jan-2020 Instruction Type:Patient Education Patient Instructions Indication:Current non-smoker Start:03-Jan-2020 Instruction Type:Provider Instructions for Treatment How to access health informa tion online Indication:BMI 27.0-27.9,adult Start:27-Aug-2019 Instruction Type:Patient Education How to access health informa tion online - Detail Indication:BMI 27.0-27.9,adult Start:27-Aug-2019 Instruction Type:Patient Education Patient Instructions Indication:BMI 27.0-27.9,adult Start:27-Aug-2019 Instruction Type:Provider Instructions for Treatment How to access health informa tion online - Detail Indication:Current non-smoker Start:15-Mar-2019 Instruction Type:Patient Education Patient Instructions Indication:Current non-smoker Start:15-Mar-2019 Instruction Type:Provider Instructions for Treatment How to access health informa tion online Indication:Current non-smoker Start:10-Feb-2019 Instruction Type:Patient Education How to access health informa tion online - Detail Indication:Current non-smoker Start:10-Feb-2019 Instruction Type:Patient Education Patient Instructions Indication:Current non-smoker Start:10-Feb-2019 Instruction Type:Provider Instructions for Treatment How to access health informa tion online Indication:BMI 26.0-26.9,adult Start:14-Jan-2019 Instruction Type:Patient Education How to access health informa tion online - Detail Indication:BMI 26.0-26.9,adult Start:14-Jan-2019 Instruction Type:Patient Education Patient Instructions Indication:BMI 26.0-26.9,adult Start:14-Jan-2019 Instruction Type:Provider Instructions for Treatment How to access health informa tion online Indication:Current non-smoker Start:09-Nov-2018 Instruction Type:Patient Education How to access health informa tion online - Detail Indication:Current non-smoker Start:09-Nov-2018 Instruction Type:Patient Education Patient Instructions Indication:Current non-smoker Start:09-Nov-2018 Instruction Type:Provider Instructions for Treatment How to access health informa tion online Indication:BMI 24.0-24.9, adult Start:16-Jul-2017 Instruction Type:Patient Education How to access health informa tion online - Detail Indication:BMI 24.0-24.9, adult Start:16-Jul-2017 Instruction Type:Patient Education Patient Instructions Indication:BMI 24.0-24.9, adult Start:16-Jul-2017 Instruction Type:Provider Instructions for Treatment How to access health informa tion online Indication:Current non-smoker Start:07-May-2017 Instruction Type:Patient Education How to access health informa tion online - Detail Indication:Current non-smoker Start:07-May-2017 Instruction Type:Patient Education Patient Instructions Indication:Current non-smoker Start:07-May-2017 Instruction Type:Provider Instructions for Treatment How to access health informa tion online Indication:Elevated blood-pressure reading without diagnosis of hypertension Start:02-Apr-2017 Instruction Type:Patient Education How to access health informa tion online - Detail Indication:Elevated blood-pressure reading without diagnosis of hypertension Start:02-Apr-2017 Instruction Type:Patient Education Patient Instructions Indication:Elevated blood-pressure reading without diagnosis of hypertension Start:02-Apr-2017 Instruction Type:Provider Instructions for Treatment How to access health informa tion online Indication:BMI 27.0-27.9,adult Start:01-Aug-2016 Instruction Type:Patient Education How to access health informa tion online - Detail Indication:BMI 27.0-27.9,adult Start:01-Aug-2016 Instruction Type:Patient Education Patient Instructions Indication:BMI 27.0-27.9,adult Start:01-Aug-2016 Instruction Type:Provider Instructions for Treatment How to access health informa tion online Indication:Elevated blood-pressure reading without diagnosis of hypertension Start:17-Jul-2016 Instruction Type:Patient Education How to access health informa tion online - Detail Indication:Elevated blood-pressure reading without diagnosis of hypertension Start:17-Jul-2016 Instruction Type:Patient Education Patient Instructions Indication:Elevated blood-pressure reading without diagnosis of hypertension Start:17-Jul-2016 Instruction Type:Provider Instructions for Treatment Patient Instructions Indication:Muscle strain Start:24-Jun-2016 Instruction Type:Provider Instructions for Treatment How to access health informa tion online Indication:PALPITATIONS (Renamed from Awareness of heartbeats) Start:07-Jul-2015 Instruction Type:Patient Education How to access health informa tion online - Detail Indication:PALPITATIONS (Renamed from Awareness of heartbeats) Start:07-Jul-2015 Instruction Type:Patient Education Patient Instructions Indication:PALPITATIONS (Renamed from Awareness of heartbeats) Start:07-Jul-2015 Instruction Type:Provider Instructions for Treatment Patient Instructions Indication:Epigastric Pain (Renamed from Abdominal pain, epigastric) Start:29-Mar-2014 Instruction Type:Provider Instructions for Treatment How to access health informa tion online Indication:Epigastric Pain (Renamed from Abdominal pain, epigastric) Start:14-Mar-2014 Instruction Type:Patient Education How to access health informa tion online - Detail Indication:Epigastric Pain (Renamed from Abdominal pain, epigastric) Start:14-Mar-2014 Instruction Type:Patient Education Patient Instructions Indication:Epigastric Pain (Renamed from Abdominal pain, epigastric) Start:14-Mar-2014 Instruction Type:Provider Instructions for Treatment Patient Instructions Indication:Elevated blood-pressure reading without diagnosis of hypertension Start:27-Apr-2013 Instruction Type:Provider Instructions for Treatment [facility]; [facility] Work Phone: Instructions* Name Dates Details Patient Instructions Indication:Current non-smoker Start:04-Jan-2022 Instruction Type:Provider Instructions for Treatment How to Access Health Informa tion Online using Patient Portal and [employer]rd [employer] Apps Indication:Current non-smoker Start:04-Jan-2022 Instruction Type:Patient Education Patient Instructions Indication:BMI 33.0-33.9,adult Start:03-Sep-2021 Instruction Type:Provider Instructions for Treatment How to Access Health Informa tion Online using Patient Portal and [employer]rd [employer] Apps Indication:BMI 33.0-33.9,adult Start:03-Sep-2021 Instruction Type:Patient Education Patient Instructions Indication:Current non-smoker Start:03-May-2021 Instruction Type:Provider Instructions for Treatment How to Access Health Informa tion Online using Patient Portal and [employer] Apps Indication:Current non-smoker Start:03-May-2021 Instruction Type:Patient Education Patient Instructions Indication:Current non-smoker Start:27-Apr-2021 Instruction Type:Provider Instructions for Treatment How to Access Health Informa tion Online using Patient Portal and [employer]rd [employer] Apps Indication:Current non-smoker Start:27-Apr-2021 Instruction Type:Patient Education How to Access Health Informa tion Online using Patient Portal and [employer]rd [employer] Apps Indication:Current non-smoker Start:07-Aug-2020 Instruction Type:Patient Education Patient Instructions Indication:Current non-smoker Start:07-Aug-2020 Instruction Type:Provider Instructions for Treatment How to Access Health Informa tion Online using Patient Portal and [employer] Apps Indication:Current non-smoker Start:01-Aug-2020 Instruction Type:Patient Education Patient Instructions Indication:BMI 28.0-28.9,adult Start:01-Aug-2020 Instruction Type:Provider Instructions for Treatment How to access health informa tion online Indication:Current non-smoker Start:21-Jul-2020 Instruction Type:Patient Education How to access health informa tion online - Detail Indication:Current non-smoker Start:21-Jul-2020 Instruction Type:Patient Education Patient Instructions Indication:Current non-smoker Start:21-Jul-2020 Instruction Type:Provider Instructions for Treatment How to access health informa tion online Indication:Current non-smoker Start:03-Jan-2020 Instruction Type:Patient Education How to access health informa tion online - Detail Indication:Current non-smoker Start:03-Jan-2020 Instruction Type:Patient Education Patient Instructions Indication:Current non-smoker Start:03-Jan-2020 Instruction Type:Provider Instructions for Treatment How to access health informa tion online Indication:BMI 27.0-27.9,adult Start:27-Aug-2019 Instruction Type:Patient Education How to access health informa tion online - Detail Indication:BMI 27.0-27.9,adult Start:27-Aug-2019 Instruction Type:Patient Education Patient Instructions Indication:BMI 27.0-27.9,adult Start:27-Aug-2019 Instruction Type:Provider Instructions for Treatment How to access health informa tion online - Detail Indication:Current non-smoker Start:15-Mar-2019 Instruction Type:Patient Education Patient Instructions Indication:Current non-smoker Start:15-Mar-2019 Instruction Type:Provider Instructions for Treatment How to access health informa tion online Indication:Current non-smoker Start:10-Feb-2019 Instruction Type:Patient Education How to access health informa tion online - Detail Indication:Current non-smoker Start:10-Feb-2019 Instruction Type:Patient Education Patient Instructions Indication:Current non-smoker Start:10-Feb-2019 Instruction Type:Provider Instructions for Treatment How to access health informa tion online Indication:BMI 26.0-26.9,adult Start:14-Jan-2019 Instruction Type:Patient Education How to access health informa tion online - Detail Indication:BMI 26.0-26.9,adult Start:14-Jan-2019 Instruction Type:Patient Education Patient Instructions Indication:BMI 26.0-26.9,adult Start:14-Jan-2019 Instruction Type:Provider Instructions for Treatment How to access health informa tion online Indication:Current non-smoker Start:09-Nov-2018 Instruction Type:Patient Education How to access health informa tion online - Detail Indication:Current non-smoker Start:09-Nov-2018 Instruction Type:Patient Education Patient Instructions Indication:Current non-smoker Start:09-Nov-2018 Instruction Type:Provider Instructions for Treatment How to access health informa tion online Indication:BMI 24.0-24.9, adult Start:16-Jul-2017 Instruction Type:Patient Education How to access health informa tion online - Detail Indication:BMI 24.0-24.9, adult Start:16-Jul-2017 Instruction Type:Patient Education Patient Instructions Indication:BMI 24.0-24.9, adult Start:16-Jul-2017 Instruction Type:Provider Instructions for Treatment How to access health informa tion online Indication:Current non-smoker Start:07-May-2017 Instruction Type:Patient Education How to access health informa tion online - Detail Indication:Current non-smoker Start:07-May-2017 Instruction Type:Patient Education Patient Instructions Indication:Current non-smoker Start:07-May-2017 Instruction Type:Provider Instructions for Treatment How to access health informa tion online Indication:Elevated blood-pressure reading without diagnosis of hypertension Start:02-Apr-2017 Instruction Type:Patient Education How to access health informa tion online - Detail Indication:Elevated blood-pressure reading without diagnosis of hypertension Start:02-Apr-2017 Instruction Type:Patient Education Patient Instructions Indication:Elevated blood-pressure reading without diagnosis of hypertension Start:02-Apr-2017 Instruction Type:Provider Instructions for Treatment How to access health informa tion online Indication:BMI 27.0-27.9,adult Start:01-Aug-2016 Instruction Type:Patient Education How to access health informa tion online - Detail Indication:BMI 27.0-27.9,adult Start:01-Aug-2016 Instruction Type:Patient Education Patient Instructions Indication:BMI 27.0-27.9,adult Start:01-Aug-2016 Instruction Type:Provider Instructions for Treatment How to access health informa tion online Indication:Elevated blood-pressure reading without diagnosis of hypertension Start:17-Jul-2016 Instruction Type:Patient Education How to access health informa tion online - Detail Indication:Elevated blood-pressure reading without diagnosis of hypertension Start:17-Jul-2016 Instruction Type:Patient Education Patient Instructions Indication:Elevated blood-pressure reading without diagnosis of hypertension Start:17-Jul-2016 Instruction Type:Provider Instructions for Treatment Patient Instructions Indication:Muscle strain Start:24-Jun-2016 Instruction Type:Provider Instructions for Treatment How to access health informa tion online Indication:PALPITATIONS (Renamed from Awareness of heartbeats) Start:07-Jul-2015 Instruction Type:Patient Education How to access health informa tion online - Detail Indication:PALPITATIONS (Renamed from Awareness of heartbeats) Start:07-Jul-2015 Instruction Type:Patient Education Patient Instructions Indication:PALPITATIONS (Renamed from Awareness of heartbeats) Start:07-Jul-2015 Instruction Type:Provider Instructions for Treatment Patient Instructions Indication:Epigastric Pain (Renamed from Abdominal pain, epigastric) Start:29-Mar-2014 Instruction Type:Provider Instructions for Treatment How to access health informa tion online Indication:Epigastric Pain (Renamed from Abdominal pain, epigastric) Start:14-Mar-2014 Instruction Type:Patient Education How to access health informa tion online - Detail Indication:Epigastric Pain (Renamed from Abdominal pain, epigastric) Start:14-Mar-2014 Instruction Type:Patient Education Patient Instructions Indication:Epigastric Pain (Renamed from Abdominal pain, epigastric) Start:14-Mar-2014 Instruction Type:Provider Instructions for Treatment Patient Instructions Indication:Elevated blood-pressure reading without diagnosis of hypertension Start:27-Apr-2013 Instruction Type:Provider Instructions for Treatment [facility] Work Phone: Instructions* Name Dates Details Patient Instructions Indication:Current non-smoker Start:14-Mar-2023 Instruction Type:Provider Instructions for Treatment How to Access Health Informa tion Online using Patient Portal and [employer] Apps Indication:Current non-smoker Start:14-Mar-2023 Instruction Type:Patient Education Patient Instructions Indication:Current non-smoker Start:04-Jan-2022 Instruction Type:Provider Instructions for Treatment How to Access Health Informa tion Online using Patient Portal and [employer] Apps Indication:Current non-smoker Start:04-Jan-2022 Instruction Type:Patient Education Patient Instructions Indication:BMI 33.0-33.9,adult Start:03-Sep-2021 Instruction Type:Provider Instructions for Treatment How to Access Health Informa tion Online using Patient Portal and [employer] Apps Indication:BMI 33.0-33.9,adult Start:03-Sep-2021 Instruction Type:Patient Education Patient Instructions Indication:Current non-smoker Start:03-May-2021 Instruction Type:Provider Instructions for Treatment How to Access Health Informa tion Online using Patient Portal and [employer] Apps Indication:Current non-smoker Start:03-May-2021 Instruction Type:Patient Education Patient Instructions Indication:Current non-smoker Start:27-Apr-2021 Instruction Type:Provider Instructions for Treatment How to Access Health Informa tion Online using Patient Portal and [employer] Apps Indication:Current non-smoker Start:27-Apr-2021 Instruction Type:Patient Education How to Access Health Informa tion Online using Patient Portal and [employer] Apps Indication:Current non-smoker Start:07-Aug-2020 Instruction Type:Patient Education Patient Instructions Indication:Current non-smoker Start:07-Aug-2020 Instruction Type:Provider Instructions for Treatment How to Access Health Informa tion Online using Patient Portal and [employer]rd [employer] Apps Indication:Current non-smoker Start:01-Aug-2020 Instruction Type:Patient Education Patient Instructions Indication:BMI 28.0-28.9,adult Start:01-Aug-2020 Instruction Type:Provider Instructions for Treatment How to access health informa tion online Indication:Current non-smoker Start:21-Jul-2020 Instruction Type:Patient Education How to access health informa tion online - Detail Indication:Current non-smoker Start:21-Jul-2020 Instruction Type:Patient Education Patient Instructions Indication:Current non-smoker Start:21-Jul-2020 Instruction Type:Provider Instructions for Treatment How to access health informa tion online Indication:Current non-smoker Start:03-Jan-2020 Instruction Type:Patient Education How to access health informa tion online - Detail Indication:Current non-smoker Start:03-Jan-2020 Instruction Type:Patient Education Patient Instructions Indication:Current non-smoker Start:03-Jan-2020 Instruction Type:Provider Instructions for Treatment How to access health informa tion online Indication:BMI 27.0-27.9,adult Start:27-Aug-2019 Instruction Type:Patient Education How to access health informa tion online - Detail Indication:BMI 27.0-27.9,adult Start:27-Aug-2019 Instruction Type:Patient Education Patient Instructions Indication:BMI 27.0-27.9,adult Start:27-Aug-2019 Instruction Type:Provider Instructions for Treatment How to access health informa tion online - Detail Indication:Current non-smoker Start:15-Mar-2019 Instruction Type:Patient Education Patient Instructions Indication:Current non-smoker Start:15-Mar-2019 Instruction Type:Provider Instructions for Treatment How to access health informa tion online Indication:Current non-smoker Start:10-Feb-2019 Instruction Type:Patient Education How to access health informa tion online - Detail Indication:Current non-smoker Start:10-Feb-2019 Instruction Type:Patient Education Patient Instructions Indication:Current non-smoker Start:10-Feb-2019 Instruction Type:Provider Instructions for Treatment How to access health informa tion online Indication:BMI 26.0-26.9,adult Start:14-Jan-2019 Instruction Type:Patient Education How to access health informa tion online - Detail Indication:BMI 26.0-26.9,adult Start:14-Jan-2019 Instruction Type:Patient Education Patient Instructions Indication:BMI 26.0-26.9,adult Start:14-Jan-2019 Instruction Type:Provider Instructions for Treatment How to access health informa tion online Indication:Current non-smoker Start:09-Nov-2018 Instruction Type:Patient Education How to access health informa tion online - Detail Indication:Current non-smoker Start:09-Nov-2018 Instruction Type:Patient Education Patient Instructions Indication:Current non-smoker Start:09-Nov-2018 Instruction Type:Provider Instructions for Treatment How to access health informa tion online Indication:BMI 24.0-24.9, adult Start:16-Jul-2017 Instruction Type:Patient Education How to access health informa tion online - Detail Indication:BMI 24.0-24.9, adult Start:16-Jul-2017 Instruction Type:Patient Education Patient Instructions Indication:BMI 24.0-24.9, adult Start:16-Jul-2017 Instruction Type:Provider Instructions for Treatment How to access health informa tion online Indication:Current non-smoker Start:07-May-2017 Instruction Type:Patient Education How to access health informa tion online - Detail Indication:Current non-smoker Start:07-May-2017 Instruction Type:Patient Education Patient Instructions Indication:Current non-smoker Start:07-May-2017 Instruction Type:Provider Instructions for Treatment How to access health informa tion online Indication:Elevated blood-pressure reading without diagnosis of hypertension Start:02-Apr-2017 Instruction Type:Patient Education How to access health informa tion online - Detail Indication:Elevated blood-pressure reading without diagnosis of hypertension Start:02-Apr-2017 Instruction Type:Patient Education Patient Instructions Indication:Elevated blood-pressure reading without diagnosis of hypertension Start:02-Apr-2017 Instruction Type:Provider Instructions for Treatment How to access health informa tion online Indication:BMI 27.0-27.9,adult Start:01-Aug-2016 Instruction Type:Patient Education How to access health informa tion online - Detail Indication:BMI 27.0-27.9,adult Start:01-Aug-2016 Instruction Type:Patient Education Patient Instructions Indication:BMI 27.0-27.9,adult Start:01-Aug-2016 Instruction Type:Provider Instructions for Treatment How to access health informa tion online Indication:Elevated blood-pressure reading without diagnosis of hypertension Start:17-Jul-2016 Instruction Type:Patient Education How to access health informa tion online - Detail Indication:Elevated blood-pressure reading without diagnosis of hypertension Start:17-Jul-2016 Instruction Type:Patient Education Patient Instructions Indication:Elevated blood-pressure reading without diagnosis of hypertension Start:17-Jul-2016 Instruction Type:Provider Instructions for Treatment Patient Instructions Indication:Muscle strain Start:24-Jun-2016 Instruction Type:Provider Instructions for Treatment How to access health informa tion online Indication:PALPITATIONS (Renamed from Awareness of heartbeats) Start:07-Jul-2015 Instruction Type:Patient Education How to access health informa tion online - Detail Indication:PALPITATIONS (Renamed from Awareness of heartbeats) Start:07-Jul-2015 Instruction Type:Patient Education Patient Instructions Indication:PALPITATIONS (Renamed from Awareness of heartbeats) Start:07-Jul-2015 Instruction Type:Provider Instructions for Treatment Patient Instructions Indication:Epigastric Pain (Renamed from Abdominal pain, epigastric) Start:29-Mar-2014 Instruction Type:Provider Instructions for Treatment How to access health informa tion online Indication:Epigastric Pain (Renamed from Abdominal pain, epigastric) Start:14-Mar-2014 Instruction Type:Patient Education How to access health informa tion online - Detail Indication:Epigastric Pain (Renamed from Abdominal pain, epigastric) Start:14-Mar-2014 Instruction Type:Patient Education Patient Instructions Indication:Epigastric Pain (Renamed from Abdominal pain, epigastric) Start:14-Mar-2014 Instruction Type:Provider Instructions for Treatment Patient Instructions Indication:Elevated blood-pressure reading without diagnosis of hypertension Start:27-Apr-2013 Instruction Type:Provider Instructions for Treatment [facility]; [facility] Work Phone: Instructions* Name Dates Details Patient Instructions Indication:Current non-smoker Start:14-Mar-2023 Instruction Type:Provider Instructions for Treatment How to Access Health Informa tion Online using Patient Portal and [employer] Apps Indication:Current non-smoker Start:14-Mar-2023 Instruction Type:Patient Education Patient Instructions Indication:Current non-smoker Start:04-Jan-2022 Instruction Type:Provider Instructions for Treatment How to Access Health Informa tion Online using Patient Portal and [employer]rd [employer] Apps Indication:Current non-smoker Start:04-Jan-2022 Instruction Type:Patient Education Patient Instructions Indication:BMI 33.0-33.9,adult Start:03-Sep-2021 Instruction Type:Provider Instructions for Treatment How to Access Health Informa tion Online using Patient Portal and [employer] Apps Indication:BMI 33.0-33.9,adult Start:03-Sep-2021 Instruction Type:Patient Education Patient Instructions Indication:Current non-smoker Start:03-May-2021 Instruction Type:Provider Instructions for Treatment How to Access Health Informa tion Online using Patient Portal and [employer] Apps Indication:Current non-smoker Start:03-May-2021 Instruction Type:Patient Education Patient Instructions Indication:Current non-smoker Start:27-Apr-2021 Instruction Type:Provider Instructions for Treatment How to Access Health Informa tion Online using Patient Portal and [employer] Apps Indication:Current non-smoker Start:27-Apr-2021 Instruction Type:Patient Education How to Access Health Informa tion Online using Patient Portal and [employer] Apps Indication:Current non-smoker Start:07-Aug-2020 Instruction Type:Patient Education Patient Instructions Indication:Current non-smoker Start:07-Aug-2020 Instruction Type:Provider Instructions for Treatment How to Access Health Informa tion Online using Patient Portal and [employer] Apps Indication:Current non-smoker Start:01-Aug-2020 Instruction Type:Patient Education Patient Instructions Indication:BMI 28.0-28.9,adult Start:01-Aug-2020 Instruction Type:Provider Instructions for Treatment How to access health informa tion online Indication:Current non-smoker Start:21-Jul-2020 Instruction Type:Patient Education How to access health informa tion online - Detail Indication:Current non-smoker Start:21-Jul-2020 Instruction Type:Patient Education Patient Instructions Indication:Current non-smoker Start:21-Jul-2020 Instruction Type:Provider Instructions for Treatment How to access health informa tion online Indication:Current non-smoker Start:03-Jan-2020 Instruction Type:Patient Education How to access health informa tion online - Detail Indication:Current non-smoker Start:03-Jan-2020 Instruction Type:Patient Education Patient Instructions Indication:Current non-smoker Start:03-Jan-2020 Instruction Type:Provider Instructions for Treatment How to access health informa tion online Indication:BMI 27.0-27.9,adult Start:27-Aug-2019 Instruction Type:Patient Education How to access health informa tion online - Detail Indication:BMI 27.0-27.9,adult Start:27-Aug-2019 Instruction Type:Patient Education Patient Instructions Indication:BMI 27.0-27.9,adult Start:27-Aug-2019 Instruction Type:Provider Instructions for Treatment How to access health informa tion online - Detail Indication:Current non-smoker Start:15-Mar-2019 Instruction Type:Patient Education Patient Instructions Indication:Current non-smoker Start:15-Mar-2019 Instruction Type:Provider Instructions for Treatment How to access health informa tion online Indication:Current non-smoker Start:10-Feb-2019 Instruction Type:Patient Education How to access health informa tion online - Detail Indication:Current non-smoker Start:10-Feb-2019 Instruction Type:Patient Education Patient Instructions Indication:Current non-smoker Start:10-Feb-2019 Instruction Type:Provider Instructions for Treatment How to access health informa tion online Indication:BMI 26.0-26.9,adult Start:14-Jan-2019 Instruction Type:Patient Education How to access health informa tion online - Detail Indication:BMI 26.0-26.9,adult Start:14-Jan-2019 Instruction Type:Patient Education Patient Instructions Indication:BMI 26.0-26.9,adult Start:14-Jan-2019 Instruction Type:Provider Instructions for Treatment How to access health informa tion online Indication:Current non-smoker Start:09-Nov-2018 Instruction Type:Patient Education How to access health informa tion online - Detail Indication:Current non-smoker Start:09-Nov-2018 Instruction Type:Patient Education Patient Instructions Indication:Current non-smoker Start:09-Nov-2018 Instruction Type:Provider Instructions for Treatment How to access health informa tion online Indication:BMI 24.0-24.9, adult Start:16-Jul-2017 Instruction Type:Patient Education How to access health informa tion online - Detail Indication:BMI 24.0-24.9, adult Start:16-Jul-2017 Instruction Type:Patient Education Patient Instructions Indication:BMI 24.0-24.9, adult Start:16-Jul-2017 Instruction Type:Provider Instructions for Treatment How to access health informa tion online Indication:Current non-smoker Start:07-May-2017 Instruction Type:Patient Education How to access health informa tion online - Detail Indication:Current non-smoker Start:07-May-2017 Instruction Type:Patient Education Patient Instructions Indication:Current non-smoker Start:07-May-2017 Instruction Type:Provider Instructions for Treatment How to access health informa tion online Indication:Elevated blood-pressure reading without diagnosis of hypertension Start:02-Apr-2017 Instruction Type:Patient Education How to access health informa tion online - Detail Indication:Elevated blood-pressure reading without diagnosis of hypertension Start:02-Apr-2017 Instruction Type:Patient Education Patient Instructions Indication:Elevated blood-pressure reading without diagnosis of hypertension Start:02-Apr-2017 Instruction Type:Provider Instructions for Treatment How to access health informa tion online Indication:BMI 27.0-27.9,adult Start:01-Aug-2016 Instruction Type:Patient Education How to access health informa tion online - Detail Indication:BMI 27.0-27.9,adult Start:01-Aug-2016 Instruction Type:Patient Education Patient Instructions Indication:BMI 27.0-27.9,adult Start:01-Aug-2016 Instruction Type:Provider Instructions for Treatment How to access health informa tion online Indication:Elevated blood-pressure reading without diagnosis of hypertension Start:17-Jul-2016 Instruction Type:Patient Education How to access health informa tion online - Detail Indication:Elevated blood-pressure reading without diagnosis of hypertension Start:17-Jul-2016 Instruction Type:Patient Education Patient Instructions Indication:Elevated blood-pressure reading without diagnosis of hypertension Start:17-Jul-2016 Instruction Type:Provider Instructions for Treatment Patient Instructions Indication:Muscle strain Start:24-Jun-2016 Instruction Type:Provider Instructions for Treatment How to access health informa tion online Indication:PALPITATIONS (Renamed from Awareness of heartbeats) Start:07-Jul-2015 Instruction Type:Patient Education How to access health informa tion online - Detail Indication:PALPITATIONS (Renamed from Awareness of heartbeats) Start:07-Jul-2015 Instruction Type:Patient Education Patient Instructions Indication:PALPITATIONS (Renamed from Awareness of heartbeats) Start:07-Jul-2015 Instruction Type:Provider Instructions for Treatment Patient Instructions Indication:Epigastric Pain (Renamed from Abdominal pain, epigastric) Start:29-Mar-2014 Instruction Type:Provider Instructions for Treatment How to access health informa tion online Indication:Epigastric Pain (Renamed from Abdominal pain, epigastric) Start:14-Mar-2014 Instruction Type:Patient Education How to access health informa tion online - Detail Indication:Epigastric Pain (Renamed from Abdominal pain, epigastric) Start:14-Mar-2014 Instruction Type:Patient Education Patient Instructions Indication:Epigastric Pain (Renamed from Abdominal pain, epigastric) Start:14-Mar-2014 Instruction Type:Provider Instructions for Treatment Patient Instructions Indication:Elevated blood-pressure reading without diagnosis of hypertension Start:27-Apr-2013 Instruction Type:Provider Instructions for Treatment [facility] Work Phone: reason for referral (narrative)No reason for referral information availableAs[facility] Work Phone: Summary Purpose Family History No Family History Records FoundUnknown Family Member Name Dates Details Father Comments:CVA X 3, PVD, smoke r Status:Active Non-Contributory Family Hist ory Status:Active Unknown Family Member Name Dates Details Father Comments:CVA X 3, PVD, smoke r Status:Active Non-Contributory Family Hist ory Status:Active Unknown Family Member Name Dates Details Father Comments:CVA X 3, PVD, smoke r Status:Active Non-Contributory Family Hist ory Status:Active Unknown Family Member Name Dates Details Father Comments:CVA X 3, PVD, smoke r Status:Active Non-Contributory Family Hist ory Status:Active Unknown Family Member Name Dates Details Father Comments:CVA X 3, PVD, smoke r Status:Active Non-Contributory Family Hist ory Status:Active Unknown Family Member Name Dates Details Father Comments:CVA X 3, PVD, smoke r Status:Active Non-Contributory Family Hist ory Status:Active Unknown Family Member Name Dates Details Father Comments:CVA X 3, PVD, smoke r Status:Active Non-Contributory Family Hist ory Status:Active Unknown Family Member Name Dates Details Father Comments:CVA X 3, PVD, smoke r Status:Active Non-Contributory Family Hist ory Status:Active Unknown Family Member Name Dates Details Father Comments:CVA X 3, PVD, smoke r Status:Active Non-Contributory Family Hist ory Status:Active Unknown Family Member Name Dates Details Father Comments:CVA X 3, PVD, smoke r Status:Active Non-Contributory Family Hist ory Status:Active Unknown Family Member Name Dates Details Father Comments:CVA X 3, PVD, smoke r Status:Active Non-Contributory Family Hist ory Status:Active Unknown Family Member Name Dates Details Father Comments:CVA X 3, PVD, smoke r Status:Active Non-Contributory Family Hist ory Status:Active Unknown Family Member Name Dates Details Father Comments:CVA X 3, PVD, smoke r Status:Active Non-Contributory Family Hist ory Status:Active Unknown Family Member Name Dates Details Father Comments:CVA X 3, PVD, smoke r Status:Active Non-Contributory Family Hist ory Status:Active Unknown Family Member Name Dates Details Father Comments:CVA X 3, PVD, smoke r Status:Active Non-Contributory Family Hist ory Status:Active Unknown Family Member Name Dates Details Father Comments:CVA X 3, PVD, smoke r Status:Active Non-Contributory Family Hist ory Status:Active Unknown Family Member Name Dates Details Father Comments:CVA X 3, PVD, smoke r Status:Active Non-Contributory Family Hist ory Status:Active Unknown Family Member Name Dates Details Father Comments:CVA X 3, PVD, smoke r Status:Active Non-Contributory Family Hist ory Status:Active Unknown Family Member Name Dates Details Father Comments:CVA X 3, PVD, smoke r Status:Active Non-Contributory Family Hist ory Status:Active Unknown Family Member Name Dates Details Father Comments:CVA X 3, PVD, smoke r Status:Active Non-Contributory Family Hist ory Status:Active Unknown Family Member Name Dates Details Father Comments:CVA X 3, PVD, smoke r Status:Active Non-Contributory Family Hist ory Status:Active Unknown Family Member Name Dates Details Father Comments:CVA X 3, PVD, smoke r Status:Active Non-Contributory Family Hist ory Status:Active Unknown Family Member Name Dates Details Father Comments:CVA X 3, PVD, smoke r Status:Active Non-Contributory Family Hist ory Status:Active Unknown Family Member Name Dates Details Father Comments:CVA X 3, PVD, smoke r Status:Active Non-Contributory Family Hist ory Status:Active Unknown Family Member Name Dates Details Father Comments:CVA X 3, PVD, smoke r Status:Active Non-Contributory Family Hist ory Status:Active Unknown Family Member Name Dates Details Father Comments:CVA X 3, PVD, smoke r Status:Active Non-Contributory Family Hist ory Status:Active Unknown Family Member Name Dates Details Father Comments:CVA X 3, PVD, smoke r Status:Active Non-Contributory Family Hist ory Status:Active Unknown Family Member Name Dates Details Father Comments:CVA X 3, PVD, smoke r Status:Active Non-Contributory Family Hist ory Status:Active Unknown Family Member Name Dates Details Father Comments:CVA X 3, PVD, smoke r Status:Active Non-Contributory Family Hist ory Status:Active Unknown Family Member Name Dates Details Father Comments:CVA X 3, PVD, smoke r Status:Active Non-Contributory Family Hist ory Status:Active Relationship Condition Age at Onset Recorded Date/T chela father Alcoholism Unknown Myocardial infarction Unknown Cardiac disease Unknown Hypertension Unknown Malignant melanoma Unknown Cerebrovascular accident (CVA) Unknown Advance Directives No Advanced Directives Records Found Name Dates Details Immunization Registry [place] - Effective on 11/16/2020. Expiration date unspecified Effective:16-Nov-2020 Name Dates Details Immunization Registry [place] - Effective on 11/16/2020. Expiration date unspecified Effective:16-Nov-2020 Name Dates Details Immunization Registry [place] - Effective on 11/16/2020. Expiration date unspecified Effective:16-Nov-2020 Name Dates Details Immunization [facility] [place] - Effective on 11/16/2020. Expiration date unspecified Effective:16-Nov-2020 Name Dates Details Immunization [facility] [place] - Effective on 11/16/2020. Expiration date unspecified Effective:16-Nov-2020 Name Dates Details Immunization [facility] [place] - Effective on 11/16/2020. Expiration date unspecified Effective:16-Nov-2020 Name Dates Details Immunization [facility] [place] - Effective on 11/16/2020. Expiration date unspecified Effective:16-Nov-2020 Name Dates Details Immunization [facility] [place] - Effective on 11/16/2020. Expiration date unspecified Effective:16-Nov-2020 Name Dates Details Immunization [facility] [place] - Effective on 11/16/2020. Expiration date unspecified Effective:16-Nov-2020 Name Dates Details Immunization [facility] [place] - Effective on 11/16/2020. Expiration date unspecified Effective:16-Nov-2020 Instructions Name Dates Details BMI 24.0-24.9, adult : How t o access health information online Indication:BMI 24.0-24.9, adult BMI 24.0-24.9, adult : How t o access health information online - Detail Indication:BMI 24.0-24.9, adult BMI 24.0-24.9, adult : Patie nt Instructions Indication:BMI 24.0-24.9, adult Current non-smoker : How to access health information online Indication:Current non-smoker Current non-smoker : How to access health information online - Detail Indication:Current non-smoker Current non-smoker : Patient Instructions Indication:Current non-smoker Elevated blood-pressure read ing without diagnosis of hypertension : How to access health information online Indication:Elevated blood-pressure reading without diagnosis of hypertension Elevated blood-pressure read ing without diagnosis of hypertension : How to access health information online - Detail Indication:Elevated blood-pressure reading without diagnosis of hypertension Elevated blood-pressure read ing without diagnosis of hypertension : Patient Instructions Indication:Elevated blood-pressure reading without diagnosis of hypertension BMI 27.0-27.9,adult : How to access health information online Indication:BMI 27.0-27.9,adult BMI 27.0-27.9,adult : How to access health information online - Detail Indication:BMI 27.0-27.9,adult BMI 27.0-27.9,adult : Yaraen t Instructions Indication:BMI 27.0-27.9,adult Muscle strain : Patient Inst ructions Indication:Muscle strain PALPITATIONS (Renamed from A wareness of heartbeats) : How to access health information online Indication:PALPITATIONS (Renamed from Awareness of heartbeats) PALPITATIONS (Renamed from A wareness of heartbeats) : How to access health information online - Detail Indication:PALPITATIONS (Renamed from Awareness of heartbeats) PALPITATIONS (Renamed from A wareness of heartbeats) : Patient Instructions Indication:PALPITATIONS (Renamed from Awareness of heartbeats) Epigastric Pain (Renamed fro m Abdominal pain, epigastric) : Patient Instructions Indication:Epigastric Pain (Renamed from Abdominal pain, epigastric) Epigastric Pain (Renamed fro m Abdominal pain, epigastric) : How to access health information online Indication:Epigastric Pain (Renamed from Abdominal pain, epigastric) Epigastric Pain (Renamed fro m Abdominal pain, epigastric) : How to access health information online - Detail Indication:Epigastric Pain (Renamed from Abdominal pain, epigastric) Name Dates Details Current non-smoker : How to access health information online Indication:Current non-smoker Current non-smoker : How to access health information online - Detail Indication:Current non-smoker Current non-smoker : Patient Instructions Indication:Current non-smoker BMI 24.0-24.9, adult : How t o access health information online Indication:BMI 24.0-24.9, adult BMI 24.0-24.9, adult : How t o access health information online - Detail Indication:BMI 24.0-24.9, adult BMI 24.0-24.9, adult : Patijazmyn nt Instructions Indication:BMI 24.0-24.9, adult Elevated blood-pressure read ing without diagnosis of hypertension : How to access health information online Indication:Elevated blood-pressure reading without diagnosis of hypertension Elevated blood-pressure read ing without diagnosis of hypertension : How to access health information online - Detail Indication:Elevated blood-pressure reading without diagnosis of hypertension Elevated blood-pressure read ing without diagnosis of hypertension : Patient Instructions Indication:Elevated blood-pressure reading without diagnosis of hypertension BMI 27.0-27.9,adult : How to access health information online Indication:BMI 27.0-27.9,adult BMI 27.0-27.9,adult : How to access health information online - Detail Indication:BMI 27.0-27.9,adult BMI 27.0-27.9,adult : Patien t Instructions Indication:BMI 27.0-27.9,adult Muscle strain : Patient Inst ructions Indication:Muscle strain PALPITATIONS (Renamed from A wareness of heartbeats) : How to access health information online Indication:PALPITATIONS (Renamed from Awareness of heartbeats) PALPITATIONS (Renamed from A wareness of heartbeats) : How to access health information online - Detail Indication:PALPITATIONS (Renamed from Awareness of heartbeats) PALPITATIONS (Renamed from A wareness of heartbeats) : Patient Instructions Indication:PALPITATIONS (Renamed from Awareness of heartbeats) Epigastric Pain (Renamed fro m Abdominal pain, epigastric) : Patient Instructions Indication:Epigastric Pain (Renamed from Abdominal pain, epigastric) Epigastric Pain (Renamed fro m Abdominal pain, epigastric) : How to access health information online Indication:Epigastric Pain (Renamed from Abdominal pain, epigastric) Epigastric Pain (Renamed fro m Abdominal pain, epigastric) : How to access health information online - Detail Indication:Epigastric Pain (Renamed from Abdominal pain, epigastric) Name Dates Details How to access health informa tion online Indication:Current non-smoker Start:09-Nov-2018 Instruction Type:Patient Education How to access health informa tion online - Detail Indication:Current non-smoker Start:09-Nov-2018 Instruction Type:Patient Education Patient Instructions Indication:Current non-smoker Start:09-Nov-2018 Instruction Type:Provider Instructions for Treatment How to access health informa tion online Indication:BMI 24.0-24.9, adult Start:16-Jul-2017 Instruction Type:Patient Education How to access health informa tion online - Detail Indication:BMI 24.0-24.9, adult Start:16-Jul-2017 Instruction Type:Patient Education Patient Instructions Indication:BMI 24.0-24.9, adult Start:16-Jul-2017 Instruction Type:Provider Instructions for Treatment How to access health informa tion online Indication:Current non-smoker Start:07-May-2017 Instruction Type:Patient Education How to access health informa tion online - Detail Indication:Current non-smoker Start:07-May-2017 Instruction Type:Patient Education Patient Instructions Indication:Current non-smoker Start:07-May-2017 Instruction Type:Provider Instructions for Treatment How to access health informa tion online Indication:Elevated blood-pressure reading without diagnosis of hypertension Start:02-Apr-2017 Instruction Type:Patient Education How to access health informa tion online - Detail Indication:Elevated blood-pressure reading without diagnosis of hypertension Start:02-Apr-2017 Instruction Type:Patient Education Patient Instructions Indication:Elevated blood-pressure reading without diagnosis of hypertension Start:02-Apr-2017 Instruction Type:Provider Instructions for Treatment How to access health informa tion online Indication:BMI 27.0-27.9,adult Start:01-Aug-2016 Instruction Type:Patient Education How to access health informa tion online - Detail Indication:BMI 27.0-27.9,adult Start:01-Aug-2016 Instruction Type:Patient Education Patient Instructions Indication:BMI 27.0-27.9,adult Start:01-Aug-2016 Instruction Type:Provider Instructions for Treatment How to access health informa tion online Indication:Elevated blood-pressure reading without diagnosis of hypertension Start:17-Jul-2016 Instruction Type:Patient Education How to access health informa tion online - Detail Indication:Elevated blood-pressure reading without diagnosis of hypertension Start:17-Jul-2016 Instruction Type:Patient Education Patient Instructions Indication:Elevated blood-pressure reading without diagnosis of hypertension Start:17-Jul-2016 Instruction Type:Provider Instructions for Treatment Patient Instructions Indication:Muscle strain Start:24-Jun-2016 Instruction Type:Provider Instructions for Treatment How to access health informa tion online Indication:PALPITATIONS (Renamed from Awareness of heartbeats) Start:07-Jul-2015 Instruction Type:Patient Education How to access health informa tion online - Detail Indication:PALPITATIONS (Renamed from Awareness of heartbeats) Start:07-Jul-2015 Instruction Type:Patient Education Patient Instructions Indication:PALPITATIONS (Renamed from Awareness of heartbeats) Start:07-Jul-2015 Instruction Type:Provider Instructions for Treatment Patient Instructions Indication:Epigastric Pain (Renamed from Abdominal pain, epigastric) Start:29-Mar-2014 Instruction Type:Provider Instructions for Treatment How to access health informa tion online Indication:Epigastric Pain (Renamed from Abdominal pain, epigastric) Start:14-Mar-2014 Instruction Type:Patient Education How to access health informa tion online - Detail Indication:Epigastric Pain (Renamed from Abdominal pain, epigastric) Start:14-Mar-2014 Instruction Type:Patient Education Patient Instructions Indication:Epigastric Pain (Renamed from Abdominal pain, epigastric) Start:14-Mar-2014 Instruction Type:Provider Instructions for Treatment Patient Instructions Indication:Elevated blood-pressure reading without diagnosis of hypertension Start:27-Apr-2013 Instruction Type:Provider Instructions for Treatment Name Dates Details How to access health informa tion online Indication:BMI 26.0-26.9,adult Start:14-Jan-2019 Instruction Type:Patient Education How to access health informa tion online - Detail Indication:BMI 26.0-26.9,adult Start:14-Jan-2019 Instruction Type:Patient Education Patient Instructions Indication:BMI 26.0-26.9,adult Start:14-Jan-2019 Instruction Type:Provider Instructions for Treatment How to access health informa tion online Indication:Current non-smoker Start:09-Nov-2018 Instruction Type:Patient Education How to access health informa tion online - Detail Indication:Current non-smoker Start:09-Nov-2018 Instruction Type:Patient Education Patient Instructions Indication:Current non-smoker Start:09-Nov-2018 Instruction Type:Provider Instructions for Treatment How to access health informa tion online Indication:BMI 24.0-24.9, adult Start:16-Jul-2017 Instruction Type:Patient Education How to access health informa tion online - Detail Indication:BMI 24.0-24.9, adult Start:16-Jul-2017 Instruction Type:Patient Education Patient Instructions Indication:BMI 24.0-24.9, adult Start:16-Jul-2017 Instruction Type:Provider Instructions for Treatment How to access health informa tion online Indication:Current non-smoker Start:07-May-2017 Instruction Type:Patient Education How to access health informa tion online - Detail Indication:Current non-smoker Start:07-May-2017 Instruction Type:Patient Education Patient Instructions Indication:Current non-smoker Start:07-May-2017 Instruction Type:Provider Instructions for Treatment How to access health informa tion online Indication:Elevated blood-pressure reading without diagnosis of hypertension Start:02-Apr-2017 Instruction Type:Patient Education How to access health informa tion online - Detail Indication:Elevated blood-pressure reading without diagnosis of hypertension Start:02-Apr-2017 Instruction Type:Patient Education Patient Instructions Indication:Elevated blood-pressure reading without diagnosis of hypertension Start:02-Apr-2017 Instruction Type:Provider Instructions for Treatment How to access health informa tion online Indication:BMI 27.0-27.9,adult Start:01-Aug-2016 Instruction Type:Patient Education How to access health informa tion online - Detail Indication:BMI 27.0-27.9,adult Start:01-Aug-2016 Instruction Type:Patient Education Patient Instructions Indication:BMI 27.0-27.9,adult Start:01-Aug-2016 Instruction Type:Provider Instructions for Treatment How to access health informa tion online Indication:Elevated blood-pressure reading without diagnosis of hypertension Start:17-Jul-2016 Instruction Type:Patient Education How to access health informa tion online - Detail Indication:Elevated blood-pressure reading without diagnosis of hypertension Start:17-Jul-2016 Instruction Type:Patient Education Patient Instructions Indication:Elevated blood-pressure reading without diagnosis of hypertension Start:17-Jul-2016 Instruction Type:Provider Instructions for Treatment Patient Instructions Indication:Muscle strain Start:24-Jun-2016 Instruction Type:Provider Instructions for Treatment How to access health informa tion online Indication:PALPITATIONS (Renamed from Awareness of heartbeats) Start:07-Jul-2015 Instruction Type:Patient Education How to access health informa tion online - Detail Indication:PALPITATIONS (Renamed from Awareness of heartbeats) Start:07-Jul-2015 Instruction Type:Patient Education Patient Instructions Indication:PALPITATIONS (Renamed from Awareness of heartbeats) Start:07-Jul-2015 Instruction Type:Provider Instructions for Treatment Patient Instructions Indication:Epigastric Pain (Renamed from Abdominal pain, epigastric) Start:29-Mar-2014 Instruction Type:Provider Instructions for Treatment How to access health informa tion online Indication:Epigastric Pain (Renamed from Abdominal pain, epigastric) Start:14-Mar-2014 Instruction Type:Patient Education How to access health informa tion online - Detail Indication:Epigastric Pain (Renamed from Abdominal pain, epigastric) Start:14-Mar-2014 Instruction Type:Patient Education Patient Instructions Indication:Epigastric Pain (Renamed from Abdominal pain, epigastric) Start:14-Mar-2014 Instruction Type:Provider Instructions for Treatment Patient Instructions Indication:Elevated blood-pressure reading without diagnosis of hypertension Start:27-Apr-2013 Instruction Type:Provider Instructions for Treatment Name Dates Details How to access health informa tion online Indication:Current non-smoker Start:10-Feb-2019 Instruction Type:Patient Education How to access health informa tion online - Detail Indication:Current non-smoker Start:10-Feb-2019 Instruction Type:Patient Education Patient Instructions Indication:Current non-smoker Start:10-Feb-2019 Instruction Type:Provider Instructions for Treatment How to access health informa tion online Indication:BMI 26.0-26.9,adult Start:14-Jan-2019 Instruction Type:Patient Education How to access health informa tion online - Detail Indication:BMI 26.0-26.9,adult Start:14-Jan-2019 Instruction Type:Patient Education Patient Instructions Indication:BMI 26.0-26.9,adult Start:14-Jan-2019 Instruction Type:Provider Instructions for Treatment How to access health informa tion online Indication:Current non-smoker Start:09-Nov-2018 Instruction Type:Patient Education How to access health informa tion online - Detail Indication:Current non-smoker Start:09-Nov-2018 Instruction Type:Patient Education Patient Instructions Indication:Current non-smoker Start:09-Nov-2018 Instruction Type:Provider Instructions for Treatment How to access health informa tion online Indication:BMI 24.0-24.9, adult Start:16-Jul-2017 Instruction Type:Patient Education How to access health informa tion online - Detail Indication:BMI 24.0-24.9, adult Start:16-Jul-2017 Instruction Type:Patient Education Patient Instructions Indication:BMI 24.0-24.9, adult Start:16-Jul-2017 Instruction Type:Provider Instructions for Treatment How to access health informa tion online Indication:Current non-smoker Start:07-May-2017 Instruction Type:Patient Education How to access health informa tion online - Detail Indication:Current non-smoker Start:07-May-2017 Instruction Type:Patient Education Patient Instructions Indication:Current non-smoker Start:07-May-2017 Instruction Type:Provider Instructions for Treatment How to access health informa tion online Indication:Elevated blood-pressure reading without diagnosis of hypertension Start:02-Apr-2017 Instruction Type:Patient Education How to access health informa tion online - Detail Indication:Elevated blood-pressure reading without diagnosis of hypertension Start:02-Apr-2017 Instruction Type:Patient Education Patient Instructions Indication:Elevated blood-pressure reading without diagnosis of hypertension Start:02-Apr-2017 Instruction Type:Provider Instructions for Treatment How to access health informa tion online Indication:BMI 27.0-27.9,adult Start:01-Aug-2016 Instruction Type:Patient Education How to access health informa tion online - Detail Indication:BMI 27.0-27.9,adult Start:01-Aug-2016 Instruction Type:Patient Education Patient Instructions Indication:BMI 27.0-27.9,adult Start:01-Aug-2016 Instruction Type:Provider Instructions for Treatment How to access health informa tion online Indication:Elevated blood-pressure reading without diagnosis of hypertension Start:17-Jul-2016 Instruction Type:Patient Education How to access health informa tion online - Detail Indication:Elevated blood-pressure reading without diagnosis of hypertension Start:17-Jul-2016 Instruction Type:Patient Education Patient Instructions Indication:Elevated blood-pressure reading without diagnosis of hypertension Start:17-Jul-2016 Instruction Type:Provider Instructions for Treatment Patient Instructions Indication:Muscle strain Start:24-Jun-2016 Instruction Type:Provider Instructions for Treatment How to access health informa tion online Indication:PALPITATIONS (Renamed from Awareness of heartbeats) Start:07-Jul-2015 Instruction Type:Patient Education How to access health informa tion online - Detail Indication:PALPITATIONS (Renamed from Awareness of heartbeats) Start:07-Jul-2015 Instruction Type:Patient Education Patient Instructions Indication:PALPITATIONS (Renamed from Awareness of heartbeats) Start:07-Jul-2015 Instruction Type:Provider Instructions for Treatment Patient Instructions Indication:Epigastric Pain (Renamed from Abdominal pain, epigastric) Start:29-Mar-2014 Instruction Type:Provider Instructions for Treatment How to access health informa tion online Indication:Epigastric Pain (Renamed from Abdominal pain, epigastric) Start:14-Mar-2014 Instruction Type:Patient Education How to access health informa tion online - Detail Indication:Epigastric Pain (Renamed from Abdominal pain, epigastric) Start:14-Mar-2014 Instruction Type:Patient Education Patient Instructions Indication:Epigastric Pain (Renamed from Abdominal pain, epigastric) Start:14-Mar-2014 Instruction Type:Provider Instructions for Treatment Patient Instructions Indication:Elevated blood-pressure reading without diagnosis of hypertension Start:27-Apr-2013 Instruction Type:Provider Instructions for Treatment Name Dates Details How to access health informa tion online Indication:Current non-smoker Start:21-Jul-2020 Instruction Type:Patient Education How to access health informa tion online - Detail Indication:Current non-smoker Start:21-Jul-2020 Instruction Type:Patient Education Patient Instructions Indication:Current non-smoker Start:21-Jul-2020 Instruction Type:Provider Instructions for Treatment How to access health informa tion online Indication:Current non-smoker Start:03-Jan-2020 Instruction Type:Patient Education How to access health informa tion online - Detail Indication:Current non-smoker Start:03-Jan-2020 Instruction Type:Patient Education Patient Instructions Indication:Current non-smoker Start:03-Jan-2020 Instruction Type:Provider Instructions for Treatment How to access health informa tion online Indication:BMI 27.0-27.9,adult Start:27-Aug-2019 Instruction Type:Patient Education How to access health informa tion online - Detail Indication:BMI 27.0-27.9,adult Start:27-Aug-2019 Instruction Type:Patient Education Patient Instructions Indication:BMI 27.0-27.9,adult Start:27-Aug-2019 Instruction Type:Provider Instructions for Treatment How to access health informa tion online - Detail Indication:Current non-smoker Start:15-Mar-2019 Instruction Type:Patient Education Patient Instructions Indication:Current non-smoker Start:15-Mar-2019 Instruction Type:Provider Instructions for Treatment How to access health informa tion online Indication:Current non-smoker Start:10-Feb-2019 Instruction Type:Patient Education How to access health informa tion online - Detail Indication:Current non-smoker Start:10-Feb-2019 Instruction Type:Patient Education Patient Instructions Indication:Current non-smoker Start:10-Feb-2019 Instruction Type:Provider Instructions for Treatment How to access health informa tion online Indication:BMI 26.0-26.9,adult Start:14-Jan-2019 Instruction Type:Patient Education How to access health informa tion online - Detail Indication:BMI 26.0-26.9,adult Start:14-Jan-2019 Instruction Type:Patient Education Patient Instructions Indication:BMI 26.0-26.9,adult Start:14-Jan-2019 Instruction Type:Provider Instructions for Treatment How to access health informa tion online Indication:Current non-smoker Start:09-Nov-2018 Instruction Type:Patient Education How to access health informa tion online - Detail Indication:Current non-smoker Start:09-Nov-2018 Instruction Type:Patient Education Patient Instructions Indication:Current non-smoker Start:09-Nov-2018 Instruction Type:Provider Instructions for Treatment How to access health informa tion online Indication:BMI 24.0-24.9, adult Start:16-Jul-2017 Instruction Type:Patient Education How to access health informa tion online - Detail Indication:BMI 24.0-24.9, adult Start:16-Jul-2017 Instruction Type:Patient Education Patient Instructions Indication:BMI 24.0-24.9, adult Start:16-Jul-2017 Instruction Type:Provider Instructions for Treatment How to access health informa tion online Indication:Current non-smoker Start:07-May-2017 Instruction Type:Patient Education How to access health informa tion online - Detail Indication:Current non-smoker Start:07-May-2017 Instruction Type:Patient Education Patient Instructions Indication:Current non-smoker Start:07-May-2017 Instruction Type:Provider Instructions for Treatment How to access health informa tion online Indication:Elevated blood-pressure reading without diagnosis of hypertension Start:02-Apr-2017 Instruction Type:Patient Education How to access health informa tion online - Detail Indication:Elevated blood-pressure reading without diagnosis of hypertension Start:02-Apr-2017 Instruction Type:Patient Education Patient Instructions Indication:Elevated blood-pressure reading without diagnosis of hypertension Start:02-Apr-2017 Instruction Type:Provider Instructions for Treatment How to access health informa tion online Indication:BMI 27.0-27.9,adult Start:01-Aug-2016 Instruction Type:Patient Education How to access health informa tion online - Detail Indication:BMI 27.0-27.9,adult Start:01-Aug-2016 Instruction Type:Patient Education Patient Instructions Indication:BMI 27.0-27.9,adult Start:01-Aug-2016 Instruction Type:Provider Instructions for Treatment How to access health informa tion online Indication:Elevated blood-pressure reading without diagnosis of hypertension Start:17-Jul-2016 Instruction Type:Patient Education How to access health informa tion online - Detail Indication:Elevated blood-pressure reading without diagnosis of hypertension Start:17-Jul-2016 Instruction Type:Patient Education Patient Instructions Indication:Elevated blood-pressure reading without diagnosis of hypertension Start:17-Jul-2016 Instruction Type:Provider Instructions for Treatment Patient Instructions Indication:Muscle strain Start:24-Jun-2016 Instruction Type:Provider Instructions for Treatment How to access health informa tion online Indication:PALPITATIONS (Renamed from Awareness of heartbeats) Start:07-Jul-2015 Instruction Type:Patient Education How to access health informa tion online - Detail Indication:PALPITATIONS (Renamed from Awareness of heartbeats) Start:07-Jul-2015 Instruction Type:Patient Education Patient Instructions Indication:PALPITATIONS (Renamed from Awareness of heartbeats) Start:07-Jul-2015 Instruction Type:Provider Instructions for Treatment Patient Instructions Indication:Epigastric Pain (Renamed from Abdominal pain, epigastric) Start:29-Mar-2014 Instruction Type:Provider Instructions for Treatment How to access health informa tion online Indication:Epigastric Pain (Renamed from Abdominal pain, epigastric) Start:14-Mar-2014 Instruction Type:Patient Education How to access health informa tion online - Detail Indication:Epigastric Pain (Renamed from Abdominal pain, epigastric) Start:14-Mar-2014 Instruction Type:Patient Education Patient Instructions Indication:Epigastric Pain (Renamed from Abdominal pain, epigastric) Start:14-Mar-2014 Instruction Type:Provider Instructions for Treatment Patient Instructions Indication:Elevated blood-pressure reading without diagnosis of hypertension Start:27-Apr-2013 Instruction Type:Provider Instructions for Treatment Name Dates Details How to access health informa tion online Indication:Current non-smoker Start:21-Jul-2020 Instruction Type:Patient Education How to access health informa tion online - Detail Indication:Current non-smoker Start:21-Jul-2020 Instruction Type:Patient Education Patient Instructions Indication:Current non-smoker Start:21-Jul-2020 Instruction Type:Provider Instructions for Treatment How to access health informa tion online Indication:Current non-smoker Start:03-Jan-2020 Instruction Type:Patient Education How to access health informa tion online - Detail Indication:Current non-smoker Start:03-Jan-2020 Instruction Type:Patient Education Patient Instructions Indication:Current non-smoker Start:03-Jan-2020 Instruction Type:Provider Instructions for Treatment How to access health informa tion online Indication:BMI 27.0-27.9,adult Start:27-Aug-2019 Instruction Type:Patient Education How to access health informa tion online - Detail Indication:BMI 27.0-27.9,adult Start:27-Aug-2019 Instruction Type:Patient Education Patient Instructions Indication:BMI 27.0-27.9,adult Start:27-Aug-2019 Instruction Type:Provider Instructions for Treatment How to access health informa tion online - Detail Indication:Current non-smoker Start:15-Mar-2019 Instruction Type:Patient Education Patient Instructions Indication:Current non-smoker Start:15-Mar-2019 Instruction Type:Provider Instructions for Treatment How to access health informa tion online Indication:Current non-smoker Start:10-Feb-2019 Instruction Type:Patient Education How to access health informa tion online - Detail Indication:Current non-smoker Start:10-Feb-2019 Instruction Type:Patient Education Patient Instructions Indication:Current non-smoker Start:10-Feb-2019 Instruction Type:Provider Instructions for Treatment How to access health informa tion online Indication:BMI 26.0-26.9,adult Start:14-Jan-2019 Instruction Type:Patient Education How to access health informa tion online - Detail Indication:BMI 26.0-26.9,adult Start:14-Jan-2019 Instruction Type:Patient Education Patient Instructions Indication:BMI 26.0-26.9,adult Start:14-Jan-2019 Instruction Type:Provider Instructions for Treatment How to access health informa tion online Indication:Current non-smoker Start:09-Nov-2018 Instruction Type:Patient Education How to access health informa tion online - Detail Indication:Current non-smoker Start:09-Nov-2018 Instruction Type:Patient Education Patient Instructions Indication:Current non-smoker Start:09-Nov-2018 Instruction Type:Provider Instructions for Treatment How to access health informa tion online Indication:BMI 24.0-24.9, adult Start:16-Jul-2017 Instruction Type:Patient Education How to access health informa tion online - Detail Indication:BMI 24.0-24.9, adult Start:16-Jul-2017 Instruction Type:Patient Education Patient Instructions Indication:BMI 24.0-24.9, adult Start:16-Jul-2017 Instruction Type:Provider Instructions for Treatment How to access health informa tion online Indication:Current non-smoker Start:07-May-2017 Instruction Type:Patient Education How to access health informa tion online - Detail Indication:Current non-smoker Start:07-May-2017 Instruction Type:Patient Education Patient Instructions Indication:Current non-smoker Start:07-May-2017 Instruction Type:Provider Instructions for Treatment How to access health informa tion online Indication:Elevated blood-pressure reading without diagnosis of hypertension Start:02-Apr-2017 Instruction Type:Patient Education How to access health informa tion online - Detail Indication:Elevated blood-pressure reading without diagnosis of hypertension Start:02-Apr-2017 Instruction Type:Patient Education Patient Instructions Indication:Elevated blood-pressure reading without diagnosis of hypertension Start:02-Apr-2017 Instruction Type:Provider Instructions for Treatment How to access health informa tion online Indication:BMI 27.0-27.9,adult Start:01-Aug-2016 Instruction Type:Patient Education How to access health informa tion online - Detail Indication:BMI 27.0-27.9,adult Start:01-Aug-2016 Instruction Type:Patient Education Patient Instructions Indication:BMI 27.0-27.9,adult Start:01-Aug-2016 Instruction Type:Provider Instructions for Treatment How to access health informa tion online Indication:Elevated blood-pressure reading without diagnosis of hypertension Start:17-Jul-2016 Instruction Type:Patient Education How to access health informa tion online - Detail Indication:Elevated blood-pressure reading without diagnosis of hypertension Start:17-Jul-2016 Instruction Type:Patient Education Patient Instructions Indication:Elevated blood-pressure reading without diagnosis of hypertension Start:17-Jul-2016 Instruction Type:Provider Instructions for Treatment Patient Instructions Indication:Muscle strain Start:24-Jun-2016 Instruction Type:Provider Instructions for Treatment How to access health informa tion online Indication:PALPITATIONS (Renamed from Awareness of heartbeats) Start:07-Jul-2015 Instruction Type:Patient Education How to access health informa tion online - Detail Indication:PALPITATIONS (Renamed from Awareness of heartbeats) Start:07-Jul-2015 Instruction Type:Patient Education Patient Instructions Indication:PALPITATIONS (Renamed from Awareness of heartbeats) Start:07-Jul-2015 Instruction Type:Provider Instructions for Treatment Patient Instructions Indication:Epigastric Pain (Renamed from Abdominal pain, epigastric) Start:29-Mar-2014 Instruction Type:Provider Instructions for Treatment How to access health informa tion online Indication:Epigastric Pain (Renamed from Abdominal pain, epigastric) Start:14-Mar-2014 Instruction Type:Patient Education How to access health informa tion online - Detail Indication:Epigastric Pain (Renamed from Abdominal pain, epigastric) Start:14-Mar-2014 Instruction Type:Patient Education Patient Instructions Indication:Epigastric Pain (Renamed from Abdominal pain, epigastric) Start:14-Mar-2014 Instruction Type:Provider Instructions for Treatment Patient Instructions Indication:Elevated blood-pressure reading without diagnosis of hypertension Start:27-Apr-2013 Instruction Type:Provider Instructions for Treatment Name Dates Details How to Access Health Informa tion Online using Patient Portal and [employer] Apps Indication:Current non-smoker Start:01-Aug-2020 Instruction Type:Patient Education Patient Instructions Indication:Current non-smoker Start:01-Aug-2020 Instruction Type:Provider Instructions for Treatment How to access health informa tion online Indication:Current non-smoker Start:21-Jul-2020 Instruction Type:Patient Education How to access health informa tion online - Detail Indication:Current non-smoker Start:21-Jul-2020 Instruction Type:Patient Education Patient Instructions Indication:Current non-smoker Start:21-Jul-2020 Instruction Type:Provider Instructions for Treatment How to access health informa tion online Indication:Current non-smoker Start:03-Jan-2020 Instruction Type:Patient Education How to access health informa tion online - Detail Indication:Current non-smoker Start:03-Jan-2020 Instruction Type:Patient Education Patient Instructions Indication:Current non-smoker Start:03-Jan-2020 Instruction Type:Provider Instructions for Treatment How to access health informa tion online Indication:BMI 27.0-27.9,adult Start:27-Aug-2019 Instruction Type:Patient Education How to access health informa tion online - Detail Indication:BMI 27.0-27.9,adult Start:27-Aug-2019 Instruction Type:Patient Education Patient Instructions Indication:BMI 27.0-27.9,adult Start:27-Aug-2019 Instruction Type:Provider Instructions for Treatment How to access health informa tion online - Detail Indication:Current non-smoker Start:15-Mar-2019 Instruction Type:Patient Education Patient Instructions Indication:Current non-smoker Start:15-Mar-2019 Instruction Type:Provider Instructions for Treatment How to access health informa tion online Indication:Current non-smoker Start:10-Feb-2019 Instruction Type:Patient Education How to access health informa tion online - Detail Indication:Current non-smoker Start:10-Feb-2019 Instruction Type:Patient Education Patient Instructions Indication:Current non-smoker Start:10-Feb-2019 Instruction Type:Provider Instructions for Treatment How to access health informa tion online Indication:BMI 26.0-26.9,adult Start:14-Jan-2019 Instruction Type:Patient Education How to access health informa tion online - Detail Indication:BMI 26.0-26.9,adult Start:14-Jan-2019 Instruction Type:Patient Education Patient Instructions Indication:BMI 26.0-26.9,adult Start:14-Jan-2019 Instruction Type:Provider Instructions for Treatment How to access health informa tion online Indication:Current non-smoker Start:09-Nov-2018 Instruction Type:Patient Education How to access health informa tion online - Detail Indication:Current non-smoker Start:09-Nov-2018 Instruction Type:Patient Education Patient Instructions Indication:Current non-smoker Start:09-Nov-2018 Instruction Type:Provider Instructions for Treatment How to access health informa tion online Indication:BMI 24.0-24.9, adult Start:16-Jul-2017 Instruction Type:Patient Education How to access health informa tion online - Detail Indication:BMI 24.0-24.9, adult Start:16-Jul-2017 Instruction Type:Patient Education Patient Instructions Indication:BMI 24.0-24.9, adult Start:16-Jul-2017 Instruction Type:Provider Instructions for Treatment How to access health informa tion online Indication:Current non-smoker Start:07-May-2017 Instruction Type:Patient Education How to access health informa tion online - Detail Indication:Current non-smoker Start:07-May-2017 Instruction Type:Patient Education Patient Instructions Indication:Current non-smoker Start:07-May-2017 Instruction Type:Provider Instructions for Treatment How to access health informa tion online Indication:Elevated blood-pressure reading without diagnosis of hypertension Start:02-Apr-2017 Instruction Type:Patient Education How to access health informa tion online - Detail Indication:Elevated blood-pressure reading without diagnosis of hypertension Start:02-Apr-2017 Instruction Type:Patient Education Patient Instructions Indication:Elevated blood-pressure reading without diagnosis of hypertension Start:02-Apr-2017 Instruction Type:Provider Instructions for Treatment How to access health informa tion online Indication:BMI 27.0-27.9,adult Start:01-Aug-2016 Instruction Type:Patient Education How to access health informa tion online - Detail Indication:BMI 27.0-27.9,adult Start:01-Aug-2016 Instruction Type:Patient Education Patient Instructions Indication:BMI 27.0-27.9,adult Start:01-Aug-2016 Instruction Type:Provider Instructions for Treatment How to access health informa tion online Indication:Elevated blood-pressure reading without diagnosis of hypertension Start:17-Jul-2016 Instruction Type:Patient Education How to access health informa tion online - Detail Indication:Elevated blood-pressure reading without diagnosis of hypertension Start:17-Jul-2016 Instruction Type:Patient Education Patient Instructions Indication:Elevated blood-pressure reading without diagnosis of hypertension Start:17-Jul-2016 Instruction Type:Provider Instructions for Treatment Patient Instructions Indication:Muscle strain Start:24-Jun-2016 Instruction Type:Provider Instructions for Treatment How to access health informa tion online Indication:PALPITATIONS (Renamed from Awareness of heartbeats) Start:07-Jul-2015 Instruction Type:Patient Education How to access health informa tion online - Detail Indication:PALPITATIONS (Renamed from Awareness of heartbeats) Start:07-Jul-2015 Instruction Type:Patient Education Patient Instructions Indication:PALPITATIONS (Renamed from Awareness of heartbeats) Start:07-Jul-2015 Instruction Type:Provider Instructions for Treatment Patient Instructions Indication:Epigastric Pain (Renamed from Abdominal pain, epigastric) Start:29-Mar-2014 Instruction Type:Provider Instructions for Treatment How to access health informa tion online Indication:Epigastric Pain (Renamed from Abdominal pain, epigastric) Start:14-Mar-2014 Instruction Type:Patient Education How to access health informa tion online - Detail Indication:Epigastric Pain (Renamed from Abdominal pain, epigastric) Start:14-Mar-2014 Instruction Type:Patient Education Patient Instructions Indication:Epigastric Pain (Renamed from Abdominal pain, epigastric) Start:14-Mar-2014 Instruction Type:Provider Instructions for Treatment Patient Instructions Indication:Elevated blood-pressure reading without diagnosis of hypertension Start:27-Apr-2013 Instruction Type:Provider Instructions for Treatment Name Dates Details How to Access Health Informa tion Online using Patient Portal and [employer] Apps Indication:Current non-smoker Start:01-Aug-2020 Instruction Type:Patient Education Patient Instructions Indication:BMI 28.0-28.9,adult Start:01-Aug-2020 Instruction Type:Provider Instructions for Treatment How to access health informa tion online Indication:Current non-smoker Start:21-Jul-2020 Instruction Type:Patient Education How to access health informa tion online - Detail Indication:Current non-smoker Start:21-Jul-2020 Instruction Type:Patient Education Patient Instructions Indication:Current non-smoker Start:21-Jul-2020 Instruction Type:Provider Instructions for Treatment How to access health informa tion online Indication:Current non-smoker Start:03-Jan-2020 Instruction Type:Patient Education How to access health informa tion online - Detail Indication:Current non-smoker Start:03-Jan-2020 Instruction Type:Patient Education Patient Instructions Indication:Current non-smoker Start:03-Jan-2020 Instruction Type:Provider Instructions for Treatment How to access health informa tion online Indication:BMI 27.0-27.9,adult Start:27-Aug-2019 Instruction Type:Patient Education How to access health informa tion online - Detail Indication:BMI 27.0-27.9,adult Start:27-Aug-2019 Instruction Type:Patient Education Patient Instructions Indication:BMI 27.0-27.9,adult Start:27-Aug-2019 Instruction Type:Provider Instructions for Treatment How to access health informa tion online - Detail Indication:Current non-smoker Start:15-Mar-2019 Instruction Type:Patient Education Patient Instructions Indication:Current non-smoker Start:15-Mar-2019 Instruction Type:Provider Instructions for Treatment How to access health informa tion online Indication:Current non-smoker Start:10-Feb-2019 Instruction Type:Patient Education How to access health informa tion online - Detail Indication:Current non-smoker Start:10-Feb-2019 Instruction Type:Patient Education Patient Instructions Indication:Current non-smoker Start:10-Feb-2019 Instruction Type:Provider Instructions for Treatment How to access health informa tion online Indication:BMI 26.0-26.9,adult Start:14-Jan-2019 Instruction Type:Patient Education How to access health informa tion online - Detail Indication:BMI 26.0-26.9,adult Start:14-Jan-2019 Instruction Type:Patient Education Patient Instructions Indication:BMI 26.0-26.9,adult Start:14-Jan-2019 Instruction Type:Provider Instructions for Treatment How to access health informa tion online Indication:Current non-smoker Start:09-Nov-2018 Instruction Type:Patient Education How to access health informa tion online - Detail Indication:Current non-smoker Start:09-Nov-2018 Instruction Type:Patient Education Patient Instructions Indication:Current non-smoker Start:09-Nov-2018 Instruction Type:Provider Instructions for Treatment How to access health informa tion online Indication:BMI 24.0-24.9, adult Start:16-Jul-2017 Instruction Type:Patient Education How to access health informa tion online - Detail Indication:BMI 24.0-24.9, adult Start:16-Jul-2017 Instruction Type:Patient Education Patient Instructions Indication:BMI 24.0-24.9, adult Start:16-Jul-2017 Instruction Type:Provider Instructions for Treatment How to access health informa tion online Indication:Current non-smoker Start:07-May-2017 Instruction Type:Patient Education How to access health informa tion online - Detail Indication:Current non-smoker Start:07-May-2017 Instruction Type:Patient Education Patient Instructions Indication:Current non-smoker Start:07-May-2017 Instruction Type:Provider Instructions for Treatment How to access health informa tion online Indication:Elevated blood-pressure reading without diagnosis of hypertension Start:02-Apr-2017 Instruction Type:Patient Education How to access health informa tion online - Detail Indication:Elevated blood-pressure reading without diagnosis of hypertension Start:02-Apr-2017 Instruction Type:Patient Education Patient Instructions Indication:Elevated blood-pressure reading without diagnosis of hypertension Start:02-Apr-2017 Instruction Type:Provider Instructions for Treatment How to access health informa tion online Indication:BMI 27.0-27.9,adult Start:01-Aug-2016 Instruction Type:Patient Education How to access health informa tion online - Detail Indication:BMI 27.0-27.9,adult Start:01-Aug-2016 Instruction Type:Patient Education Patient Instructions Indication:BMI 27.0-27.9,adult Start:01-Aug-2016 Instruction Type:Provider Instructions for Treatment How to access health informa tion online Indication:Elevated blood-pressure reading without diagnosis of hypertension Start:17-Jul-2016 Instruction Type:Patient Education How to access health informa tion online - Detail Indication:Elevated blood-pressure reading without diagnosis of hypertension Start:17-Jul-2016 Instruction Type:Patient Education Patient Instructions Indication:Elevated blood-pressure reading without diagnosis of hypertension Start:17-Jul-2016 Instruction Type:Provider Instructions for Treatment Patient Instructions Indication:Muscle strain Start:24-Jun-2016 Instruction Type:Provider Instructions for Treatment How to access health informa tion online Indication:PALPITATIONS (Renamed from Awareness of heartbeats) Start:07-Jul-2015 Instruction Type:Patient Education How to access health informa tion online - Detail Indication:PALPITATIONS (Renamed from Awareness of heartbeats) Start:07-Jul-2015 Instruction Type:Patient Education Patient Instructions Indication:PALPITATIONS (Renamed from Awareness of heartbeats) Start:07-Jul-2015 Instruction Type:Provider Instructions for Treatment Patient Instructions Indication:Epigastric Pain (Renamed from Abdominal pain, epigastric) Start:29-Mar-2014 Instruction Type:Provider Instructions for Treatment How to access health informa tion online Indication:Epigastric Pain (Renamed from Abdominal pain, epigastric) Start:14-Mar-2014 Instruction Type:Patient Education How to access health informa tion online - Detail Indication:Epigastric Pain (Renamed from Abdominal pain, epigastric) Start:14-Mar-2014 Instruction Type:Patient Education Patient Instructions Indication:Epigastric Pain (Renamed from Abdominal pain, epigastric) Start:14-Mar-2014 Instruction Type:Provider Instructions for Treatment Patient Instructions Indication:Elevated blood-pressure reading without diagnosis of hypertension Start:27-Apr-2013 Instruction Type:Provider Instructions for Treatment Name Dates Details How to Access Health Informa tion Online using Patient Portal and [employer] Apps Indication:Current non-smoker Start:01-Aug-2020 Instruction Type:Patient Education Patient Instructions Indication:BMI 28.0-28.9,adult Start:01-Aug-2020 Instruction Type:Provider Instructions for Treatment How to access health informa tion online Indication:Current non-smoker Start:21-Jul-2020 Instruction Type:Patient Education How to access health informa tion online - Detail Indication:Current non-smoker Start:21-Jul-2020 Instruction Type:Patient Education Patient Instructions Indication:Current non-smoker Start:21-Jul-2020 Instruction Type:Provider Instructions for Treatment How to access health informa tion online Indication:Current non-smoker Start:03-Jan-2020 Instruction Type:Patient Education How to access health informa tion online - Detail Indication:Current non-smoker Start:03-Jan-2020 Instruction Type:Patient Education Patient Instructions Indication:Current non-smoker Start:03-Jan-2020 Instruction Type:Provider Instructions for Treatment How to access health informa tion online Indication:BMI 27.0-27.9,adult Start:27-Aug-2019 Instruction Type:Patient Education How to access health informa tion online - Detail Indication:BMI 27.0-27.9,adult Start:27-Aug-2019 Instruction Type:Patient Education Patient Instructions Indication:BMI 27.0-27.9,adult Start:27-Aug-2019 Instruction Type:Provider Instructions for Treatment How to access health informa tion online - Detail Indication:Current non-smoker Start:15-Mar-2019 Instruction Type:Patient Education Patient Instructions Indication:Current non-smoker Start:15-Mar-2019 Instruction Type:Provider Instructions for Treatment How to access health informa tion online Indication:Current non-smoker Start:10-Feb-2019 Instruction Type:Patient Education How to access health informa tion online - Detail Indication:Current non-smoker Start:10-Feb-2019 Instruction Type:Patient Education Patient Instructions Indication:Current non-smoker Start:10-Feb-2019 Instruction Type:Provider Instructions for Treatment How to access health informa tion online Indication:BMI 26.0-26.9,adult Start:14-Jan-2019 Instruction Type:Patient Education How to access health informa tion online - Detail Indication:BMI 26.0-26.9,adult Start:14-Jan-2019 Instruction Type:Patient Education Patient Instructions Indication:BMI 26.0-26.9,adult Start:14-Jan-2019 Instruction Type:Provider Instructions for Treatment How to access health informa tion online Indication:Current non-smoker Start:09-Nov-2018 Instruction Type:Patient Education How to access health informa tion online - Detail Indication:Current non-smoker Start:09-Nov-2018 Instruction Type:Patient Education Patient Instructions Indication:Current non-smoker Start:09-Nov-2018 Instruction Type:Provider Instructions for Treatment How to access health informa tion online Indication:BMI 24.0-24.9, adult Start:16-Jul-2017 Instruction Type:Patient Education How to access health informa tion online - Detail Indication:BMI 24.0-24.9, adult Start:16-Jul-2017 Instruction Type:Patient Education Patient Instructions Indication:BMI 24.0-24.9, adult Start:16-Jul-2017 Instruction Type:Provider Instructions for Treatment How to access health informa tion online Indication:Current non-smoker Start:07-May-2017 Instruction Type:Patient Education How to access health informa tion online - Detail Indication:Current non-smoker Start:07-May-2017 Instruction Type:Patient Education Patient Instructions Indication:Current non-smoker Start:07-May-2017 Instruction Type:Provider Instructions for Treatment How to access health informa tion online Indication:Elevated blood-pressure reading without diagnosis of hypertension Start:02-Apr-2017 Instruction Type:Patient Education How to access health informa tion online - Detail Indication:Elevated blood-pressure reading without diagnosis of hypertension Start:02-Apr-2017 Instruction Type:Patient Education Patient Instructions Indication:Elevated blood-pressure reading without diagnosis of hypertension Start:02-Apr-2017 Instruction Type:Provider Instructions for Treatment How to access health informa tion online Indication:BMI 27.0-27.9,adult Start:01-Aug-2016 Instruction Type:Patient Education How to access health informa tion online - Detail Indication:BMI 27.0-27.9,adult Start:01-Aug-2016 Instruction Type:Patient Education Patient Instructions Indication:BMI 27.0-27.9,adult Start:01-Aug-2016 Instruction Type:Provider Instructions for Treatment How to access health informa tion online Indication:Elevated blood-pressure reading without diagnosis of hypertension Start:17-Jul-2016 Instruction Type:Patient Education How to access health informa tion online - Detail Indication:Elevated blood-pressure reading without diagnosis of hypertension Start:17-Jul-2016 Instruction Type:Patient Education Patient Instructions Indication:Elevated blood-pressure reading without diagnosis of hypertension Start:17-Jul-2016 Instruction Type:Provider Instructions for Treatment Patient Instructions Indication:Muscle strain Start:24-Jun-2016 Instruction Type:Provider Instructions for Treatment How to access health informa tion online Indication:PALPITATIONS (Renamed from Awareness of heartbeats) Start:07-Jul-2015 Instruction Type:Patient Education How to access health informa tion online - Detail Indication:PALPITATIONS (Renamed from Awareness of heartbeats) Start:07-Jul-2015 Instruction Type:Patient Education Patient Instructions Indication:PALPITATIONS (Renamed from Awareness of heartbeats) Start:07-Jul-2015 Instruction Type:Provider Instructions for Treatment Patient Instructions Indication:Epigastric Pain (Renamed from Abdominal pain, epigastric) Start:29-Mar-2014 Instruction Type:Provider Instructions for Treatment How to access health informa tion online Indication:Epigastric Pain (Renamed from Abdominal pain, epigastric) Start:14-Mar-2014 Instruction Type:Patient Education How to access health informa tion online - Detail Indication:Epigastric Pain (Renamed from Abdominal pain, epigastric) Start:14-Mar-2014 Instruction Type:Patient Education Patient Instructions Indication:Epigastric Pain (Renamed from Abdominal pain, epigastric) Start:14-Mar-2014 Instruction Type:Provider Instructions for Treatment Patient Instructions Indication:Elevated blood-pressure reading without diagnosis of hypertension Start:27-Apr-2013 Instruction Type:Provider Instructions for Treatment Name Dates Details How to Access Health Informa tion Online using Patient Portal and [employer] Indication:Current non-smoker Start:07-Aug-2020 Instruction Type:Patient Education Patient Instructions Indication:Current non-smoker Start:07-Aug-2020 Instruction Type:Provider Instructions for Treatment How to Access Health Informa tion Online using Patient Portal and [employer] Apps Indication:Current non-smoker Start:01-Aug-2020 Instruction Type:Patient Education Patient Instructions Indication:BMI 28.0-28.9,adult Start:01-Aug-2020 Instruction Type:Provider Instructions for Treatment How to access health informa tion online Indication:Current non-smoker Start:21-Jul-2020 Instruction Type:Patient Education How to access health informa tion online - Detail Indication:Current non-smoker Start:21-Jul-2020 Instruction Type:Patient Education Patient Instructions Indication:Current non-smoker Start:21-Jul-2020 Instruction Type:Provider Instructions for Treatment How to access health informa tion online Indication:Current non-smoker Start:03-Jan-2020 Instruction Type:Patient Education How to access health informa tion online - Detail Indication:Current non-smoker Start:03-Jan-2020 Instruction Type:Patient Education Patient Instructions Indication:Current non-smoker Start:03-Jan-2020 Instruction Type:Provider Instructions for Treatment How to access health informa tion online Indication:BMI 27.0-27.9,adult Start:27-Aug-2019 Instruction Type:Patient Education How to access health informa tion online - Detail Indication:BMI 27.0-27.9,adult Start:27-Aug-2019 Instruction Type:Patient Education Patient Instructions Indication:BMI 27.0-27.9,adult Start:27-Aug-2019 Instruction Type:Provider Instructions for Treatment How to access health informa tion online - Detail Indication:Current non-smoker Start:15-Mar-2019 Instruction Type:Patient Education Patient Instructions Indication:Current non-smoker Start:15-Mar-2019 Instruction Type:Provider Instructions for Treatment How to access health informa tion online Indication:Current non-smoker Start:10-Feb-2019 Instruction Type:Patient Education How to access health informa tion online - Detail Indication:Current non-smoker Start:10-Feb-2019 Instruction Type:Patient Education Patient Instructions Indication:Current non-smoker Start:10-Feb-2019 Instruction Type:Provider Instructions for Treatment How to access health informa tion online Indication:BMI 26.0-26.9,adult Start:14-Jan-2019 Instruction Type:Patient Education How to access health informa tion online - Detail Indication:BMI 26.0-26.9,adult Start:14-Jan-2019 Instruction Type:Patient Education Patient Instructions Indication:BMI 26.0-26.9,adult Start:14-Jan-2019 Instruction Type:Provider Instructions for Treatment How to access health informa tion online Indication:Current non-smoker Start:09-Nov-2018 Instruction Type:Patient Education How to access health informa tion online - Detail Indication:Current non-smoker Start:09-Nov-2018 Instruction Type:Patient Education Patient Instructions Indication:Current non-smoker Start:09-Nov-2018 Instruction Type:Provider Instructions for Treatment How to access health informa tion online Indication:BMI 24.0-24.9, adult Start:16-Jul-2017 Instruction Type:Patient Education How to access health informa tion online - Detail Indication:BMI 24.0-24.9, adult Start:16-Jul-2017 Instruction Type:Patient Education Patient Instructions Indication:BMI 24.0-24.9, adult Start:16-Jul-2017 Instruction Type:Provider Instructions for Treatment How to access health informa tion online Indication:Current non-smoker Start:07-May-2017 Instruction Type:Patient Education How to access health informa tion online - Detail Indication:Current non-smoker Start:07-May-2017 Instruction Type:Patient Education Patient Instructions Indication:Current non-smoker Start:07-May-2017 Instruction Type:Provider Instructions for Treatment How to access health informa tion online Indication:Elevated blood-pressure reading without diagnosis of hypertension Start:02-Apr-2017 Instruction Type:Patient Education How to access health informa tion online - Detail Indication:Elevated blood-pressure reading without diagnosis of hypertension Start:02-Apr-2017 Instruction Type:Patient Education Patient Instructions Indication:Elevated blood-pressure reading without diagnosis of hypertension Start:02-Apr-2017 Instruction Type:Provider Instructions for Treatment How to access health informa tion online Indication:BMI 27.0-27.9,adult Start:01-Aug-2016 Instruction Type:Patient Education How to access health informa tion online - Detail Indication:BMI 27.0-27.9,adult Start:01-Aug-2016 Instruction Type:Patient Education Patient Instructions Indication:BMI 27.0-27.9,adult Start:01-Aug-2016 Instruction Type:Provider Instructions for Treatment How to access health informa tion online Indication:Elevated blood-pressure reading without diagnosis of hypertension Start:17-Jul-2016 Instruction Type:Patient Education How to access health informa tion online - Detail Indication:Elevated blood-pressure reading without diagnosis of hypertension Start:17-Jul-2016 Instruction Type:Patient Education Patient Instructions Indication:Elevated blood-pressure reading without diagnosis of hypertension Start:17-Jul-2016 Instruction Type:Provider Instructions for Treatment Patient Instructions Indication:Muscle strain Start:24-Jun-2016 Instruction Type:Provider Instructions for Treatment How to access health informa tion online Indication:PALPITATIONS (Renamed from Awareness of heartbeats) Start:07-Jul-2015 Instruction Type:Patient Education How to access health informa tion online - Detail Indication:PALPITATIONS (Renamed from Awareness of heartbeats) Start:07-Jul-2015 Instruction Type:Patient Education Patient Instructions Indication:PALPITATIONS (Renamed from Awareness of heartbeats) Start:07-Jul-2015 Instruction Type:Provider Instructions for Treatment Patient Instructions Indication:Epigastric Pain (Renamed from Abdominal pain, epigastric) Start:29-Mar-2014 Instruction Type:Provider Instructions for Treatment How to access health informa tion online Indication:Epigastric Pain (Renamed from Abdominal pain, epigastric) Start:14-Mar-2014 Instruction Type:Patient Education How to access health informa tion online - Detail Indication:Epigastric Pain (Renamed from Abdominal pain, epigastric) Start:14-Mar-2014 Instruction Type:Patient Education Patient Instructions Indication:Epigastric Pain (Renamed from Abdominal pain, epigastric) Start:14-Mar-2014 Instruction Type:Provider Instructions for Treatment Patient Instructions Indication:Elevated blood-pressure reading without diagnosis of hypertension Start:27-Apr-2013 Instruction Type:Provider Instructions for Treatment Name Dates Details How to access health informa tion online Indication:BMI 26.0-26.9,adult Start:14-Jan-2019 Instruction Type:Patient Education How to access health informa tion online - Detail Indication:BMI 26.0-26.9,adult Start:14-Jan-2019 Instruction Type:Patient Education Patient Instructions Indication:BMI 26.0-26.9,adult Start:14-Jan-2019 Instruction Type:Provider Instructions for Treatment How to access health informa tion online Indication:Current non-smoker Start:09-Nov-2018 Instruction Type:Patient Education How to access health informa tion online - Detail Indication:Current non-smoker Start:09-Nov-2018 Instruction Type:Patient Education Patient Instructions Indication:Current non-smoker Start:09-Nov-2018 Instruction Type:Provider Instructions for Treatment How to access health informa tion online Indication:BMI 24.0-24.9, adult Start:16-Jul-2017 Instruction Type:Patient Education How to access health informa tion online - Detail Indication:BMI 24.0-24.9, adult Start:16-Jul-2017 Instruction Type:Patient Education Patient Instructions Indication:BMI 24.0-24.9, adult Start:16-Jul-2017 Instruction Type:Provider Instructions for Treatment How to access health informa tion online Indication:Current non-smoker Start:07-May-2017 Instruction Type:Patient Education How to access health informa tion online - Detail Indication:Current non-smoker Start:07-May-2017 Instruction Type:Patient Education Patient Instructions Indication:Current non-smoker Start:07-May-2017 Instruction Type:Provider Instructions for Treatment How to access health informa tion online Indication:Elevated blood-pressure reading without diagnosis of hypertension Start:02-Apr-2017 Instruction Type:Patient Education How to access health informa tion online - Detail Indication:Elevated blood-pressure reading without diagnosis of hypertension Start:02-Apr-2017 Instruction Type:Patient Education Patient Instructions Indication:Elevated blood-pressure reading without diagnosis of hypertension Start:02-Apr-2017 Instruction Type:Provider Instructions for Treatment How to access health informa tion online Indication:BMI 27.0-27.9,adult Start:01-Aug-2016 Instruction Type:Patient Education How to access health informa tion online - Detail Indication:BMI 27.0-27.9,adult Start:01-Aug-2016 Instruction Type:Patient Education Patient Instructions Indication:BMI 27.0-27.9,adult Start:01-Aug-2016 Instruction Type:Provider Instructions for Treatment How to access health informa tion online Indication:Elevated blood-pressure reading without diagnosis of hypertension Start:17-Jul-2016 Instruction Type:Patient Education How to access health informa tion online - Detail Indication:Elevated blood-pressure reading without diagnosis of hypertension Start:17-Jul-2016 Instruction Type:Patient Education Patient Instructions Indication:Elevated blood-pressure reading without diagnosis of hypertension Start:17-Jul-2016 Instruction Type:Provider Instructions for Treatment Patient Instructions Indication:Muscle strain Start:24-Jun-2016 Instruction Type:Provider Instructions for Treatment How to access health informa tion online Indication:PALPITATIONS (Renamed from Awareness of heartbeats) Start:07-Jul-2015 Instruction Type:Patient Education How to access health informa tion online - Detail Indication:PALPITATIONS (Renamed from Awareness of heartbeats) Start:07-Jul-2015 Instruction Type:Patient Education Patient Instructions Indication:PALPITATIONS (Renamed from Awareness of heartbeats) Start:07-Jul-2015 Instruction Type:Provider Instructions for Treatment Patient Instructions Indication:Epigastric Pain (Renamed from Abdominal pain, epigastric) Start:29-Mar-2014 Instruction Type:Provider Instructions for Treatment How to access health informa tion online Indication:Epigastric Pain (Renamed from Abdominal pain, epigastric) Start:14-Mar-2014 Instruction Type:Patient Education How to access health informa tion online - Detail Indication:Epigastric Pain (Renamed from Abdominal pain, epigastric) Start:14-Mar-2014 Instruction Type:Patient Education Patient Instructions Indication:Epigastric Pain (Renamed from Abdominal pain, epigastric) Start:14-Mar-2014 Instruction Type:Provider Instructions for Treatment Patient Instructions Indication:Elevated blood-pressure reading without diagnosis of hypertension Start:27-Apr-2013 Instruction Type:Provider Instructions for Treatment Name Dates Details How to access health informa tion online - Detail Indication:Current non-smoker Start:15-Mar-2019 Instruction Type:Patient Education Patient Instructions Indication:Current non-smoker Start:15-Mar-2019 Instruction Type:Provider Instructions for Treatment How to access health informa tion online Indication:Current non-smoker Start:10-Feb-2019 Instruction Type:Patient Education How to access health informa tion online - Detail Indication:Current non-smoker Start:10-Feb-2019 Instruction Type:Patient Education Patient Instructions Indication:Current non-smoker Start:10-Feb-2019 Instruction Type:Provider Instructions for Treatment How to access health informa tion online Indication:BMI 26.0-26.9,adult Start:14-Jan-2019 Instruction Type:Patient Education How to access health informa tion online - Detail Indication:BMI 26.0-26.9,adult Start:14-Jan-2019 Instruction Type:Patient Education Patient Instructions Indication:BMI 26.0-26.9,adult Start:14-Jan-2019 Instruction Type:Provider Instructions for Treatment How to access health informa tion online Indication:Current non-smoker Start:09-Nov-2018 Instruction Type:Patient Education How to access health informa tion online - Detail Indication:Current non-smoker Start:09-Nov-2018 Instruction Type:Patient Education Patient Instructions Indication:Current non-smoker Start:09-Nov-2018 Instruction Type:Provider Instructions for Treatment How to access health informa tion online Indication:BMI 24.0-24.9, adult Start:16-Jul-2017 Instruction Type:Patient Education How to access health informa tion online - Detail Indication:BMI 24.0-24.9, adult Start:16-Jul-2017 Instruction Type:Patient Education Patient Instructions Indication:BMI 24.0-24.9, adult Start:16-Jul-2017 Instruction Type:Provider Instructions for Treatment How to access health informa tion online Indication:Current non-smoker Start:07-May-2017 Instruction Type:Patient Education How to access health informa tion online - Detail Indication:Current non-smoker Start:07-May-2017 Instruction Type:Patient Education Patient Instructions Indication:Current non-smoker Start:07-May-2017 Instruction Type:Provider Instructions for Treatment How to access health informa tion online Indication:Elevated blood-pressure reading without diagnosis of hypertension Start:02-Apr-2017 Instruction Type:Patient Education How to access health informa tion online - Detail Indication:Elevated blood-pressure reading without diagnosis of hypertension Start:02-Apr-2017 Instruction Type:Patient Education Patient Instructions Indication:Elevated blood-pressure reading without diagnosis of hypertension Start:02-Apr-2017 Instruction Type:Provider Instructions for Treatment How to access health informa tion online Indication:BMI 27.0-27.9,adult Start:01-Aug-2016 Instruction Type:Patient Education How to access health informa tion online - Detail Indication:BMI 27.0-27.9,adult Start:01-Aug-2016 Instruction Type:Patient Education Patient Instructions Indication:BMI 27.0-27.9,adult Start:01-Aug-2016 Instruction Type:Provider Instructions for Treatment How to access health informa tion online Indication:Elevated blood-pressure reading without diagnosis of hypertension Start:17-Jul-2016 Instruction Type:Patient Education How to access health informa tion online - Detail Indication:Elevated blood-pressure reading without diagnosis of hypertension Start:17-Jul-2016 Instruction Type:Patient Education Patient Instructions Indication:Elevated blood-pressure reading without diagnosis of hypertension Start:17-Jul-2016 Instruction Type:Provider Instructions for Treatment Patient Instructions Indication:Muscle strain Start:24-Jun-2016 Instruction Type:Provider Instructions for Treatment How to access health informa tion online Indication:PALPITATIONS (Renamed from Awareness of heartbeats) Start:07-Jul-2015 Instruction Type:Patient Education How to access health informa tion online - Detail Indication:PALPITATIONS (Renamed from Awareness of heartbeats) Start:07-Jul-2015 Instruction Type:Patient Education Patient Instructions Indication:PALPITATIONS (Renamed from Awareness of heartbeats) Start:07-Jul-2015 Instruction Type:Provider Instructions for Treatment Patient Instructions Indication:Epigastric Pain (Renamed from Abdominal pain, epigastric) Start:29-Mar-2014 Instruction Type:Provider Instructions for Treatment How to access health informa tion online Indication:Epigastric Pain (Renamed from Abdominal pain, epigastric) Start:14-Mar-2014 Instruction Type:Patient Education How to access health informa tion online - Detail Indication:Epigastric Pain (Renamed from Abdominal pain, epigastric) Start:14-Mar-2014 Instruction Type:Patient Education Patient Instructions Indication:Epigastric Pain (Renamed from Abdominal pain, epigastric) Start:14-Mar-2014 Instruction Type:Provider Instructions for Treatment Patient Instructions Indication:Elevated blood-pressure reading without diagnosis of hypertension Start:27-Apr-2013 Instruction Type:Provider Instructions for Treatment Name Dates Details How to Access Health Informa tion Online using Patient Portal and [employer] Indication:Current non-smoker Start:07-Aug-2020 Instruction Type:Patient Education Patient Instructions Indication:Current non-smoker Start:07-Aug-2020 Instruction Type:Provider Instructions for Treatment How to Access Health Informa tion Online using Patient Portal and [employer] Indication:Current non-smoker Start:01-Aug-2020 Instruction Type:Patient Education Patient Instructions Indication:BMI 28.0-28.9,adult Start:01-Aug-2020 Instruction Type:Provider Instructions for Treatment How to access health informa tion online Indication:Current non-smoker Start:21-Jul-2020 Instruction Type:Patient Education How to access health informa tion online - Detail Indication:Current non-smoker Start:21-Jul-2020 Instruction Type:Patient Education Patient Instructions Indication:Current non-smoker Start:21-Jul-2020 Instruction Type:Provider Instructions for Treatment How to access health informa tion online Indication:Current non-smoker Start:03-Jan-2020 Instruction Type:Patient Education How to access health informa tion online - Detail Indication:Current non-smoker Start:03-Jan-2020 Instruction Type:Patient Education Patient Instructions Indication:Current non-smoker Start:03-Jan-2020 Instruction Type:Provider Instructions for Treatment How to access health informa tion online Indication:BMI 27.0-27.9,adult Start:27-Aug-2019 Instruction Type:Patient Education How to access health informa tion online - Detail Indication:BMI 27.0-27.9,adult Start:27-Aug-2019 Instruction Type:Patient Education Patient Instructions Indication:BMI 27.0-27.9,adult Start:27-Aug-2019 Instruction Type:Provider Instructions for Treatment How to access health informa tion online - Detail Indication:Current non-smoker Start:15-Mar-2019 Instruction Type:Patient Education Patient Instructions Indication:Current non-smoker Start:15-Mar-2019 Instruction Type:Provider Instructions for Treatment How to access health informa tion online Indication:Current non-smoker Start:10-Feb-2019 Instruction Type:Patient Education How to access health informa tion online - Detail Indication:Current non-smoker Start:10-Feb-2019 Instruction Type:Patient Education Patient Instructions Indication:Current non-smoker Start:10-Feb-2019 Instruction Type:Provider Instructions for Treatment How to access health informa tion online Indication:BMI 26.0-26.9,adult Start:14-Jan-2019 Instruction Type:Patient Education How to access health informa tion online - Detail Indication:BMI 26.0-26.9,adult Start:14-Jan-2019 Instruction Type:Patient Education Patient Instructions Indication:BMI 26.0-26.9,adult Start:14-Jan-2019 Instruction Type:Provider Instructions for Treatment How to access health informa tion online Indication:Current non-smoker Start:09-Nov-2018 Instruction Type:Patient Education How to access health informa tion online - Detail Indication:Current non-smoker Start:09-Nov-2018 Instruction Type:Patient Education Patient Instructions Indication:Current non-smoker Start:09-Nov-2018 Instruction Type:Provider Instructions for Treatment How to access health informa tion online Indication:BMI 24.0-24.9, adult Start:16-Jul-2017 Instruction Type:Patient Education How to access health informa tion online - Detail Indication:BMI 24.0-24.9, adult Start:16-Jul-2017 Instruction Type:Patient Education Patient Instructions Indication:BMI 24.0-24.9, adult Start:16-Jul-2017 Instruction Type:Provider Instructions for Treatment How to access health informa tion online Indication:Current non-smoker Start:07-May-2017 Instruction Type:Patient Education How to access health informa tion online - Detail Indication:Current non-smoker Start:07-May-2017 Instruction Type:Patient Education Patient Instructions Indication:Current non-smoker Start:07-May-2017 Instruction Type:Provider Instructions for Treatment How to access health informa tion online Indication:Elevated blood-pressure reading without diagnosis of hypertension Start:02-Apr-2017 Instruction Type:Patient Education How to access health informa tion online - Detail Indication:Elevated blood-pressure reading without diagnosis of hypertension Start:02-Apr-2017 Instruction Type:Patient Education Patient Instructions Indication:Elevated blood-pressure reading without diagnosis of hypertension Start:02-Apr-2017 Instruction Type:Provider Instructions for Treatment How to access health informa tion online Indication:BMI 27.0-27.9,adult Start:01-Aug-2016 Instruction Type:Patient Education How to access health informa tion online - Detail Indication:BMI 27.0-27.9,adult Start:01-Aug-2016 Instruction Type:Patient Education Patient Instructions Indication:BMI 27.0-27.9,adult Start:01-Aug-2016 Instruction Type:Provider Instructions for Treatment How to access health informa tion online Indication:Elevated blood-pressure reading without diagnosis of hypertension Start:17-Jul-2016 Instruction Type:Patient Education How to access health informa tion online - Detail Indication:Elevated blood-pressure reading without diagnosis of hypertension Start:17-Jul-2016 Instruction Type:Patient Education Patient Instructions Indication:Elevated blood-pressure reading without diagnosis of hypertension Start:17-Jul-2016 Instruction Type:Provider Instructions for Treatment Patient Instructions Indication:Muscle strain Start:24-Jun-2016 Instruction Type:Provider Instructions for Treatment How to access health informa tion online Indication:PALPITATIONS (Renamed from Awareness of heartbeats) Start:07-Jul-2015 Instruction Type:Patient Education How to access health informa tion online - Detail Indication:PALPITATIONS (Renamed from Awareness of heartbeats) Start:07-Jul-2015 Instruction Type:Patient Education Patient Instructions Indication:PALPITATIONS (Renamed from Awareness of heartbeats) Start:07-Jul-2015 Instruction Type:Provider Instructions for Treatment Patient Instructions Indication:Epigastric Pain (Renamed from Abdominal pain, epigastric) Start:29-Mar-2014 Instruction Type:Provider Instructions for Treatment How to access health informa tion online Indication:Epigastric Pain (Renamed from Abdominal pain, epigastric) Start:14-Mar-2014 Instruction Type:Patient Education How to access health informa tion online - Detail Indication:Epigastric Pain (Renamed from Abdominal pain, epigastric) Start:14-Mar-2014 Instruction Type:Patient Education Patient Instructions Indication:Epigastric Pain (Renamed from Abdominal pain, epigastric) Start:14-Mar-2014 Instruction Type:Provider Instructions for Treatment Patient Instructions Indication:Elevated blood-pressure reading without diagnosis of hypertension Start:27-Apr-2013 Instruction Type:Provider Instructions for Treatment Name Dates Details How to Access Health Informa tion Online using Patient Portal and [employer] Indication:Current non-smoker Start:07-Aug-2020 Instruction Type:Patient Education Patient Instructions Indication:Current non-smoker Start:07-Aug-2020 Instruction Type:Provider Instructions for Treatment How to Access Health Informa tion Online using Patient Portal and [employer] Indication:Current non-smoker Start:01-Aug-2020 Instruction Type:Patient Education Patient Instructions Indication:BMI 28.0-28.9,adult Start:01-Aug-2020 Instruction Type:Provider Instructions for Treatment How to access health informa tion online Indication:Current non-smoker Start:21-Jul-2020 Instruction Type:Patient Education How to access health informa tion online - Detail Indication:Current non-smoker Start:21-Jul-2020 Instruction Type:Patient Education Patient Instructions Indication:Current non-smoker Start:21-Jul-2020 Instruction Type:Provider Instructions for Treatment How to access health informa tion online Indication:Current non-smoker Start:03-Jan-2020 Instruction Type:Patient Education How to access health informa tion online - Detail Indication:Current non-smoker Start:03-Jan-2020 Instruction Type:Patient Education Patient Instructions Indication:Current non-smoker Start:03-Jan-2020 Instruction Type:Provider Instructions for Treatment How to access health informa tion online Indication:BMI 27.0-27.9,adult Start:27-Aug-2019 Instruction Type:Patient Education How to access health informa tion online - Detail Indication:BMI 27.0-27.9,adult Start:27-Aug-2019 Instruction Type:Patient Education Patient Instructions Indication:BMI 27.0-27.9,adult Start:27-Aug-2019 Instruction Type:Provider Instructions for Treatment How to access health informa tion online - Detail Indication:Current non-smoker Start:15-Mar-2019 Instruction Type:Patient Education Patient Instructions Indication:Current non-smoker Start:15-Mar-2019 Instruction Type:Provider Instructions for Treatment How to access health informa tion online Indication:Current non-smoker Start:10-Feb-2019 Instruction Type:Patient Education How to access health informa tion online - Detail Indication:Current non-smoker Start:10-Feb-2019 Instruction Type:Patient Education Patient Instructions Indication:Current non-smoker Start:10-Feb-2019 Instruction Type:Provider Instructions for Treatment How to access health informa tion online Indication:BMI 26.0-26.9,adult Start:14-Jan-2019 Instruction Type:Patient Education How to access health informa tion online - Detail Indication:BMI 26.0-26.9,adult Start:14-Jan-2019 Instruction Type:Patient Education Patient Instructions Indication:BMI 26.0-26.9,adult Start:14-Jan-2019 Instruction Type:Provider Instructions for Treatment How to access health informa tion online Indication:Current non-smoker Start:09-Nov-2018 Instruction Type:Patient Education How to access health informa tion online - Detail Indication:Current non-smoker Start:09-Nov-2018 Instruction Type:Patient Education Patient Instructions Indication:Current non-smoker Start:09-Nov-2018 Instruction Type:Provider Instructions for Treatment How to access health informa tion online Indication:BMI 24.0-24.9, adult Start:16-Jul-2017 Instruction Type:Patient Education How to access health informa tion online - Detail Indication:BMI 24.0-24.9, adult Start:16-Jul-2017 Instruction Type:Patient Education Patient Instructions Indication:BMI 24.0-24.9, adult Start:16-Jul-2017 Instruction Type:Provider Instructions for Treatment How to access health informa tion online Indication:Current non-smoker Start:07-May-2017 Instruction Type:Patient Education How to access health informa tion online - Detail Indication:Current non-smoker Start:07-May-2017 Instruction Type:Patient Education Patient Instructions Indication:Current non-smoker Start:07-May-2017 Instruction Type:Provider Instructions for Treatment How to access health informa tion online Indication:Elevated blood-pressure reading without diagnosis of hypertension Start:02-Apr-2017 Instruction Type:Patient Education How to access health informa tion online - Detail Indication:Elevated blood-pressure reading without diagnosis of hypertension Start:02-Apr-2017 Instruction Type:Patient Education Patient Instructions Indication:Elevated blood-pressure reading without diagnosis of hypertension Start:02-Apr-2017 Instruction Type:Provider Instructions for Treatment How to access health informa tion online Indication:BMI 27.0-27.9,adult Start:01-Aug-2016 Instruction Type:Patient Education How to access health informa tion online - Detail Indication:BMI 27.0-27.9,adult Start:01-Aug-2016 Instruction Type:Patient Education Patient Instructions Indication:BMI 27.0-27.9,adult Start:01-Aug-2016 Instruction Type:Provider Instructions for Treatment How to access health informa tion online Indication:Elevated blood-pressure reading without diagnosis of hypertension Start:17-Jul-2016 Instruction Type:Patient Education How to access health informa tion online - Detail Indication:Elevated blood-pressure reading without diagnosis of hypertension Start:17-Jul-2016 Instruction Type:Patient Education Patient Instructions Indication:Elevated blood-pressure reading without diagnosis of hypertension Start:17-Jul-2016 Instruction Type:Provider Instructions for Treatment Patient Instructions Indication:Muscle strain Start:24-Jun-2016 Instruction Type:Provider Instructions for Treatment How to access health informa tion online Indication:PALPITATIONS (Renamed from Awareness of heartbeats) Start:07-Jul-2015 Instruction Type:Patient Education How to access health informa tion online - Detail Indication:PALPITATIONS (Renamed from Awareness of heartbeats) Start:07-Jul-2015 Instruction Type:Patient Education Patient Instructions Indication:PALPITATIONS (Renamed from Awareness of heartbeats) Start:07-Jul-2015 Instruction Type:Provider Instructions for Treatment Patient Instructions Indication:Epigastric Pain (Renamed from Abdominal pain, epigastric) Start:29-Mar-2014 Instruction Type:Provider Instructions for Treatment How to access health informa tion online Indication:Epigastric Pain (Renamed from Abdominal pain, epigastric) Start:14-Mar-2014 Instruction Type:Patient Education How to access health informa tion online - Detail Indication:Epigastric Pain (Renamed from Abdominal pain, epigastric) Start:14-Mar-2014 Instruction Type:Patient Education Patient Instructions Indication:Epigastric Pain (Renamed from Abdominal pain, epigastric) Start:14-Mar-2014 Instruction Type:Provider Instructions for Treatment Patient Instructions Indication:Elevated blood-pressure reading without diagnosis of hypertension Start:27-Apr-2013 Instruction Type:Provider Instructions for Treatment Name Dates Details How to access health informa tion online - Detail Indication:Current non-smoker Start:15-Mar-2019 Instruction Type:Patient Education Patient Instructions Indication:Current non-smoker Start:15-Mar-2019 Instruction Type:Provider Instructions for Treatment How to access health informa tion online Indication:Current non-smoker Start:10-Feb-2019 Instruction Type:Patient Education How to access health informa tion online - Detail Indication:Current non-smoker Start:10-Feb-2019 Instruction Type:Patient Education Patient Instructions Indication:Current non-smoker Start:10-Feb-2019 Instruction Type:Provider Instructions for Treatment How to access health informa tion online Indication:BMI 26.0-26.9,adult Start:14-Jan-2019 Instruction Type:Patient Education How to access health informa tion online - Detail Indication:BMI 26.0-26.9,adult Start:14-Jan-2019 Instruction Type:Patient Education Patient Instructions Indication:BMI 26.0-26.9,adult Start:14-Jan-2019 Instruction Type:Provider Instructions for Treatment How to access health informa tion online Indication:Current non-smoker Start:09-Nov-2018 Instruction Type:Patient Education How to access health informa tion online - Detail Indication:Current non-smoker Start:09-Nov-2018 Instruction Type:Patient Education Patient Instructions Indication:Current non-smoker Start:09-Nov-2018 Instruction Type:Provider Instructions for Treatment How to access health informa tion online Indication:BMI 24.0-24.9, adult Start:16-Jul-2017 Instruction Type:Patient Education How to access health informa tion online - Detail Indication:BMI 24.0-24.9, adult Start:16-Jul-2017 Instruction Type:Patient Education Patient Instructions Indication:BMI 24.0-24.9, adult Start:16-Jul-2017 Instruction Type:Provider Instructions for Treatment How to access health informa tion online Indication:Current non-smoker Start:07-May-2017 Instruction Type:Patient Education How to access health informa tion online - Detail Indication:Current non-smoker Start:07-May-2017 Instruction Type:Patient Education Patient Instructions Indication:Current non-smoker Start:07-May-2017 Instruction Type:Provider Instructions for Treatment How to access health informa tion online Indication:Elevated blood-pressure reading without diagnosis of hypertension Start:02-Apr-2017 Instruction Type:Patient Education How to access health informa tion online - Detail Indication:Elevated blood-pressure reading without diagnosis of hypertension Start:02-Apr-2017 Instruction Type:Patient Education Patient Instructions Indication:Elevated blood-pressure reading without diagnosis of hypertension Start:02-Apr-2017 Instruction Type:Provider Instructions for Treatment How to access health informa tion online Indication:BMI 27.0-27.9,adult Start:01-Aug-2016 Instruction Type:Patient Education How to access health informa tion online - Detail Indication:BMI 27.0-27.9,adult Start:01-Aug-2016 Instruction Type:Patient Education Patient Instructions Indication:BMI 27.0-27.9,adult Start:01-Aug-2016 Instruction Type:Provider Instructions for Treatment How to access health informa tion online Indication:Elevated blood-pressure reading without diagnosis of hypertension Start:17-Jul-2016 Instruction Type:Patient Education How to access health informa tion online - Detail Indication:Elevated blood-pressure reading without diagnosis of hypertension Start:17-Jul-2016 Instruction Type:Patient Education Patient Instructions Indication:Elevated blood-pressure reading without diagnosis of hypertension Start:17-Jul-2016 Instruction Type:Provider Instructions for Treatment Patient Instructions Indication:Muscle strain Start:24-Jun-2016 Instruction Type:Provider Instructions for Treatment How to access health informa tion online Indication:PALPITATIONS (Renamed from Awareness of heartbeats) Start:07-Jul-2015 Instruction Type:Patient Education How to access health informa tion online - Detail Indication:PALPITATIONS (Renamed from Awareness of heartbeats) Start:07-Jul-2015 Instruction Type:Patient Education Patient Instructions Indication:PALPITATIONS (Renamed from Awareness of heartbeats) Start:07-Jul-2015 Instruction Type:Provider Instructions for Treatment Patient Instructions Indication:Epigastric Pain (Renamed from Abdominal pain, epigastric) Start:29-Mar-2014 Instruction Type:Provider Instructions for Treatment How to access health informa tion online Indication:Epigastric Pain (Renamed from Abdominal pain, epigastric) Start:14-Mar-2014 Instruction Type:Patient Education How to access health informa tion online - Detail Indication:Epigastric Pain (Renamed from Abdominal pain, epigastric) Start:14-Mar-2014 Instruction Type:Patient Education Patient Instructions Indication:Epigastric Pain (Renamed from Abdominal pain, epigastric) Start:14-Mar-2014 Instruction Type:Provider Instructions for Treatment Patient Instructions Indication:Elevated blood-pressure reading without diagnosis of hypertension Start:27-Apr-2013 Instruction Type:Provider Instructions for Treatment Name Dates Details How to Access Health Informa tion Online using Patient Portal and [employer] Indication:Current non-smoker Start:07-Aug-2020 Instruction Type:Patient Education Patient Instructions Indication:Current non-smoker Start:07-Aug-2020 Instruction Type:Provider Instructions for Treatment How to Access Health Informa tion Online using Patient Portal and [employer] Indication:Current non-smoker Start:01-Aug-2020 Instruction Type:Patient Education Patient Instructions Indication:BMI 28.0-28.9,adult Start:01-Aug-2020 Instruction Type:Provider Instructions for Treatment How to access health informa tion online Indication:Current non-smoker Start:21-Jul-2020 Instruction Type:Patient Education How to access health informa tion online - Detail Indication:Current non-smoker Start:21-Jul-2020 Instruction Type:Patient Education Patient Instructions Indication:Current non-smoker Start:21-Jul-2020 Instruction Type:Provider Instructions for Treatment How to access health informa tion online Indication:Current non-smoker Start:03-Jan-2020 Instruction Type:Patient Education How to access health informa tion online - Detail Indication:Current non-smoker Start:03-Jan-2020 Instruction Type:Patient Education Patient Instructions Indication:Current non-smoker Start:03-Jan-2020 Instruction Type:Provider Instructions for Treatment How to access health informa tion online Indication:BMI 27.0-27.9,adult Start:27-Aug-2019 Instruction Type:Patient Education How to access health informa tion online - Detail Indication:BMI 27.0-27.9,adult Start:27-Aug-2019 Instruction Type:Patient Education Patient Instructions Indication:BMI 27.0-27.9,adult Start:27-Aug-2019 Instruction Type:Provider Instructions for Treatment How to access health informa tion online - Detail Indication:Current non-smoker Start:15-Mar-2019 Instruction Type:Patient Education Patient Instructions Indication:Current non-smoker Start:15-Mar-2019 Instruction Type:Provider Instructions for Treatment How to access health informa tion online Indication:Current non-smoker Start:10-Feb-2019 Instruction Type:Patient Education How to access health informa tion online - Detail Indication:Current non-smoker Start:10-Feb-2019 Instruction Type:Patient Education Patient Instructions Indication:Current non-smoker Start:10-Feb-2019 Instruction Type:Provider Instructions for Treatment How to access health informa tion online Indication:BMI 26.0-26.9,adult Start:14-Jan-2019 Instruction Type:Patient Education How to access health informa tion online - Detail Indication:BMI 26.0-26.9,adult Start:14-Jan-2019 Instruction Type:Patient Education Patient Instructions Indication:BMI 26.0-26.9,adult Start:14-Jan-2019 Instruction Type:Provider Instructions for Treatment How to access health informa tion online Indication:Current non-smoker Start:09-Nov-2018 Instruction Type:Patient Education How to access health informa tion online - Detail Indication:Current non-smoker Start:09-Nov-2018 Instruction Type:Patient Education Patient Instructions Indication:Current non-smoker Start:09-Nov-2018 Instruction Type:Provider Instructions for Treatment How to access health informa tion online Indication:BMI 24.0-24.9, adult Start:16-Jul-2017 Instruction Type:Patient Education How to access health informa tion online - Detail Indication:BMI 24.0-24.9, adult Start:16-Jul-2017 Instruction Type:Patient Education Patient Instructions Indication:BMI 24.0-24.9, adult Start:16-Jul-2017 Instruction Type:Provider Instructions for Treatment How to access health informa tion online Indication:Current non-smoker Start:07-May-2017 Instruction Type:Patient Education How to access health informa tion online - Detail Indication:Current non-smoker Start:07-May-2017 Instruction Type:Patient Education Patient Instructions Indication:Current non-smoker Start:07-May-2017 Instruction Type:Provider Instructions for Treatment How to access health informa tion online Indication:Elevated blood-pressure reading without diagnosis of hypertension Start:02-Apr-2017 Instruction Type:Patient Education How to access health informa tion online - Detail Indication:Elevated blood-pressure reading without diagnosis of hypertension Start:02-Apr-2017 Instruction Type:Patient Education Patient Instructions Indication:Elevated blood-pressure reading without diagnosis of hypertension Start:02-Apr-2017 Instruction Type:Provider Instructions for Treatment How to access health informa tion online Indication:BMI 27.0-27.9,adult Start:01-Aug-2016 Instruction Type:Patient Education How to access health informa tion online - Detail Indication:BMI 27.0-27.9,adult Start:01-Aug-2016 Instruction Type:Patient Education Patient Instructions Indication:BMI 27.0-27.9,adult Start:01-Aug-2016 Instruction Type:Provider Instructions for Treatment How to access health informa tion online Indication:Elevated blood-pressure reading without diagnosis of hypertension Start:17-Jul-2016 Instruction Type:Patient Education How to access health informa tion online - Detail Indication:Elevated blood-pressure reading without diagnosis of hypertension Start:17-Jul-2016 Instruction Type:Patient Education Patient Instructions Indication:Elevated blood-pressure reading without diagnosis of hypertension Start:17-Jul-2016 Instruction Type:Provider Instructions for Treatment Patient Instructions Indication:Muscle strain Start:24-Jun-2016 Instruction Type:Provider Instructions for Treatment How to access health informa tion online Indication:PALPITATIONS (Renamed from Awareness of heartbeats) Start:07-Jul-2015 Instruction Type:Patient Education How to access health informa tion online - Detail Indication:PALPITATIONS (Renamed from Awareness of heartbeats) Start:07-Jul-2015 Instruction Type:Patient Education Patient Instructions Indication:PALPITATIONS (Renamed from Awareness of heartbeats) Start:07-Jul-2015 Instruction Type:Provider Instructions for Treatment Patient Instructions Indication:Epigastric Pain (Renamed from Abdominal pain, epigastric) Start:29-Mar-2014 Instruction Type:Provider Instructions for Treatment How to access [employer] online Indication:Epigastric Pain (Renamed from Abdominal pain, epigastric) Start:14-Mar-2014 Instruction Type:Patient Education How to access [facility] [employer]a [employer] online - Detail Indication:Epigastric Pain (Renamed from Abdominal pain, epigastric) Start:14-Mar-2014 Instruction Type:Patient Education Patient Instructions Indication:Epigastric Pain (Renamed from Abdominal pain, epigastric) Start:14-Mar-2014 Instruction Type:Provider Instructions for Treatment Patient Instructions Indication:Elevated blood-pressure reading without diagnosis of hypertension Start:27-Apr-2013 Instruction Type:Provider Instructions for Treatment Chief Complaint and Reason for Visit Chief Complaint Admit Date XRAY November 01, 2024 12: 37pm Diarrhea December 10, 2024 3:2 2pm Reason for Visit Admit Date Diarrhea December 10, 2024 3:2 2pm Additional Source Comments (unrecognized sect ion and content) No Status Records FoundNo Status Records FoundNo Status Records FoundNo Status Records Found INFORMATION SOURCE (unrecogn ized section and content) DATE CREATED AUTHOR 02/11/2018 [facility] ([place]) DATE CREATED AUTHOR AUTHOR'S ORGANIZ ATION 12/11/2022 [facility] DATE CREATED AUTHOR AUTHOR'S ORGANIZ ATION 10/30/2024 [facility] DATE CREATED AUTHOR AUTHOR'S ORGANIZ ATION 02/07/2025 [facility] Source Comments (unrecognize d section and content) In the event this informatio n is protected by the Federal Confidentiality of Alcohol and Drug Abuse Patient Records regulations: The Federal rules restrict any use of the information to criminally investigate or prosecute any alcohol or drug abuse patient.[facility] Reason for Visit (unrecogniz ed section and content) Reason Comments Patient Update Care Teams (unrecognized sec tion and content) 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 Clair Perry DO Primary Care Provider Active Team Status: Active Member Role Status Dates No Primary Care Physician Primary Care Provider Active Start: September 28, 2024 Health Risk Assessment Attending Provider Active Start: September 28, 2024 Team Status: Inactive Member Role Status Dates No Primary Care Physician Primary Care Provider Active Start: November 01, 2024 End: November 01, 2024 Dr. Yusuf Hahn MD Attending Provider Active S tart: November 01, 2024 End: November 01, 2024 Team Status: Inactive Member Role Status Dates No Primary Care Physician Referring Provider Active Start: December 10, 2024 End: December 10, 2024 LOBITO Choi Attending Provider Active Start: December 10, 2024 End: December 10, 2024 Dr. Clair Perry DO Primary Care Provider Active Start: December 10, 2024 End: December 10, 2024 Team Status: Inactive Member Role Status Dates Dr. Clair Perry DO Primary Care Provider Active Start: January 07, 2025 End: January 07, 2025 LOBITO Choi Attending Provider Active Start: January 07, 2025 End: January 07, 2025 LOBITO Choi Referring Provider Active Start: January 07, 2025 End: January 07, 2025 Goals (unrecognized section and content) Goals may be documented in a n alternate section FOR RECORDS PERTAINING TO PATIENTS WHO ARE OR HAVE BEEN ENROLLED IN A CHEMICAL DEPENDENCY/SUBSTANCEABUSE PROGRAM, SOME INFORMATION MAY BE OMITTED. This clinical summary was aggregated from multiple sources. Caution should be exercised in using it in the provision of clinical care. This summary normalizes information from multiple sources, and as a consequence, information in this document may materially change the coding, format and clinical context of patient data. In addition, data may be omitted in some cases. CLINICAL DECISIONS SHOULD BE BASED ON THE PRIMARY CLINICAL RECORDS. [facility] [employer] [facility]. provides no warranty or guarantee of the accuracy or completeness of information in this document.
--- OUTSIDE RECORDS SUMMARY | 2025-02-24 06:59 | XMS RPT_ITS | CCD ---
Author Organization [facility] Care Team Providers Care Machine Wood Sander Name Role Phone IRMA VENCES Unavailable Unavailable PHYSICIAN, PATIENT UNSURE Unavailable Clair Hussein Unavailable Yvette Chin Unavailable Thao Schaefer Unavailable Unavailable Gravius, Ml Unavailable Unavailable Ronak, Sole Unavailable Unavailable Unavailable Unavailable Clair Perry Unavailable Yvette Chin Unavailable Thao Schaefer Unavailable Unavailable Ronak, Sole Unavailable Unavailable Unavailable Unavailable [facility] Unavailable Juhi Paige Unavailable Unavailable Ariel, Rosalinda L Unavailable Unavailable Vani Marks Unavailable Unavailable Thao Schaefer Unavailable Unavailable Yadira Harris Unavailable Andrea Velasquez Unavailable Unavailable Gravius, Ml Unavailable Unavailable Federica Perry DOhleen Unavailable [facility] Unavailable Yvette Chin MD Unavailable Vani Marks LPN Unavailable Unavailable Ciesheidi LOPEZ Breana Unavailable Thao Schaefer RN Unavailable Unavailable Gravius [employer]DC[employer] ATTENDANT, Ml Unavailable Unavailable Ronak, Sole Unavailable Unavailable Unavailable Unavailable Uriel Delgadillo Unavailable Vicky CAAL Clair Unavailable Dr. Sourav Araujo Unavailable [facility] BRIDGE CARPENTER, Monika Unavailable Unavailable Clair Perry DO Attending Unavailable Yvette Chin MD Referring Unavailable Clair Perry DO Consulting Unavailable Glen CHUNG, Rodolfo Unavailable Unavailable Clair Perry DO Primary Care Provider Care Physician, No Primary Primary Care Provider Unavailable Assessment, Health Risk Attending Provider Unava ilusmna Hahn MD, Dr. Goldberg Attending Provider [phone] Care Physician, No Primary Referring Provider Un available Vanessa Esquivel Attending Provider Dr. Clair Perry DO Primary Care Provider 1( [phone] Ricardo DUNCANCVanessa Referring Provider Care Physician, No [...] by mouth every six hours as needed Trent 5-325 MG Oral Tablet 1 (one) Tablet q6h prn for 5 days Quantity: 20 {Tablet} Refills: 0 Ordered: 10-Feb-2019 Clair Perry DO, DO, Kathleen Start : 10-Feb-2019 End : 15-Feb-2019 Inactive Comments: M54.5twenty Start: 01-13-2019 End: 01-19-2019 take 1 tablet by mouth every six hours as needed Trent 5-325 MG Oral Tablet 1 (one) Tablet [...] Comments: thirty Comment on above: geronimo M54.5twenty [id number] 200 actuat albuterol 0.09 mg/actuat metered dose [...] : 14-Jan-2019 End : 24-Jan-2019 Inactive Comments: [facility] Start: 01-13-2019 End: 12-10-2024 take 1 [...] End : 25-Sep-2006 Discontinued Comment on above: [facility] dexamethasone 6 mg oral tablet (17 sources) [...] IMMUNOGLOB A QN 227 mg/dL Normal 90-386 [facility] Comment on above: Order Comment: N Result Comment: Perf ormed at: [facility] [id number] House Carpenter Helper: Demetrius Acosta PhD, Phone: [phone] Performed By: #### L 3200.1400, L501.6710, L3410.2920, L501.9520 #### [facility] [address] [place], [address] t-Transglutaminase IgAon tTG IGA <2 Normal 0-3 [facility] Comment on above: Result Comment: Nega tive 0 - 3 Weak Positive 4 - 10 Positive >10 Tissue Transglutaminase (tTG) has been identified as the endomysial antigen. Studies have demonstr- ated that endomysial IgA antibodies have over 99% specificity for gluten sensitive enteropathy. Performed By: #### L 3200.1400, L501.6710, L3410.2920, L501.9520 #### [facility] [address] [place], [address] CRPon 01-07-2025 C-REACTIVE PROT < 3.00 Normal 0.0-3.0 [facility] Comment on above: Performed By: #### L 3200.1400, L501.6710, L3410.2920, L501.9520 #### [facility] [address] [place], [place], [address] Serum or plasma C reactive p rotein measurement (mass/volume)Ordered By: Vanessa Silva on 01-07-2025 CRP [Mass/Vol] mg/L 0.0-3.0 [facility] Serum or plasma IgA measurem ent (mass/volume)Ordered By: Vanessa Silva on 01-07-2025 IgA [Mass/Vol] 227 mg/dL 90-386 [facility] Comment on above: Performed at: [address] [id number] Director: Demetrius Acosta PhD, Phone: [phone] Serum tissue transglutaminas e (tTG) IgA antibody assay (units/volume)Ordered By: Vanessa Silva on 01-07-2025 tTG IgA Qn (S) <2 U/mL 0-3 [facility] Comment on above: Negative 0 - 3 Weak Positive 4 - 10 Positive >10 Tissue Transglutaminase (tTG) has been identified as the endomysial antigen. Studies have demonstr- ated that endomysial IgA antibodies have over 99% specificity for gluten sensitive enteropathy. TSH DL <= 0.005 mIU/L QnOrde red By: Vanessa Silva on 01-07-2025 TSH Qn 0.570 uIU/mL 0.300-4.20 0 [facility] Thyroid Stim Hormone (TSH)on 01-07-2025 TSH 0.570 uIU/mL Normal 0.300-4.20 0 [facility] Comment on above: Performed By: #### L 3200.1400, L501.6710, L3410.2920, L501.9520 #### [facility] [address] [place], [address] Gastroenterology Visit Repor ton 12-10-2024 Gastroenterology Visit Report [facility] [address] [place] [address] OFFICE VISIT Date of Service: 12/10/24 MR#: [id number] Acct: [id number] Name: ROBERT MESA Rep #: [id number] : 1965 Provider: LOBITO phan Age/Sex: 59/M Location: [facility] Status: Signed Intake Vital Signs 01/13/19 13:29 12/10/24 16:12 Height 6 ft 6 ft Weight: 200 lb 4 oz BMI 27.1 BP 139/87 H Respiration 16 Pulse 65 Pulse Oximetry (%) 98 Oxygen Delivery Method room air Intake Visit Reasons: Diarrhea 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 Normal [facility] HIP, UNI W/ Pelvis 2-3 Views on 11-01-2024 HIP, UNI W/ Pelvis 2-3 Views [facility] Services [address] [place] [address] HIP, UNI W/ Pelvis 2-3 Views MR#: [id number] Acct: [id number] Name: BONITAROBERT Tony Rep #: [id number] : 1965 M 59 From: Demetrius Mclaughlin PCP: Care Physician,No Primary Status: DEP [facility] Study: HIP, UNI W/ Pelvis 2-3 Views Date of Exam: Exam# [id number] Ordering Dr: Clair Perry DO PROCEDURE: HIP, [...] fracture or dislocation is seen. Reading Location: [address] CC: Dr. 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, [address] Automated blood erythrocyte countOrdered By: HEALTH ASSESSMENT on 09-28-2024 RBC (Bld) [#/Vol] 5.25 10*6/uL Normal 4.6-6.2 [facility] Comment on above: Performed By: #### L 500.4050, L100.0500, L500.4100, L501.9910, L501.9985 #### [facility] [address] [place], [address] Automated blood hematocrit ( percentage)Ordered By: HEALTH ASSESSMENT on 09-28-2024 Hematocrit (Bld) [Volume fraction] 46.2 % Normal 40-54 [facility] Comment on above: Performed By: #### L 500.4050, L100.0500, L500.4100, L501.9910, L501.9985 #### [facility] [address] [place], [address] Bilirubin, totalOrdered By: HEALTH ASSESSMENT on 09-28-2024 Bilirubin [Mass/Vol] 1.10 mg/dL High 0.20-1.00 [facility] Comment on above: For patients on eltr ombopag therapy, use of Dimension Mandan TBIL is not recommended. Result Comment: For patients on eltrombopag therapy, use of Dimension Mandan TBIL is not recommended. Performed By: #### L 500.4050, L100.0500, L500.4100, L501.9910, L501.9985 #### [facility] [address] [place], [address] Blood urea nitrogen (BUN)/cr eatinine ratioOrdered By: HEALTH ASSESSMENT on 09-28-2024 Urea nitrogen/Creatinine [Mass ratio] 15.4 mg/mg 10-20 [facility] CBC-Complete Blood Cnt No Di ffon 09-28-2024 RDW SD 39.3 fl Normal 35.1-43.9 [facility] Comment on above: Performed By: #### L 500.4050, L100.0500, L500.4100, L501.9910, L501.9985 #### [facility] [address] [place], [address] Carbon dioxide measurementOr dered By: HEALTH ASSESSMENT on 09-28-2024 CO2 [Moles/Vol] 24.0 mmol/L Normal 21.0-32.0 [facility] Comment on above: Performed By: #### L 500.4050, L100.0500, L500.4100, L501.9910, L501.9985 #### [facility] [address] [place], [address] Chloride measurementOrdered By: HEALTH ASSESSMENT on 09-28-2024 Chloride [Moles/Vol] 100 mmol/L Normal 98-107 [facility] Comment on above: Performed By: #### L 500.4050, L100.0500, L500.4100, L501.9910, L501.9985 #### [facility] [address] [place], [address] Comprehensive Metabolic Prof ilon 09-28-2024 ALK P 72 U/L Normal 45-117 [facility] Comment on above: Performed By: #### L 500.4050, L100.0500, L500.4100, L501.9910, L501.9985 #### [facility] [address] [place], [place], [address] BUN/CRE 15.4 RATIO Normal 10-20 [facility] Comment on above: Performed By: #### L 500.4050, L100.0500, L500.4100, L501.9910, L501.9985 #### [facility] [address] [place], [place], [id number] CA,Total 8.8 mg/dL Normal 8.5-10.1 [facility] Comment on above: Performed By: #### L 500.4050, L100.0500, L500.4100, L501.9910, L501.9985 #### [facility] [address] [place], [address] EST GFR - AA 110 mL/min Normal >60 [facility] Comment on above: Result Comment: Afri can Stateless GFR Calc Performed By: #### L 500.4050, L100.0500, L500.4100, L501.9910, L501.9985 #### [facility] [address] [place], [address] GAP 12 Normal 5-15 [facility] Comment on above: Performed By: #### L 500.4050, L100.0500, L500.4100, L501.9910, L501.9985 #### [facility] [address] [place], [place], [address] T PROT 7.7 g/dL Normal 6.4-8.2 [facility] Comment on above: Performed By: #### L 500.4050, L100.0500, L500.4100, L501.9910, L501.9985 #### [facility] [address] [place], [place], [address] Comprehensive Metabolic Prof ilOrdered By: HEALTH ASSESSMENT on 09-28-2024 AST [Catalytic activity/Vol] 26 U/L Normal 15-37 [facility] Comment on above: Performed By: #### L 500.4050, L100.0500, L500.4100, L501.9910, L501.9985 #### [facility] [address] [place], [place], [address] Erythrocyte distribution wid th ratioOrdered By: HEALTH ASSESSMENT on 09-28-2024 Erythrocyte distribution width (RBC) [Ratio] 12.3 % Normal 11.6-14.6 [facility] Comment on above: Performed By: #### L 500.4050, L100.0500, L500.4100, L501.9910, L501.9985 #### [facility] [address] [place], [address] Erythrocyte distribution wid th standard deviationOrdered By: HEALTH ASSESSMENT on 09-28-2024 Erythrocyte distribution width (RBC) [Ratio] 39.3 fl 35.1-43.9 [facility] Glomerular filtration rate ( GFR) estimationOrdered By: HEALTH ASSESSMENT on 09-28-2024 GFR/1.73 sq M.predicted among non-blacks MDRD (S/P/Bld) [Vol rate/Area] 91 mL/min/{1.73_m2} Normal >60 [facility] Comment on above: Non- GFR Calc Result Comment: Non- GFR Calc Performed By: #### L 500.4050, L100.0500, L500.4100, L501.9910, L501.9985 #### [facility] [address] [place], [place], [address] Glucose measurementOrdered B y: HEALTH ASSESSMENT on 09-28-2024 Glucose [Mass/Vol] 103 mg/dL Normal 74-106 [facility] Comment on above: Fasting Glucose resu lt from 100 to 125 mg/dL suggests IMPAIRED HOMEOSTASIS per A.D.A. criteria. Result Comment: Fast ing Glucose result from 100 to 125 mg/dL suggests IMPAIRED HOMEOSTASIS per A.D.A. criteria. Performed By: #### L 500.4050, L100.0500, L500.4100, L501.9910, L501.9985 #### [facility] [address] [place], [place], [id number] Hemoglobin A1c percentageOrd ered By: HEALTH ASSESSMENT on 09-28-2024 HbA1c (Bld) [Mass fraction] 5.6 % Normal 3.8-5.6 [facility] Comment on above: Normal < 5.7 % Predi abetic 5.7 - 6.4 % Diabetic >or= 6.5 % Please note range changes. Result Comment: Norm al < 5.7 % Prediabetic 5.7 - 6.4 % Diabetic >or= 6.5 % Please note range changes. Performed By: #### L 500.4050, L100.0500, L500.4100, L501.9910, L501.9985 #### [facility] [address] [place], [place], [address] Hemoglobin measurementOrdere d By: HEALTH ASSESSMENT on 09-28-2024 Hemoglobin (Bld) [Mass/Vol] 16.2 g/dL Normal 13.0-16.5 [facility] Comment on above: Performed By: #### L 500.4050, L100.0500, L500.4100, L501.9910, L501.9985 #### [facility] [address] [place], [place], [address] High density lipoprotein (HD L) measurementOrdered By: HEALTH ASSESSMENT on 09-28-2024 Cholesterol in HDL [Mass/Vol] 80 mg/dL Normal [facility] Comment on above: The drugs N-Acetylcy steine [...] L 500.4050, L100.0500, L500.4100, L501.9910, L501.9985 #### [facility] [address] [place], [address] Lipid Profileon 09-28-2024 Cholesterol in VLDL [Mass/Vol] 34 mg/dL Normal 5-40 [facility] Comment on above: Performed By: #### L 500.4050, L100.0500, L500.4100, L501.9910, L501.9985 #### [facility] [address] [place], [place], [address] Low density lipoprotein (LDL ) cholesterol measurementOrdered By: HEALTH ASSESSMENT on 09-28-2024 Cholesterol in LDL [Mass/Vol] 65 mg/dL Normal 0-130 [facility] Comment on above: Performed By: #### L 500.4050, L100.0500, L500.4100, L501.9910, L501.9985 #### [facility] [address] [place], [address] MCV (mean corpuscular volume ) determinationOrdered By: HEALTH ASSESSMENT on 09-28-2024 MCV (RBC) [Entitic vol] 88.0 fL Normal 80-94 [facility] Comment on above: Performed By: #### L 500.4050, L100.0500, L500.4100, L501.9910, L501.9985 #### [facility] [address] [place], [address] Mean corpuscular hemoglobin (MCH) determinationOrdered By: HEALTH ASSESSMENT on 09-28-2024 MCH (RBC) [Entitic mass] 30.9 pg Normal 27.0-32.0 [facility] Comment on above: Performed By: #### L 500.4050, L100.0500, L500.4100, L501.9910, L501.9985 #### [facility] [address] [place], [address] Mean corpuscular hemoglobin concentration (MCHC) determinationOrdered By: HEALTH ASSESSMENT on 09-28-2024 MCHC (RBC) [Mass/Vol] 35.1 g/dL Normal 32-36 [facility] Comment on above: Performed By: #### L 500.4050, L100.0500, L500.4100, L501.9910, L501.9985 #### [facility] [address] [place], [address] Mean platelet volume determi nationOrdered By: HEALTH ASSESSMENT on 09-28-2024 Platelet mean volume (Bld) [Entitic vol] 10.5 fL Normal 6.2-12.0 [facility] Comment on above: Performed By: #### L 500.4050, L100.0500, L500.4100, L501.9910, L501.9985 #### [facility] [address] [place], [address] PSA,Total - Annual Screenon 09-28-2024 PSA,TOT SCREEN 2.12 ng/mL Normal 0.00-4.00 [facility] Comment on above: Result Comment: This test was performed using the TPSA assay method for the Acupera chemistry system. Values obtained with different assay methods cannot be used interchangably. When changing PSA assays in the course of monitoring a patient, additional sequential testing should be carried out to confirm baseline values. Performed By: #### L 500.4050, L100.0500, L500.4100, L501.9910, L501.9985 #### [facility] [address] [place], [place], [address] Platelet countOrdered By: HE ALTH ASSESSMENT on 09-28-2024 Platelets (Bld) [#/Vol] 337 10*3/uL Normal 150-450 [facility] Comment on above: Performed By: #### L 500.4050, L100.0500, L500.4100, L501.9910, L501.9985 #### [facility] [address] [place], [address] Potassium measurementOrdered By: HEALTH ASSESSMENT on 09-28-2024 Potassium [Moles/Vol] 3.5 mmol/L Normal 3.5-5.1 [facility] Comment on above: Performed By: #### L 500.4050, L100.0500, L500.4100, L501.9910, L501.9985 #### [facility] [address] [place], [address] Serum anion gap measurementO rdered By: HEALTH ASSESSMENT on 09-28-2024 Anion gap [Moles/Vol] 12 mmol/L 5-15 [facility] Serum globulin measurementOr dered By: HEALTH ASSESSMENT on 09-28-2024 Globulin (S) [Mass/Vol] 4.0 g/dL Normal 2.2-4.2 [facility] Comment on above: Performed By: #### L 500.4050, L100.0500, L500.4100, L501.9910, L501.9985 #### [facility] [address] [place], [address] Serum or plasma alanine cruz otransferase (ALT) measurementOrdered By: HEALTH ASSESSMENT on 09-28-2024 ALT [Catalytic activity/Vol] 45 U/L Normal 16-61 [facility] Comment on above: Performed By: #### L 500.4050, L100.0500, L500.4100, L501.9910, L501.9985 #### [facility] [address] [place], [address] Serum or plasma albumin lilian urement (mass/volume)Ordered By: HEALTH ASSESSMENT on 09-28-2024 Albumin [Mass/Vol] 3.7 g/dL Normal 3.2-5.0 [facility] Comment on above: Performed By: #### L 500.4050, L100.0500, L500.4100, L501.9910, L501.9985 #### [facility] [address] [facility] [place], [address] Serum or plasma alkaline jennifer sphatase measurementOrdered By: HEALTH ASSESSMENT on 09-28-2024 ALP [Catalytic activity/Vol] 72 U/L 45-117 [facility] Serum or plasma calcium lilian urement (mass/volume)Ordered By: HEALTH ASSESSMENT on 09-28-2024 Calcium [Mass/Vol] 8.8 mg/dL 8.5-10.1 [facility] Serum or plasma cholesterol measurement (mass/volume)Ordered By: HEALTH ASSESSMENT on 09-28-2024 Cholesterol [Mass/Vol] 179 mg/dL Normal 200 [facility] Comment on above: <200 mg/dL Desirable 200-240 mg/dL Borderline >240 mg/dL High Risk Result Comment: <200 mg/dL Desirable 200-240 mg/dL Borderline >240 mg/dL High Risk Performed By: #### L 500.4050, L100.0500, L500.4100, L501.9910, L501.9985 #### [facility] [address] [place], [address] Serum or plasma creatinine m easurement (mass/volume)Ordered By: HEALTH ASSESSMENT on 09-28-2024 Creatinine [Mass/Vol] 0.91 mg/dL Normal 0.70-1.30 [facility] Comment on above: The validity of the calculated GFR & GFRAA in patients over 70 years has not been determined. Clinical correlation is essential. Result Comment: The validity of the calculated GFR GFRAA in patients over 70 years has not been determined. Clinical correlation is essential. Performed By: #### L 500.4050, L100.0500, L500.4100, L501.9910, L501.9985 #### [facility] [address] [place], [address] Serum or plasma urea nitroge n measurement (mass/volume)Ordered By: HEALTH ASSESSMENT on 09-28-2024 Urea nitrogen [Mass/Vol] 14 mg/dL Normal 7-18 [facility] Comment on above: Performed By: #### L 500.4050, L100.0500, L500.4100, L501.9910, L501.9985 #### [facility] [address] [place], [place], [address] Sodium levelOrdered By: [facility] ASSESSMENT on 09-28-2024 Sodium [Moles/Vol] 136 mmol/L Normal 136-145 [facility] Comment on above: Performed By: #### L 500.4050, L100.0500, L500.4100, L501.9910, L501.9985 #### [facility] [address] [place], [place], [address] Total proteinOrdered By: [facility] ASSESSMENT on 09-28-2024 Protein [Mass/Vol] 7.7 g/dL 6.4-8.2 [facility] Triglycerides measurementOrd ered By: HEALTH ASSESSMENT on 09-28-2024 Triglyceride [Mass/Vol] 169 mg/dL Normal [facility] Comment on above: The drugs N-Acetylcy steine [...] L 500.4050, L100.0500, L500.4100, L501.9910, L501.9985 #### [facility] [address] [place], [place], [address] Very low density lipoprotein (VLDL) cholesterol measurementOrdered By: HEALTH ASSESSMENT on 09-28-2024 Very low density lipoprotein (VLDL) cholesterol measurement 34 mg/dL 5-40 [facility] White blood cell (WBC) count Ordered By: HEALTH ASSESSMENT on 09-28-2024 WBC (Bld) [#/Vol] 9.4 10*3/uL Normal 4.4-11.0 [facility] Comment on above: Performed By: #### L 500.4050, L100.0500, L500.4100, L501.9910, L501.9985 #### [facility] [address] [place], [address] Blood Glucose , Office ([phone])Ordered By: Ml Gomez on 01-04-2022 Glucose Glucometer (BldC) [Moles/Vol] 117 1 Normal [facility] Work Phone: CBC W/AUTO DIFF WBC ([id number])O rdered By: [employer] 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 on 01-04-2022 Basophils (Bld) [#/Vol] 0.1 10*3/uL Normal 0.0-0.2 [facility]; [facility] Work Phone: Comment on above: PATIENT WAS FASTINGP ERFORMED BY: ANDREW [facility] CenterWesvtb11[facility] [id number] Basophils/100 WBC (Bld) 1 % Normal [facility]; [facility] Work Phone: Comment on above: PATIENT WAS FASTINGP ERFORMED BY: ANDREW [facility] [address] [place] [id number] Eosinophils (Bld) [#/Vol] 0.1 10*3/uL Normal 0.0-0.4 [facility]; [facility] Work Phone: Comment on above: PATIENT WAS FASTINGP ERFORMED BY: [facility] Gladwin[address] [place] [id number] Eosinophils/100 WBC (Bld) 1 % Normal [facility]; [facility] Work Phone: Comment on above: PATIENT WAS FASTINGP ERFORMED BY: [facility] Gladwin6[address]ía RoadC[facility] [id number] Erythrocyte distribution width (RBC) [Ratio] 12.3 % Normal 11.6-15.4 [facility]; [facility] Work Phone: Comment on above: PATIENT WAS FASTINGP ERFORMED BY: [place] [id number] [facility] [id number] Hematocrit (Bld) [Volume fraction] 46.6 % Normal 37.5-51.0 [facility]; [facility] Work Phone: Comment on above: PATIENT WAS FASTINGP ERFORMED BY: [facility] Gladwin[address] [facility] [id number] Hemoglobin (Bld) [Mass/Vol] 15.9 g/dL Normal 13.0-17.7 [facility]; [facility] Work Phone: Comment on above: PATIENT WAS FASTINGP ERFORMED BY: [facility] Gladwin[address] RoadFormerly Alexander Community Hospitalin [place] [id number] Immature granulocytes (Bld) [#/Vol] 0.0 10*3/uL Normal 0.0-0.1 [facility]; [facility] Work Phone: Comment on above: PATIENT WAS FASTINGP ERFORMED BY: [facility] Ugycna9159 García RoadDublin [place] [id number] Immature granulocytes/100 WBC (Bld) 1 % Normal [facility]; [facility] Work Phone: Comment on above: PATIENT WAS FASTINGP ERFORMED BY: [facility] Pokowl0623 García RoadDublin [place] [id number] Lymphocytes (Bld) [#/Vol] 2.1 10*3/uL Normal 0.7-3.1 [facility]; [facility] Work Phone: Comment on above: PATIENT WAS FASTINGP ERFORMED BY: [facility] Ivhoxk8976 García RoadDublin [place] [id number] Lymphocytes/100 WBC (Bld) 27 % Normal [facility]; [facility] Work Phone: Comment on above: PATIENT WAS FASTINGP ERFORMED BY: [facility] Ijnqkz9242 García RoadDublin [place] [id number] MCH (RBC) [Entitic mass] 30.8 pg Normal 26.6-33.0 [facility]; [facility] Work Phone: Comment on above: PATIENT WAS FASTINGP ERFORMED BY: [facility] Tclult5620 [address]ía RoadDublin [place] [id number] MCHC (RBC) [Mass/Vol] 34.1 g/dL Normal 31.5-35.7 [facility] prehensive Internal Medicine; [facility] Work Phone: Comment on above: PATIENT WAS FASTINGP ERFORMED BY: [facility] Kqaphy1802 [address]ía RoadDublin [place] [id number] MCV (RBC) [Entitic vol] 90 fL Normal 79-97 [facility]; [facility] Work Phone: Comment on above: PATIENT WAS FASTINGP ERFORMED BY: [facility] Zizwbj5312 [address]ía RoadDublin [place] [id number] Monocytes (Bld) [#/Vol] 0.7 10*3/uL Normal 0.1-0.9 [facility]; [facility] Work Phone: Comment on above: PATIENT WAS FASTINGP ERFORMED BY: [facility] Fkbuhk7484 [address]ía RoadDublin [place] [id number] Monocytes/100 WBC (Bld) 9 % Normal [facility]; [facility] Work Phone: Comment on above: PATIENT WAS FASTINGP ERFORMED BY: CB [facility] Dcjuag5497 García RoadDublin [place] [id number] Neutrophils (Bld) [#/Vol] 4.8 10*3/uL Normal 1.4-7.0 [facility]; [facility] Work Phone: Comment on above: PATIENT WAS FASTINGP ERFORMED BY: CB [facility] Plcctr0009 [address]ía RoadDublin [place] [id number] Neutrophils/100 WBC (Bld) 61 % Normal [facility]; [facility] Work Phone: Comment on above: PATIENT WAS FASTINGP ERFORMED BY: CB [facility] Oxefuf5707 [address]ía RoadDublin [place] [id number] Platelets (Bld) [#/Vol] 298 10*3/uL Normal 150-450 [facility]; [facility] Work Phone: Comment on above: PATIENT WAS FASTINGP ERFORMED BY: CB [facility] Uxuvcs7601 [address]ía RoadDublin [place] [id number] RBC (Bld) [#/Vol] 5.17 10*6/uL Normal 4.14-5.80 [facility]; [facility] Work Phone: Comment on above: PATIENT WAS FASTINGP ERFORMED BY: CB [facility] Noadla7710 [address]ía RoadDublin [place] [id number] WBC (Bld) [#/Vol] 7.8 10*3/uL Normal 3.4-10.8 Compre [facility]; [facility] Work Phone: Comment on above: PATIENT WAS FASTINGP ERFORMED BY: CB [facility] Snwwhv3500 García RoadDublin [place] [id number] HgA1C , Office ([id number])Ordere d By: Ml Gomez on 01-04-2022 HbA1c (Bld) [Mass fraction] 5.2 % Normal 4.6 - 7.1 [facility]; [facility] Work Phone: LIPID PANEL (32260)Ordered B y: [employer] 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 on 01-04-2022 Cholesterol [Mass/Vol] 208 mg/dL Abnormal 100-199 [facility]; [facility] Work Phone: Comment on above: PATIENT WAS FASTINGP ERFORMED BY: ANDREW [facility] Qsnwyx0442 [address]ía RoadDublin [place] [id number] Cholesterol in HDL [Mass/Vol] 99 mg/dL Normal [facility]; [facility] Work Phone: Comment on above: PATIENT WAS FASTINGP ERFORMED BY: CB [facility] Qhgpbz9313 [address]ía RoadDublin [place] [id number] Triglyceride [Mass/Vol] 49 mg/dL Normal 0-149 [facility]; [facility] Work Phone: Comment on above: PATIENT WAS FASTINGP ERFORMED BY: ANDREW [facility] Fvetij9077 García RoadDublin [place] [id number] LIPID PANEL (15156) 9 mg/dL Normal 5-40 [facility]; [facility] Work Phone: Comment on above: PATIENT WAS FASTINGP ERFORMED BY: ANDREW [facility] Ixxbwc2690 [address]ía RoadDublin [place] [id number] LIPID PANEL (31538) 100 mg/dL Abnormal 0-99 [facility]; [facility] Work Phone: Comment on above: PATIENT WAS FASTINGP ERFORMED BY: CB [facility] Yqjccs0161 [address]ía RoadDublin [place] [id number] LIPID PANEL (32999) 1.0 {ratio} Normal 0.0-3.6 [facility]; [facility] Work Phone: Comment on above: LDL/HDL Ratio Men Wo men 1/2 Avg.Risk 1.0 1.5 Avg.Risk 3.6 3.2 2X Avg.Risk 6.2 5.0 3X Avg.Risk 8.0 6.1 PATIENT WAS FASTINGP ERFORMED BY: CB [facility] Hqsrfu7863 [address]ía RoadDublin [place] [id number] METABOLIC PANEL, COMPREHENSI VE (09085)Ordered By: [employer] 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 on 01-04-2022 Albumin [Mass/Vol] 4.5 g/dL Normal 3.8-4.9 [facility] Internal Medicine; [facility] Work Phone: Comment on above: PATIENT WAS FASTINGP ERFORMED BY: CB [facility] Nopuwn6325 [address]ía RoadDublin [place] [id number] Albumin/Globulin [Mass ratio] 1.7 {ratio} Normal 1.2-2.2 [facility]; [email or web address]] Internal Medicine Work Phone: Comment on above: PATIENT WAS FASTINGP ERFORMED BY: CB [facility] Zjzibx6737 [address]ía RoadDublin [place] [id number] ALP [Catalytic activity/Vol] 66 U/L Normal 44-121 [facility]; [facility] Work Phone: Comment on above: PATIENT WAS FASTINGP ERFORMED BY: CB [facility] Nfeeoc5883 [address]ía RoadDublin [place] [id number] ALT [Catalytic activity/Vol] 19 U/L Normal 0-44 [facility]; [facility] Work Phone: Comment on above: PATIENT WAS FASTINGP ERFORMED BY: CB [facility] Utpzif1404 [address]ía RoadDublin [place] [id number] AST [Catalytic activity/Vol] 24 U/L Normal 0-40 [facility]; [facility] Work Phone: Comment on above: PATIENT WAS FASTINGP ERFORMED BY: CB [facility] Vlbzch0134 [address]ía RoadDublin [place] [id number] Bilirubin [Mass/Vol] 1.0 mg/dL Normal 0.0-1.2 [facility] Internal Medicine; [facility] [[email or web address]] Internal Medicine Work Phone: Comment on above: PATIENT WAS FASTINGP ERFORMED BY: CB [facility] Qhdwre5364 [address]ía RoadDublin [place] [id number] Calcium [Mass/Vol] 9.9 mg/dL Normal 8.7-10.2 [facility] Internal Medicine; [facility] [[email or web address]] Internal Medicine Work Phone: Comment on above: PATIENT WAS FASTINGP ERFORMED BY: CB [facility] Hudvzd2654 [address]ía RoadDublin [place] [id number] Chloride [Moles/Vol] 97 mmol/L Normal 96-106 Comp rehensive Internal Medicine; [facility] Work Phone: Comment on above: PATIENT WAS FASTINGP ERFORMED BY: ANDREW Labcoromeo ForteTrngdv3259 [facility] [id number] CO2 [Moles/Vol] 25 mmol/L Normal 20-29 Comprehen sive Internal Medicine; [facility] Work Phone: Comment on above: PATIENT WAS FASTINGP ERFORMED BY: [facility] Souoyt8194 [facility] [id number] Creatinine [Mass/Vol] 0.79 mg/dL Normal 0.76-1.27 [facility] prehensive Internal Medicine; [facility] Work Phone: Comment on above: PATIENT WAS FASTINGP ERFORMED BY: [facility] Wcmjeb8929 [facility] [id number] GFR/1.73 sq M.predicted among non-blacks MDRD (S/P/Bld) [Vol rate/Area] 105 mL/min/{1.73_m2} Normal Comprehensi Internal Medicine; [facility] Work Phone: Comment on above: PATIENT WAS FASTINGP ERFORMED BY: [facility] Qqtxht7517 [facility] [id number] Globulin (S) [Mass/Vol] 2.7 g/dL Normal 1.5-4.5 [facility]; [facility] Work Phone: Comment on above: PATIENT WAS FASTINGP ERFORMED BY: [facility] Zavpdo1570 [facility] [id number] Glucose [Mass/Vol] 93 mg/dL Normal 65-99 Compre [facility] Internal Medicine; [facility] Work Phone: Comment on above: PATIENT WAS FASTINGP ERFORMED BY: [facility] Nohgjz1352 [facility] [id number] Potassium [Moles/Vol] 4.4 mmol/L Normal 3.5-5.2 Com prehensive Internal Medicine; [facility] Work Phone: Comment on above: PATIENT WAS FASTINGP ERFORMED BY: ANDREW [facility] Qazjpc9624 [address]ía RoadDublin [place] [id number] Protein [Mass/Vol] 7.2 g/dL Normal 6.0-8.5 [facility] Internal Medicine; [facility] Work Phone: Comment on above: PATIENT WAS FASTINGP ERFORMED BY: ANDREW Labcoromeo Jmprii3014 [address]ía RoadDublin [place] [id number] Sodium [Moles/Vol] 137 mmol/L Normal 134-144 [facility] Internal Medicine; [facility] Work Phone: Comment on above: PATIENT WAS FASTINGP ERFORMED BY: ANDREW Labcoromeo Lnpwsa0894 [address]ía RoadDublin [place] [id number] Urea nitrogen [Mass/Vol] 11 mg/dL Normal 6-24 [facility]; [facility] Work Phone: Comment on above: PATIENT WAS FASTINGP ERFORMED BY: ANDREW Labcoromeo PattonDhuxsb6515 [address]ía RoadDublin [place] [id number] Urea nitrogen/Creatinine [Mass ratio] 14 mg/mg Normal 9-20 [facility]; [facility] Work Phone: Comment on above: PATIENT WAS FASTINGP ERFORMED BY: ANDREW Labmatthew Xfvdvv6120 [address]ía RoadDublin [place] [id number] MICROALBUMINOrdered By: Syst em Plaster Caster on 01-04-2022 Albumin DL <= 20 mg/L (U) [Mass/Vol] 3.7 ug/mL Normal [facility]; [facility] Work Phone: Comment on above: PATIENT WAS FASTINGP ERFORMED BY: ANDREW [facility] Kajwgd8898 [address]ía RoadDublin [place] [id number] Albumin/Creatinine (U) [Mass ratio] 3 {mg/g_creat} Normal 0-29 [facility]; [facility] Work Phone: Comment on above: Normal: 0 - 29 Moder ately increased: 30 - 300 Severely increased: >300 PATIENT WAS FASTINGP ERFORMED BY: ANDREW Labcoromeo Ewcuik0743 [address]ía RoadDublin [place] [id number] Creatinine (U) [Mass/Vol] 116.3 mg/dL Normal [facility]; [facility] Work Phone: Comment on above: PATIENT WAS FASTINGP ERFORMED BY: ANDREW Forte6370 [facility] [id number] TSH ([id number])Ordered By: Kan becerra Plaster Caster on 01-04-2022 TSH Qn 0.593 {uIU/mL} Normal 0.450-4.50 0 [facility]; [facility] Work Phone: Comment on above: PATIENT WAS FASTINGP ERFORMED BY: ANDREW Forte6370 [facility] [id number] Blood Glucose , Office ([phone])Ordered By: lM Gomez on 09-03-2021 Glucose Glucometer (BldC) [Moles/Vol] 107 1 Normal [facility]; [facility] Work Phone: HgA1C , Office (58285)Ordere d By: Ml Gomez on 09-03-2021 HbA1c (Bld) [Mass fraction] 5.4 % Normal 4.6 - 7.1 [facility]; [facility] Work Phone: HGB A1C (41582)Ordered By: Lourdes ystem Plaster Caster on 04-27-2021 HbA1c (Bld) [Mass fraction] 5.7 % Abnormal 4.8-5.6 [facility]; [facility] Work Phone: Comment on above: . Prediabetes: 5.7 - 6.4 Diabetes: >6.4 Glycemic control for adults with diabetes: <7.0 PATIENT NOT FASTINGP ERFORMED BY: ANDREW LabMatthew aPttonQbsypg3826 [facility] [id number] POTASSIUM SERUM (56018)Order ed By: [employer] 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 on 04-27-2021 Potassium [Moles/Vol] 4.4 mmol/L Normal 3.5-5.2 [facility] prehensive Internal Medicine; [facility] Work Phone: Comment on above: PATIENT NOT FASTINGP ERFORMED BY: ANDREW Forte6370 [facility] [id number] SARS-CoV-2 Antibody, IgG (86 769)Ordered By: [employer] 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 on 11-06-2020 SARS-CoV-2 (COVID-19) IgG IA.rapid Ql [...] otherhuman Coronaviruses.This assay was performed using the [employer](R)SARS-CoV-2 S1/S2 IgG assay.This assay detects antibodies against SARS-CoV-2 spike proteinincluding the receptor binding domain (RBD). Test(s) 181097-GYPT- CoV-2 Antibody, IgGhas not been FDA cleared [...] otherviruses or pathogens.PATIENT NOT FASTINGPERFORMED BY: [facility]Co Mnuhll9591 [facility] [id number] SARS-CoV-2 Antibody, IgG (05710) Positive Normal [facility]; [facility] [...] proteinincluding the receptor binding domain (RBD). Test(s) 865364-MALX- CoV-2 Antibody, IgGhas not been FDA cleared [...] any otherviruses or pathogens.PATIENT NOT FASTINGPERFORMED BY: [facility]6370 [facility] [id number] 2018 Novel Coronavirus (COVI D-19), GABBY (63199)Ordered By: [employer] 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 on 08-03-2020 2019 Novel Coronavirus (COVID-19), GABBY (43206) Detected Abnormal [facility]; [facility] Work Phone: Comment on above: Client Requested Fla gThis nucleic acid amplification test was developed and its performancecharacteristics determined by [employer]. Nucleic acidamplification tests include PCR and TMA. [...] done Jul; PATIENT NOT FASTINGPERFORMED BY: ANDREW [employer]6370 [facility]xGood [facility] [id number] 2018 Novel Coronavirus (COVID-19), GABBY (73108) Detected Abnormal [facility]; [facility] Work Phone: Comment on above: Client Requested Fla gThis nucleic acid amplification test was developed and its performancecharacteristics determined by [employer]. Nucleic acidamplification tests include PCR and TMA. [...] done Jul; PATIENT NOT FASTINGPERFORMED BY: ANDREW [employer]6370 EdventoryCentral [facility] [id number] Protein Electro, Random Urin eOrdered By: [employer] 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 on 05-07-2017 Albumin/Protein.total Elph mass fraction (U) 18.9 % Normal [facility] Work Phone: Comment on above: PATIENT NOT FASTINGP ERFORMED BY: ANDREW Novast70 [address]ía RoadDublin [place] [id number] Alpha 1 globulin/Protein.tota l Elph mass fraction (U) 3.2 % Normal [facility] Work Phone: Comment on above: PATIENT NOT FASTINGP ERFORMED BY: CB [facility] Tbvksb0346 García RoadDublin [place] [id number] Alpha 2 globulin/Protein.tota l Elph mass fraction (U) 18.6 % Normal [facility] Work Phone: Comment on above: PATIENT NOT FASTINGP ERFORMED BY: CB [facility] Mqbyms1073 [address]ía RoadDublin [place] [id number] Beta globulin/Protein.tota l Elph mass fraction (U) 32.6 % Normal [facility] Work Phone: Comment on above: PATIENT NOT FASTINGP ERFORMED BY: CB [facility] Silkbf8685 [address]ía RoadDublin [place] [id number] Gamma globulin/Protein.tota l Elph mass fraction (U) 26.6 % Normal [facility] Work Phone: Comment on above: PATIENT NOT FASTINGP ERFORMED BY: CB [facility] Ewogjy4824 [address]ía RoadDublin [place] [id number] Laboratory comment Wilbur (Report) SPRCS Normal [facility] Work Phone: Comment on above: Protein electrophore sis scan will follow via computer, mail, orcourier delivery. PATIENT NOT FASTINGP ERFORMED BY: CB [facility] Plhmhk6308 [address]ía RoadDublin [place] [id number] Protein mass conc (U) 8.7 mg/dL Normal [facility] prehensive Internal Medicine Work Phone: Comment on above: PATIENT NOT FASTINGP ERFORMED BY: CB [facility] Opotvz3797 [address]ía RoadDublin [place] [id number] Protein.monoclonal/Pr otein.total Elph mass fraction (U) Not Observed Normal [facility] Work Phone: Comment on above: PATIENT NOT FASTINGP ERFORMED BY: CB [facility] Oebdgo1584 [address]ía RoadDublin [place] [id number] Serum Protein Electrophoresi s (SPEP) (65065)Ordered By: [employer] 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 on 05-07-2017 Albumin mass conc 3.9 g/dL Normal 2.9-4.4 Compreh ensive Internal Medicine Work Phone: Comment on above: PATIENT NOT FASTINGP ERFORMED BY: CB [facility] Xkakhg7370 [address]ía RoadDublin [place] [id number] Albumin/Globulin mass ratio 1.1 {ratio} Normal 0.7-1.7 [facility] Work Phone: Comment on above: PATIENT NOT FASTINGP ERFORMED BY: CB [facility] Akkliy7396 [address]ía RoadDublin [place] [id number] Alpha 1 globulin Elph mass conc 0.3 g/dL Normal 0.0-0.4 [facility] Work Phone: Comment on above: PATIENT NOT FASTINGP ERFORMED BY: CB [facility] Qgcnbq0215 [address]ía RoadDublin [place] [id number] Alpha 2 globulin Elph mass conc 0.8 g/dL Normal 0.4-1.0 [facility] Work Phone: Comment on above: PATIENT NOT FASTINGP ERFORMED BY: CB [facility] Wbiupl9582 [address]ía RoadDublin [place] [id number] Beta globulin Elph mass conc 1.1 g/dL Normal 0.7-1.3 [facility] Work Phone: Comment on above: PATIENT NOT FASTINGP ERFORMED BY: CB [facility] Qajdge9031 [address]ía RoadDublin [place] [id number] Gamma globulin Elph mass conc 1.4 g/dL Normal 0.4-1.8 [facility] Work Phone: Comment on above: PATIENT NOT FASTINGP ERFORMED BY: CB [facility] Qbvwqf8818 [address]ía RoadDublin [place] [id number] Globulin Calculated mass conc (S) 3.5 g/dL Normal 2.2-3.9 [facility] Work Phone: Globulin mass conc (S) 3.5 g/dL Normal 2.2-3.9 [facility] Work Phone: Comment on above: PATIENT NOT FASTINGP ERFORMED BY: [facility] Qmjwqg2987 [address] [facility] [id number] Protein mass conc 7.4 g/dL Normal 6.0-8.5 Compreh ensive Internal Medicine Work Phone: Comment on above: PATIENT NOT FASTINGP ERFORMED BY: [facility] Wuqrjj1539 [address] [facility] [id number] Protein.monoclonal Elph mass conc Not Observed Normal [facility] Work Phone: Comment on above: PATIENT NOT FASTINGP ERFORMED BY: [facility] Ysvwxm5184 [facility] [id number] CBC W/Diff, AutomatedOrdered By: [employer] 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 on 05-03-2017 Absolute Lymph 1.89 {X10_3/ul} Normal 0.83-4.51 Compr ehensive Internal Medicine Work Phone: Absolute Neut 5.3 {X10_3/uL} Normal 2.0-7.7 Compreh ensive Internal Medicine Work Phone: Comment on above: [facility] [address] [place], [address] Basophils/100 WBC (Bld) 0.6 % Normal 0-1 [facility] Work Phone: Comment on above: [facility] [address] [place], [address] Basophils/100 WBC Auto (Bld) 0.6 % Normal 0-1 [facility] Work Phone: Eosinophils/100 WBC (Bld) 3.3 % Normal 0-5 [facility] Work Phone: Comment on above: [facility] [address] [place], [address] Eosinophils/100 WBC Auto (Bld) 3.3 % Normal 0-5 [facility] Work Phone: Erythrocyte distribution width Auto Ratio (RBC) 12.0 % Normal 11.6-14.6 [facility] Work Phone: Erythrocyte distribution width Ratio (RBC) 12.0 % Normal 11.6-14.6 [facility] Work Phone: Comment on above: [facility] [address] [place], [address] Hematocrit Auto Volume Fraction (Bld) 44.2 % Normal 40-54 Comprehens beverly Internal Medicine Work Phone: Hematocrit Volume Fraction (Bld) 44.2 % Normal 40-54 [facility] Work Phone: Comment on above: [facility] [address] [place], [place], [phone]) Hemoglobin mass conc (Bld) 15.4 g/dL Normal 13.0-16.5 [facility] Work Phone: Comment on above: [place] [address] [place], [address] IM GRAN % 0.400 % Normal 0.0-0.9 [facility] Work Phone: Comment on above: IG% - Immature Granu locytes (promyelocytes, myelocytes andmetamyelocytes) > 1% indicates that a LEFT SHIFT is Present. [facility] [address] [place], [address] Lymphocytes #/vol (Bld) 1.89 {X10_3/ul} Normal 0.83-4.51 [facility] Work Phone: Comment on above: [facility] [address] [place], [address] Lymphocytes/100 WBC (Bld) 22.8 % Normal 19-41 [facility] Work Phone: Comment on above: [facility] [address] [place], [address] Lymphocytes/100 WBC Auto (Bld) 22.8 % Normal 19-41 [facility] Work Phone: MCH Auto Entitic mass (RBC) 31.6 pg Normal 27.0-32.0 [facility] Work Phone: MCH Entitic mass (RBC) 31.6 pg Normal 27.0-32.0 [facility] Work Phone: Comment on above: [facility] [address] [place], [address] MCHC Auto mass conc (RBC) 34.8 {g/gl} Normal 32-36 [facility] Work Phone: MCHC mass conc (RBC) 34.8 {g/gl} Normal 32-36 [facility] prehensive Internal Medicine Work Phone: Comment on above: [facility] [address] [place], [address] MCV Auto Entitic volume (RBC) 90.6 fL Normal 80-94 [facility] Work Phone: MCV Entitic volume (RBC) 90.6 fL Normal 80-94 [facility] Work Phone: Comment on above: [facility] [address] [place], [address] Monocytes/100 WBC Auto (Bld) 9.2 % Normal 0-10 [facility] Work Phone: Comment on above: [facility] [address] [place], [address] Neutrophils/100 WBC (Bld) 63.7 % Normal 47-70 [facility] Work Phone: Comment on above: [facility] [address] [place], [address] Neutrophils/100 WBC Auto (Bld) 63.7 % Normal 47-70 [facility] Work Phone: Platelet mean volume Auto Entitic volume (Bld) 10.7 fL Normal 6.2-12.0 [facility] Work Phone: Platelet mean volume Entitic volume (Bld) 10.7 fL Normal 6.2-12.0 Comprehensi ve Internal Medicine Work Phone: Comment on above: [facility] [address] [place], [address] Platelets #/vol (Bld) 283 10*3/uL Normal 150-450 Co mprehensive Internal Medicine Work Phone: Comment on above: [facility] [address] [place], [address] Platelets Auto #/vol (Bld) 283 10*3/uL Normal 150-450 [facility] Work Phone: RBC #/vol (Bld) 4.88 {M/mm3} Normal 4.6-6.2 Compreh ensive Internal Medicine Work Phone: Comment on above: [facility] [address] [place], [address] RBC Auto #/vol (Bld) 4.88 {M/mm3} Normal 4.6-6.2 Co mprehensive Internal Medicine Work Phone: RDW SD 39.3 fL Normal 35.1-43.9 [facility] Work Phone: Comment on above: [facility] [address] [place], [address] WBC #/vol (Bld) 8.3 10*3/uL Normal 4.4-11.0 Comprehe nsive Internal Medicine Work Phone: Comment on above: [facility] [address] [place], [address] WBC Auto #/vol (Bld) 8.3 10*3/uL Normal 4.4-11.0 Com prehensive Internal Medicine Work Phone: Comprehensive Metabolic Prof ilOrdered By: [employer] 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 on 05-03-2017 Comprehensive metabolic 2000 panel 27.0 mmol/L Normal 21.0-32.0 Comprehensi ve Internal Medicine Work Phone: Comment on above: [facility] [address] [place], [place], [address] ; can review on . Comprehensive metabolic 2000 panel 10 1 Normal 5-15 Comprehensi ve Internal Medicine Work Phone: Comment on above: [facility] [address]aybd[address] [address] [place], [place], [phone] ; can review on . Comprehensive metabolic 2000 panel 0.70 mg/dL Normal 0.20-1.00 Comprehensi ve Internal Medicine Work Phone: Comment on above: [facility] [address] [place], [place], [phone] ; can review on . Comprehensive metabolic 2000 panel 102 mmol/L Normal 98-107 Comprehensi ve Internal Medicine Work Phone: Comment on above: [facility] [address] [place], [place], [phone] ; can review on . Comprehensive metabolic 2000 panel 30 U/L Normal 12-78 Comprehensi ve Internal Medicine Work Phone: Comment on above: [facility] [address] [place], [place], [address] ; can review on .20 Comprehensive metabolic 2000 panel 68 U/L Normal 45-117 Comprehensi ve Internal Medicine Work Phone: Comment on above: [facility] [address] [place], [place], [address] ; can review on .20 Comprehensive metabolic 2000 panel 139 mmol/L Normal 136-145 Comprehensi ve Internal Medicine Work Phone: Comment on above: [facility] [address] [place], [place], [address] ; can review on 9.20 Comprehensive metabolic 2000 panel 22 U/L Normal 15-37 Comprehensi ve Internal Medicine Work Phone: Comment on above: [facility] [address] [place], [place], [address] ; can review on 05.07 Comprehensive metabolic 2000 panel 8.9 mg/dL Normal 8.5-10.1 Comprehensi ve Internal Medicine Work Phone: Comment on above: [facility] [address] [place], [place], [phone] ; can review on 05.07 Comprehensive metabolic 2000 panel 0.9 {RATIO} Normal 0.9-2.4 Comprehensi ve Internal Medicine Work Phone: Comment on above: [facility] [address] [place], [place], [address] ; can review on 05.07 Comprehensive metabolic 1999 panel 4.1 g/dL Abnormal 2.3-3.5 Comprehensi ve Internal Medicine Work Phone: Comment on above: [facility] [address] [place], [place], [address] ; can review on 05.07 Comprehensive metabolic 2000 panel 3.8 g/dL Normal 3.4-5.0 Comprehensi ve Internal Medicine Work Phone: Comment on above: [facility] [address] [place], [place], [address] ; can review on 05.07 Comprehensive metabolic 2000 panel 4.4 mmol/L Normal 3.5-5.1 Comprehensi ve Internal Medicine Work Phone: Comment on above: [facility] [address] [place], [place], [address] ; can review on 05.07 Comprehensive metabolic 1999 panel 7.9 g/dL Normal 6.4-8.2 Comprehensi ve Internal Medicine Work Phone: Comment on above: [facility] [address] [place], [place], [address] ; can review on 05.07 Comprehensive metabolic 2000 panel 17.4 {RATIO} Normal 10-20 Comprehensi ve Internal Medicine Work Phone: Comment on above: [facility] [address] [place], [place], [address] ; can review on 05.07 Comprehensive metabolic 2000 panel 130 mL/min Normal Comprehensi ve Internal Medicine Work Phone: Comment on above: GFR Calc [facility] [address] [place], [place], [address] ; can review on 05.07 Comprehensive metabolic 2000 panel 107 mL/min Normal Comprehensi ve Internal Medicine Work Phone: Comment on above: Non- GFR Calc [facility] [address] [place], [place], [address] ; can review on 05.07 Comprehensive metabolic 2000 panel 0.81 mg/dL Normal 0.70-1.30 Comprehensi ve Internal Medicine Work Phone: Comment on above: The validity of the calculated GFR AND GFRAA in patients over70 years has not been determined. Clinical correlation isessential. [facility] [address] [place], [place], [address] ; can review on 05.07 Comprehensive metabolic 2000 panel 14 mg/dL Normal 7-18 Comprehensi ve Internal Medicine Work Phone: Comment on above: [facility] [address] [place], [place], [address] ; can review on . Comprehensive metabolic 2000 panel 95 mg/dL Normal 70-110 Comprehensi ve Internal Medicine Work Phone: Comment on above: [facility] [address] [place], [place], [address] ; can review on 05.07 Lipid ProfileOrdered By: Fred tem Plaster Caster on 05-03-2017 Cholesterol in HDL mass conc 70 mg/dL Normal [facility] Work Phone: Comment on above: The drugs N-Acetylcy steine and Metamizole may falselydepress this assay. Reference Range HDL <40 mg/dL Low HDL Cholesterol HDL >or= 60 mg/dL High HDL Cholesterol [facility] [address] [place], [place], [phone] Cholesterol in LDL mass conc 109 mg/dL Normal 0-130 [facility] Work Phone: Cholesterol in LDL mass conc 109 mg/dL Normal 0-130 Comprehensive [facility] Work Phone: Comment on above: [facility] [address] [place], [place], [address] Cholesterol in VLDL mass conc 15 mg/dL Normal 5-40 Comprehensive [facility] Medicine Work Phone: Comment on above: [place] [address] [place], [place], [phone] Cholesterol mass conc 194 mg/dL Normal [facility] prehensive Internal Medicine Work Phone: Comment on above: <200 mg/dL Desirable 200-240 mg/dL Borderline >240 mg/dL High Risk [place] [address] [place], [place], [address] Triglyceride mass conc 74 mg/dL Normal [facility] Work Phone: Comment on above: The drugs N-Acetylcy steine and Metamizole may falselydepress this assay.Serum Triglycerides Reference Interval Normal <150 mg/dL Borderline high 150 - 199 mg/dL High 200 - 499 mg/dL Very High > or = 500 mg/dL [place] [address] [place], [place], [address] MicroalbOrdered By: César ramsey on 05-03-2017 Creatinine mass conc 4.6 {mg/g_CRE} Normal [facility] Work Phone: Comment on above: [facility] [address] [place], [place], [phone] Creatinine mass conc 133.00 mg/dL Normal Co mprehensive Internal Medicine Work Phone: Comment on above: [facility] [address] [place], [address] MICROALBUMIN,UR 6.1 mg/L Normal Comprehen sive Internal Medicine Work Phone: UR CREAT 133.00 mg/dL Normal Comprehensiv e Internal Medicine Work Phone: Microalb 6.1 mg/L Normal Comprehensive [facility] Work Phone: Comment on above: [facility] [address] [place], [address] Urinalysis, CompleteOrdered By: Subway 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 on 05-03-2017 CLARITY Clear Normal Comprehensive [facility] Work Phone: Comment on above: How was Urine Obtain ed? [facility] [address] [place], [place], [address] COLOR Yellow Normal Comprehensive [facility] Medicine Work Phone: Comment on above: How was Urine Obtain ed? [facility] [address] [place], [address] GLUCOSE, UR Normal Normal [facility] Work Phone: Comment on above: How was Urine Obtain ed? [facility] [address] [place], [address] LEUK ESTERASE Negative Normal Comprehensi ve Internal Medicine Work Phone: Comment on above: How was Urine Obtain ed? [facility] [address] [place], [address] MUCUS, URINE 0 SEEN Normal 0-5 Comprehensiv e Internal Medicine Work Phone: Comment on above: How was Urine Obtain ed? [facility] [address] [place], [address] pH UR 7.0 1 Normal 5.0 - 8.0 Comprehensive [facility] Work Phone: Comment on above: How was Urine Obtain ed? [facility] [address] [place], [place], [id number] Protein mass conc (U) Negative Normal Com prehensive Internal Medicine Work Phone: Comment on above: How was Urine Obtain ed? [facility] [address] [place], [place], [address] RBC #/vol (U) 0 SEEN Normal 0-5 Comprehensi ve Internal Medicine Work Phone: Comment on above: How was Urine Obtain ed? [facility] [address] [place], [place], [address] RBC Test strip #/vol (U) 0 SEEN Normal 0-5 [facility] Work Phone: SP.GR. DIPSTX 1.010 1 Normal 1.002-1.03 0 [facility] Work Phone: Comment on above: How was Urine Obtain ed? [facility] [address] [place], [place], [address] .Auto Diffon 03-20-2017 Basophils Auto #/vol (Bld) 0.10 10 3/mcL Normal 0.00-0.19 [facility] [place] Comment on above: Performed By: #### C BC, ADIFF, ANEU, TROP, BMP, GFR ####[place] [address] [place], [place] [address] Basophils/100 WBC Auto (Bld) 0.7 % Normal 0.0-2.5 [facility] [place] Comment on above: Performed By: #### C BC, ADIFF, ANEU, TROP, BMP, GFR ####[place] [address] [place], [place] [address] Eosinophils 0.30 10 3/mcL Normal 0.00-0.40 [facility] ([place]) Comment on above: Performed By: #### C BC, ADIFF, ANEU, TROP, BMP, GFR ####[place] [address] [place], [place] [address] Eosinophils/100 leukocytes 3.3 % Normal 0.0-7.0 [facility] [place] Comment on above: Performed By: #### C BC, ADIFF, ANEU, TROP, BMP, GFR ####[place] [address] [place], [place] [address] Lymphocytes 1.90 10 3/mcL Normal 0.77-3.85 [facility] ([place]) Comment on above: Performed By: #### C BC, ADIFF, ANEU, TROP, BMP, GFR ####[place] [address] [place], [place] [address] Lymphocytes/100 leukocytes 23.3 % Normal 10.0-50.0 [facility] [place] Comment on above: Performed By: #### C BC, ADIFF, ANEU, TROP, BMP, GFR ####[place] [address] [place], [place] [address] Monocytes 0.70 10 3/mcL Normal 0.15-1.00 [facility] ([place]) Comment on above: Performed By: #### C BC, ADIFF, ANEU, TROP, BMP, GFR ####[place] [address] [place], [place] [address] Monocytes/100 leukocytes 8.5 % Normal 1.7-13.0 [facility] [place] Comment on above: Performed By: #### C BC, ADIFF, ANEU, TROP, BMP, GFR ####[place] [address] [place], [place] [address] Neutrophils/100 WBC Auto (Bld) 64.2 % Normal 37.0-80.0 [facility] [place] Comment on above: Performed By: #### C BC, ADIFF, ANEU, TROP, BMP, GFR ####[place] [address] [place], [place] [address] .NEUABSon 03-20-2017 Neutrophils 5.10 10 3/mcL Normal 2.85-6.16 [facility] ([place]) Comment on above: Performed By: #### C BC, ADIFF, ANEU, TROP, BMP, GFR ####[place] [address] [place], [place] [address] BMPon 03-20-2017 BUN/Creatinine Ratio 16 ratio Normal 7-27 [facility] ([place]) Comment on above: Performed By: #### C BC, ADIFF, ANEU, TROP, BMP, GFR ####[place] [address] [place], [place] [address] Calcium 9.3 mg/dL Normal 8.4-10.2 [facility] [place] Comment on above: Performed By: #### C BC, ADIFF, ANEU, TROP, BMP, GFR ####[place] [address] [place], [place] [address] Chloride 101 mmol/L Normal 98-107 [facility] [place] Comment on above: Performed By: #### C BC, ADIFF, ANEU, TROP, BMP, GFR ####[place] [address] [place], [place] [address] CO2 27 mmol/L Normal 22-29 [facility] [place] Comment on above: Performed By: #### C BC, ADIFF, ANEU, TROP, BMP, GFR ####[place] [address] [place], [place] [address] Creatinine 0.8 mg/dL Normal 0.6-1.2 [facility] [place] Comment on above: Performed By: #### C BC, ADIFF, ANEU, TROP, BMP, GFR ####[place] [address] [place], [place] [address] Electrolyte Balance 8.0 mEq/L Normal [facility] ([place]) Comment on above: Performed By: #### C BC, ADIFF, ANEU, TROP, BMP, GFR ####[place] [address] [place], [place] [address] Glucose mass conc 100 mg/dL Normal 70-105 [facility] [place] Comment on above: Performed By: #### C BC, ADIFF, ANEU, TROP, BMP, GFR ####[place] [address] [place], [place] [address] Potassium molar conc 4.4 mmol/L Normal 3.5-5.1 [facility] ([place] Comment on above: Performed By: #### C BC, ADIFF, ANEU, TROP, BMP, GFR ####[place] [address] [place], [place] [address] Sodium 136 mmol/L Normal 136-146 [facility] [place] Comment on above: Performed By: #### C BC, ADIFF, ANEU, TROP, BMP, GFR ####[place] [address] [place], [place] [address] Urea nitrogen 12.8 mg/dL Normal 7.0-18.0 [facility] ([place]) Comment on above: Performed By: #### C BC, ADIFF, ANEU, TROP, BMP, GFR ####[place] [address] [place], [place] [address] CBCon 03-20-2017 Erythrocyte distribution width Auto Ratio (RBC) 12.7 % Normal 11.5-14.5 [facility] [place] Comment on above: Performed By: #### C BC, ADIFF, ANEU, TROP, BMP, GFR ####[place] [address] [place], [place] [address] Erythrocytes (RBC) 4.97 10 6/mcL Normal 4.04-6.13 [facility] ([place]) Comment on above: Performed By: #### C BC, ADIFF, ANEU, TROP, BMP, GFR ####[place] [address] [place], [place] [address] Hematocrit (HCT) 44.5 % Normal 42.0-52.0 [facility] [place] Comment on above: Performed By: #### C BC, ADIFF, ANEU, TROP, BMP, GFR ####[place] [address] [place], [place] [address] Hemoglobin mass conc (Bld) 15.1 G/dL Normal 14.0-18.0 [facility] [place] Comment on above: Performed By: #### C BC, ADIFF, ANEU, TROP, BMP, GFR ####[place] [address] [place], [place] [address] MCH 30.4 pg Normal 27.0-31.2 [facility] [place] Comment on above: Performed By: #### C BC, ADIFF, ANEU, TROP, BMP, GFR ####[place] [address] [place], [place] [address] MCHC mass conc (RBC) 34.0 G/dL Normal 31.8-35.4 [facility] ([place] Comment on above: Performed By: #### C BC, ADIFF, ANEU, TROP, BMP, GFR ####[place] [address] [place], [place] [address] MCV 89.6 fL Normal 80.0-94.0 [facility] [place] Comment on above: Performed By: #### C BC, ADIFF, ANEU, TROP, BMP, GFR ####[place] [address] [place], [place] [address] Platelet mean volume (PMV) 8.9 fL Normal 7.4-10.4 [facility] [place] Comment on above: Performed By: #### C BC, ADIFF, ANEU, TROP, BMP, GFR ####[place] [address] [place], [place] [address] Platelets 239 10 3/mcL Normal 130-400 [facility] ([place]) Comment on above: Performed By: #### C BC, ADIFF, ANEU, TROP, BMP, GFR ####[place] [address] [place], [place] [address] WBC (Leukocytes) 8.00 10 3/mcL Normal 4.60-10.80 [facility] ([place]) Comment on above: Performed By: #### C BC, ADIFF, ANEU, TROP, BMP, GFR ####[place] [address] [place], [place] [address] GFRon 03-20-2017 eGFR (non-black) mL/min/{1.73_m2} Normal [facility] ([place]) Comment on above: Result Comment: GFR Population [...] TROP, BMP, GFR ####[place] [address] [place], [place] [address] eGFR (non-black) 122 ml/min/1.73sqm Normal [facility] ([place] Comment on above: Result Comment: GFR Population [...] TROP, BMP, GFR ####[place] [address] [place], [place] [address] [facility] Note on 03-20-2017 [facility] Normal [facility] ([place]) Patient Summary Documentson 03-20-[address] [facility]) TROPon 03-20-2017 Troponin I.cardiac mass conc ng/mL Normal 0.00-0.30 [facility] ([place]) Comment on above: Result Comment: Belo w measuring range>=0.30 Consistent with cardiac damage, increased clinical risk and possibility of myocardial infarction. Serial measurements, clinical history, appropriate symptoms and/or ECG changes may help assess possibility of NM.*Other non-acute coronary syndrome conditions such as CHF, myocarditis, pulmonary emboli, sepsis and cardiac surgery could result in myocardial damage and increased troponin levels. Performed By: #### C BC, ADIFF, ANEU, TROP, BMP, GFR ####[place] [address] [place], [place] [address] XR CHEST 1 VIEWon 03-20-2017 XR CHEST [...] AM Sign Date: 03/20/2017 7:57:30 AM Normal [facility] ([place]) Catecholamines, 24 UROrdered By: Subway 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 on 07-26-2016 DOPAMINE,U24 248 {ug/24_hr} Normal 0-510 Comprehe nsive Internal Medicine Work Phone: Comment on above: Performed at: [address] [id number] Director: Deric Montes MD, Phone: [phone] ___ TESTING PERFORMED AT [facility]. ORIGINAL REPORT ON FILE IN LAB CONTAINS [...] Work Phone: Comment on above: Performed at: [address] [id number] Director: Deric Montes MD, Phone: [phone] ___ TESTING PERFORMED AT [facility]. ORIGINAL REPORT ON FILE IN LAB CONTAINS [...] Metanephrine Frac 24 HR UROr dered By: [employer] 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 on 07-19-2016 METANEPH,U24 81 {ug/24_hr} Normal 45-290 [...] VMA, 24 HR UROrdered By: Fred tem Plaster Caster on 07-19-2016 VMA,24UR 1.8 {mg/24_hr} Normal 0.0-7.5 Comprehens beverly Internal Medicine Work Phone: Comment on above: This test was develo ped and its performance characteristicsdetermined by [employer]. It has not been cleared orapproved by the Food and Drug Administration.Performed at: [facility] [employer] [id number] Director: Deric Montes MD, Phone: [phone] VMA,UR 0.9 mg/L Normal [facility] [...] develo ped and its performance characteristicsdetermined by [employer]. It has not been cleared orapproved by the Food and Drug Administration.Performed at: [facility] [employer] [id number] Director: Deric Montes MD, Phone: [phone] [facility] (refer to re port for specific site)refer to report for address and phone number ANTINUCLEAR ANTIBODIES DIREC TOrdered By: [employer] 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 on 07-17-2016 Nuclear Ab Ql (S) Negative Normal Compreh ensive Internal Medicine Work Phone: Comment on above: Performed at: [facility] [employer] Becker [address] [id number] Director: Demetrius Acosta PhD, Phone: [phone] [facility] (refer to re port for specific site)refer to report for address and phone number CBC W/Diff, AutomatedOrdered By: Subway 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 on 07-17-2016 Absolute Lymph 2.96 {X10_3/ul} Normal 0.83-4.51 Compr ehensive Internal Medicine Work Phone: Absolute Neut 4.4 {X10_3/uL} Normal 2.0-7.7 Compreh ensive Internal Medicine Work Phone: Comment on above: [facility] [address] [place], [address] Basophils/100 WBC (Bld) 0.5 % Normal 0-1 [facility] Work Phone: Comment on above: [facility] spital [address] [place], [address] Basophils/100 WBC Auto (Bld) 0.5 % Normal 0-1 [facility] Work Phone: Eosinophils/100 WBC (Bld) 3.7 % Normal 0-5 [facility] Work Phone: Comment on above: [facility] [address] [place], [address] Eosinophils/100 WBC Auto (Bld) 3.7 % Normal 0-5 [facility] Work Phone: Erythrocyte distribution width Auto Ratio (RBC) 12.1 % Normal 11.6-14.6 [facility] Work Phone: Erythrocyte distribution width Ratio (RBC) 12.1 % Normal 11.6-14.6 [facility] Work Phone: Comment on above: [facility] [address] [place], [address] Hematocrit Auto Volume Fraction (Bld) 43.3 % Normal 40-54 [facility] Internal Medicine Work Phone: Hematocrit Volume Fraction (Bld) 43.3 % Normal 40-54 [facility] Work Phone: Comment on above: [facility] [address] [place], [address] Hemoglobin mass conc (Bld) 15.1 g/dL Normal 13.0-16.5 [facility] Work Phone: Comment on above: [facility] [address] [place], [address] IM GRAN % 0.500 % Normal 0.0-0.9 [facility] Work Phone: Comment on above: IG% - Immature Granu locytes (promyelocytes, myelocytes andmetamyelocytes) > 1% indicates that a LEFT SHIFT is Present. [facility] [address] [place], [place], [phone] Lymphocytes #/vol (Bld) 2.96 {X10_3/ul} Normal 0.83-4.51 [facility] Work Phone: Comment on above: [facility] [address] [place], [place], [phone] Lymphocytes/100 WBC (Bld) 35.2 % Normal 19-41 [facility] Work Phone: Comment on above: [facility] [address] [place], [address] Lymphocytes/100 WBC Auto (Bld) 35.2 % Normal 19-41 [facility] Work Phone: MCH Auto Entitic mass (RBC) 31.5 pg Normal 27.0-32.0 [facility] Work Phone: MCH Entitic mass (RBC) 31.5 pg Normal 27.0-32.0 [facility] Work Phone: Comment on above: [facility] [address] [place], [place], [phone] MCHC Auto mass conc (RBC) 34.9 {g/gl} Normal 32-36 [facility] Work Phone: MCHC mass conc (RBC) 34.9 {g/gl} Normal 32-36 [facility] prehensive Internal Medicine Work Phone: Comment on above: [facility] [address] [place], [place], [phone] MCV Auto Entitic volume (RBC) 90.2 fL Normal 80-94 [facility] Work Phone: MCV Entitic volume (RBC) 90.2 fL Normal 80-94 [facility] Work Phone: Comment on above: [facility] [address] [place], [address] Monocytes/100 WBC Auto (Bld) 8.2 % Normal 0-10 [facility] Work Phone: Comment on above: [facility] [address] [place], [address] Neutrophils/100 WBC (Bld) 51.9 % Normal 47-70 [facility] Work Phone: Comment on above: [facility] [address] [place], [address] Neutrophils/100 WBC Auto (Bld) 51.9 % Normal 47-70 [facility] Work Phone: Platelet mean volume Auto Entitic volume (Bld) 10.5 fL Normal 6.2-12.0 [facility] Work Phone: Platelet mean volume Entitic volume (Bld) 10.5 fL Normal 6.2-12.0 Comprehensi ve Internal Medicine Work Phone: Comment on above: [facility] [address] [place], [address] Platelets #/vol (Bld) 287 10*3/uL Normal 150-450 Co mprehensive Internal Medicine Work Phone: Comment on above: [facility] [address] [place], [address] Platelets Auto #/vol (Bld) 287 10*3/uL Normal 150-450 [facility] Work Phone: RBC #/vol (Bld) 4.80 {M/mm3} Normal 4.6-6.2 Compreh ensive Internal Medicine Work Phone: Comment on above: [facility] [address] [place], [address] RBC Auto #/vol (Bld) 4.80 {M/mm3} Normal 4.6-6.2 Co mprehensive Internal Medicine Work Phone: RDW SD 40.2 fL Normal 35.1-43.9 [facility] Work Phone: Comment on above: [facility] [address] [place], [place], [phone] WBC #/vol (Bld) 8.4 10*3/uL Normal 4.4-11.0 Comprehe nsive Internal Medicine Work Phone: Comment on above: [facility] [address] [place], [address] WBC Auto #/vol (Bld) 8.4 10*3/uL Normal 4.4-11.0 [facility] prehensive Internal Medicine Work Phone: CRPOrdered By: System Manage r on 07-17-2016 CRP mass conc 6.11 mg/L Abnormal 0.0-3.0 Comprehensi ve Internal Medicine Work Phone: Comment on above: C-Reactive Protein ( CRP) provides useful information for thediagnosis, therapy and monitoring of inflammatory processesand associated diseases. For the evaluation of Relative Riskfor Cardiovascular Disease, a High Sensitivity CRP (HSCRP)should be ordered. [facility] [address] [place], [place], [phone] Comprehensive Metabolic Prof ilOrdered By: Subway 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 on 07-17-2016 Comprehensive metabolic 2000 panel 98 mL/min Normal Comprehensi ve Internal Medicine Work Phone: Comment on above: Non- GFR Calc [facility] [address] [place], [address] Comprehensive metabolic 2000 panel 24 U/L Normal 15-37 Comprehensi ve Internal Medicine Work Phone: Comment on above: [facility] [address] [place], [place], [phone] Comprehensive metabolic 2000 panel 69 U/L Normal 45-117 Comprehensi ve Internal Medicine Work Phone: Comment on above: [facility] [address] [place], [place], [address] Comprehensive metabolic 2000 panel 40 U/L Normal 12-78 Comprehensi ve Internal Medicine Work Phone: Comment on above: [facility] [address] [place], [place], [address] Comprehensive metabolic 2000 panel 0.70 mg/dL Normal 0.20-1.00 Comprehensi ve Internal Medicine Work Phone: Comment on above: [facility] [address] [place], [place], [id number] Comprehensive metabolic 2000 panel 137 mmol/L Normal 136-145 Comprehensi ve Internal Medicine Work Phone: Comment on above: [facility] [address] [place], [place], [phone] Comprehensive metabolic 2000 panel 119 mL/min Normal Comprehensi ve Internal Medicine Work Phone: Comment on above: GFR Calc [facility] [address] [place], [place], [phone] Comprehensive metabolic 2000 panel 9 1 Normal 5-15 Comprehensi ve Internal Medicine Work Phone: Comment on above: [facility] [address] [place], [place], [phone] Comprehensive metabolic 2000 panel 22.9 {RATIO} Abnormal 10-20 Comprehensi ve Internal Medicine Work Phone: Comment on above: [facility] [address] [place], [place], [phone] Comprehensive metabolic 2000 panel 8.0 g/dL Normal 6.4-8.2 Comprehensi ve Internal Medicine Work Phone: Comment on above: [facility] [address] [place], [place], [phone] Comprehensive metabolic 2000 panel 4.0 g/dL Normal 3.4-5.0 Comprehensi ve Internal Medicine Work Phone: Comment on above: [facility] [address] [place], [place], [phone] Comprehensive metabolic 2000 panel 1.0 {RATIO} Normal 0.9-2.4 Comprehensi ve Internal Medicine Work Phone: Comment on above: [facility] [address] [place], [place], [phone] Comprehensive metabolic 2000 panel 8.9 mg/dL Normal 8.5-10.1 Comprehensi ve Internal Medicine Work Phone: Comment on above: [facility] [address] [place], [place], [phone] Comprehensive metabolic 2000 panel 0.88 mg/dL Normal 0.70-1.30 Comprehensi ve Internal Medicine Work Phone: Comment on above: The validity of the calculated GFR AND GFRAA in patients over70 years has not been determined. Clinical correlation isessential. [facility] [address] [place], [place], [phone] Comprehensive metabolic 2000 panel 20 mg/dL Abnormal 7-18 Comprehensi ve Internal Medicine Work Phone: Comment on above: [facility] [address] [place], [place], [phone] Comprehensive metabolic 2000 panel 90 mg/dL Normal 70-110 Comprehensi ve Internal Medicine Work Phone: Comment on above: [facility] [address] [place], [place], [phone] Comprehensive metabolic 2000 panel 29.0 mmol/L Normal 21.0-32.0 Comprehensi ve Internal Medicine Work Phone: Comment on above: [facility] [address] [place], [place], [phone] Comprehensive metabolic 2000 panel 99 mmol/L Normal 98-107 Comprehensi ve Internal Medicine Work Phone: Comment on above: [facility] [address] [place], [place], [phone] Comprehensive metabolic 2000 panel 4.1 mmol/L Normal 3.5-5.1 Comprehensi ve Internal Medicine Work Phone: Comment on above: [facility] [address] [place], [address] Erythrocyte Sed RateOrdered By: Subway 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 on 07-17-2016 SED RATE 6 mm/h Normal 0-20 [facility] Work Phone: Erythrocyte Sed Rate 6 mm/h Normal 0-20 Comp rehensive Internal Medicine Work Phone: Comment on above: [facility] [address] [place], [place], [phone] Lyme Screen W/Reflex WBOrder ed By: Subway 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 on 07-17-2016 LYME SCN AB <0.91 Normal 0.00-0.90 [facility] Work Phone: Comment on above: Negative <0.91 Equiv ocal 0.91 - 1.09 Positive >1.09Performed at: [facility] [address] [place] [address] [id number] Director: Demetrius Acosta PhD, Phone: [phone] LYME SCN INTERP REF LAB Normal Comprehen [facility] Internal Medicine Work Phone: Lyme Screen W/Reflex WB REF LAB Normal [facility] Work Phone: Comment on above: [facility] (refer to re port for specific site)refer to report for address and phone number Lyme Screen W/Reflex WB <0.91 Normal 0.00-0.90 [facility] Work Phone: Comment on above: Negative <0.91 Equiv ocal 0.91 - 1.09 Positive >1.09Performed at: [facility] [address] [place] [address] [id number] Director: Demetrius Acosta PhD, Phone: [phone] [facility] (refer to re port for specific site)refer to report for address and phone number Thyroid Stim Hormone (TSH)Or dered By: Subway 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 on 07-17-2016 Thyrotropin Qn 1.08 {uIU/mL} Normal 0.358-3.74 Compreh ensive Internal Medicine Work Phone: Comment on above: [facility] [address] [place], [address] Vitamin J28Lpoibhg By: Kan becerra Plaster Caster on 07-17-2016 Cobalamin (Vitamin B12) mass conc 625 pg/mL Normal 211-911 [facility] Work Phone: Comment on above: [facility] [address] [place], [address] Vitamin D,25 HydroxyOrdered By: Subway 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 on 07-17-2016 Vitamin D 25-OH 22.2 ng/mL Normal Comprehen [facility] Internal Medicine Work Phone: Comment on above: [...] 250 nmol/L) Toxicity >100 ng/mL (>250 nmol/L) [facility] [address] [place], [address] Basic Metabolic Profile (BMP )Ordered By: Subway 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 on 01-06-2016 Basic metabolic 2000 panel 9.0 mg/dL Normal 8.5-10.1 [facility] Work Phone: Comment on above: Serial Specimen #1, #2 or #3? 1'TROP' Serial specimen #1, #2, #3, or #4: [address] [place] [address] [place], [place], [phone] Basic metabolic 2000 panel 85.78 ml/min Normal [facility] Work Phone: Comment on above: Serial Specimen #1, #2 or #3? 1'TROP' Serial specimen #1, #2, #3, or #4: [address] [place] [address] [place], [place], [phone] Basic metabolic 2000 panel 139 mmol/L Normal 136-145 [facility] Work Phone: Comment on above: Serial Specimen #1, #2 or #3? 1'TROP' Serial specimen #1, #2, #3, or #4: [address] [place] [address] [place], [address] Basic metabolic 2000 panel 3.8 mmol/L Normal 3.5-5.1 [facility] Work Phone: Comment on above: Serial Specimen #1, #2 or #3? 1'TROP' Serial specimen #1, #2, #3, or #4: [address] [place] [address] [place], [address] Basic metabolic 2000 panel 103 mmol/L Normal 98-107 [facility] Work Phone: Comment on above: Serial Specimen #1, #2 or #3? 1'TROP' Serial specimen #1, #2, #3, or #4: [address] [place] [address] [place], [address] Basic metabolic 2000 panel 29.0 mmol/L Normal 21.0-32.0 [facility] Work Phone: Comment on above: Serial Specimen #1, #2 or #3? 1'TROP' Serial specimen #1, #2, #3, or #4: [address] [place] [address] [place], [address] Basic metabolic 2000 panel 7 1 Normal 5-15 [facility] Work Phone: Comment on above: Serial Specimen #1, #2 or #3? 1'TROP' Serial specimen #1, #2, #3, or #4: [address] [place] [address] [place], [address] Basic metabolic 2000 panel 109 mL/min Normal [facility] Work Phone: Comment on above: GFR Calc Serial Specimen #1, #2 or #3? 1'TROP' Serial specimen #1, #2, #3, or #4: [address] [place] [address] [place], [address] Basic metabolic 2000 panel 15.9 {RATIO} Normal 10-20 [facility] Work Phone: Comment on above: Serial Specimen #1, #2 or #3? 1'TROP' Serial specimen #1, #2, #3, or #4: [address] [place] [address] [place], [address] Basic metabolic 2000 panel 90 mL/min Normal [facility] Work Phone: Comment on above: Non- GFR Calc Serial Specimen #1, #2 or #3? 1'TROP' Serial specimen #1, #2, #3, or #4: [address] [place] [address] [place], [address] Basic metabolic 2000 panel 0.94 mg/dL Normal 0.70-1.30 [facility] Work Phone: Comment on above: The validity of the calculated GFR AND GFRAA in patients over70 years has not been determined. Clinical correlation isessential. Serial Specimen #1, #2 or #3? 1'TROP' Serial specimen #1, #2, #3, or #4: [address] [place] [address] [place], [address] Basic metabolic 2000 panel 15 mg/dL Normal 7-18 [facility] Work Phone: Comment on above: Serial Specimen #1, #2 or #3? 1'TROP' Serial specimen #1, #2, #3, or #4: [address] [place] [address] [place], [place], [phone] Basic metabolic 2000 panel 89 mg/dL Normal 70-110 [facility] Work Phone: Comment on above: Serial Specimen #1, #2 or #3? 1'TROP' Serial specimen #1, #2, #3, or #4: [address] [place] [address] [place], [place], [phone] CBC W/Diff, AutomatedOrdered By: Subway 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 on 01-06-2016 Absolute Lymph 2.67 {X10_3/ul} Normal 0.83-4.51 Compr ehensive Internal Medicine Work Phone: Absolute Neut 5.5 {X10_3/uL} Normal 2.0-7.7 Compreh ensive Internal Medicine Work Phone: Comment on above: [facility] [address] [place], [address] Basophils/100 WBC (Bld) 0.6 % Normal 0-1 [facility] Work Phone: Comment on above: [facility] [address] [place], [address] Basophils/100 WBC Auto (Bld) 0.6 % Normal 0-1 [facility] Work Phone: Eosinophils/100 WBC (Bld) 3.1 % Normal 0-5 [facility] Work Phone: Comment on above: [facility] [address] [place], [address] Eosinophils/100 WBC Auto (Bld) 3.1 % Normal 0-5 [facility] Work Phone: Erythrocyte distribution width Auto Ratio (RBC) 12.3 % Normal 11.6-14.6 [facility] Work Phone: Erythrocyte distribution width Ratio (RBC) 12.3 % Normal 11.6-14.6 [facility] Work Phone: Comment on above: [facility] [address] [place], [place], [phone] Hematocrit Auto Volume Fraction (Bld) 45.0 % Normal 40-54 Comprehens [facility] Internal [facility] Work Phone: Hematocrit Volume Fraction (Bld) 45.0 % Normal 40-54 [facility] Work Phone: Comment on above: [facility] [address] [place], [place], [phone]) Hemoglobin mass conc (Bld) 15.6 g/dL Normal 13.0-16.5 [facility] Work Phone: Comment on above: [facility] [address] [place], [address] IM GRAN % 0.400 % Normal 0.0-0.9 [facility] Work Phone: Comment on above: IG% - Immature Granu locytes (promyelocytes, myelocytes andmetamyelocytes) > 1% indicates that a LEFT SHIFT is Present. [facility] [address] [place], [address] Lymphocytes #/vol (Bld) 2.67 {X10_3/ul} Normal 0.83-4.51 [facility] Work Phone: Comment on above: [facility] [address] [place], [address] Lymphocytes/100 WBC (Bld) 28.8 % Normal 19-41 [facility] Work Phone: Comment on above: [facility] [address] [place], [address] Lymphocytes/100 WBC Auto (Bld) 28.8 % Normal 19-41 [facility] Work Phone: MCH Auto Entitic mass (RBC) 31.7 pg Normal 27.0-32.0 [facility] Work Phone: MCH Entitic mass (RBC) 31.7 pg Normal 27.0-32.0 [facility] Work Phone: Comment on above: [facility] [address] [place], [place], [phone]) MCHC Auto mass conc (RBC) 34.7 {g/gl} Normal 32-36 [facility] Work Phone: MCHC mass conc (RBC) 34.7 {g/gl} Normal 32-36 [facility] prehensive Internal Medicine Work Phone: Comment on above: [facility] [address] [place], [place], [phone] MCV Auto Entitic volume (RBC) 91.5 fL Normal 80-94 [facility] Work Phone: MCV Entitic volume (RBC) 91.5 fL Normal 80-94 [facility] Work Phone: Comment on above: [facility] [address] [place], [address] Monocytes/100 WBC Auto (Bld) 7.8 % Normal 0-10 [facility] Work Phone: Comment on above: [facility] [address] [place], [address] Neutrophils/100 WBC (Bld) 59.3 % Normal 47-70 [facility] Work Phone: Comment on above: [facility] [address] [place], [address] Neutrophils/100 WBC Auto (Bld) 59.3 % Normal 47-70 [facility] Work Phone: Platelet mean volume Auto Entitic volume (Bld) 10.5 fL Normal 6.2-12.0 [facility] Work Phone: Platelet mean volume Entitic volume (Bld) 10.5 fL Normal 6.2-12.0 Comprehensi ve Internal Medicine Work Phone: Comment on above: [facility] [address] [place], [address] Platelets #/vol (Bld) 254 10*3/uL Normal 150-450 Co mprehensive Internal Medicine Work Phone: Comment on above: [facility] [address] [place], [address] Platelets Auto #/vol (Bld) 254 10*3/uL Normal 150-450 [facility] Work Phone: RBC #/vol (Bld) 4.92 {M/mm3} Normal 4.6-6.2 Compreh ensive Internal Medicine Work Phone: Comment on above: [facility] [address] [place], [address] RBC Auto #/vol (Bld) 4.92 {M/mm3} Normal 4.6-6.2 Co mprehensive Internal Medicine Work Phone: RDW SD 41.3 fL Normal 35.1-43.9 [facility] Work Phone: Comment on above: [facility] [address] [place], [address] WBC #/vol (Bld) 9.3 10*3/uL Normal 4.4-11.0 Comprehe nsive Internal Medicine Work Phone: Comment on above: [facility] [address] [place], [address] WBC Auto #/vol (Bld) 9.3 10*3/uL Normal 4.4-11.0 [facility] prehensive Internal Medicine Work Phone: CK-MB Quantitative and Index Ordered By: Subway 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 on 01-06-2016 CK.MB mass conc 1.9 ng/mL Normal 0.0-5.0 Comprehen [facility] Internal Medicine Work Phone: Comment on above: CK-MB and RI Interpr etation MB Relative Index Non-AMI 5 5 > 4 Serial Specimen #1, #2 or #3? 1'TROP' Serial specimen #1, #2, #3, or #4: [address] [place] [address] [place], [place], [address] Serial Specimen #1, #2 or #3? 2Comments: Should be drawn 2H after initial Troponin obtained'TROP' Serial specimen #1, #2, #3, or #4: [address] [place] [address] [place], [address] CKRI 1.6 % Abnormal 0.0-1.4 [facility] [[email or web address] Internal Medicine Work Phone: Comment on above: RELATIVE INDEX >1.5% IS PRESUMPTIVELY POSITIVE CKRI 1.4 % Normal 0.0-1.4 [facility] Work Phone: Comment on above: RELATIVE INDEX >1.5% IS PRESUMPTIVELY POSITIVE CPK TOTAL 120 U/L Normal 39-308 [facility] [[email or web address]] Internal Medicine Work Phone: CPK TOTAL 140 U/L Normal 39-308 [facility] [[email or web address]] Internal Medicine Work Phone: CPKMB 1.9 ng/mL Normal 0.0-5.0 [facility] [[email or web address]] Internal Medicine Work Phone: Comment on above: [...] Serial specimen #1, #2, #3, or #4: [address] [place] [address] [place], [address] CK-MB Quantitative and Index 120 U/L Normal 39-308 [facility] Work Phone: Comment on above: Serial Specimen #1, #2 or #3? 2Comments: Should be drawn 2H after initial Troponin obtained'TROP' Serial specimen #1, #2, #3, or #4: [address] [place] [address] [place], [address] CK-MB Quantitative and Index 1.4 % Normal 0.0-1.4 [facility] Work Phone: Comment on above: RELATIVE INDEX >1.5% IS PRESUMPTIVELY POSITIVE Serial Specimen #1, #2 or #3? 1'TROP' Serial specimen #1, #2, #3, or #4: [address] [place] [address] [place], [address] CK-MB Quantitative and Index 140 U/L Normal 39-308 [facility] Work Phone: Comment on above: Serial Specimen #1, #2 or #3? 1'TROP' Serial specimen #1, #2, #3, or #4: [address] [place] [address] [place], [address] Troponin-IOrdered By: Subway 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 on 01-06-2016 Troponin I.cardiac mass conc ng/mL Normal [facility] Work Phone: Comment on above: TROPONIN-I EXPECTED VALUES <0.05 NEGATIVE 0.06 - 0.59 AT RISK OF NM > OR = 0.60 SUGGEST NM Serial Specimen #1, #2 or #3? 2Comments: Should be drawn 2H after initial Troponin obtained'TROP' Serial specimen #1, #2, #3, or #4: [address] [place] [address] [place], [address] Serial Specimen #1, #2 or #3? 1'TROP' Serial specimen #1, #2, #3, or #4: [address] [place] [address] [place], [address] Lyme Disease Antibody W/ Ref clara ([id number])Ordered By: Subway 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 on 12-18-2015 B. burgdorferi IgG+IgM Qn (S) {index_val} Normal 0.00-0.90 [facility] Work Phone: Comment on above: Negative <0.91 Equiv ocal 0.91 - 1.09 Positive >1.09 PATIENT NOT FASTINGP ERFORMED BY: ANDREW BearMatthew PattonOjayth2046 [facility] [id number] Information: [id number] B. burgdorferi IgG+IgM Qn (S) {index_val} Normal 0.00-0.90 [facility] Work Phone: Comment on above: Negative <0.91 Equiv ocal 0.91 - 1.09 Positive >1.09 PATIENT NOT FASTINGP ERFORMED BY: ANDREW Pattonlin6370 [facility] [id number] Information: [id number] CBC (Auto) ([id number])Ordered By : Subway 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 on 07-07-2015 Erythrocyte distribution width Auto Ratio (RBC) 12.5 % Normal 12.3-15.4 [facility] Work Phone: Erythrocyte distribution width Ratio (RBC) 12.5 % Normal 12.3-15.4 [facility] [[email or web address]] Internal Medicine Work Phone: Comment on above: PATIENT NOT FASTINGP ERFORMED BY: ANDREW BearMatthew PattonCrvoud0383 [facility] [id number] Hematocrit Auto Volume Fraction (Bld) 43.8 % Normal 37.5-51.0 [facility] Internal Medicine Work Phone: Hematocrit Volume Fraction (Bld) 43.8 % Normal 37.5-51.0 [facility] [[email or web address]] Internal Medicine Work Phone: Comment on above: PATIENT NOT FASTINGP ERFORMED BY: ANDREW LabCoromeo PattonSjdeod2181 [facility] [id number] Hemoglobin mass conc (Bld) 14.9 g/dL Normal 12.6-17.7 [facility] Work Phone: Comment on above: PATIENT NOT FASTINGP ERFORMED BY: ANDREW LabCo Sgzuoj2450 [facility] [id number] MCH Auto Entitic mass (RBC) 31.2 pg Normal 26.6-33.0 [facility] Work Phone: MCH Entitic mass (RBC) 31.2 pg Normal 26.6-33.0 [facility] Work Phone: Comment on above: PATIENT NOT FASTINGP ERFORMED BY: ANDREW BearCoromeo PattonNxbvrf1327 [facility] [id number] MCHC Auto mass conc (RBC) 34.0 g/dL Normal 31.5-35.7 [facility] Work Phone: MCHC mass conc (RBC) 34.0 g/dL Normal 31.5-35.7 [facility] Internal Medicine Work Phone: Comment on above: PATIENT NOT FASTINGP ERFORMED BY: ANDREW BearMatthew PattonLqsffi9230 [facility] [id number] MCV Auto Entitic volume (RBC) 92 fL Normal 79-97 [facility] Work Phone: MCV Entitic volume (RBC) 92 fL Normal 79-97 [facility] Work Phone: Comment on above: PATIENT NOT FASTINGP ERFORMED BY: ANDREW BearMatthew PattonPvuwso9004 [facility] [id number] Platelets #/vol (Bld) 287 {x10E3/uL} Normal 150-379 [facility] Work Phone: Comment on above: PATIENT NOT FASTINGP ERFORMED BY: [facility] Fjnbnv1280 [facility] [id number] Platelets (Bld) [#/Vol] 287 10*3/uL Normal 150-379 [facility] Work Phone: Comment on above: PATIENT NOT FASTINGP ERFORMED BY: ANDREW [facility] Stfedy5466 [facility] [id number] Platelets Auto #/vol (Bld) 287 {x10E3/uL} Normal 150-379 [facility] Work Phone: RBC #/vol (Bld) 4.78 {x10E6/uL} Normal 4.14-5.80 Comp [facility] Work Phone: Comment on above: PATIENT NOT FASTINGP ERFORMED BY: ANDREW Forte6370 [facility] [id number] RBC (Bld) [#/Vol] 4.78 10*6/uL Normal 4.14-5.80 Compr [facility] Internal Medicine Work Phone: Comment on above: PATIENT NOT FASTINGP ERFORMED BY: ANDREW oFrte6370 [facility] [id number] RBC Auto #/vol (Bld) 4.78 {x10E6/uL} Normal 4.14-5.80 [facility] Work Phone: WBC #/vol (Bld) 8.3 {x10E3/uL} Normal 3.4-10.8 Compr [facility] Internal Medicine Work Phone: Comment on above: PATIENT NOT FASTINGP ERFORMED BY: ANDREW Pattonlin6370 [facility] [id number] WBC (Bld) [#/Vol] 8.3 10*3/uL Normal 3.4-10.8 [facility] Work Phone: Comment on above: PATIENT NOT FASTINGP ERFORMED BY: ANDREW Pattonlin6370 [facility] [id number] WBC Auto #/vol (Bld) 8.3 {x10E3/uL} Normal 3.4-10.8 [facility] Work Phone: Renal function Panel ([id number]) Ordered By: Subway 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 on 07-07-2015 Albumin mass conc 4.7 g/dL Normal 3.5-5.5 Compreh ensive Internal Medicine Work Phone: Comment on above: PATIENT NOT FASTINGP ERFORMED BY: ANDREW Pattonlin6370 [facility] [id number] Information: [id number] Calcium mass conc 9.9 mg/dL Normal 8.7-10.2 Compreh ensive Internal Medicine Work Phone: Comment on above: PATIENT NOT FASTINGP ERFORMED BY: ANDREW [facility] Ymtofs2469 García RoadFormerly [facility]in [place] [id number] Information: [id number] Chloride molar conc 99 mmol/L Normal 97-108 Compr ehensive Internal Medicine Work Phone: Comment on above: PATIENT NOT FASTINGP ERFORMED BY: CB [facility] Ajctro8392 [address] [facility] [place] [id number] Information: [id number] CO2 molar conc 27 mmol/L Normal 18-29 Comprehens [facility] Internal [facility] Work Phone: Comment on above: PATIENT NOT FASTINGP ERFORMED BY: CB [facility] Lhhcym2162 García [facility] [id number] Information: [id number] Creatinine mass conc 0.89 mg/dL Normal 0.76-1.27 Comp rehensive Internal Medicine Work Phone: Comment on above: PATIENT NOT FASTINGP ERFORMED BY: CB [facility] Fivzzj5878 García [facility] [id number] Information: [id number] GFR/1.73 sq M predicted among blacks CKD-EPI vol rate/area (S/P/Bld) 116 mL/min/1.73 Normal Comprehensiv e Internal Medicine Work Phone: Comment on above: PATIENT NOT FASTINGP ERFORMED BY: CB [facility] Osxjjj2080 Garc[address] [facility] [id number] Information: [id number] GFR/1.73 sq M predicted among non-blacks CKD-EPI vol rate/area (S/P/Bld) 100 mL/min/1.73 Normal [facility] Work Phone: Comment on above: PATIENT NOT FASTINGP ERFORMED BY: CB [facility] Bbxtoo7125 Garc[address] [facility] [place] [id number] Information: [id number] Glucose mass conc 73 mg/dL Normal 65-99 Compreh ensive Internal Medicine Work Phone: Comment on above: PATIENT NOT FASTINGP ERFORMED BY: [facility] Fibrxe9901 García [facility] [place] [id number] Information: [id number] Phosphate mass conc 3.3 mg/dL Normal 2.5-4.5 [facility] Work Phone: Comment on above: PATIENT NOT FASTINGP ERFORMED BY: [facility] Etmxog0321 García [facility] [id number] Information: [id number] Potassium molar conc 4.6 mmol/L Normal 3.5-5.2 [facility] Work Phone: Comment on above: PATIENT NOT FASTINGP ERFORMED BY: [facility] [id number] García [facility] [id number] Information: [id number] Sodium molar conc 140 mmol/L Normal 134-144 Compreh [facility] Internal Medicine Work Phone: Comment on above: PATIENT NOT FASTINGP ERFORMED BY: [facility] [id number] [facility] [place] [id number] Information: [id number] Urea nitrogen mass conc 14 mg/dL Normal 6-24 [facility] Work Phone: Comment on above: PATIENT NOT FASTINGP ERFORMED BY: [facility] [id number] García [facility] [id number] Information: [id number] Urea nitrogen/Creatinine mass ratio 16 mg/mg Normal 9-20 [facility] Work Phone: Comment on above: PATIENT NOT FASTINGP ERFORMED BY: [facility] [id number] [facility] [place] [id number] Information: [id number] TSH ([id number])Ordered By: Kan Mendes on 07-07-2015 Thyrotropin Qn 0.735 {uIU/mL} Normal 0.450-4.50 0 [facility] Work Phone: Comment on above: PATIENT NOT FASTINGP ERFORMED BY: ANDREW [facility]6370 García [facility] [id number] AMYOrdered By: System Manage r on 2014 [...] mass conc (RBC) 34.5 {g/gl} Normal 32-36 [facility] prehensive Internal Medicine Work Phone: MCV Auto [...] Albumin/Globulin mass ratio 1.0 {RATIO} Normal 0.9-2.4 [facility] [[email or web address] Internal Medicine Work Phone: ALP enzyme act/vol 79 U/L Normal 45-117 Compre [facility] Internal Medicine Work Phone: ALT enzyme act/vol 38 U/L Normal 12-78 Compre [facility] Internal Medicine Work Phone: AST enzyme act/vol 28 U/L Normal 15-37 Compre [facility] Internal Medicine Work Phone: Bilirubin mass conc 0.70 mg/dL Normal 0.00-1.00 Compr ensive Internal Medicine Work Phone: Calcium mass conc 9.7 mg/dL Normal 8.5-10.1 [facility] Internal [facility] Work Phone: Chloride molar conc 100 mmol/L Normal 98-107 Compr [facility] Internal Medicine Work Phone: CO2 molar conc 28.0 mmol/L Normal 21.0-32.0 Comprehen [facility] Internal Medicine Work Phone: Creatinine mass conc 0.9 mg/dL Normal 0.8-1.3 Comp [facility] Internal Medicine Work Phone: GFR/1.73 sq M predicted among non-blacks MDRD vol rate/area (S/P/Bld) 96 mL/min/{1.73_m2} Normal Comprehe nsive Internal Medicine Work Phone: Globulin Calculated mass conc (S) 4.1 g/dL Normal 2.7-4.2 [facility] [[email or web address] Internal Medicine Work Phone: Globulin mass conc (S) 4.1 g/dL Normal 2.7-4.2 [facility] [[email or web address] Internal Medicine Work Phone: Glucose mass conc 91 mg/dL Normal 70-110 [facility] Internal Medicine Work Phone: Potassium molar [...] Entitic mass (RBC) 30.8 pg Normal 27.0-32.0 [facility] [[email or web address] Internal Medicine Work Phone: Comment on above: CALL DR CHIN WITH RESULTS MCHC Auto mass conc (RBC) 35.0 {g/gl} Normal 32-36 [facility] Work Phone: MCHC mass conc (RBC) 35.0 {g/gl} Normal 32-36 [facility] Work Phone: Comment on above: CALL DR CHIN WITH RESULTS MCV Auto Entitic volume (RBC) 88.0 fL Normal 80-94 [facility] Work Phone: MCV Entitic volume (RBC) 88.0 fL Normal 80-94 [facility] [[email or web address] Internal Medicine Work Phone: Comment on above: CALL DR CHIN WITH RESULTS Platelet mean volume Auto Entitic volume (Bld) 11.1 fL Normal 6.2-12.0 [facility] [[email or web address] Internal Medicine Work Phone: Platelet mean volume Entitic volume (Bld) 11.1 fL Normal 6.2-12.0 Comprehensi Internal Medicine Work Phone: Comment on above: CALL DR CHIN WITH RESULTS Platelets #/vol (Bld) 314 10*3/uL Normal 150-450 Co [facility] Internal Medicine Work Phone: Comment on above: CALL DR CHIN WITH RESULTS Platelets Auto #/vol (Bld) 314 10*3/uL Normal 150-450 [facility] [[email or web address] Internal Medicine Work Phone: RBC #/vol (Bld) 4.93 {M/mm3} Normal 4.6-6.2 Compreh ensive Internal Medicine Work Phone: Comment on above: CALL DR CHIN WITH RESULTS RBC Auto #/vol (Bld) 4.93 {M/mm3} Normal 4.6-6.2 [facility] Work Phone: WBC #/vol (Bld) 8.2 10*3/uL Normal 4.4-11.0 Comprehe nsive Internal Medicine Work Phone: Comment on above: RESULTS CALLED TO DR Mariluz CHIN 09/17/131930 Roma Watkins.REPORT READ BACK BY SAME. CALL DR CHIN WITH RESULTS WBC Auto #/vol (Bld) 8.2 10*3/uL Normal 4.4-11.0 [facility] Internal Medicine Work Phone: Comment on above: RESULTS CALLED TO DR Mariluz CHIN 09/17/131930 Roma Watkins.REPORT READ BACK BY SAME. CBCD 0.500 % Normal 0.0-0.9 [facility] [[email or web address] Internal Medicine Work Phone: Comment on above: IG% - Immature Granu locytes (promyelocytes, myelocytes andmetamyelocytes) > 1% indicates that a LEFT SHIFT is Present. CALL DR CHIN WITH RESULTS CBCD 37.7 fL Normal 35.1-43.9 [facility] [[email or web address] Internal Medicine Work Phone: Comment on above: CALL DR CHIN WITH RESULTS CBCD 4.3 {X10_3/uL} Normal 2.0-7.7 Comprehens [facility] Internal Medicine Work Phone: Comment on above: CALL DR CHIN WITH RESULTS CBCD 3.2 % Normal 0-5 [facility] [[email or web address]] Internal Medicine Work Phone: Comment on above: CALL DR CHIN WITH RESULTS CBCD 10.4 % Abnormal 0-10 [facility] [[email or web address]] Internal Medicine Work Phone: Comment on above: CALL DR CHIN WITH RESULTS CBCD 1.1 % Abnormal 0-1 [facility] [[email or web address] Internal Medicine Work Phone: Comment on above: CALL DR CHIN WITH RESULTS CBCD 52.6 % Normal 47-70 [facility] [[email or web address]] Internal Medicine Work Phone: Comment on above: CALL DR CHIN WITH RESULTS CBCD 32.2 % Normal 19-41 [facility] [[email or web address]] Internal Medicine Work Phone: Comment on above: CALL DR CHIN WITH RESULTS CMPOrdered By: System Manage r on 09-17-2013 Albumin mass conc 4.0 g/dL Normal 3.4-5.0 [facility] Internal Medicine Work Phone: Comment on above: CALL DR CHIN WITH RESULTS Albumin/Globulin mass ratio 1.0 {RATIO} Normal 0.9-2.4 [facility] [[email or web address]] Internal Medicine Work Phone: Comment on above: CALL DR CHIN WITH RESULTS ALP enzyme act/vol 74 U/L Normal 50-136 [facility] Internal Medicine Work Phone: Comment on above: CALL DR CHIN WITH RESULTS ALT enzyme act/vol 49 U/L Normal 12-78 [facility] Internal Medicine Work Phone: Comment on above: CALL DR CHIN WITH RESULTS AST enzyme act/vol 27 U/L Normal 15-37 [facility] Internal Medicine Work Phone: Comment on above: CALL DR CHIN WITH RESULTS Bilirubin mass conc 0.80 mg/dL Normal 0.00-1.00 [facility] Internal Medicine Work Phone: Comment on above: CALL DR CHIN WITH RESULTS Calcium mass conc 9.0 mg/dL Normal 8.5-10.1 Compreh [facility] Internal Medicine Work Phone: Comment on above: CALL DR CHIN WITH RESULTS Chloride molar conc 102 mmol/L Normal 98-107 [facility] Internal Medicine Work Phone: Comment on above: CALL DR CHIN WITH RESULTS CO2 molar conc 31.0 mmol/L Normal 21.0-32.0 [facility] Work Phone: Comment on above: CALL DR CHIN WITH RESULTS Creatinine mass conc 0.8 mg/dL Normal 0.8-1.3 [facility] Internal Medicine Work Phone: Comment on above: CALL DR CHIN WITH RESULTS GFR/1.73 sq M predicted among non-blacks MDRD vol rate/area (S/P/Bld) 110 mL/min/{1.73_m2} Normal [facility] Internal Medicine Work Phone: Comment on above: CALL DR CHIN WITH RESULTS Globulin Calculated mass conc (S) 4.2 g/dL Normal 2.7-4.2 [facility] [[email or web address] Internal Medicine Work Phone: Globulin mass conc (S) 4.2 g/dL Normal 2.7-4.2 [facility] [[email or web address]] Internal Medicine Work Phone: Comment on above: [...] WITH RESULTS Antinuclear Antibodies Direc tOrdered By: [employer] 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 on 04-27-2013 Nuclear Ab Ql (S) Negative Normal Compreh ensive Internal Medicine Work Phone: Comment on above: PERFORMED BY: CB [facility] [address] [id number] BY: BN [facility] [address] [id number] C-Reactive Protein, QuantOrd ered By: 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 on 04-27-2013 CRP mass conc 2.5 mg/L Normal 0.0-4.9 Comprehensi ve Internal Medicine Work Phone: Comment on above: PERFORMED BY: [facility] [id number] BY: [employer] [id number] C1 Esterase Inhibitor, FuncO rdered By: 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 on 04-27-2013 Complement C1 esterase inhibitor actual/normal RelCCnc 100 {%mean_normal} Normal Compreh ensive Internal Medicine Work Phone: Comment on above: Abnormal <41 Equivoc al 41 - 67 Normal >67 PERFORMED BY: [facility] [id number] BY: [employer] [id number] C1 Esterase Inhibitor, Serum Ordered By: [employer] 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 on 04-27-2013 Complement C1 esterase inhibitor mass conc 33 mg/dL Normal 21-39 [facility] Work Phone: Comment on above: PERFORMED BY: [facility] [id number] BY: [employer] [id number] CCP Antibodies IgG/IgAOrdere d By: 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 on 04-27-2013 Cyclic citrullinated peptide IgA+IgG IA Qn 4 {units} Normal 0-19 Comprehens [facility] Internal Medicine Work Phone: Comment on above: Negative <20 Weak po sitive 20 - 39 Moderate positive 40 - 59 Strong positive >59 PERFORMED BY: [facility] [id number] BY: [employer] [id number] Rheumatoid Arthritis FactorO rdered By: 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 on 04-27-2013 Rheumatoid factor Qn 12.6 {IU/mL} Normal 0.0-13.9 Co mprehensive Internal Medicine Work Phone: Comment on above: PERFORMED BY: [employer] [id number] García [facility] [id number] BY: [employer] [address] [id number] Sedimentation Rate-Westergre nOrdered By: [employer] 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 on 04-27-2013 ESR Velocity (Bld) 5 mm/h Normal 0-15 Compre [facility] Internal Medicine Work Phone: Comment on above: PERFORMED BY: [employer] [id number] [facility] [id number] BY: [employer] [address] [id number] TSHOrdered By: System Manage r on 04-27-2013 Thyrotropin Qn 1.030 {uIU/mL} Normal 0.450-4.50 0 [facility] Work Phone: Comment on above: PERFORMED BY: [employer]6370 [facility] [id number] BY: [employer] [id number] WRIST 2 VIEWSOrdered By: Fred tem Plaster Caster on 09-30-2012 WRIST 2 VIEWS See Note [...] Paul M.D.September 30, 2012 at 2:05:32 PM [id number] Signed GP/GP If you are the referring physician and would like to consult with theradiologist who provided this interpretation, please contact Lev Cruz at [phone]. If this radiologist is unavailable, youwill be [...] Kareem Paul MD WRIST,MIN 3 VIEWSOrdered By: [employer] 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 on 09-29-2012 WRIST,MIN 3 VIEWS See Note [...] Harris M.D.September 29, 2012 at 8:03:34 PM [id number] Signed DL/DL If you are the referring physician and would like to consult with theradiologist who provided this interpretation, please contact Lev Miranda at [phone]. If this radiologist is unavailable, youwillbe directed to another radiologist to assist. If you are a patient with a question regarding this report, pleasecontactyour referring physician directly. Professional Interpretation Provided By: [employer], Phone , These documents contain legally protected [...] Hernan Harris MD Rapid Strep Test, Office ([phone])on 09-11-2010 S. pyogenes Ag EIA Ql (Throat) Positive Normal [facility] Work Phone: Rapid Strep Test, Office ([phone])Ordered By: Katia Freeman on 09-11-2010 S. pyogenes Ag IA Ql (Unsp spec) Positive Normal [facility] Work Phone: CHEST, PA AND LATERALOrdered By: [employer] 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 on 07-23-2010 CHEST, PA AND LATERAL See [...] Auto Ratio (RBC) 12.8 % Normal 11.6-14.6 [facility] [[email or web address]] Internal Medicine Work Phone: Erythrocyte distribution width Ratio (RBC) 12.8 % Normal 11.6-14.6 [facility] [[email or web address] Internal Medicine Work Phone: Hematocrit Auto Volume Fraction (Bld) 43.9 % Normal 40-54 Comprehens [facility] Internal Medicine Work Phone: Hematocrit Volume Fraction (Bld) 43.9 % Normal 40-54 [facility] [[email or web address] Internal Medicine Work Phone: Hemoglobin mass conc (Bld) 15.2 g/dL Normal 14.0-18.0 [facility] [[email or web address] Internal Medicine Work Phone: Lymphocytes/100 WBC (Bld) [...] conc (RBC) 34.7 g/dL Normal 32-36 Comp [facility] Internal Medicine Work Phone: MCV Auto Entitic [...] Work Phone: COMP METABOLICOrdered By: Alfred stem Plaster Caster on 03-23-2007 Albumin mass conc 3.5 g/dL Normal 3.4-5.0 Compreh ensive Internal Medicine Work Phone: Albumin/Globulin mass ratio 0.9 {RATIO} Normal 0.9-2.4 [facility] Work Phone: ALP enzyme act/vol 70 U/L Normal 50-136 Compre [facility] Internal Medicine Work Phone: ALT enzyme act/vol 41 [iU]/L Normal 30-65 [facility] Work Phone: Anion gap 3 molar conc 8 mmol/L Normal 5-15 [facility] Work Phone: Anion gap molar conc 8 mmol/L Normal 5-15 Comp rehensive Internal Medicine Work Phone: AST enzyme act/vol 25 U/L Normal 15-37 Compre [facility] Internal Medicine Work Phone: Bilirubin mass conc 0.96 mg/dL Normal 0.00-1.00 Compr ehensive Internal Medicine Work Phone: Calcium mass conc 8.4 mg/dL Abnormal 8.5-10.1 Compreh ensive Internal Medicine Work Phone: Chloride molar conc 102 mmol/L Normal 98-107 Compr ensive Internal Medicine Work Phone: CO2 molar conc 28.1 mmol/L Normal 22.0-29.0 Comprehen [facility] Internal Medicine Work Phone: Creatinine mass conc [...] mass conc 7.3 g/dL Normal 6.4-8.2 [facility] Internal Medicine Work Phone: Sodium molar conc 138 mmol/L Normal 136-145 Compreh ensive Internal Medicine Work Phone: Urea nitrogen mass conc 12 mg/dL Normal 7-18 [facility] Work Phone: Urea nitrogen/Creatinine mass ratio 15.0 {RATIO} Normal 10-20 [facility] Work Phone: MYOCARD PERF SPECT REST/STRE SSOrdered By: [employer] 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 on 03-23-2007 MYOCARD PERF SPECT REST/STRESS See Note Normal [facility] Work Phone: Comment on above: Exam Number: [id number] MYOCARDIAL PERFUSION SCAN 11.3 millicuries of [...] Compreh ensive Internal Medicine Work Phone: VITAMIN [id number] By: Kan becerra Plaster Caster on 03-23-2007 Cobalamin (Vitamin B12) mass conc 790 pg/mL Normal 211-911 [facility] Work Phone: Vital Signs Date Time Vital Sign Value Performing Clinician Facility 12-10-2024 16:12-0400 Body height 182.88 cm No Primary Care Physician [facility] 12-10-2024 16:12-0400 Body mass index (BMI) [Ratio] 27.1 kg/m2 No Primary Care Physician [facility] 12-10-2024 16:12-0400 Body weight 90.83 kg No Primary Care Physician [facility] 12-10-2024 16:12-0400 Diastolic blood pressure 87 mm[Hg] No Primary Care Physician [facility] 12-10-2024 16:12-0400 Heart rate 65 /min No Primary Care Physician [facility] 12-10-2024 16:12-0400 Respiratory rate 16 /min No Primary Care Physician [facility] 12-10-2024 16:12-0400 SaO2% (BldA) [Mass fraction] 98 % No Primary Care Physician [facility] 12-10-2024 16:12-0400 Systolic blood pressure 139 mm[Hg] No Primary Care Physician [facility] 2023 08:33-0400 Body height 185.42 cm [facility]; [facility] Work Phone: 2023 08:33-0400 Body mass index (BMI) [Ratio] 25.63 kg/m2 [facility]; [facility] Work Phone: 2023 08:33-0400 Body surface area Derived from formula 2.13 m2 [facility]; [facility] Work Phone: 2023 08:33-0400 Body temperature 96.2 [degF] [facility]; [facility] Work Phone: 2023 08:33-0400 Body weight 88.11 kg [facility]; [facility] Work Phone: 2023 08:33-0400 Diastolic blood pressure 78 mm[Hg] [facility]; [facility] Work Phone: Comment on above: Patient Position: Sitting; Cuff Location : Left Arm; Cuff Size: Standard 2023 08:33-0400 Heart rate 63 /min [facility]; [facility] Work Phone: Comment on above: Pattern: Regular 2023 08:33-0400 Respiratory rate 18 /min [facility]; [facility] Work Phone: Comment on above: Pattern: Unlabored 2023 08:33-0400 SaO2% (BldA) [Mass fraction] 97 % [facility]; [facility] Work Phone: Comment on above: Room air 2023 08:33-0400 Systolic blood pressure 136 mm[Hg] [facility]; [facility] [...] 11:40-0500 Body height 185.42 cm Ml Gomez [facility]; [facility] Work Phone: Comment on above: 181 on home scale and 186 with clothes h ere today. 09-03-2021 11:40-0500 Body mass index (BMI) [Ratio] 23.88 kg/m2 Ml Gomez [facility]; [facility] Work Phone: Comment on above: 181 on home scale and 186 with clothes h ere today. 09-03-2021 11:40-0500 Body surface area Derived from formula 2.06 m2 Ml Gomez [facility]; [facility] Work Phone: Comment on above: 181 on home scale and 186 with clothes h ere today. 09-03-2021 11:40-0500 Body temperature 97.3 [degF] Ml Gomez [facility]; [facility] Work Phone: Comment on above: Method: Infrared 181 on home scale an d 186 with clothes here today. 09-03-2021 11:40-0500 Body weight 82.1 kg Ml Gomez [facility]; [facility] Work Phone: Comment on above: 181 on home scale and 186 with clothes h ere today. 09-03-2021 11:40-0500 Diastolic blood pressure 90 mm[Hg] Ml Gomez [facility]; [facility] Work Phone: Comment on above: Patient Position: Sitting; Cuff Location : Left Arm; Cuff Size: Standard 181 on home scale an d 186 with clothes here today. 09-03-2021 11:40-0500 Heart rate 74 /min Ml Gomez [facility]; [facility] Work Phone: Comment on above: Pattern: Regular 181 on home scale an d 186 with clothes here today. 09-03-2021 11:40-0500 Respiratory rate 16 /min Ml Gomez [facility]; [facility] Work Phone: Comment on above: Pattern: Unlabored 181 on home scale an d 186 with clothes here today. 09-03-2021 11:40-0500 SaO2% (BldA) [Mass fraction] 97 % Ml Gomez [facility] Internal Medicine; [facility] Work Phone: Comment on above: Room air 181 on home scale an d 186 with clothes here today. 09-03-2021 11:40-0500 Systolic blood pressure 132 mm[Hg] Ml Gomez [facility] Internal Medicine; [facility] Work Phone: Comment on above: Patient Position: Sitting; Cuff Location : Left Arm; Cuff Size: Standard 181 on home scale an d 186 with clothes here today. 05-03-2021 11:42-0400 Body height 185.42 cm Ml Gomez [facility]; [facility] Work Phone: 05-03-2021 11:42-0400 Body mass index (BMI) [Ratio] 28.5 kg/m2 lM Gomez [facility]; [facility] Work Phone: 05-03-2021 11:42-0400 Body surface area Derived from formula 2.22 m2 [facility]; [facility] Work Phone: 05-03-2021 11:42-0400 Body weight 97.98 kg Ml Gomez [facility] Internal Medicine; [facility] Work Phone: 04-27-2021 08:33-0400 Body height 185.42 cm Ml Mayius [employer] [facility]; [facility] Work Phone: 04-27-2021 08:33-0400 Body mass index (BMI) [Ratio] 28.5 kg/m2 Ml Gomez [facility]; [facility] Work Phone: 04-27-2021 08:33-0400 Body surface area Derived from formula 2.22 m2 Ml Gomez [facility]; [facility] Work Phone: 04-27-2021 08:33-0400 Body temperature 97.1 [degF] Ml Gomez CMA [facility]; [facility] Work Phone: Comment on above: Method: Infrared 04-27-2021 08:33-0400 Body weight 97.98 kg Ml Gomez [employer] [facility]; [facility] Work Phone: 04-27-2021 08:33-0400 Diastolic blood pressure 90 mm[Hg] Ml Gomez [facility]; [facility] Work Phone: Comment on above: Patient Position: Sitting; Cuff Location : Left Arm; Cuff Size: Standard 04-27-2021 08:33-0400 Heart rate 76 /min Ml Gomez [facility]; [facility] Work Phone: Comment on above: Pattern: Regular 04-27-2021 08:33-0400 Respiratory rate 18 /min Ml Gomez [facility]; [facility] Work Phone: Comment on above: Pattern: Unlabored 04-27-2021 08:33-0400 SaO2% (BldA) [Mass fraction] 97 % Ml Gomez [facility]; [facility] Work Phone: Comment on above: Room air 04-27-2021 08:33-0400 Systolic blood pressure 142 mm[Hg] Ml Gomez [facility]; [facility] Work Phone: Comment on above: Patient Position: Sitting; Cuff Location : Left Arm; Cuff Size: Standard 08-07-2020 09:30-0500 BMI (Body Mass Index) 28.23 kg/m2 [facility] Comprehen [facility] Internal Medicine; [facility] Work Phone: 08-07-2020 09:30-0500 Body weight 97.07 kg [facility]; [facility] Work Phone: 08-07-2020 09:30-0500 BSA (Body Surface Area) 2.21 m2 [facility] Comprehensive Internal Medicine; [facility] Work Phone: 08-07-2020 09:30-0500 Height 185.42 cm [facility] Internal Medicine; [facility] Work Phone: 08-01-2020 08:11-0500 BMI (Body Mass Index) 28.23 kg/m2 [facility] Internal Medicine; [facility] Work Phone: 08-01-2020 08:11-0500 Body weight 97.07 kg [facility]; [facility] Work Phone: 08-01-2020 08:11-0500 BSA (Body Surface Area) 2.21 m2 [facility] Medicine; [facility] Work Phone: 08-01-2020 08:11-0500 Height 185.42 cm [facility] Medicine; [facility] Work Phone: 07-21-2020 07:35-0500 BMI (Body Mass Index) 28.23 kg/m2 [facility] Internal Medicine Work Phone: 07-21-2020 07:35-0500 Body weight 97.07 kg [facility] Internal Medicine Work Phone: 07-21-2020 07:35-0500 BSA (Body Surface Area) 2.21 m2 [facility] Internal Medicine Work Phone: 07-21-2020 07:35-0500 [facility] Work Phone: 01-03-2020 16:12-0400 Body height 185.42 cm Ml Gravius [employer] [facility] Internal Medicine Work Phone: 01-03-2020 16:12-0400 Body mass index (BMI) [Ratio] 28.23 kg/m2 Ml Gomez [facility] Internal Medicine Work Phone: 01-03-2020 16:12-0400 Body surface area Derived from formula 2.21 m2 Ml Gomez [facility] Internal Medicine Work Phone: 01-03-2020 16:12-0400 Body temperature 97 [degF] Ml Gomez [facility] Internal Medicine Work Phone: Comment on above: Method: Temporal 01-03-2020 16:12-0400 Body weight 97.07 kg Ml Gomez [facility] Internal Medicine Work Phone: 01-03-2020 16:12-0400 Diastolic blood pressure 80 mm[Hg] Ml Gomez [facility] Internal Medicine Work Phone: Comment on above: Patient Position: Sitting; Cuff Location : Left Arm; Cuff Size: Standard 01-03-2020 16:12-0400 Heart rate 90 /min Ml Gomez [facility] Internal Medicine Work Phone: Comment on above: Pattern: Regular 01-03-2020 16:12-0400 Pulse Oximetry 97 % Clair Vicky [facility] [email or web address] Internal Medicine Work Phone: Comment on above: Room air 01-03-2020 16:12-0400 Respiratory rate 16 /min Ml Gomez [facility] Internal Medicine Work Phone: Comment on above: Pattern: Unlabored 01-03-2020 16:12-0400 SaO2% (BldA) [Mass fraction] 97 % Ml Gomez [facility] Internal Medicine Work Phone: Comment on above: Room air 01-03-2020 16:12-0400 Systolic blood pressure 127 mm[Hg] Ml Gomez [facility] Internal Medicine Work Phone: Comment on above: Patient Position: Sitting; Cuff Location : Left Arm; Cuff Size: Standard 08-27-2019 07:12-0500 Body height 185.42 cm Rosalinda L Ariel HSIEH [facility] [[email or web address] Internal Medicine Work Phone: 08-27-2019 07:12-0500 Body mass index (BMI) [Ratio] 27.31 kg/m2 Rosalinda George RN [facility] Internal Medicine Work [...] 03-15-2019 15:44-0400 Pulse (Heart Rate) 72 /min Thao Schaefer [...] Mass Index) 26.52 kg/m2 Rosalinda George RN [facility] Internal Medicine Work Phone: 02-10-2019 15:53-0400 Body [...] Regular 02-10-2019 15:53-0400 Pulse Oximetry 98 % lCair Perry [facility] Medicine Work Phone: Comment on above: Room air 02-10-2019 15:53-0400 Respiratory Rate 16 /min Rosalinda George RN [facility] Work Phone: Comment on above: Pattern: Unlabored 02-10-2019 15:53-0400 SaO2% (BldA) [Mass fraction] 98 % Rosalinda George RN [facility] Work Phone: Comment on above: Room air 01-14-2019 12:03-0400 BMI (Body Mass Index) 26.14 kg/m2 Rosalinda George RN [facility] Internal Medicine Work Phone: 01-14-2019 12:03-0400 Body [...] (Body Mass Index) 26.65 kg/m2 Monika Slarb [employer] Comprehen sive Internal Medicine Work Phone: 12-18-2015 15:00-0400 Body Temperature 97.6 [degF] Monika Slarb [employer] [facility] Work Phone: 12-18-2015 15:00-0400 Body weight 91.63 kg Monika Mccullough LPN [facility] Work Phone: 12-18-2015 15:00-0400 BP Diastolic 84 mm[Hg] Monika Docrb [employer] [facility] Medicine Work Phone: Comment on above: Patient Position: Sitting; Cuff Location : Left Arm; Cuff Size: Standard 12-18-2015 15:00-0400 BP Systolic 142 mm[Hg] Monika Slarb [employer] [facility] Medicine Work Phone: Comment on above: Patient Position: Sitting; Cuff Location : Left Arm; Cuff Size: Standard 12-18-2015 15:00-0400 BSA (Body Surface Area) 2.16 m2 Monika Docrb [employer] [facility] Internal Medicine Work Phone: 12-18-2015 15:00-0400 Height 185.42 cm Monika Slarb [employer] [facility] Internal Medicine Work Phone: 12-18-2015 15:00-0400 Pulse (Heart Rate) 74 /min Monika Docrb [employer] Comprehensiv e Internal Medicine Work Phone: Comment on above: Pattern: Regular 12-18-2015 15:00-0400 Pulse Oximetry 97 % Clair Perry [facility] Medicine Work Phone: Comment on above: Room air 12-18-2015 15:00-0400 Respiratory Rate 16 /min Monika Mccullough [facility] Comprehensive Internal Medicine Work Phone: Comment on above: Pattern: Unlabored 12-18-2015 15:00-0400 SaO2% (BldA) [Mass fraction] 97 % Monika Mccullough LPN [facility] [[email or web address] Internal Medicine Work Phone: Comment on above: Room air 12-18-2015 15:00-0400 Weight 91.63 kg Claircarmen Perry [facility] [[email or web address] Internal Medicine Work Phone: 07-07-2015 11:08-0500 BMI (Body Mass Index) 25.73 kg/m2 MAYNOR Gaines [facility] Internal Medicine Work Phone: 07-07-2015 11:08-0500 Body Temperature 97.9 [degF] MAYNOR Gaines [facility] Internal Medicine Work Phone: Comment on above: Method: Temporal 07-07-2015 11:08-0500 Body weight 88.45 kg MAYNOR Gaines [facility] Internal Medicine Work Phone: 07-07-2015 11:08-0500 BP Diastolic 98 mm[Hg] MAYNOR Gaines [facility] Internal Medicine Work Phone: Comment on above: Patient Position: Sitting; Cuff Location : Left Arm; Cuff Size: Standard 07-07-2015 11:08-0500 BP Systolic 140 mm[Hg] MAYNOR Gaines [facility] Internal Medicine Work Phone: Comment on above: Patient Position: Sitting; Cuff Location : Left Arm; Cuff Size: Standard 07-07-2015 11:08-0500 BSA (Body Surface Area) 2.13 m2 MAYNOR Gaines [facility] Internal Medicine Work Phone: 07-07-2015 11:08-0500 Height 185.42 cm MAYNOR Gaines [facility] Internal Medicine Work Phone: 07-07-2015 11:08-0500 Pulse (Heart Rate) 78 /min MAYNOR Gaines [facility] Internal Medicine Work Phone: Comment on above: Pattern: Regular 07-07-2015 11:08-0500 Pulse Oximetry 98 % Clair Perry [facility] [[email or web address] Internal Medicine Work Phone: Comment on above: Room air 07-07-2015 11:08-0500 Respiratory Rate 20 /min MAYNOR Gaines LPN [facility] [[email or web address] Internal Medicine Work Phone: Comment on above: Pattern: Unlabored 07-07-2015 11:08-0500 SaO2% (BldA) [Mass fraction] 98 % MAYNOR Gaines LPN [facility] [[email or web address]] Internal Medicine Work Phone: Comment on above: Room air 07-07-2015 11:08-0500 Weight 88.45 kg Clair Perry [facility] [[email or web address] Internal Medicine Work Phone: 10-27-2014 09:52-0400 BMI (Body Mass Index) 27.31 kg/m2 MAYNOR Gaines LPN [facility] [[email or web address]] Internal Medicine Work Phone: 10-27-2014 09:52-0400 Body Temperature 98.2 [degF] MAYNOR Gaines LPN [facility] [[email or web address]] Internal Medicine Work Phone: Comment on above: Method: Temporal 10-27-2014 09:52-0400 Body weight 93.9 kg MAYNOR Gaines LPN [facility] [[email or web address] Internal Medicine Work Phone: 10-27-2014 09:52-0400 BP Diastolic 86 mm[Hg] MAYNOR Gaines LPN [facility] [[email or web address]] Internal Medicine Work Phone: Comment on above: Patient Position: Sitting; Cuff Location : Left Arm; Cuff Size: Standard 10-27-2014 09:52-0400 BP Systolic 124 mm[Hg] MAYNOR Gaines LPN [facility] [[email or web address]] Internal Medicine Work Phone: Comment on above: Patient Position: Sitting; Cuff Location : Left Arm; Cuff Size: Standard 10-27-2014 09:52-0400 BSA (Body Surface Area) 2.18 m2 MAYNOR Gaines LPN [facility] [[email or web address]] Internal Medicine Work Phone: 10-27-2014 09:52-0400 Height 185.42 cm MAYNOR Gaines LPN [facility] [[email or web address]] Internal Medicine Work Phone: 10-27-2014 09:52-0400 Pulse (Heart Rate) 82 /min MAYNOR Gaines LPN [facility] [[email or web address]] Internal Medicine Work Phone: Comment on above: Pattern: Regular 10-27-2014 09:52-0400 Pulse Oximetry 98 % Clair Perry [facility] [[email or web address]] Internal Medicine Work Phone: Comment on above: Room air 10-27-2014 09:52-0400 Respiratory Rate 20 /min MAYNOR Gaines [facility] Internal Medicine Work Phone: Comment on above: Pattern: Unlabored 10-27-2014 09:52-0400 SaO2% (BldA) [Mass fraction] 98 % MAYNOR Gaines [facility] Internal Medicine Work Phone: Comment on above: Room air 10-27-2014 09:52-0400 Weight 93.9 kg Clair Perry [facility] [[email or web address]] Internal Medicine Work Phone: 03-29-2014 14:40-0400 BMI (Body Mass Index) 27.31 kg/m2 Vanessa Annette [facility] Internal Medicine Work Phone: 03-29-2014 14:40-0400 Body Temperature 97.7 [degF] [facility] Work Phone: 03-29-2014 14:40-0400 Body [facility] 93.9 [facility] Work Phone: 03-29-2014 14:40-0400 BP Diastolic 80 mm[Hg] [facility] Work Phone: Comment on above: Patient Position: Sitting; Cuff Location : Left Arm; Cuff Size: Large 03-29-2014 14:40-0400 BP Systolic 124 mm[Hg] [facility] Work Phone: Comment on above: Patient Position: Sitting; Cuff Location : Left Arm; Cuff Size: Large 03-29-2014 14:40-0400 BSA (Body Surface Area) 2.18 m2 [facility] Work Phone: 03-29-2014 14:40-0400 Height 185.42 [facility] Work Phone: 03-29-2014 14:40-0400 Pulse (Heart Rate) 68 /min Vanessa Bryant Comprehensiv e Internal Medicine Work Phone: Comment on above: Pattern: Regular 03-29-2014 14:40-0400 Respiratory Rate 16 /min Vanessa Bryant [facility] [[email or web address] Internal Medicine Work Phone: Comment on above: Pattern: Unlabored 03-29-2014 14:40-0400 Weight 93.9 kg Clair Perry [facility] [[email or web address] Internal Medicine Work Phone: 2014 16:14-0400 BMI (Body Mass Index) 27.05 kg/m2 Vanessa Bryant Comprehen siv Internal Medicine Work Phone: 2014 16:14-0400 Body Temperature 98.5 [degF] Vanessa Camaramatty [facility] [[email or web address]] Internal Medicine Work Phone: 2014 16:14-0400 Body weight 92.99 kg Vanessa Camaramatty [facility] [[email or web address] Internal Medicine Work Phone: 2014 16:14-0400 BP Diastolic 88 mm[Hg] Vanessa Bryant [facility] [[email or web address]] Internal Medicine Work Phone: Comment on above: Patient Position: Sitting; Cuff Location : Left Arm; Cuff Size: Large 2014 16:14-0400 BP Systolic 140 mm[Hg] Vanessa Bryant [facility] [[email or web address]] Internal Medicine Work Phone: Comment on above: Patient Position: Sitting; Cuff Location : Left Arm; Cuff Size: Large 2014 16:14-0400 BSA (Body Surface Area) 2.17 m2 Vanessa Camaramatty [facility] [[email or web address] Internal Medicine Work Phone: 2014 16:14-0400 Height 185.42 cm Vanessa Annette [facility] [[email or web address]] Internal Medicine Work Phone: 2014 16:14-0400 Pulse (Heart Rate) 68 /min Vanessa Bryant Comprehensiv e Internal Medicine Work Phone: Comment on above: Pattern: Regular 2014 16:14-0400 Respiratory Rate 16 /min Vanessa Bryant [facility] [[email or web address]] Internal Medicine Work Phone: Comment on above: Pattern: Unlabored 2014 16:14-0400 Weight 92.99 kg Clair Perry [facility] [[email or web address] Internal Medicine Work Phone: 10-05-2013 10:21-0500 BMI (Body Mass Index) 27.48 kg/m2 Clair Perry [facility] Internal Medicine Work Phone: 10-05-2013 10:21-0500 Body Temperature 98 [degF] Clair Perry [facility] [[email or web address]] Internal Medicine Work Phone: Comment on above: Method: Oral 10-05-2013 10:21-0500 Body weight 94.49 kg Clair Perry [facility] [[email or web address]] Internal Medicine Work Phone: 10-05-2013 10:21-0500 BP Diastolic 70 mm[Hg] Clair Perry [facility] [[email or web address]] Internal Medicine Work Phone: Comment on above: Patient Position: Sitting; Cuff Location : Left Arm; Cuff Size: Standard 10-05-2013 10:21-0500 BP Systolic 122 mm[Hg] Clair Perry [facility] [[email or web address]] Internal Medicine Work Phone: Comment on above: Patient Position: Sitting; Cuff Location : Left Arm; Cuff Size: Standard 10-05-2013 10:210500 BSA (Body Surface Area) 2.19 m2 Clair Perry [facility] [[email or web address]] Internal Medicine Work Phone: 10-05-2013 10:210500 Height 185.42 cm Clair Perry [facility] [[email or web address]] Internal Medicine Work Phone: 10-05-2013 10:21-0500 Pulse (Heart Rate) 80 /min Clair Perry [email or web address]] Internal Medicine Work Phone: Comment on above: Pattern: Regular 10-05-2013 10:21-0500 Pulse Oximetry 98 % Clair Perry [facility] [[email or web address]] Internal Medicine Work Phone: Comment on above: Room air 10-05-2013 10:21-0500 SaO2% (BldA) [Mass fraction] 98 % Clair Perry DO Work Phone: [facility] Medicine Work Phone: Comment on above: Room air 10-05-2013 10:21-0500 Weight 94.49 kg Clair Perry [facility] [[email or web address]] Internal Medicine Work Phone: 04-27-2013 14:33-0400 BMI (Body Mass Index) 27.48 kg/m2 Alyssa Junior [facility] Comprehensive Internal Medicine Work Phone: 04-27-2013 14:33-0400 Body Temperature 98.2 [degF] Alyssa Junior [facility] Comprehensive Internal Medicine Work Phone: Comment on above: Method: Oral 04-27-2013 14:33-0400 Body weight 94.49 kg Alyssa Junior [facility] Internal Medicine Work Phone: 04-27-2013 14:33-0400 BP Diastolic 92 mm[Hg] Alyssa Junior [facility] Comprehensive Internal Medicine Work Phone: Comment on above: Patient Position: Sitting; Cuff Location : Left Arm; Cuff Size: Standard 04-27-2013 14:33-0400 BP Systolic 134 mm[Hg] Alyssa Junior [facility] Internal Medicine Work Phone: Comment on above: Patient Position: Sitting; Cuff Location : Left Arm; Cuff Size: Standard 04-27-2013 14:33-0400 BSA (Body Surface Area) 2.19 m2 Alyssa Junior [facility] Internal Medicine Work Phone: 04-27-2013 14:33-0400 Height 185.42 cm Alyssa Junior [facility] Internal Medicine Work Phone: 04-27-2013 14:33-0400 Pulse (Heart Rate) 69 /min Alyssa Junior [facility] Internal Medicine Work Phone: Comment on above: Pattern: Regular 04-27-2013 14:33-0400 Pulse Oximetry 98 % Clair Perry [facility] [[email or web address]] Internal Medicine Work Phone: Comment on above: Room air 04-27-2013 14:33-0400 Respiratory Rate 16 /min Alyssa Junior [facility] Internal Medicine Work Phone: [...] Pulse (Heart Rate) 80 /min Clair Perry [email or web address]] Internal Medicine Work Phone: Comment on above: Pattern: Regular 07-30-2010 16:25-0500 Pulse Oximetry 97 % Clair Perry [facility] [[email or web address]] Internal Medicine Work Phone: Comment on above: Room air 07-30-2010 16:25-0500 Respiratory Rate 18 /min Clair Perry [facility] [[email or web address]] Internal Medicine Work Phone: Comment on above: Pattern: Unlabored 07-30-2010 16:25-0500 SaO2% (BldA) [Mass fraction] 97 % Clair Perry DO Work Phone: [facility] [[email or web address]] Internal Medicine Work Phone: Comment on above: Room air 07-30-2010 16:25-0500 Weight 91.17 kg Clair Perry [facility] [[email or web address]] Internal Medicine Work Phone: 07-23-2010 16:37-0500 BMI (Body Mass Index) 25.73 kg/m2 MAYNOR Gaines [facility] Internal Medicine Work Phone: 07-23-2010 16:37-0500 Body Temperature 98.2 [degF] MAYNOR Gaines [facility] Internal Medicine Work Phone: Comment on above: Method: Oral 07-23-2010 16:37-0500 Body weight 88.45 kg MAYNOR Gaines [facility] Internal Medicine Work Phone: 07-23-2010 16:37-0500 BP Diastolic 78 mm[Hg] MAYNOR Gaines [facility] Internal Medicine Work Phone: Comment on above: Patient Position: Sitting; Cuff Location : Left Arm; Cuff Size: Standard 07-23-2010 16:37-0500 BP Systolic 128 mm[Hg] MAYNOR Gaines [facility] Internal Medicine Work Phone: [...] 07-23-2010 16:37-0500 Weight 88.45 kg Clair Perry [facility] [[email or web address] Internal Medicine Work Phone: 07-16-2010 17:03-0500 Body Temperature 97.3 [degF] Clair Perry [facility] [[email or web address]] Internal Medicine Work Phone: Comment on above: Method: Oral 07-16-2010 17:03-0500 Body weight 88.45 kg Clair Perry [facility] [[email or web address]] Internal Medicine Work Phone: 07-16-2010 17:03-0500 BP [...] Pulse (Heart Rate) 72 /min Clair Perry [email or web address]] Internal Medicine Work Phone: Comment on above: Pattern: Regular 07-16-2010 17:03-0500 Pulse Oximetry 99 % Clair Perry [email or web address]] Internal Medicine Work Phone: Comment on above: Room air 07-16-2010 17:03-0500 Respiratory Rate 18 /min Clair Perry [facility] [[email or web address]] Internal Medicine Work Phone: Comment on above: Pattern: Unlabored 07-16-2010 17:03-0500 SaO2% (BldA) [Mass fraction] 99 % Clair Perry DO Work Phone: [facility] Work Phone: Comment on above: Room air 07-16-2010 17:03-0500 Weight 88.45 kg Clair Perry [email or web address]] Internal Medicine Work Phone: 04-30-2010 16:23-0400 Body Temperature 97.6 [degF] MAYNOR Gaines [employer] [facility] [[email or web address]] Internal Medicine Work Phone: Comment on above: Method: Oral 04-30-2010 16:23-0400 Body weight 88.45 kg MAYNOR Gaines [employer] [facility] [[email or web address]] Internal Medicine Work Phone: 04-30-2010 16:23-0400 BP Diastolic 80 mm[Hg] MAYNOR Gaines [facility] Internal Medicine Work Phone: Comment on above: Patient Position: Sitting; Cuff Location : Left Arm; Cuff Size: Standard 04-30-2010 16:23-0400 BP Systolic 122 mm[Hg] MAYNOR Gaines [employer] [email or web address]] Internal Medicine Work Phone: Comment on above: Patient Position: Sitting; Cuff Location : Left Arm; Cuff Size: Standard 04-30-2010 16:23-0400 Pulse (Heart Rate) 64 /min MAYNOR Gaines [employer] [facility] [[email or web address]] Internal Medicine Work Phone: Comment on above: Pattern: Regular 04-30-2010 16:23-0400 Respiratory Rate 18 /min MAYNOR Gaines [employer] [email or web address]] Internal Medicine Work Phone: Comment on above: Pattern: Unlabored 04-30-2010 16:23-0400 Weight 88.45 kg Clair Perry [email or web address]] Internal Medicine Work Phone: 11-27-2009 15:04-0400 BMI [...] Work Phone: 11-27-2009 15:04-0400 Height 185.42 cm Yvette Chin MD Work Phone: [facility] Internal [...] 15:04-0400 Body weight 86.35 kg Kay Fields [email or web address]] Internal Medicine Work Phone: 12-15-2007 15:04-0400 BP Diastolic 74 mm[Hg] Kay Fields [facility] [[email or web address]] Internal Medicine Work Phone: Comment on above: Patient Position: Sitting; Cuff Location : Left Arm; Cuff Size: Standard 12-15-2007 15:04-0400 BP Systolic 126 mm[Hg] Kay [facility] Medicine Work Phone: Comment on above: Patient Position: Sitting; Cuff Location : Left Arm; Cuff Size: Standard 12-15-2007 15:04-0400 Head Circumference 0 cm Clair Perry [facility] Medicine Work Phone: 12-15-2007 15:04-0400 Head Occipital-frontal circumference 0 cm [facility] Medicine Work Phone: 12-15-2007 15:04-0400 Height 0 cm [facility] Medicine Work Phone: 12-15-2007 15:04-0400 Pulse (Heart Rate) 60 /min [facility] Work Phone: Comment on above: Pattern: Regular 12-15-2007 15:04-0400 Respiratory Rate 16 /min [facility] Work Phone: Comment on above: Pattern: Unlabored 12-15-2007 15:04-0400 Weight 86.35 kg [facility] Work Phone: 09-04-2007 14:53-0500 Body Temperature 98.4 [degF] MAYNOR Gaines [facility] Internal Medicine Work Phone: Comment on above: Method: Oral 09-04-2007 14:53-0500 Body weight 0 kg MAYNOR Gaines [facility] Internal Medicine Work Phone: 09-04-2007 14:53-0500 BP Diastolic 78 mm[Hg] MAYNOR Gaines [facility] Internal Medicine Work Phone: Comment on above: Patient Position: Sitting; Cuff Location : Left Arm; Cuff Size: Standard 09-04-2007 14:53-0500 BP Systolic 118 mm[Hg] MAYNOR Gaines [facility] Internal Medicine Work Phone: Comment on above: Patient Position: Sitting; Cuff Location : Left Arm; Cuff Size: Standard 09-04-2007 14:53-0500 Head Circumference 0 cm Clair [facility] Medicine Work Phone: 09-04-2007 14:53-0500 Head Occipital-frontal circumference 0 cm MAYNOR Gaines LPN [email or web address] Internal Medicine Work Phone: 09-04-2007 14:53-0500 Height 0 cm MAYNOR Gaines LPN [email or web address] Internal Medicine Work Phone: 09-04-2007 14:53-0500 Pulse (Heart Rate) 74 /min MANYOR Gaines LPN [email or web address] Internal Medicine Work Phone: Comment on above: Pattern: Regular 09-04-2007 14:53-0500 Respiratory Rate 18 /min MAYNOR Gaines LPN [facility] Work Phone: Comment on above: Pattern: Unlabored 09-04-2007 14:53-0500 Weight 0 kg Clair Perry [email or web address] Internal Medicine Work Phone: 07-17-2007 13:51-0500 Body Temperature 98.5 [degF] [facility] Internal Medicine Work Phone: Comment on above: Method: Undefined 07-17-2007 13:51-0500 Body weight 0 kg [facility] Internal Medicine Work Phone: 07-17-2007 13:51-0500 BP Diastolic 78 mm[Hg] [facility] Internal Medicine Work Phone: Comment on above: Patient Position: Sitting; Cuff Location : Left Arm; Cuff Size: Standard 07-17-2007 13:51-0500 BP Systolic 126 mm[Hg] [facility] Internal Medicine Work Phone: Comment on above: Patient Position: Sitting; Cuff Location : Left Arm; Cuff Size: Standard 07-17-2007 13:51-0500 Head Circumference 0 cm Clair Perry [email or web address] Internal Medicine Work Phone: 07-17-2007 13:51-0500 Head Occipital-frontal circumference 0 cm [facility] Internal Medicine Work Phone: 07-17-2007 13:51-0500 Height 0 cm [facility] Internal Medicine Work Phone: 07-17-2007 13:51-0500 Pulse (Heart Rate) 72 /min [facility] Internal Medicine Work Phone: Comment on above: Pattern: Regular 07-17-2007 13:51-0500 Respiratory Rate 16 /min Kay Fields [facility] Work Phone: Comment on above: Pattern: Unlabored 07-17-2007 13:51-0500 Weight 0 kg Clair Perry [facility] [[email or web address] Internal Medicine Work Phone: 03-16-2007 16:42-0400 Body [...] 16:42-0400 Head Circumference 0 cm Clair Perry [facility] [[email or web address] Internal Medicine Work Phone: 03-16-2007 16:42-0400 Head [...] 03-16-2007 16:42-0400 Weight 86.35 kg Clair Perry [facility] [[email or web address] Internal Medicine Work Phone: 09-25-2006 15:51-0500 Body Temperature 97.6 [degF] MAYNOR Gaines LPN [facility] Work Phone: Comment on above: Method: Oral 09-25-2006 15:51-0500 Body weight 87.09 kg MAYNOR Gaines LPN [facility] [[email or web address]] Internal Medicine Work Phone: 09-25-2006 15:51-0500 BP Diastolic 84 mm[Hg] MAYNOR Gaines LPN [facility] [[email or web address] Internal Medicine Work Phone: Comment on above: Patient Position: Sitting; Cuff Location : Left Arm; Cuff Size: Standard 09-25-2006 15:51-0500 BP Systolic 124 mm[Hg] MAYNOR Gaines LPN [facility] [[email or web address]] Internal Medicine Work Phone: Comment on above: Patient Position: Sitting; Cuff Location : Left Arm; Cuff Size: Standard 09-25-2006 15:51-0500 Head Circumference 0 cm Clair Perry [facility] [[email or web address] Internal Medicine Work Phone: 09-25-2006 15:51-0500 Head Occipital-frontal circumference 0 cm MAYNOR Gaines LPN [facility] [[email or web address] Internal Medicine Work Phone: 09-25-2006 15:51-0500 Height 0 cm MAYNOR Gaines LPN [facility] [[email or web address] Internal Medicine Work Phone: 09-25-2006 15:51-0500 Pulse (Heart Rate) 70 /min MAYNOR Gaines LPN [facility] [[email or web address]] Internal Medicine Work Phone: Comment on above: Pattern: Regular 09-25-2006 15:51-0500 Respiratory Rate 20 /min MAYNOR Gaines LPN [facility] [[email or web address] Internal Medicine Work Phone: Comment on above: Pattern: Unlabored 09-25-2006 15:51-0500 Weight 87.09 kg Clair Perry [email or web address] Internal Medicine Work Phone: 09-09-2006 09:21-0500 Body Temperature 98 [degF] Clair Perry [facility] [[email or web address] Internal Medicine Work Phone: Comment on above: Method: Oral 09-09-2006 09:21-0500 Body weight 87.23 kg Clair Perry [facility] [[email or web address] Internal Medicine Work Phone: 09-09-2006 09:21-0500 BP Diastolic 82 mm[Hg] Clair Perry [facility] [[email or web address] Internal Medicine Work Phone: Comment on above: Patient Position: Sitting; Cuff Location : Left Arm; Cuff Size: Standard 09-09-2006 09:21-0500 BP Systolic 130 mm[Hg] Clair Perry [facility] [[email or web address] Internal Medicine Work Phone: Comment on above: Patient Position: Sitting; Cuff Location : Left Arm; Cuff Size: Standard 09-09-2006 09:21-0500 Head Circumference 0 cm Clair Perry [facility] [[email or web address] Internal Medicine Work Phone: 09-09-2006 09:21-0500 Head Occipital-frontal circumference 0 cm Clair Perry DO Work Phone: [facility] [[email or web address] Internal Medicine Work Phone: 09-09-2006 09:21-0500 Height 0 cm Clair Perry [email or web address] Internal Medicine Work Phone: 09-09-2006 09:21-0500 Pulse (Heart Rate) 72 /min Clair Perry [facility] [[email or web address] Internal Medicine Work Phone: Comment on above: Pattern: Regular 09-09-2006 09:21-0500 Respiratory Rate 18 /min Clair Perry [facility] [[email or web address] Internal Medicine Work Phone: Comment on above: Pattern: Unlabored 09-09-2006 09:21-0500 Weight 87.23 kg Clair Perry [facility] [[email or web address]] Internal Medicine Work Phone: 06-10-2006 14:41-0400 BMI (Body Mass Index) 24.61 kg/m2 Clair Perry [facility] Internal Medicine Work Phone: 06-10-2006 14:41-0400 Body weight 84.62 kg Clair Perry [facility] [[email or web address]] Internal Medicine Work Phone: 06-10-2006 14:41-0400 BP Diastolic 80 mm[Hg] Clair Perry [facility] [[email or web address] Internal Medicine Work Phone: Comment on above: Patient Position: Sitting; Cuff Location : Undefined; Cuff Size: Undefined 06-10-2006 14:41-0400 BP Systolic 130 mm[Hg] Clair Perry [facility] [[email or web address] Internal Medicine Work Phone: Comment on above: [...] End: 01-07-2025 ambulatory No Primary Care Physician [facility] Work Phone: Start: 01-07-2025 End: 01-07-2025 Patient encounter procedure Vanessa ROBIN -Laboratory Work Phone: Start: 01-07-2025 End: 01-07-2025 ambulatory Clair Perry Facility:[facility] Start: 12-10-2024 End: 12-10-2024 Patient encounter procedure Vanessa ROBIN -[facility] Work Phone: Start: 12-10-2024 End: 12-10-2024 ambulatory Clair Perry Facility:[facility] Start: 11-01-2024 End: 11-01-[address] Yusuf Hahn MD -[facility] Start: 11-01-2024 End: 11-01-2024 ambulatory No Primary Care Physician Facility:[facility] Start: 10-27-2024 End: 10-27-2024 Telephone encounter Josue Fitzpatrick MD Work Phone: General Surgery Comment on above: Patient Update Start: 09-28-2024 Registered [facility] Work Phone: Start: 09-28-2024 ambulatory No Primary Car e Physician Facility:[facility] Start: 2023 End: 2023 Office outpatient visit [...] End: 10-26-2020 Phone Encounter Clair Yuon [facility] Start: 10-26-2020 End: 10-26-2020 Phone Encounter Clair Perry [facility] Start: 08-07-2020 End: 08-07-2020 Office outpatient visit 15 minutes Clair Vicky [facility] Start: 08-03-2020 End: 08-03-2020 Office outpatient visit 5 minutes Clair Vicky [facility] Start: 08-01-2020 End: 08-01-2020 Office outpatient visit 15 minutes Clair Vicky [facility] Start: 08-01-2020 Review Clair Perry [facility] Start: 07-21-2020 End: 07-21-2020 Annotation/Addendum Clair Vicky [facility] Start: 07-21-2020 End: 07-21-2020 Patient [...] End: 05-27-2018 Phone Encounter Clair Vicky [facility] Start: 05-20-2018 End: 05-20-2018 Office outpatient visit 5 minutes Clair Perry [facility] Start: 11-13-2017 End: 11-13-2017 Annotation/Addendum Clair Perry [facility] Start: 11-11-2017 End: 11-11-2017 Annotation/Addendum Clair Vicky [facility] Start: 07-16-2017 End: 07-16-2017 Patient encounter procedure Clair Perry DO Work Phone: [facility] Start: 07-16-2017 End: 07-16-2017 Periodic preventive med est patient 40-64yrs Clair Foss [facility] Start: 05-07-2017 End: 05-07-2017 Office outpatient visit 15 minutes Clair Foss [facility] Start: 04-02-2017 End: 04-02-2017 Office outpatient visit 25 minutes Clair Perry [email or web address] Internal Medicine Start: 03-20-2017 End: 03-20-2017 Emergency department patient visit IRMA RODRIGESIENZA Facility:[facility] Start: 08-01-2016 End: 08-01-2016 Office outpatient visit 25 minutes Clair Foss [facility] Start: 07-17-2016 End: 07-17-2016 Office outpatient visit 40 minutes Clair Perry [email or web address] Internal Medicine Start: 06-24-2016 End: 06-24-2016 Office [...] 04-01-2014 End: 04-01-2014 Phone Encounter Clair [facility]oss [facility] Start: 03-30-2014 End: 03-30-2014 Phone Encounter Clair [facility] Start: 03-29-2014 End: 03-29-2014 Office outpatient visit 25 minutes Clair Perry [facility] Start: 2014 End: 2014 Office outpatient visit 15 minutes Clair Vicky [facility] Start: 10-05-2013 End: 10-05-2013 Office outpatient visit 15 minutes Clair Perry [facility] Start: 09-17-2013 End: 09-17-2013 Patient encounter Clair Perry [facility] Start: 04-27-2013 End: 04-29-2013 Patient encounter Clair Perry [facility] Start: 09-30-2012 End: 09-30-2012 Phone Encounter Clair Perry [facility] Start: 09-29-2012 End: 09-29-2012 Patient encounter Clair Perry [facility] Start: 09-11-2010 End: 09-11-2010 Patient encounter Clair Perry [facility] Start: 07-30-2010 End: 07-30-2010 Patient encounter Clair Perry [facility] Start: 07-23-2010 End: 07-23-2010 Office outpatient visit 25 minutes Clair Perry [facility] Start: 07-16-2010 End: 07-16-2010 Office outpatient visit 25 minutes Clair Perry [facility] Start: 04-30-2010 End: 05-02-2010 Patient encounter Clair Perry [facility] Start: 11-27-2009 End: 11-27-2009 Patient encounter Clair Perry [facility] Start: 11-27-2009 End: 11-27-2009 Patient encounter status Clair Perry DO Work Phone: [facility] Start: 02-15-2009 End: 02-15-2009 Historical Summary Clair Perry [facility] Start: 12-15-2007 End: 12-15-2007 Patient encounter Clair Perry [facility] Start: 09-04-2007 End: 09-04-2007 Office outpatient visit 10 minutes Clair Perry [facility] Start: 07-17-2007 End: 07-19-2007 Patient encounter Clair Perry [facility] Start: 03-16-2007 End: 03-16-2007 Patient encounter Clair Perry [facility] Start: 09-25-2006 End: 09-25-2006 Patient encounter Clair Perry [facility] Start: 09-09-2006 End: 09-09-2006 Patient encounter Clair Perry [facility] Start: 06-10-2006 End: 06-10-2006 Patient encounter Clair Perry [facility] Start: 06-10-2006 End: 06-10-2006 Patient encounter status Clair Perry DO Work Phone: [facility] Start: 06-05-2006 End: 06-05-2006 Historical Summary Clair Perry [facility] Patient encounter procedure Vani Cross [facility] Work Phone: Patient encounter procedure Ml Gravius [facility] Work Phone: Patient encounter procedure Ml Gravius [facility]; [facility] Work Phone: Patient encounter procedure Ml Gravius [facility]; [facility] Work Phone: Patient encounter procedure Rodolfo Rossr [facility]; [facility] Work Phone: End: 2014 Patient encounter status Lauren Lupis [facility] Work Phone: Patient encounter status Ml Gomez [facility]; [facility] Work Phone: Patient encounter status Ml Gomez [facility]; [facility] Work Phone: Patient encounter status Rodolfo Carroll [facility]; [facility] Work [...] med using the TPSA assay method for theAcupera chemistry system. Values obtained with differentassay methods cannot be used interchangably.When changing PSA assays in the course of monitoring apatient, additional sequential testing should be carriedout to confirm baseline values. Start: 04-21-2020 Colonoscopy Josue vasquez MD Work Phone: Start: 02-09-2019 End: 02-09-2019 PT D/C Summary (1) Comments: See Note; NOTES: [facility] Physical Therapy [facility] [address] [place] [address] / REHABILITATION SERVICES DISCHARGE SUMMARY MR#: [id number] Acct: [id number] Name: ROBERT MESA Rep #: [id number] : 1965 53 From: Lucas Morris DPT, [...] please feel free to call me at [phone]. Thank you for the referral of this patient. Sincerely, Lucas Morris DPT, OCS, CSCS <Electronically signed by Lucas Morris DPT, LYN, CSCS> 02/09/19 0844 CC: Clair Perry; Clair Perry DO EBG Signed Clair Perry Start: 01-20-2019 End: 01-20-2019 Inital Evaluation (1) - PT Comments: See Note; NOTES: [facility] [place] [address] / REHABILITATION SERVICES INITIAL EVALUATION MR#: [id number] Acct: [id number] Name: ROBERT MESA Rep #: [id number] : 1965 53 From: Lucas Morris DPT, LYN, CSCS Referring Dr.: Clair Perry DO Status: REG RCR Insurance: [employer] [place] [employer] SELF PAY INSURANCE Patient's Visit Information [...] Getting up is hard. 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 Off since last Friday [...] to be FAXED BACK to us at [phone] for Medicare purposes. For Medicare only, by [...] Emergency Department Summary Comments: See Note; NOTES: [facility] Medical Records Department [address] [place] [address] Emergency Department Summary 01/13/19 1432 MR#: [id number] Acct: [id number] Name: ROBERT MESA Rep #: [id number] : 1965 53 From: Lucas Neff DO [...] Naprosyn, Flexeril, and a short course of Trent. Patient states he has an appoint with [...] back pain This note was generated with [employer] dictation software. It may contain incorrect words, spelling, and punctuation that were not noted in review of the chart prior to signing ED Disposition - Plan for ED Patient: Disposition: Home or Assisted Living Diagnosis: Acute low back pain Instructions: ED Neck Back Pain General Prescriptions: Hydrocodone Bitart/Apap 5-325 [Trent 5MG-325MG] 1 tab PO Q6H PRN PRN [...] problems, contact your Primary Care Provider. Call [facility] ([phone]) or report to the closest Emergency Room. Call 911 if necessary. 01/13/19 3941 <Electronically signed by Lucas Neff DO> Date Lucas Neff DO Cosigner Signature (If Indicated): Date CC: Clair Brown Start: 01-13-2019 End: 01-13-2019 Lumbar Spine 2 or 3 Views Comments: See Note; NOTES: [facility] Imaging Services [address] [place], [place] [address] [address] Lumbar Spine 2 or 3 Views MR#: [id number] Acct: [id number] Name: ROBERT MESA Rep #: [id number] : 1965 53 From: Kareem Paul MD PCP: Clair Perry DO Status: [facility] Study: Lumbar Spine 2 or 3 Views Date of Exam: 01/13/19 Exam# [id number] Ordering Dr: Lucas Neff DO STUDY: X-RAY [...] CC: Lucas Neff DO; Clair Perry DO Irradiated Fuel Handler: Signed Clair Perry Start: 07-25-2016 End: 07-26-2016 Brain/Head W/WO Contrast Comments: See Note; NOTES: [facility] Imaging Services [address] [place] [address] [place] 4d Brain/Head W/WO Contrast MR#: [id number] Acct: [id number] Name: ROBERT MESA Rep #: [id number] : 1965 M 51 From: Steven Harkins MD PCP: Clair Perry DO Status: REG CLI Study: Brain/Head W/WO Contrast Date of Exam: 07/25/16 Exam# [id number] Ordering Dr: Clair Perry DO STUDY: CT [...] MD at 7:24 EST , Service support [phone], CC: Clair Perry DO Irradiated Fuel Handler: Signed Clair Perry Work Phone: Start: 07-25-2016 End: 07-26-2016 Extremity Upper WITH Contrast Comments: See Note; NOTES: [facility] Imaging Services [address] [place] [address] [place] 4d Extremity Upper WITH Contrast MR#: [id number] Acct: [id number] Name: ROBERT MESA Rep #: [id number] : 1965 M 51 From: Chinyere Ayala MD PCP: Clair Perry DO Status: REG CLI Study: Extremity Upper WITH Contrast Date of Exam: 07/25/16 Exam# [id number] Ordering Dr: Clair Perry DO STUDY: CT [...] MD at 22:34 EST , Service support [phone], CC: Clair Perry DO Irradiated Fuel Handler: Signed Clair Perry Work Phone: Start: 01-06-2016 End: 01-06-2016 Discharge Instruction Comments: See Note; NOTES: [facility] Medical Records Department [address] [place] [address] Discharge Instruction 01/06/161951 MR#: [id number] Acct: [id number] Name: ROBERT MESA Rep #: [id number] : 1965 50 From: Ricardo Peterson MD [...] problems, contact your doctor. Call [facility] ([phone]) or report to the closest Emergency Room. Call 911 if necessary. 01/06/16 2354 <Electronically signed by Ricardo Peterson MD> Date Ricardo Peterson MD Cosigner Signature (If Indicated): Date CC: Yvette Perry Start: 01-06-2016 End: 01-06-2016 Emergency Department Summary Comments: See Note; NOTES: [facility] Medical Records Department [address] [place] [address] Emergency Department Summary MR#: [id number] Acct: [id number] Name: ROBERT MESA Rep #: [id number] : 1965 50 From: Ricardo Peterson MD PCP: Yvette Chin MD Status: DEP ER DATE OF SERVICE: 01/06/2016 METHOD OF ARRIVAL: EMS. CHIEF COMPLAINT: Chest pain. HISTORY OF PRESENT ILLNESS: A 50-year-old male patient of Dr. Chin, reports that approximately 4 hours ago he had the onset of a substernal fullness while he was walking through [employer], reports that he went home and laid [...] C: Yvette Chin MD T: NTS JOB: [id number] 01/06/16 2354 <Electronically signed by Ricardo Peterson MD> Date Ricardo Peterson MD Cosigner Signature (If Indicated): Date CC: Yvette Chin MD Date Dictated: 01/06/162107 Date Transcribed: 01/06/162107 Irradiated Fuel Handler: Signed Clair Perry Start: 01-06-2016 End: 01-06-2016 Chest 1 View (Portable) Comments: See Note; NOTES: [facility] Imaging Services [address] [place] [address] [place] 4d Chest 1 View (Portable) MR#: [id number] Acct: [id number] Name: ROBERT MESA Rep #: [id number] : 1965 M 50 From: Rowdy Quiroga MD PCP: Yvette Chin MD Status: REG ER Study: Chest 1 View (Portable) Date of Exam: 01/06/16 Exam# [id number] Ordering Dr: Ricardo Peterson MD STUDY: X-RAY [...] MD at 17:33 EDT , Service support [phone], RAD/Chest 1 View (Portable) IMPRESSION: No acute cardiopulmonary disease. Electronically Signed: Rowdy Quiroga MD at 17:33 EDT , Service support [phone], CC: Yvette Chin MD; Ricardo Peterson MD Irradiated Fuel Handler: Signed Clair Perry Start: 04-04-2014 End: 04-05-2014 Chest without Contrast Comments: See Note; NOTES: [facility] Imaging Services [address] [place], [place] [id number] CAT Scan Report MR#: [id number] Acct: [id number] Name: ROBERT MESA Rep #: [id number] : 1965 49 From: Kraeem Paul MD PCP: Yvette Chin MD Status: REG CLI Study: Chest without Contrast Date of Exam: 04/04/14 Exam# [id number] Ordering Dr: Yvette Chin MD STUDY: CT [...] Kareem Paul MD at 9:51 EDT Tel [phone], Service support [phone], CC: Yvette Chin MD Irradiated Fuel Handler: Signed Yvette Chin Work Phone: Start: 03-29-2014 End: 03-29-2014 Chest PA and Lateral Comments: See Note; NOTES: [facility] Imaging Services [address] [place] [address] Radiology Report MR#: [id number] Acct: [id number] Name: ROBERT MESA Rep #: [id number] : 1965 M 49 From: Chase Calvillo MD PCP: Yvette Chin MD Status: REG CLI Study: Chest PA and Lateral Date of Exam: 03/29/14 Exam# [id number] Ordering Dr: Lisandra Monique DO STUDY: X-RAY [...] MD at 16:20 EDT , Service support [phone], CC: Yvette Cihn MD; Lisandra Monique DO Irradiated Fuel Handler: Signed Lisandra Monique Work Phone: Plan of Treatment Date Care Activity Detail Author Start: 04-21-2030 Screening for malignant neoplasm of colon [facility] Start: 02-24-2025 ambulatory Ambulatory Facility:[facility] Start: 04-18-2024 Covid-19 Vaccine () Covid-19 Vaccine () [facility] Start: 04-18-2024 Influenza vaccination Influenza Vaccine (#1) [facility] Start: 2023 Procedure Education Eprescribed prescriptions (G8553) [facility] Work Phone: Start: 2023 Provider Instructions for Treatment [facility]; [facility] Work Phone: Start: 2023 Hepatic function panel HEPATIC FUNCTION PANEL (05975) [facility]; [facility] Work Phone: Start: 2023 Lipid panel LIPID PANEL (17014) [facility]; [facility] Work Phone: Start: 2023 Hemoglobin glycosylated a1c HGB A1C (98223) [facility]; [facility] Work Phone: Start: 10-28-2022 Drug tst prsmv instrmnt chem analyzers pr date Nicotine Metabolite, Serum (91818) [facility]; [facility] Work [...] Assay of thyroid stimulating hormone tsh TSH (39797) [facility]; [facility] Work Phone: Start: 09-03-2021 Urine albumin quantitative MICROALBUMIN: CREATININE RATIO (69493) AND (78140) [facility]; [facility] Work Phone: Start: 09-03-2021 Comprehensive metabolic panel METABOLIC PANEL, COMPREHENSIVE (44187) [facility]; [facility] Work Phone: Start: 09-03-2021 Lipid panel LIPID PANEL (95327) [facility]; [facility] Work Phone: Start: 09-03-2021 Blood count complete auto&auto difrntl wbc CBC W/AUTO DIFF WBC (55623) [facility]; [facility] Work [...] specific antigen measurement Prostate Cancer Screening Discussion [facility] Start: 10-26-2020 SARS-CoV-2 Antibody, IgG (75628) SARS-CoV-2 Antibody, IgG (60880) [facility]; [facility] Work Phone: Start: 10-26-2020 ANTB SEVERE AQT RESPIR SYND SARS-COV-2 COVID19 (27160) ANTB SEVERE AQT RESPIR SYND SARS-COV-2 COVID19 (06801) [facility]; [facility] Work [...] Treatment Follow up Friday for virtual with [facility] 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 to schedule [facility]; [facility] Work Phone: Start: 08-01-2020 [place]oo influenza 2019 Novel Coronavirus (COVID-19), GABBY (32318) [facility]; [facility] Work [...] electrophoretic fractj&quantj serum Urine Protein Electrophoresis (UPEP) (95516) [facility] Internal Medicine Work Phone: Start: 05-07-2017 Protein mass conc (U) Urine Protein Electrophoresis (UPEP) (14748) [facility] Work Phone: Start: 05-07-2017 Provider Instructions for Treatment BP MONITORING - SELF [facility] Work Phone: Start: 04-02-2017 Urnls dip stick/tablet reagent auto microscopy URINALYSIS, W/ MICRO (30236) [facility] Work Phone: Start: 04-02-2017 Urine albumin quantitative MICROALBUMIN: CREATININE RATIO (57023) AND (82810) [facility] Work Phone: Start: 04-02-2017 Comprehensive metabolic panel METABOLIC PANEL, COMPREHENSIVE (76108) [facility] Work Phone: Start: 04-02-2017 Lipid panel LIPID PANEL (15516) [facility] Work Phone: Start: 04-02-2017 Blood count complete auto&auto difrntl wbc CBC W/AUTO DIFF WBC (28688) [facility] Work Phone: Start: 04-02-2017 Procedure Education Eprescribed prescriptions (G8553) [facility] Work Phone: Start: 04-02-2017 Provider Instructions for Treatment Follow up in 1 month [facility] Work Phone: Start: 08-01-2016 Provider Instructions for Treatment [facility] Work Phone: Start: 07-17-2016 Antibody borrelia burgdorferi lyme disease Lyme Disease Antibody W/ Reflex (62727) [facility] Work Phone: Start: 07-17-2016 Metanephrines METANEPHRINES - URINE (48499) [facility] Work Phone: Comment on above: in 24 hr urine collection Start: 07-17-2016 Catecholamines total urine CATECHOLAMINES TOTAL, URINE (08496) [facility] Work Phone: Comment on above: in 24hr urine collection Start: 07-17-2016 Assay of vanillylmandelic acid urine URINE VMA (35591) [facility] Work Phone: Comment on above: in 24 hr urine collection Start: 07-17-2016 25 hydroxy includes fractions if performed CALCIFIDIOL (28027) VIT D 25 [facility] Work Phone: Start: 07-17-2016 Cobalamin (Vitamin B12) mass conc VITAMIN B-12 (CYANOCOBALAMIN) (90738) [facility] Work Phone: Start: 07-17-2016 Cyanocobalamin vitamin b-12 VITAMIN B-12 (CYANOCOBALAMIN) (62384) [facility] Work Phone: Start: 07-17-2016 Assay of thyroid stimulating hormone tsh TSH (15715) [facility] Work Phone: Start: 07-17-2016 Thyrotropin Qn TSH (93807) [facility] Work Phone: Start: 07-17-2016 Sedimentation rate rbc non-automated SED RATE ERYTHROCYTE (87793) [facility] Work Phone: Start: 07-17-2016 Comprehensive metabolic panel METABOLIC PANEL, COMPREHENSIVE (92175) [facility] Work Phone: Start: 07-17-2016 C-reactive protein C-REACTIVE PROTEIN (89854) [facility] Work Phone: Start: 07-17-2016 CRP mass conc C-REACTIVE PROTEIN (64047) [facility] Work Phone: Start: 07-17-2016 Blood count complete automated CBC (AUTO) (08204) [facility] Work Phone: Start: 07-17-2016 Antinuclear antibodies yue YUE (ANTINUCLEAR ANTIBODY) (63618) [facility] Work Phone: Start: 07-17-2016 Nuclear Ab IF titer (S) YUE (ANTINUCLEAR ANTIBODY) (91979) [facility] Work Phone: Start: 07-17-2016 Provider Instructions for Treatment [facility] Work Phone: Start: 2016 Pneumococcal Vaccine: 50+ (1 of 1 - PCV) Pneumococcal Vaccine: 50+ (1 of 1 - PCV) [facility] Start: 2016 Shingrix Vaccine (1 of 2) Shingrix Vaccine (1 of 2) [facility] Start: 12-18-2015 Provider Instructions for Treatment Follow up if no improvement or if symptoms worsen [facility] Work Phone: Start: 10-27-2014 Provider Instructions for Treatment [facility] Work Phone: Start: 03-29-2014 Procedure Education Eprescribed prescriptions ([id number]) [facility] Work Phone: Start: 2014 Amylase enzyme act/vol AMYLASE (97881) [facility] Work Phone: Start: 2014 Assay of amylase AMYLASE (22355) [facility] Work Phone: Start: 2014 Assay of lipase LIPASE (67696) [facility] Work Phone: Start: 2014 Blood count manual cell count each CBC WITH MANUAL DIFF (58977) [facility] Work Phone: Start: 2014 Comprehensive metabolic panel METABOLIC PANEL, COMPREHENSIVE (67256) [facility] Work Phone: Start: 2014 Patient Education Abdominal Pain: abdominal pain [facility] Work Phone: Start: 10-05-2013 Patient Education Sore throat: diagnosis and treatment [facility] Work Phone: Start: 10-05-2013 Provider Instructions for Treatment [facility] Work Phone: Start: 09-17-2013 Assay of magnesium Magnesium (79517) [facility] Work Phone: Start: 09-17-2013 Magnesium mass conc Magnesium (92958) [facility] Work Phone: Start: 09-17-2013 Blood count manual cell count each CBC WITH MANUAL DIFF (62914) [facility] Work Phone: Comment on above: call to Dr. chin Start: 09-17-2013 Comprehensive metabolic panel METABOLIC PANEL, COMPREHENSIVE (37519) [facility] Work Phone: Start: 09-17-2013 Assay of thyroid stimulating hormone tsh TSH (04346) [facility] Work Phone: Start: 09-17-2013 Thyrotropin Qn TSH (22777) [facility] Work Phone: Start: 09-17-2013 Provider Instructions for Treatment *palpitation discusssion [facility] Work Phone: Start: 04-27-2013 Cyclic citrullinated peptide antibody CCP ANTIBODY (62899) [facility] Work Phone: Start: 04-27-2013 C-reactive protein C-REACTIVE PROTEIN (03213) [facility] Work Phone: Start: 04-27-2013 CRP mass conc C-REACTIVE PROTEIN (24174) [facility] Work Phone: Start: 04-27-2013 Sedimentation rate rbc non-automated SED RATE ERYTHROCYTE (88002) [facility] Work Phone: Start: 04-27-2013 Assay of thyroid stimulating hormone tsh TSH (15881) [facility] Work Phone: Start: 04-27-2013 Thyrotropin Qn TSH (58361) [facility] Work Phone: Start: 04-27-2013 Rheumatoid factor quantitative RHEUMATOID FACTOR-QUANT (36948) [facility] Work Phone: Start: 04-27-2013 Antinuclear antibodies yue YUE (ANTINUCLEAR ANTIBODY) (00569) [facility] Work Phone: Start: 04-27-2013 Nuclear Ab IF titer (S) YUE (ANTINUCLEAR ANTIBODY) (05417) [facility] Work Phone: Start: 2011 Diabetes Screening Diabetes Screening [facility] Start: 2011 Screening for malignant neoplasm of colon [facility] Start: 09-11-2010 Cul bact xcpt urine blood/stool aerobic isol ALISSA CULTURE-OTHER (23882) [facility] Work Phone: Start: 07-30-2010 [...] 03-16-2007 Assay of thiamine-vitamin b-1 THIAMINE (B-1) (46582) [facility] Work Phone: Start: 03-16-2007 Assay of thyroid stimulating hormone tsh TSH (12781) [facility] Work Phone: Start: 03-16-2007 Thyrotropin Qn TSH (68674) [facility] Work Phone: Start: 03-16-2007 Cobalamin (Vitamin B12) mass conc Vitamin B-12 (cyanocobalamin) (82118) [facility] Work Phone: Start: 03-16-2007 Cyanocobalamin vitamin b-12 Vitamin B-12 (cyanocobalamin) (70703) [facility] Work Phone: Start: 03-16-2007 Blood count complete automated CBC (Auto) (89742) [facility] Work Phone: Start: 03-16-2007 Comprehensive metabolic panel Metabolic Panel, Comprehensive (60885) [facility] Work Phone: Start: 06-10-2006 Provider Instructions for Treatment FOLLOW UP IN 1 YEAR [facility] Work Phone: Start: 2001 Lipid panel Lipid Screening [facility] Start: 1985 Hepatitis B Vaccine (1 of 3 - 19+ 3-dose series) Hepatitis B Vaccine (1 of 3 - 19+ 3-dose series) [facility] Start: 1985 Urine microalbumin profile DTaP,Tdap,Td Vaccine (1 - Tdap) [facility] Start: 1984 Anxiety Screening Anxiety Screening [facility] Start: 1984 Depression Screening Depression Screening [facility] Start: 1984 Hepatitis C screening Hepatitis C Screening [facility] Start: 1984 HIV screening HIV Screening [facility] Work Phone: [facility] [...] Immunizations Immunization Date Immunization Notes Care Provider [facility] 11-15-2020 COVID-19 (Moderna) Clair Perry DO Work Phone: [facility]; [facility] Work Phone: 08-18-2020 COVID-Moderna (100 MCG/0.5 ML) Clair Perry DO Work Phone: [facility]; [facility] Work Phone: Payers Date Payer Category Payer Self-pay 2019 Private Health Insurance [id number] [id number] 2007 Unknown [id number] 2007 Unknown [id number] 2006 Unknown [id number] 2000 Unknown [id number] Unknown [facility] Unknown [id number] Unknown [id number] Unknown [id number] Unknown [id number] Unknown [id number] Social History Date Type Detail Facility Start: 04-21-2020 End: 07-23-2020 Alcohol Use Former smoker [facility] Work Phone: Comment on above: Occasional alcohol u se, Drinks beer, weekends 2 cups qd 2 cans sod a qd Full-time, [employer] , Lives with spouse Tobacco Use: Former smoker. [facility] Work Phone: Tobacco Use: Tobacco Use: [facility] Work Phone: Start: 08-22-2017 End: 12-10-2024 Tobacco smoking status NHIS Ex-smoker [facility] End: 08-22-2001 History of tobacco use Current smoker [facility] End: 08-22-2001 History of tobacco use Cigarette Smoker [facility] Start: 08-22-2017 Tobacco use and exposure Smokeless tobacco non-user [facility] Start: 04-21-2020 Alcoholic beverage intake Current drinker of alcohol (finding) [facility] Start: 04-21-2020 End: 07-23-2020 Tobacco use panel [facility] National Score (1-100), lower number is lower risk Not on file [facility] Start: 08-22-2017 Alcohol Comment every other day [facility] Start: 1965 Sex assigned at Male C [facility] Start: 04-21-2020 Gender identity Identifies as male gender (finding) [facility] Start: 04-21-2020 Sexual orientation Heterosexual (fin kavin) [facility] Functional Status Date Assessment Result Facility 12-12-2014 Are you deaf, or do you have serious difficulty hearing No 12/12/2014 3:56 PM Jose Aguilera No [facility] 12-12-2014 Are you blind, or do you have serious difficulty seeing, even when wearing glasses No 12/12/2014 3:56 PM Jose Aguilera [facility] 12-12-2014 Do you have serious difficulty walking or climbing stairs No 12/12/2014 3:56 PM Jose Aguilera [facility] 12-12-2014 Do you have difficul ty dressing or bathing No 12/12/2014 3:56 PM Jose Aguilera [facility] 12-12-2014 Because of a physica l, mental, or emotional condition, do you have difficulty doing errands alone such as visiting a physician's office or shopping No 12/12/2014 3:56 PM EDT Jose Morales No [facility] Mental Status Date Assessment Result Facility 12-12-2014 Because of a physica l, mental, or emotional condition, do you have serious difficulty concentrating, remembering, or making decisions No 12/12/2014 3:56 PM EDT Jose Morales No [facility] Clinical Notes 10-27-2024 to 12-10-2024 Note Date & Type Note Facility 12-10-2024 Evaluation note Diagnosis Onset Date Resolution Diarrhea noneactive December 10 3:22pm [facility] Work Phone: [phone] Telephone encounter Note* Telephone Encounter - Maria [...] as needed for future problems. Encounter closed. [facility]03-12-2025 Miscellaneous Notes* Telephone Encounter - Maria A Wren RN [...] future problems. [facility]. [facility] Name Dates Details How to Access Health Informa tion Online using Patient Portal and [employer] Indication:Current non-smoker Start:07-Aug-2020 Instruction Type:Patient Education Patient Instructions Indication:Current non-smoker Start:07-Aug-2020 Instruction Type:Provider Instructions for Treatment How to Access Health Informa tion Online using Patient Portal and [employer] Apps Indication:Current non-smoker Start:01-Aug-2020 Instruction Type:Patient Education [...] tion Online using Patient Portal and [employer]rd [employer] Apps Indication:BMI 33.0-33.9,adult Start:03-Sep-2021 Instruction Type:Patient Education Patient Instructions Indication:Current non-smoker Start:03-May-2021 Instruction Type:Provider Instructions for Treatment How to Access Health Informa tion Online using Patient Portal and [employer] Apps Indication:Current non-smoker Start:03-May-2021 Instruction Type:Patient Education Patient Instructions Indication:Current non-smoker Start:27-Apr-2021 Instruction Type:Provider Instructions for Treatment How to Access Health Informa tion Online using Patient Portal and [employer]rd [employer] Apps Indication:Current non-smoker Start:27-Apr-2021 Instruction Type:Patient Education How to Access Health Informa tion Online using Patient Portal and [employer] Apps Indication:Current non-smoker Start:07-Aug-2020 Instruction Type:Patient Education Patient Instructions Indication:Current non-smoker Start:07-Aug-2020 Instruction Type:Provider Instructions for Treatment How to Access Health Informa tion Online using Patient Portal and [employer] Apps Indication:Current non-smoker Start:01-Aug-2020 Instruction Type:Patient [...] tion Online using Patient Portal and [employer] Apps Indication:BMI 33.0-33.9,adult Start:03-Sep-2021 Instruction Type:Patient Education Patient Instructions Indication:Current non-smoker Start:03-May-2021 Instruction Type:Provider Instructions for Treatment How to Access Health Informa tion Online using Patient Portal and [employer] Apps Indication:Current non-smoker Start:03-May-2021 Instruction Type:Patient Education Patient Instructions Indication:Current non-smoker Start:27-Apr-2021 Instruction Type:Provider Instructions for Treatment How to Access Health Informa tion Online using Patient Portal and [employer] Apps Indication:Current non-smoker Start:27-Apr-2021 Instruction Type:Patient Education How to Access Health Informa tion Online using Patient Portal and [employer] Apps Indication:Current non-smoker Start:07-Aug-2020 Instruction Type:Patient Education Patient Instructions Indication:Current non-smoker Start:07-Aug-2020 Instruction Type:Provider Instructions for Treatment How to Access Health Informa tion Online using Patient Portal and [employer] Apps Indication:Current non-smoker Start:01-Aug-2020 Instruction Type:Patient [...] tion Online using Patient Portal and [employer] Apps Indication:Current non-smoker Start:04-Jan-2022 Instruction Type:Patient Education Patient Instructions Indication:BMI 33.0-33.9,adult Start:03-Sep-2021 Instruction Type:Provider Instructions for Treatment How to Access Health Informa tion Online using Patient Portal and [employer] Apps Indication:BMI 33.0-33.9,adult Start:03-Sep-2021 Instruction Type:Patient Education Patient Instructions Indication:Current non-smoker Start:03-May-2021 Instruction Type:Provider Instructions for Treatment How to Access Health Informa tion Online using Patient Portal and [employer] Apps Indication:Current non-smoker Start:03-May-2021 Instruction Type:Patient Education Patient Instructions Indication:Current non-smoker Start:27-Apr-2021 Instruction Type:Provider Instructions for Treatment How to Access Health Informa tion Online using Patient Portal and [employer] Apps Indication:Current non-smoker Start:27-Apr-2021 Instruction Type:Patient Education How to Access Health Informa tion Online using Patient Portal and [employer] Apps Indication:Current non-smoker Start:07-Aug-2020 Instruction Type:Patient Education Patient Instructions Indication:Current non-smoker Start:07-Aug-2020 Instruction Type:Provider Instructions for Treatment How to Access Health Informa tion Online using Patient Portal and [employer] Apps Indication:Current non-smoker Start:01-Aug-2020 Instruction Type:Patient [...] tion Online using Patient Portal and [employer] Apps Indication:Current non-smoker Start:04-Jan-2022 Instruction Type:Patient Education Patient Instructions Indication:BMI 33.0-33.9,adult Start:03-Sep-2021 Instruction Type:Provider Instructions for Treatment How to Access Health Informa tion Online using Patient Portal and [employer] Apps Indication:BMI 33.0-33.9,adult Start:03-Sep-2021 Instruction Type:Patient Education Patient Instructions Indication:Current non-smoker Start:03-May-2021 Instruction Type:Provider Instructions for Treatment How to Access Health Informa tion Online using Patient Portal and [employer] Apps Indication:Current non-smoker Start:03-May-2021 Instruction Type:Patient Education Patient Instructions Indication:Current non-smoker Start:27-Apr-2021 Instruction Type:Provider Instructions for Treatment How to Access Health Informa tion Online using Patient Portal and [employer] Apps Indication:Current non-smoker Start:27-Apr-2021 Instruction Type:Patient Education How to Access Health Informa tion Online using Patient Portal and [employer] Apps Indication:Current non-smoker Start:07-Aug-2020 Instruction Type:Patient Education Patient Instructions Indication:Current non-smoker Start:07-Aug-2020 Instruction Type:Provider Instructions for Treatment How to Access Health Informa tion Online using Patient Portal and [employer] Apps Indication:Current non-smoker Start:01-Aug-2020 Instruction Type:Patient [...] tion Online using Patient Portal and [employer] Apps Indication:Current non-smoker Start:04-Jan-2022 Instruction Type:Patient Education Patient Instructions Indication:BMI 33.0-33.9,adult Start:03-Sep-2021 Instruction Type:Provider Instructions for Treatment How to Access Health Informa tion Online using Patient Portal and [employer] Apps Indication:BMI 33.0-33.9,adult Start:03-Sep-2021 Instruction Type:Patient Education Patient Instructions Indication:Current non-smoker Start:03-May-2021 Instruction Type:Provider Instructions for Treatment How to Access Health Informa tion Online using Patient Portal and [employer] Apps Indication:Current non-smoker Start:03-May-2021 Instruction Type:Patient Education Patient Instructions Indication:Current non-smoker Start:27-Apr-2021 Instruction Type:Provider Instructions for Treatment How to Access Health Informa tion Online using Patient Portal and [employer] Apps Indication:Current non-smoker Start:27-Apr-2021 Instruction Type:Patient Education How to Access Health Informa tion Online using Patient Portal and [employer] Apps Indication:Current non-smoker Start:07-Aug-2020 Instruction Type:Patient Education Patient Instructions Indication:Current non-smoker Start:07-Aug-2020 Instruction Type:Provider Instructions for Treatment How to Access Health Informa tion Online using Patient Portal and [employer] Apps Indication:Current non-smoker Start:01-Aug-2020 Instruction Type:Patient [...] tion Online using Patient Portal and [employer] Apps Indication:Current non-smoker Start:04-Jan-2022 Instruction Type:Patient Education Patient Instructions Indication:BMI 33.0-33.9,adult Start:03-Sep-2021 Instruction Type:Provider Instructions for Treatment How to Access Health Informa tion Online using Patient Portal and [employer] Apps Indication:BMI 33.0-33.9,adult Start:03-Sep-2021 Instruction Type:Patient Education Patient Instructions Indication:Current non-smoker Start:03-May-2021 Instruction Type:Provider Instructions for Treatment How to Access Health Informa tion Online using Patient Portal and [employer] Apps Indication:Current non-smoker Start:03-May-2021 Instruction Type:Patient Education Patient Instructions Indication:Current non-smoker Start:27-Apr-2021 Instruction Type:Provider Instructions for Treatment How to Access Health Informa tion Online using Patient Portal and [employer] Apps Indication:Current non-smoker Start:27-Apr-2021 Instruction Type:Patient Education How to Access Health Informa tion Online using Patient Portal and [employer] Apps Indication:Current non-smoker Start:07-Aug-2020 Instruction Type:Patient Education Patient Instructions Indication:Current non-smoker Start:07-Aug-2020 Instruction Type:Provider Instructions for Treatment How to Access Health Informa tion Online using Patient Portal and [employer] Apps Indication:Current non-smoker Start:01-Aug-2020 Instruction Type:Patient [...] Informa tion Online using Patient Portal and [employer] Apps Indication:Current non-smoker Start:04-Jan-2022 Instruction Type:Patient Education Patient Instructions Indication:BMI 33.0-33.9,adult Start:03-Sep-2021 Instruction Type:Provider Instructions for Treatment How to Access Health Informa tion Online using Patient Portal and [employer] Apps Indication:BMI 33.0-33.9,adult Start:03-Sep-2021 Instruction Type:Patient Education Patient Instructions Indication:Current non-smoker Start:03-May-2021 Instruction Type:Provider Instructions for Treatment How to Access Health Informa tion Online using Patient Portal and [employer] Apps Indication:Current non-smoker Start:03-May-2021 Instruction Type:Patient Education Patient Instructions Indication:Current non-smoker Start:27-Apr-2021 Instruction Type:Provider Instructions for Treatment How to Access Health Informa tion Online using Patient Portal and [employer] Apps Indication:Current non-smoker Start:27-Apr-2021 Instruction Type:Patient Education How to Access Health Informa tion Online using Patient Portal and [employer] Apps Indication:Current non-smoker Start:07-Aug-2020 Instruction Type:Patient Education Patient Instructions Indication:Current non-smoker Start:07-Aug-2020 Instruction Type:Provider Instructions for Treatment How to Access Health Informa tion Online using Patient Portal and [employer] Apps Indication:Current non-smoker Start:01-Aug-2020 Instruction Type:Patient [...] tion Online using Patient Portal and [employer] Apps Indication:Current non-smoker Start:04-Jan-2022 Instruction Type:Patient Education Patient Instructions Indication:BMI 33.0-33.9,adult Start:03-Sep-2021 Instruction Type:Provider Instructions for Treatment How to Access Health Informa tion Online using Patient Portal and [employer] Apps Indication:BMI 33.0-33.9,adult Start:03-Sep-2021 Instruction Type:Patient Education Patient Instructions Indication:Current non-smoker Start:03-May-2021 Instruction Type:Provider Instructions for Treatment How to Access Health Informa tion Online using Patient Portal and [employer] Apps Indication:Current non-smoker Start:03-May-2021 Instruction Type:Patient Education Patient Instructions Indication:Current non-smoker Start:27-Apr-2021 Instruction Type:Provider Instructions for Treatment How to Access Health Informa tion Online using Patient Portal and [employer] Apps Indication:Current non-smoker Start:27-Apr-2021 Instruction Type:Patient Education How to Access Health Informa tion Online using Patient Portal and [employer] Apps Indication:Current non-smoker Start:07-Aug-2020 Instruction Type:Patient Education Patient Instructions Indication:Current non-smoker Start:07-Aug-2020 Instruction Type:Provider Instructions for Treatment How to Access Health Informa tion Online using Patient Portal and 3rd [employer] Apps Indication:Current non-smoker Start:01-Aug-2020 Instruction Type:Patient [...] Informa tion Online using Patient Portal and [employer] Apps Indication:Current non-smoker Start:14-Mar-2023 Instruction Type:Patient Education Patient Instructions Indication:Current non-smoker Start:04-Jan-2022 Instruction Type:Provider Instructions for Treatment How to Access Health Informa tion Online using Patient Portal and [employer] Apps Indication:Current non-smoker Start:04-Jan-2022 Instruction Type:Patient Education Patient Instructions Indication:BMI 33.0-33.9,adult Start:03-Sep-2021 Instruction Type:Provider Instructions for Treatment How to Access Health Informa tion Online using Patient Portal and [employer] Apps Indication:BMI 33.0-33.9,adult Start:03-Sep-2021 Instruction Type:Patient Education Patient Instructions Indication:Current non-smoker Start:03-May-2021 Instruction Type:Provider Instructions for Treatment How to Access Health Informa tion Online using Patient Portal and [employer] Apps Indication:Current non-smoker Start:03-May-2021 Instruction Type:Patient Education Patient Instructions Indication:Current non-smoker Start:27-Apr-2021 Instruction Type:Provider Instructions for Treatment How to Access Health Informa tion Online using Patient Portal and 3rd [employer] Apps Indication:Current non-smoker Start:27-Apr-2021 Instruction Type:Patient Education How to Access Health Informa tion Online using Patient Portal and 3rd [employer] Apps Indication:Current non-smoker Start:07-Aug-2020 Instruction Type:Patient Education Patient Instructions Indication:Current non-smoker Start:07-Aug-2020 Instruction Type:Provider Instructions for Treatment How to Access Health Informa tion Online using Patient Portal and 3rd [employer] Apps Indication:Current non-smoker Start:01-Aug-2020 Instruction Type:Patient [...] Informa tion Online using Patient Portal and [employer] Apps Indication:Current non-smoker Start:14-Mar-2023 Instruction Type:Patient Education Patient Instructions Indication:Current non-smoker Start:04-Jan-2022 Instruction Type:Provider Instructions for Treatment How to Access Health Informa tion Online using Patient Portal and 3rd [employer] Apps Indication:Current non-smoker Start:04-Jan-2022 Instruction Type:Patient Education Patient Instructions Indication:BMI 33.0-33.9,adult Start:03-Sep-2021 Instruction Type:Provider Instructions for Treatment How to Access Health Informa tion Online using Patient Portal and 3rd [employer] Apps Indication:BMI 33.0-33.9,adult Start:03-Sep-2021 Instruction Type:Patient Education Patient Instructions Indication:Current non-smoker Start:03-May-2021 Instruction Type:Provider Instructions for Treatment How to Access Health Informa tion Online using Patient Portal and 3rd [employer] Apps Indication:Current non-smoker Start:03-May-2021 Instruction Type:Patient Education Patient Instructions Indication:Current non-smoker Start:27-Apr-2021 Instruction Type:Provider Instructions for Treatment How to Access Health Informa tion Online using Patient Portal and 3rd [employer] Apps Indication:Current non-smoker Start:27-Apr-2021 Instruction Type:Patient Education How to Access Health Informa tion Online using Patient Portal and 3rd [employer] Apps Indication:Current non-smoker Start:07-Aug-2020 Instruction Type:Patient Education Patient Instructions Indication:Current non-smoker Start:07-Aug-2020 Instruction Type:Provider Instructions for Treatment How to Access Health Informa tion Online using Patient Portal and 3rd [employer] Apps Indication:Current non-smoker Start:01-Aug-2020 Instruction Type:Patient [...] for referral (narrative)No reason for [facility]: Summary Purpose Family History No [...] Relationship Condition Age at Onset Recorded Date/T chlea father Alcoholism Unknown Myocardial infarction Unknown Cardiac disease Unknown Hypertension Unknown Malignant melanoma Unknown Cerebrovascular accident (CVA) Unknown Advance Directives No Advanced Directives Records Found Name Dates Details Immunization Registry [place] - Effective on 11/16/2020. Expiration date unspecified Effective:16-Nov-2020 Name Dates Details Immunization Registry [place] - Effective on 11/16/2020. Expiration date unspecified Effective:16-Nov-2020 Name Dates Details Immunization Registry [place] - Effective on 11/16/2020. Expiration date unspecified Effective:16-Nov-2020 Name Dates Details Immunization Registry [place] - Effective on 11/16/2020. Expiration date unspecified Effective:16-Nov-2020 Name Dates Details Immunization Registry [place] - Effective on 11/16/2020. Expiration date unspecified Effective:16-Nov-2020 Name Dates Details Immunization Registry [place] - Effective on 11/16/2020. Expiration date unspecified Effective:16-Nov-2020 Name Dates Details Immunization Registry [place] - Effective on 11/16/2020. Expiration date unspecified Effective:16-Nov-2020 Name Dates Details Immunization Registry [place] - Effective on 11/16/2020. Expiration date unspecified Effective:16-Nov-2020 Name Dates Details Immunization Registry [place] - Effective on 11/16/2020. Expiration date unspecified Effective:16-Nov-2020 Name Dates Details Immunization Registry [place] - Effective on 11/16/2020. Expiration date unspecified [...] Informa tion Online using Patient Portal and [employer] Party Apps Indication:Current non-smoker Start:01-Aug-2020 Instruction Type:Patient [...] Informa tion Online using Patient Portal and [employer] Apps Indication:Current non-smoker Start:01-Aug-2020 Instruction Type:Patient Education [...] Informa tion Online using Patient Portal and [employer] Apps Indication:Current non-smoker Start:01-Aug-2020 Instruction Type:Patient Education [...] Informa tion Online using Patient Portal and [employer] Apps Indication:Current non-smoker Start:07-Aug-2020 Instruction Type:Patient Education Patient Instructions Indication:Current non-smoker Start:07-Aug-2020 Instruction Type:Provider Instructions for Treatment How to Access Health Informa tion Online using Patient Portal and [employer] Apps Indication:Current non-smoker Start:01-Aug-2020 Instruction Type:Patient Education [...] Informa tion Online using Patient Portal and [employer] Apps Indication:Current non-smoker Start:07-Aug-2020 Instruction Type:Patient Education Patient Instructions Indication:Current non-smoker Start:07-Aug-2020 Instruction Type:Provider Instructions for Treatment How to Access Health Informa tion Online using Patient Portal and [employer] Apps Indication:Current non-smoker Start:01-Aug-2020 Instruction Type:Patient Education [...] Informa tion Online using Patient Portal and [employer] Apps Indication:Current non-smoker Start:07-Aug-2020 Instruction Type:Patient Education Patient Instructions Indication:Current non-smoker Start:07-Aug-2020 Instruction Type:Provider Instructions for Treatment How to Access Health Informa tion Online using Patient Portal and [employer] Apps Indication:Current non-smoker Start:01-Aug-2020 Instruction Type:Patient Education [...] Informa tion Online using Patient Portal and [employer] Indication:Current non-smoker Start:07-Aug-2020 Instruction Type:Patient Education Patient Instructions Indication:Current non-smoker Start:07-Aug-2020 Instruction Type:Provider Instructions for Treatment How to Access Health Informa tion Online using Patient Portal and [employer] Apps Indication:Current non-smoker Start:01-Aug-2020 Instruction Type:Patient Education [...] Type:Provider Instructions for Treatment How to access [employer] online Indication:Epigastric Pain (Renamed from Abdominal pain, epigastric) Start:14-Mar-2014 Instruction Type:Patient Education How to access health informa tiClarity online - Detail Indication:Epigastric Pain (Renamed from [...] section and content) DATE CREATED AUTHOR 02/11/2018 [facility] ([place]) DATE CREATED AUTHOR AUTHOR'S ORGANIZ ATION 12/11/2022 [facility] DATE CREATED AUTHOR AUTHOR'S ORGANIZ ATION 10/30/2024 [facility] DATE CREATED AUTHOR AUTHOR'S ORGANIZ ATION 02/07/2025 [facility] Source Comments (unrecognize d section and content) In the event this informatio n is protected by the Federal Confidentiality of Alcohol and Drug Abuse Patient Records regulations: The Federal rules restrict any use of the information to criminally investigate or prosecute any alcohol or drug abuse patient.[facility] Reason for Visit (unrecogniz ed section and content) Reason Comments Patient Update Care Teams (unrecognized sec tion and content) Machine Wood Sander Relationship Specialty Start Date End Date Clair Perry DO [id number] [facility] [address] [place] [address] PCP - General Internal Medicine 08/22/17 Team [...] BE BASED ON THE PRIMARY CLINICAL RECORDS. [facility] [employer] [facility]. provides no warranty or guarantee of the accuracy or completeness of information in this document.
[2025-02-24] MEDS: Lactated Ringers 1,000 ML 15 ML IV (07:12)
--- NOTE | 2025-02-24 07:19 | PCM.PRE.AN2 ---
ASA Classification* ASA Classification ASA Classification: 2 Assessment & Plan Anesthesia* Anesthesia Assessment Anesthesia Assessment: Discussed sedation and/or anesthesia options, risks, benefits, and alternatives with patient/parents/legal guardian/POA. Questions invited. The patient/parents/legal guardian/POA seems to understand and agrees to proceed with anesthesia plan. Reviewed the physical assessment, medical history, allergy history and patient home medications list prior to surgery/procedure/anesthetic and documented any changes. Performed airway and anesthesia risk assessments. Anesthesia Type Anesthesia Type: MAC History Source History Obtained from:: Patient and Chart Anesthesia Focused Assessment* Temperature: 98 F Pulse Rate: 73 Blood Pressure: 124/81 Respiratory Rate: 16 Pulse Ox: 99 Oxygen Delivery Method: Room Air Airway Assessment Mouth opens: 2 cm Mallampati Score: III Teeth Condition: Intact Neck Range of motion (ROM): Limited ROM Comment: Limited extension Labs Anesthesia Preop lab: CBC WBC 9.4 K/mm3 (4.4-11.0) 09/28/24 06:00 09/28/24 RBC 5.25 M/mm3 (4.6-6.2) 09/28/24 06:00 09/28/24 Hgb 16.2 g/dL (13.0-16.5) 09/28/24 06:00 09/28/24 Hct 46.2 % (40-54) 09/28/24 06:00 09/28/24 Plt Count 337 K/mm3 (150-450) 09/28/24 06:00 09/28/24 CHEMISTRY Potassium 3.5 mmol/L (3.5-5.1) 09/28/24 06:00 09/28/24 Sodium 136 mmol/L (136-145) 09/28/24 06:00 09/28/24 BUN 14 mg/dL (7-18) 09/28/24 06:00 09/28/24 Creatinine 0.91 mg/dL (0.70-1.30) 09/28/24 06:00 09/28/24 Glucose 103 mg/dL (74-106) 09/28/24 06:00 09/28/24 TSH 0.570 uIU/mL (0.300-4.200) 01/07/25 14:15 01/07/25 COAG Pre-Assessment Diagnosis/Proposed Procedure Planned Operative Procedure(s): COLONOSCOPY Anesthesia History Anesthesia History - qualitative field coordinator: Anesthesia History - qualitative field coordinator Hx Hospitalization No 02/23/25 12:28 Any Problems With Anesthesia No 02/23/25 12:28 Cholinesterase deficiency No 02/23/25 12:28 You/Your Family Experience No 02/23/25 12:28 fever (hyperthermia) with Relationship Recent Exposure to Contagious No 02/24/25 07:08 Disease Does patient have nerve No 02/23/25 12:28 stimulator Patient instructed to have device shut off --Does patient have Pacemaker No 02/24/25 07:08 or ICD? When Was Last Pacemaker Check QUESTION #4 FULL TEXT: You/Your Family Experience fever (hyperthermia) with Anesthesia Last Oral Intake Last Oral intake: Last Oral Intake NPO since 04:30 02/24/25 07:08 Meds taken in AM with sips of No 02/24/25 07:08 water? Meds patient instructed to take am of surgery PONV PONV - qualitative field coordinator: PONV - qualitative field coordinator Female No 02/23/25 12:28 HX of Motion Sickness No 02/23/25 12:28 HX of N/V After Surgery No 02/23/25 12:28 Non-Smoker Yes 02/23/25 12:28 Duration of Surgery greater No 02/23/25 12:28 than 60 minutes Number of Risk Factors 1 02/23/25 12:28 PONV Score Low Risk 02/23/25 12:28 Height & Weight Height & Weight: Anesthesia: Height & Weight Height 5 ft 11 in 02/24/25 07:08 Weight: 86 kg 02/24/25 07:08 Body Mass Index (BMI) 26.4 02/24/25 07:08 Respiratory Assessment Respiratory Assessment - qualitative field coordinator: Respiratory Tract Infection Hx - qualitative field coordinator Hx Respiratory Tract Infection No 02/23/25 12:28 STOP Sleep Apnea STOP Sleep Apnea - qualitative field coordinator: STOP Sleep Apnea - qualitative field coordinator Hx Hypertension Yes: CONTROLLED ON MED 02/23/25 12:28 Hx Sleep Apnea No 02/23/25 12:28 CPAP BIPAP Do you snore loudly (louder No 02/23/25 12:28 than talking or can be heard Do you often feel tired/ No 02/23/25 12:28 fatigued/ sleepy during daytime? Has anyone observed you stop No 02/23/25 12:28 breathing during sleep? STOP Results Negative 02/23/25 12:28 QUESTION #5 FULL TEXT : Do you snore loudly (louder than talking or can be heard through closed doors)? 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 Specify any problems Hx of Preganancy in last 3 N/A 02/23/25 12:28 Months Nurse Filling Out Transfusion VCHRISTIN 02/23/25 12:28 & Questions: Date: 02/23/25 02/23/25 12:28 Time: 12:30 02/23/25 12:28 Patient unable to answer at this time (ie. confused, unrespo /Reproduction History /Reproductive History - qualitative field coordinator: /Reproductive Hx- qualitative field coordinator Hx Now No 02/23/25 12:28 Gestational Age (in weeks): EDC: Hx Hx Para Hx Section SAB No 02/23/25 12:28 Active Medications Active Medications: Current Medications Generic Name Dose Route Start Last Admin Trade Name Freq PRN Reason Stop Dose Admin Lactated Ringer's 1,000 mls @ 15 mls/hr 02/24/25 07:15 02/24/25 07:12 IV 15 mls/hr .Q48H KIT Administration PFSH Medical History Alcohol use Former smoker Normal Holter exam History of echocardiogram Cardiology follow-up encounter Hypertension Home Medications ?Medication ?Instructions ?Recorded ?Last Taken ?Type losartan 50 mg-hydrochlorothiazide 1 tab PO DAILY 01/13/19 02/23/25 History 12.5 mg tablet aspirin-caffeine 500 mg-32.5 mg 2 tab PO QDAY PRN pain 12/10/24 02/23/25 History tablet (Eric Back and Body) multivitamin 1 tab PO QDAY 12/10/24 02/22/25 History rosuvastatin 5 mg tablet 5 mg PO QDAY 12/10/24 02/23/25 History Allergy/AdvReac Type Severity Reaction Status Date / Time No Known Allergies Allergy Verified 02/24/25 07:07 Family History Father Alcoholism Myocardial infarction Heart disease Hypertension Melanoma CVA (cerebral vascular accident) Surgical History History of anal fistulotomy Hx of colonoscopy Social History Smoking Status: Former smoker alcohol intake: current alcohol intake frequency: a few times a month Alcohol type: beer substance use type: does not use what type of physical activity do you participate in: walking Review of Systems (Anesthesia) ROS Narrative System reviewed and no additional complaints, except as documented.
--- NOTE | 2025-02-24 07:19 | PCM.PRE.AN2 ---
ASA Classification* ASA Classification ASA Classification: 2 Assessment & Plan Anesthesia* Anesthesia Assessment Anesthesia Assessment: Discussed sedation and/or anesthesia options, risks, benefits, and alternatives with patient/parents/legal guardian/POA. Questions invited. The patient/parents/legal guardian/POA seems to understand and agrees to proceed with anesthesia plan. Reviewed the physical assessment, medical history, allergy history and patient home medications list prior to surgery/procedure/anesthetic and documented any changes. Performed airway and anesthesia risk assessments. Anesthesia Type Anesthesia Type: MAC History Source History Obtained from:: Patient and Chart Anesthesia Focused Assessment* Temperature: 98 F Pulse Rate: 73 Blood Pressure: 124/81 Respiratory Rate: 16 Pulse Ox: 99 Oxygen Delivery Method: Room Air Airway Assessment Mouth opens: 2 cm Mallampati Score: III Teeth Condition: Intact Neck Range of motion (ROM): Limited ROM Comment: Limited extension Labs Anesthesia Preop lab: CBC WBC 9.4 K/mm3 (4.4-11.0) 09/28/24 06:00 09/28/24 RBC 5.25 M/mm3 (4.6-6.2) 09/28/24 06:00 09/28/24 Hgb 16.2 g/dL (13.0-16.5) 09/28/24 06:00 09/28/24 Hct 46.2 % (40-54) 09/28/24 06:00 09/28/24 Plt Count 337 K/mm3 (150-450) 09/28/24 06:00 09/28/24 CHEMISTRY Potassium 3.5 mmol/L (3.5-5.1) 09/28/24 06:00 09/28/24 Sodium 136 mmol/L (136-145) 09/28/24 06:00 09/28/24 BUN 14 mg/dL (7-18) 09/28/24 06:00 09/28/24 Creatinine 0.91 mg/dL (0.70-1.30) 09/28/24 06:00 09/28/24 Glucose 103 mg/dL (74-106) 09/28/24 06:00 09/28/24 TSH 0.570 uIU/mL (0.300-4.200) 01/07/25 14:15 01/07/25 COAG Pre-Assessment Diagnosis/Proposed Procedure Planned Operative Procedure(s): COLONOSCOPY Anesthesia History Anesthesia History - inventory manager: Anesthesia History - inventory manager Hx Hospitalization No 02/23/25 12:28 Any Problems With Anesthesia No 02/23/25 12:28 Cholinesterase deficiency No 02/23/25 12:28 You/Your Family Experience No 02/23/25 12:28 fever (hyperthermia) with Relationship Recent Exposure to Contagious No 02/24/25 07:08 Disease Does patient have nerve No 02/23/25 12:28 stimulator Patient instructed to have device shut off --Does patient have Pacemaker No 02/24/25 07:08 or ICD? When Was Last Pacemaker Check QUESTION #4 FULL TEXT: You/Your Family Experience fever (hyperthermia) with Anesthesia Last Oral Intake Last Oral intake: Last Oral Intake NPO since 04:30 02/24/25 07:08 Meds taken in AM with sips of No 02/24/25 07:08 water? Meds patient instructed to take am of surgery PONV PONV - inventory manager: PONV - inventory manager Female No 02/23/25 12:28 HX of Motion Sickness No 02/23/25 12:28 HX of N/V After Surgery No 02/23/25 12:28 Non-Smoker Yes 02/23/25 12:28 Duration of Surgery greater No 02/23/25 12:28 than 60 minutes Number of Risk Factors 1 02/23/25 12:28 PONV Score Low Risk 02/23/25 12:28 Height & Weight Height & Weight: Anesthesia: Height & Weight Height 5 ft 11 in 02/24/25 07:08 Weight: 86 kg 02/24/25 07:08 Body Mass Index (BMI) 26.4 02/24/25 07:08 Respiratory Assessment Respiratory Assessment - inventory manager: Respiratory Tract Infection Hx - inventory manager Hx Respiratory Tract Infection No 02/23/25 12:28 STOP Sleep Apnea STOP Sleep Apnea - inventory manager: STOP Sleep Apnea - inventory manager Hx Hypertension Yes: CONTROLLED ON MED 02/23/25 12:28 Hx Sleep Apnea No 02/23/25 12:28 CPAP BIPAP Do you snore loudly (louder No 02/23/25 12:28 than talking or can be heard Do you often feel tired/ No 02/23/25 12:28 fatigued/ sleepy during daytime? Has anyone observed you stop No 02/23/25 12:28 breathing during sleep? STOP Results Negative 02/23/25 12:28 QUESTION #5 FULL TEXT : Do you snore loudly (louder than talking or can be heard through closed doors)? 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 Specify any problems Hx of Preganancy in last 3 N/A 02/23/25 12:28 Months Nurse Filling Out Transfusion VCHRISTIN 02/23/25 12:28 & Questions: Date: 02/23/25 02/23/25 12:28 Time: 12:30 02/23/25 12:28 Patient unable to answer at this time (ie. confused, unrespo /Reproduction History /Reproductive History - inventory manager: /Reproductive Hx- inventory manager Hx Now No 02/23/25 12:28 Gestational Age (in weeks): EDC: Hx Hx Para Hx Section SAB No 02/23/25 12:28 Active Medications Active Medications: Current Medications Generic Name Dose Route Start Last Admin Trade Name Freq PRN Reason Stop Dose Admin Lactated Ringer's 1,000 mls @ 15 mls/hr 02/24/25 07:15 02/24/25 07:12 IV 15 mls/hr .Q48H KIT Administration PFSH Medical History Alcohol use Former smoker Normal Holter exam History of echocardiogram Cardiology follow-up encounter Hypertension Home Medications ?Medication ?Instructions ?Recorded ?Last Taken ?Type losartan 50 mg-hydrochlorothiazide 1 tab PO DAILY 01/13/19 02/23/25 History 12.5 mg tablet aspirin-caffeine 500 mg-32.5 mg 2 tab PO QDAY PRN pain 12/10/24 02/23/25 History tablet (Eric Back and Body) multivitamin 1 tab PO QDAY 12/10/24 02/22/25 History rosuvastatin 5 mg tablet 5 mg PO QDAY 12/10/24 02/23/25 History Allergy/AdvReac Type Severity Reaction Status Date / Time No Known Allergies Allergy Verified 02/24/25 07:07 Family History Father Alcoholism Myocardial infarction Heart disease Hypertension Melanoma CVA (cerebral vascular accident) Surgical History History of anal fistulotomy Hx of colonoscopy Social History Smoking Status: Former smoker alcohol intake: current alcohol intake frequency: a few times a month Alcohol type: beer substance use type: does not use what type of physical activity do you participate in: walking Review of Systems (Anesthesia) ROS Narrative System reviewed and no additional complaints, except as documented.
--- NOTE | 2025-02-24 07:20 | PCM.HP.STD ---
HPI - General General Date of Admission: 02/24/25 Date of Service: 02/24/25 Chief Complaint: diarrhea HPI Narrative ANGEL MESA, is a 59 M who presents with the Chief Complaint: diarrhea - typically he is a one and done - couple months ago he decided he wanted to cut some weight and this is when diarrhea started - diarrhea is random, up to 5x a day, but can go up to 9x a day - if he wakes in the middle of the night if he wakes - lower abdominal cramping - denies any formed stools, not all liquid, [place] 5 to 6 - changed diet - quit drinking as much beer - denies any recent travel - Metamucil and Align did not help - denies any bleeding - weight loss of 17lbs - COLON 5 years ago - reports this was normal - denies any family h/o colon CA - He really does not want to have another colonoscopy - He is requesting any testing be done prior to proceeding with a colonoscopy - denies any HB - denies any N/V PFSH Medical History Alcohol use Former smoker Normal Holter exam History of echocardiogram Cardiology follow-up encounter Hypertension Home Medications ?Medication ?Instructions ?Recorded ?Last Taken ?Type losartan 50 mg-hydrochlorothiazide 1 tab PO DAILY 01/13/19 02/23/25 History 12.5 mg tablet aspirin-caffeine 500 mg-32.5 mg 2 tab PO QDAY PRN pain 12/10/24 02/23/25 History tablet (Eric [employer]) multivitamin 1 tab PO QDAY 12/10/24 02/22/25 History rosuvastatin 5 mg tablet 5 mg PO QDAY 12/10/24 02/23/25 History Allergy/AdvReac Type Severity Reaction Status Date / Time No Known Allergies Allergy Verified 02/24/25 07:07 Family History Father Alcoholism Myocardial infarction Heart disease Hypertension Melanoma CVA (cerebral vascular accident) Surgical History History of anal fistulotomy Hx of colonoscopy Social History Smoking Status: Former smoker alcohol intake: current alcohol intake frequency: a few times a month Alcohol type: beer substance use type: does not use what type of physical activity do you participate in: walking ROS Constitutional Constitutional: Denies fatigue, fever(s), poor appetite, weight gain or weight loss Gastrointestinal Gastrointestinal: Denies belching, bloating, change in bowel habits, change in stool character, chewing difficulty, coffee ground emesis, constipation, cramping, diarrhea, dyspepsia, dysphagia, early satiety, excessive flatus, fecal incontinence, heartburn, hematemesis, hematochezia, hemorrhoids, loose stools, melena, nausea, odynophagia, rectal bleeding, tenesmus, vomiting or weight changes Vital Signs Vital Signs Vital Signs: 02/24/25 07:08 02/24/25 07:08 Temperature 98 F Temperature Source Temporal Pulse Rate 73 Respiratory Rate 16 Respiratory Pattern Normal Blood Pressure 124/81 H Blood Pressure Mean 95 Blood Pressure Source Monitor Blood Pressure Position Semi-Fowlers Blood Pressure Location Left Arm Pulse Ox 99 Oxygen Delivery Method Room Air Weight Weight: 189 lb 9.561 oz Body Mass Index (BMI) 26.4 Physical Exam Const alert, oriented x3, no apparent distress and healthy appearing General Appearance: cooperative GI normal to inspection, nondistended, normoactive bowel sounds, soft to palpation, non-tender and non-distended Percussion: normal to percussion Rectal Exam: deferred Assessment & Plan Assessment/Plan (1) Diarrhea: (2) Weight loss: PLAN: Assessment and Plan Assessment and Plan (1) Diarrhea: Qualifiers: Diarrhea type: unspecified type Qualified Code(s): R19.7 - Diarrhea, unspecified Medications: Discontinued naproxen Discontinued Reason: Pt no longer taking 500 mg PO BID PRN 20 tabs Plan 59-year-old male presents for consultation with complaints of frequent diarrhea x 2 months. Stools changed when he initially made some dietary changes to promote weight loss. He denies any new medications. He reports a weight loss of 17 pounds in the past 2 months, but notes this was intentional with dietary modifications. He denies any improvement with Metamucil and align x 1 month. Denies any recent travel. He reports his last colonoscopy was normal 5 years ago. He is having up to 9 stools a day and reports episodes of diarrhea even after drinking water. I have ordered stool testing to rule out an infectious pathogen, H. pylori and assess for inflammation with a fecal calprotectin. If stool testing is negative I will treat him with a course of rifaximin and if symptoms are persisting we will proceed with colonoscopy. Patient Instructions: Complete stool testing Florastor probiotic twice a day If stool tetsing is negative will treat with Xifaxan 550mg TID x14 days and schedule Colonoscopy with SuTab
--- NOTE | 2025-02-24 08:00 | COLBX_PTH ---
PATIENT: ANGEL MESA LOC: EN U#:[id number] AGE/SX: 59/M ROOM: RE02/24/[address]: Dr. Jun Collins DO : 1965 BED: DIS: 02/24/2025 SPEC #: [id number] RECD: 02/24/25 12:27 STATUS: JODIE RERobert #: [id number] EDGAR: 02/24/25 08:[address]: Jun Collins DEPT: SURGICAL PATHOLOGY RECD BY: Andrea Stevenson ENTERED: 02/24/25 14:39 SP TYPE: COLON BX YAEL DR: Dr. Clair Perry DO Tissues: A - Ileum, NOS B - COLON BIOPSY Procedures: Surgery Specimen Level IV HEADER OPERATION: Colonoscopy with biopsy PRE-OP DIAGNOSIS: Diarrhea, weight loss TISSUE SUBMITTED: A- Terminal ileum biopsy, B- Random colon biopsy MICROSCOPIC DIAGNOSIS A. Small intestine, terminal ileum, biopsy: * Small bowel mucosa with no pathologic change B. Colon, random biopsy: * Colonic mucosa with no pathologic change MICROSCOPIC DESCRIPTION Slides are reviewed. GROSS DESCRIPTION A. Received in fixative is one container labeled with the patient's name and designated Terminal ileum biopsy. The specimen consists of two irregular fragments of light riggins soft tissue that in aggregate measure 0.5 and 0.9 cm. The specimen is totally submitted in one cassette. B. Received in fixative is one container labeled with the patient's name and designated Random colon biopsy. The specimen consists of multiple irregular fragments of light riggins soft tissue that in aggregate measure 1.5 x 0.5 x 0.2 cm. The specimen is totally submitted in one cassette. Demian 02/24/2025 CPT:57557t4
--- NOTE | 2025-02-24 08:00 | COLBX_PTH ---
PATIENT: ANGEL MESA LOC: EN U#:[id number] AGE/SX: 59/M ROOM: RE02/24/[address]: Dr. Jun Collins DO : 1965 BED: DIS: 02/24/2025 SPEC #: [id number] RECD: 02/24/25 12:27 STATUS: JODIE RERobert #: [id number] EDGAR: 02/24/25 08:[address]: Jun Collins DEPT: SURGICAL PATHOLOGY RECD BY: Andrea Stevenson ENTERED: 02/24/25 14:39 SP TYPE: COLON BX YAEL DR: Dr. Clair Perry DO Tissues: A - Ileum, NOS B - COLON BIOPSY Procedures: Surgery Specimen Level IV HEADER OPERATION: Colonoscopy with biopsy PRE-OP DIAGNOSIS: Diarrhea, weight loss TISSUE SUBMITTED: A- Terminal ileum biopsy, B- Random colon biopsy MICROSCOPIC DIAGNOSIS A. Small intestine, terminal ileum, biopsy: * Small bowel mucosa with no pathologic change B. Colon, random biopsy: * Colonic mucosa with no pathologic change MICROSCOPIC DESCRIPTION Slides are reviewed. GROSS DESCRIPTION A. Received in fixative is one container labeled with the patient's name and designated Terminal ileum biopsy. The specimen consists of two irregular fragments of light riggins soft tissue that in aggregate measure 0.5 and 0.9 cm. The specimen is totally submitted in one cassette. B. Received in fixative is one container labeled with the patient's name and designated Random colon biopsy. The specimen consists of multiple irregular fragments of light riggins soft tissue that in aggregate measure 1.5 x 0.5 x 0.2 cm. The specimen is totally submitted in one cassette. Demian 02/24/2025 CPT:99566q7
--- NOTE | 2025-02-24 08:34 | PCM.POST.ANE ---
Anesthesia: Postop Eval I Current Vital Signs Temperature: 97.2 F Pulse Rate: 60 Blood Pressure: 103/61 Respiratory Rate: 16 Pulse Ox: 97 Oxygen Delivery Method: Room Air Assessment Airway patent: Yes Spontaneous unlabored respirations: Yes Mental status: Asleep nausea: No Vomiting: No Anesthesia Complication: No Fluid Hydration Crystalloid volume administer (ml): 600 Total IV fluid infused: 600 Progress Note Anesthesia document: Postop Eval 1 completed: Yes
--- NOTE | 2025-02-24 08:40 | OP.COLON_ITS ---
Patient Name: Robert Starks Procedure Date: 02/24/2025 7:57 AM Date of : 1965 Age: 59 Procedure: Colonoscopy Indications: Clinically significant diarrhea of unexplained origin Providers: Jun Collins DO Referring MD: Clair Perry Medicines: Monitored Anesthesia Care Patient Profile: This is a 59 year old male. Refer to note in patient chart for documentation of history and physical. Last Colonoscopy: several years ago. Complications: No immediate complications. Procedure: Pre-Anesthesia Assessment: - Prior to the procedure, a History and Physical was performed, and patient medications and allergies were reviewed. The patient is competent. The risks and benefits of the procedure and the sedation options and risks were discussed with the patient. All questions were answered and informed consent was obtained. Patient identification and proposed procedure were verified by the physician in the pre-procedure area. Mental Status Examination: alert and oriented. Airway Examination: normal oropharyngeal airway and neck mobility. Respiratory Examination: clear to auscultation. CV Examination: normal. Prophylactic Antibiotics: The patient does not require prophylactic antibiotics. Prior Anticoagulants: The patient has taken no anticoagulant or antiplatelet agents except for NSAID medication. ASA Grade Assessment: II - A patient with mild systemic disease. After reviewing the risks and benefits, the patient was deemed in satisfactory condition to undergo the procedure. The anesthesia plan was to use monitored anesthesia care (MAC). Immediately prior to administration of medications, the patient was re-assessed for adequacy to receive sedatives. The heart rate, respiratory rate, oxygen saturations, blood pressure, adequacy of pulmonary ventilation, and response to care were monitored throughout the procedure. The physical status of the patient was re-assessed after the procedure. After I obtained informed consent, the scope was passed under direct vision. Throughout the procedure, the patient's blood pressure, pulse, and oxygen saturations were monitored continuously. The Colonoscope was introduced through the anus and advanced to the terminal ileum. The colonoscopy was performed without difficulty. The patient tolerated the procedure well. The quality of the bowel preparation was adequate. The terminal ileum, ileocecal valve, appendiceal orifice, and rectum were photographed. Scope In: 8:10:25 AM Scope Withdrawal Time 0 hours 10 minutes 56 seconds Scope Out: 8:26:09 AM Total Procedure Duration Time 0 hours 15 minutes 44 seconds Findings: The perianal and digital rectal examinations were normal. An area of mildly congested mucosa was found in the recto-sigmoid colon, in the sigmoid colon, at the hepatic flexure and in the ascending colon. Biopsies were taken with a cold forceps for histology. Verification of patient identification for the specimen was done. Estimated blood loss was minimal. The terminal ileum appeared normal. Biopsies were taken with a cold forceps for histology. Verification of patient identification for the specimen was done. Estimated blood loss was minimal. Impression: - Congested mucosa in the recto-sigmoid colon, in the sigmoid colon, at the hepatic flexure and in the ascending colon. Biopsied. - The examined portion of the ileum was normal. Biopsied. Recommendation: - Discharge patient to home. - Resume previous diet. - Continue present medications. - Await pathology results. - Repeat colonoscopy for surveillance based on pathology results. Procedure Code(s): --- Professional --- 28101, Colonoscopy, flexible; with biopsy, single or multiple CPT copyright 2021 [employer]. All rights reserved. The codes documented in this report are preliminary and upon chair post machine operator review may be revised to meet current compliance requirements. Jun Collins DO 02/24/2025 8:40:15 AM This report has been signed electronically. Number of Addenda: 0 Note Initiated On: 02/24/2025 7:57 AM
--- NOTE | 2025-02-24 08:40 | OP.CCLET_ITS ---
02/24/2025 Clair Perry [address] [place] [address] Re : Colonoscopy procedure for Robert Starks Dear Dr. Perry This procedure was performed on February. My impressions and recommendations are as follows: Impressions : - Congested mucosa in the recto-sigmoid colon, in the sigmoid colon, at the hepatic flexure and in the ascending colon. Biopsied. - The examined portion of the ileum was normal. Biopsied. Recommendations : - Discharge patient to home. - Resume previous diet. - Continue present medications. - Await pathology results. - Repeat colonoscopy for surveillance based on pathology results. My findings are described in the full procedure note, which is enclosed. If I can be of further assistance, please feel free to contact me at . Sincerely, Jun Collins, 02/24/2025 8:40:15 AM This report has been signed electronically.
--- NOTE | 2025-02-24 08:40 | OP.COLON_ITS ---
Patient Name: Robert Starks Procedure Date: 02/24/2025 7:57 AM Date of : 1965 Age: 59 Procedure: Colonoscopy Indications: Clinically significant diarrhea of unexplained origin Providers: Jun Collins DO Referring MD: Clair Perry Medicines: Monitored Anesthesia Care Patient Profile: This is a 59 year old male. Refer to note in patient chart for documentation of history and physical. Last Colonoscopy: several years ago. Complications: No immediate complications. Procedure: Pre-Anesthesia Assessment: - Prior to the procedure, a History and Physical was performed, and patient medications and allergies were reviewed. The patient is competent. The risks and benefits of the procedure and the sedation options and risks were discussed with the patient. All questions were answered and informed consent was obtained. Patient identification and proposed procedure were verified by the physician in the pre-procedure area. Mental Status Examination: alert and oriented. Airway Examination: normal oropharyngeal airway and neck mobility. Respiratory Examination: clear to auscultation. CV Examination: normal. Prophylactic Antibiotics: The patient does not require prophylactic antibiotics. Prior Anticoagulants: The patient has taken no anticoagulant or antiplatelet agents except for NSAID medication. ASA Grade Assessment: II - A patient with mild systemic disease. After reviewing the risks and benefits, the patient was deemed in satisfactory condition to undergo the procedure. The anesthesia plan was to use monitored anesthesia care (MAC). Immediately prior to administration of medications, the patient was re-assessed for adequacy to receive sedatives. The heart rate, respiratory rate, oxygen saturations, blood pressure, adequacy of pulmonary ventilation, and response to care were monitored throughout the procedure. The physical status of the patient was re-assessed after the procedure. After I obtained informed consent, the scope was passed under direct vision. Throughout the procedure, the patient's blood pressure, pulse, and oxygen saturations were monitored continuously. The Colonoscope was introduced through the anus and advanced to the terminal ileum. The colonoscopy was performed without difficulty. The patient tolerated the procedure well. The quality of the bowel preparation was adequate. The terminal ileum, ileocecal valve, appendiceal orifice, and rectum were photographed. Scope In: 8:10:25 AM Scope Withdrawal Time 0 hours 10 minutes 56 seconds Scope Out: 8:26:09 AM Total Procedure Duration Time 0 hours 15 minutes 44 seconds Findings: The perianal and digital rectal examinations were normal. An area of mildly congested mucosa was found in the recto-sigmoid colon, in the sigmoid colon, at the hepatic flexure and in the ascending colon. Biopsies were taken with a cold forceps for histology. Verification of patient identification for the specimen was done. Estimated blood loss was minimal. The terminal ileum appeared normal. Biopsies were taken with a cold forceps for histology. Verification of patient identification for the specimen was done. Estimated blood loss was minimal. Impression: - Congested mucosa in the recto-sigmoid colon, in the sigmoid colon, at the hepatic flexure and in the ascending colon. Biopsied. - The examined portion of the ileum was normal. Biopsied. Recommendation: - Discharge patient to home. - Resume previous diet. - Continue present medications. - Await pathology results. - Repeat colonoscopy for surveillance based on pathology results. Procedure Code(s): --- Professional --- 29058, Colonoscopy, flexible; with biopsy, single or multiple CPT copyright 2021 [employer]. All rights reserved. The codes documented in this report are preliminary and upon putty maker review may be revised to meet current compliance requirements. Jun Collins DO 02/24/2025 8:40:15 AM This report has been signed electronically. Number of Addenda: 0 Note Initiated On: 02/24/2025 7:57 AM
--- NOTE | 2025-02-24 08:40 | OP.CCLET_ITS ---
02/24/2025 Clair Perry [address] [place] [address] Re : Colonoscopy procedure for Robert Straks Dear Dr. Perry This procedure was performed on February. My impressions and recommendations are as follows: Impressions : - Congested mucosa in the recto-sigmoid colon, in the sigmoid colon, at the hepatic flexure and in the ascending colon. Biopsied. - The examined portion of the ileum was normal. Biopsied. Recommendations : - Discharge patient to home. - Resume previous diet. - Continue present medications. - Await pathology results. - Repeat colonoscopy for surveillance based on pathology results. My findings are described in the full procedure note, which is enclosed. If I can be of further assistance, please feel free to contact me at . Sincerely, Jun Collins, 02/24/2025 8:40:15 AM This report has been signed electronically.
--- NOTE | 2025-02-24 09:48 | PCM.POSTANE2 ---
Anesthesia Postop Eval I Sum Postop Eval Completion status Anesthesia document: Postop Eval 1 completed: Yes Anesthesia Postop Eval I Summary Anesthesia Postop Eval I Summary: Anesthesia Postop Eval I: Assessment Summary Airway patent Yes 02/24/25 08:35 [email or web address] Spontaneous unlabored Yes 02/24/25 08:35 [email or web address] respirations Mental status Asleep 02/24/25 08:35 [email or web address] nausea No 02/24/25 08:35 [email or web address] Vomiting No 02/24/25 08:35 [email or web address] Anesthesia Postop Eval I: Fluid Summary Crystalloid volume administer 600 02/24/25 08:35 [email or web address] (ml) Colloids volume administered ( ml) Blood Product volume administered (ml) Total IV fluid infused 600 02/24/25 08:35 [email or web address] Anesthesia Postop Eval I: Summary Notes Anesthesia Complication No 02/24/25 08:35 [email or web address] Anesthesia Complication Comment: Post-operative progress note Anesthesia: Postop Eval II Evaluation Mental status: Awake and Calm Pain Level: 0 nausea: No Vomiting: No Complications Anesthesia Complication: No
== END 2025-02-24 09:13 | disposition home or self-care (01) ==
LOC: EN 06:56 → AC 06:57
PROVIDERS: PCP Internal Medicine; Referring Provider Internal Medicine; Visit Provider Internal Medicine Gastroenterology
PROC: 0DJD8ZZ Inspection of Lower Intestinal Tract, Via Natural or Artificial Opening Endoscopic (ICD-10-PCS; CPT 45378; principal; 2025-02-24 07:55)
DX: K63.89 Other specified diseases of intestine (principal); Z87.891 Personal history of nicotine dependence; I10 Essential (primary) hypertension; Z79.899 Other long term (current) drug therapy; Z79.82 Long term (current) use of aspirin; R19.7 Diarrhea, unspecified
CPT/HCPCS: 45380; 88305; J2405